=== PATIENT | male | born 1970 | race Caucasian/White ===

== ENCOUNTER 2017-05-25 18:23 | Emergency (ER) | payer MEDICAID, SELFPAY ==
[2017-05-25 18:24] VITALS: BP 149/72; PULSE 71; RESP 16; TEMP 37.3; O2SAT 97; BMI 34.0
--- NOTE | 2017-05-25 18:31 | ED.RN ---
SO NOTIFIED AND WILL SEND AVAILABLE OFFICER.
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
[2017-05-25 19:08] LABS: Absolute Lymphocyte Count 1.69 X10^3/ul (0.83-4.51); Absolute Neutrophil Count 4.1 X10^3/uL (2.0-7.7); Basophil# 0.02 X10^3/uL; Basophil% 0.3 % (0-1); Eosinophils% 1.6 % (0-5); Hematocrit 45.9 % (40-54); Hemoglobin 15.6 g/dl (13.0-16.5); Lymphocyte # 1.69 X10^3/ul (4.0); Lymphocyte % 26.2 % (19-41); Mean Corpuscular Hgb 30.2 pg (27.0-32.0); Mean Corpuscular Volume 88.8 fL (80-94); Mean Platelet Vol. 9.9 fl (6.2-12.0); Monocyte% 7.8 % (0-10); Neutrophil # 4.12 X10^3/uL (2.7-7.7); Neutrophil % 63.8 % (47-70); Platelet Count 186 K/mm3 (150-450); RBC Distribution Width SD 45.1 fl (35.1-43.9); Red Blood Count 5.17 M/mm3 (4.6-6.2); White Blood Count 6.5 K/mm3 (4.4-11.0)
[2017-05-25 19:10] LABS: POSITIVE COUNT NO; POSITIVE DIFFERENTIAL NO; POSITIVE MORPHOLOGY NO
[2017-05-25 19:17] LABS: Prothrombin Time (Protime)PT. 12.7 SECONDS (11.7-14.9)
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
[2017-05-25 19:27] LABS: BUN 9 mg/dL (7-18); EST Glomerular Filtration Rate 96 mL/min (>60); Estimated Creatinine Clearance 101.47 ml/min; Glucose 103 mg/dL (74-106)
[2017-05-25 19:28] LABS: AST(SGOT) 14 U/L (15-37); Alanine Aminotransfer ALT/SGPT 29 U/L (16-61); Albumin, Serum 3.8 g/dL (3.2-5.0); Alkaline Phosphatase 58 U/L (45-117); Anion Gap 11 (5-15); Calcium,Total 8.6 mg/dL (8.5-10.1); Chloride 104 mmol/L (98-107); Est Glom Filt Rate - Afr Amer 116 mL/min (>60); Potassium 3.7 mmol/L (3.5-5.1); Protein, Total 7.8 g/dL (6.4-8.2); Sodium Level 137 mmol/L (136-145)
[2017-05-25] MEDS: Ondansetron 4 MG/2 ML Vial IV (19:59)
[2017-05-25 20:39] VITALS: BP 138/79; PULSE 60; RESP 16; O2SAT 95
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
[2017-05-25 20:57] VITALS: PULSE 68; RESP 14; O2SAT 98
== END 2017-05-25 20:57 | disposition home or self-care (01) ==
PROVIDERS: Emergency Provider Emergency Medicine; Family Provider Pediatrics; PCP Pediatrics
DX: S00.83XA Contusion of other part of head, initial encounter (principal); S20.219A Contusion of unspecified front wall of thorax, initial encounter; S30.1XXA Contusion of abdominal wall, initial encounter; S63.501A Unspecified sprain of right wrist, initial encounter; S00.81XA Abrasion of other part of head, initial encounter; K21.9 Gastro-esophageal reflux disease without esophagitis; I10 Essential (primary) hypertension; E78.00 Pure hypercholesterolemia, unspecified; Z72.0 Tobacco use; Z79.899 Other long term (current) drug therapy; Y04.2XXA Assault by strike against or bumped into by another person, initial encounter; Y93.89 Activity, other specified; Y92.89 Other specified places as the place of occurrence of the external cause; Y99.8 Other external cause status
CPT/HCPCS: 70450; 70486; 71260; 72125; 73110; 74177; 80053; 80320; 85025; 85610; 96374; 96375; 99284; Q9967; A4216; G0480; J2405

== ENCOUNTER 2017-06-29 03:15 | Observation (INO) | payer MEDICAID, SELFPAY ==
[2017-06-29] VITALS (34 sets, daily range): BP systolic 105–165; BP diastolic 60–98; PULSE 57–75; RESP 13–21; TEMP 36.7–37.2; O2SAT 95–99; BMI 38.2; BMI 36.2
--- NOTE | 2017-06-29 03:23 | EKG12_ITS ---
Test Reason : Blood Pressure : / mmHG Vent. Rate : 059 BPM Atrial Rate : 059 BPM P-R Int : 204 ms QRS Dur : 092 ms QT Int : 424 ms P-R-T Axes : 045 028 022 degrees QTc Int : 419 ms Sinus bradycardia Otherwise normal ECG Confirmed by BILLY SEXTON, DANII ([id number]), multimedia editor CLEVE JONES ([id number]) on 06/29/2017 2:40:28 PM Referred By: GREGORY Confirmed By:DANII CERVANTES MD
--- NOTE | 2017-06-29 03:23 | RAD_ITS ---
STUDY: X-RAY CHEST REASON FOR EXAM: Male, 47 years old. Headache left facial droop, numbness and tingling slurred speech aren't seen. No resolved. TECHNIQUE: Single AP portable view of the chest. COMPARISON: CT chest 05/25/2017 FINDINGS: There are superimposed monitor leads. The lungs are clear and expanded. There are areas of hyperinflation.Normal size heart. Normal mediastinum and candelaria. Normal visualized pulmonary arteries. Normal visualized aortic arch and descending thoracic aorta. Normal visualized thoracic spine. Normal visualized ribs, clavicles, and shoulders. There is no demonstrated abnormality of the visualized soft tissue structures of the upper abdomen. RAD/Chest 1 View IMPRESSION: No acute cardiopulmonary disease. Stable hyperinflation predominating the upper lung parenchyma. No significant interval change. Electronically Signed: Geno Grimes MD at 4:51 EDT , Service support ,
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
[2017-06-29 03:40] LABS: Absolute Lymphocyte Count 2.61 X10^3/ul (0.83-4.51); Absolute Neutrophil Count 4.2 X10^3/uL (2.0-7.7); Basophil# 0.03 X10^3/uL; Basophil% 0.4 % (0-1); Eosinophil# 0.15 X10^3/uL; Eosinophils% 1.9 % (0-5); Hematocrit 42.5 % (40-54); Hemoglobin 14.7 g/dl (13.0-16.5); Lymphocyte # 2.61 X10^3/ul (4.0); Lymphocyte % 33.8 % (19-41); Mean Corp Hgb Conc 34.6 g/gl (32-36); Mean Corpuscular Hgb 30.4 pg (27.0-32.0); Mean Corpuscular Volume 87.8 fL (80-94); Mean Platelet Vol. 9.7 fl (6.2-12.0); Monocyte# 0.74 X10^3/uL; Monocyte% 9.6 % (0-10); Neutrophil # 4.18 X10^3/uL (2.7-7.7); POSITIVE COUNT NO; POSITIVE DIFFERENTIAL NO; POSITIVE MORPHOLOGY NO; Platelet Count 175 K/mm3 (150-450); RBC Distribution Width CV 13.9 % (11.6-14.6); RBC Distribution Width SD 44.3 fl (35.1-43.9); Red Blood Count 4.84 M/mm3 (4.6-6.2); White Blood Count 7.7 K/mm3 (4.4-11.0)
[2017-06-29] MEDS: Acetaminophen 500 MG Tablet 1000 MG PO (03:42)
[2017-06-29 03:43] LABS: International Normalized Ratio 0.9; Prothrombin Time (Protime)PT. 12.3 SECONDS (11.7-14.9)
[2017-06-29 03:44] LABS: Partial Thromboplast Time 26.9 Seconds (24.1-36.2)
[2017-06-29 03:58] LABS: Anion Gap 10 (5-15); BUN 9 mg/dL (7-18); Chloride 107 mmol/L (98-107); Creatinine, Serum 0.82 mg/dL (0.70-1.30); EST Glomerular Filtration Rate 107 mL/min (>60); Est Glom Filt Rate - Afr Amer 130 mL/min (>60); Estimated Creatinine Clearance 106.59 ml/min; Glucose 101 mg/dL (74-106); Potassium 3.3 mmol/L (3.5-5.1); Sodium Level 141 mmol/L (136-145)
[2017-06-29] MEDS: Ketorolac 30 MG/ML Syringe IV (04:28)
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
[2017-06-29 05:57] LABS: Amphetamine Urine VISTA NEGATIVE (<1000 ng/mL); Barbiturate Urine VISTA NEGATIVE (< 200 ng/mL); Benzodiazepine Urine VISTA NEGATIVE (< 200 ng/mL); Cocaine Urine VISTA NEGATIVE (< 300 ng/mL); Ecstacy Urine VISTA NEGATIVE (< 500 ng/mL); Methadone Urine VISTA NEGATIVE (< 300 ng/mL); PCP Urine VISTA NEGATIVE (< 25 ng/mL); THC Urine VISTA NEGATIVE (< 50 ng/mL); Vista UDS pH Range 6
[2017-06-29] MEDS: Morphine 4 MG/ML Syringe IV (06:31)
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
[2017-06-29] MEDS: 0.9% Normal Saline 1,000 ML 999 ML IV (06:50)
[2017-06-29] MEDS: Aspirin 81 MG TAB.CHEW 324 MG PO (06:53)
[2017-06-29] MEDS: HEPARIN/D5w 25,000 UNITS 25,000 UNITS/250 ML IV.SOLN. 15 UNITS IV (06:55)
[2017-06-29 07:15] LABS: Bedside Glucose 109 mg/dL (70-110)
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
--- NOTE | 2017-06-29 07:53 | MRI_ITS ---
STUDY: MRI BRAIN WITHOUT CONTRAST REASON FOR EXAM: Male, 47 years old. Acute onset of left-sided facial numbness. TECHNIQUE: Standardized multiplanar fat and water weighted pulse sequences were obtained. COMPARISON: CT of the head dated June 29, 2017. FINDINGS: Normal size of the ventricles and extra-axial spaces for the patient's age. Normal white matter tracts of the supratentorial brain. There is no evidence for recent intracranial ischemia or other cause of cytotoxic edema on diffusion weighted imaging (DWI). Normal T2* images of the brain without demonstrated susceptibility artifact. There is no demonstrated hemosiderin stain. There are prominent perivascular spaces (PVS) involving the basal ganglia. Normal thalami. There is no extra-axial fluid accumulation. Normal flow voids within the major intracranial circulation suggesting patency by spin echo criteria. Normal sella turcica, pituitary gland, infundibular stalk, optic chiasm and hypothalamus. Normal tectal plate and pineal gland. Normal midbrain, nahum and medulla. Normal cerebellum. Normal basal cisterns. Normal bilateral temporal bones. Normal bilateral internal auditory canals. No demonstrated orbital abnormality, within the constraints of a routine brain study. There is mucoperiosteal inflammatory disease of the paranasal sinuses consistent with mild chronic sinusitis. Normal calvarium and skull base. Normal visualized soft tissue structures. Normal visualized upper cervical spine. MRI/Brain without Contrast IMPRESSION: 1. Normal unenhanced MRI of the brain. 2. No MR evidence for acute infarct. Electronically Signed: Ellen Rodriguez MD at 10:49 EDT , Service support ,
--- NOTE | 2017-06-29 07:53 | ECHOD_ITS ---
Reason For Study: TIA/CVA Procedure This was a 2D Doppler, Color Flow transthoracic echocardiogram. Exam performed portable in ICU/CCU. Left Ventricle Normal LV size. Left ventricular systolic function is normal. The estimated ejection fraction is 60 %. No regional wall motion abnormalities noted. Right Ventricle Normal RV size. Normal systolic function. Atria Normal left atrium. Normal right atrium. Bubble contrast study negative for right to left interatrial shunt. Mitral Valve Normal mitral valve. Tricuspid Valve Normal tricuspid valve. Unable to estimate RV systolic pressure, pulmonary artery pressure probably normal. Aortic Valve Normal aortic valve. Trisinus/trileaflet aortic valve. Pulmonic Valve Normal pulmonic valve. Mild (1+) pulmonic valve insufficiency. Great Vessels Normal aortic root. The pulmonary artery is normal size. Normal inferior vena cava. Pericardium/Pleural No pericardial effusion. Medication Performed a rapid injection of agitated mix of 9 cc saline and 1cc air to assess for atrial septal defect. MMode/2D Measurements & Calculations LVIDd: 4.8 cm IVSd: 1.1 cm Ao root diam: 3.5 cm LVIDs: 3.3 cm LVPWd: 1.1 cm LA dimension: 3.8 cm RVDd: 4.3 cm FS: 30.9 % LAV(MOD-bp): 54.1 ml EDV(MOD-sp4): 126.3 ml EDV(MOD-sp2): 152.1 ml LAV(MOD-bp) Indexed: 24.3 ml/m2 ESV(MOD-sp4): 51.0 ml EF(MOD-sp2): 62.0 % LAV(MOD-sp2): 51.7 ml EF(MOD-sp4): 59.6 % LAV(MOD-sp4): 52.5 ml SV(MOD-sp4): 75.3 ml SV(MOD-sp2): 94.3 ml LA A4 area: 19.7 cm2 RA A4 area: 15.6 cm2 Doppler Measurements & Calculations MV E max ghazala: 117.5 cm/sec Ao V2 max: 135.1 cm/sec LV V1 max: 123.0 cm/sec MV A max ghazala: 54.4 cm/sec Ao max P.3 mmHg LV V1 max P.1 mmHg MV E/A: 2.2 Interpretation Summary Normal LV size. Left ventricular systolic function is normal. The estimated ejection fraction is 60 %. No regional wall motion abnormalities noted. Bubble contrast study negative for right to left interatrial shunt. Structurally normal valves. Ordering Physician: Bernice West Referring Physician: TOBY TRAVIS Performed By: Ibeth Henning, WISAM, RVT
--- NOTE | 2017-06-29 07:59 | PCM.CON.CC ---
Reason for Consult Date of Consultation: 06/29/17 Reason for Consultation: Questionable CVA History of Present Illness: The patient is a 47-year-old male, with a history as outlined below, who presented to the emergency department on June 29 after awakening with dysarthria, left facial droop and left-sided weakness. The patient reports that his symptoms initially began around 0200 hrs. He reports never having experienced anything similar to this previously. He does have a history of paroxysmal atrial fibrillation for which he is on a beta-mark. He does report a daily smoking history. He does not utilize supplemental oxygen at his baseline. He also has a self-reported history of obstructive sleep apnea. He does endorse the presence of a headache, which has been present since yesterday afternoon. On presentation to the emergency department, the patient was noted to be afebrile and hemodynamically stable. He was maintaining appropriate oxygen saturations on room air. Laboratory evaluation revealed no evidence of a leukocytosis. Coagulation profile is within normal limits. Chemistry profile was notable only for a serum potassium level of 3.3. Troponin was negative. Toxicology screen revealed an ethyl alcohol level of 203. Head CT revealed no acute intracranial findings. Plain film chest x-ray revealed hyperinflated lung lieberman without acute infiltrative process. CTA head and neck was also completed without any hemodynamically significant stenosis noted. The patient's case was discussed with neurology, with recommendations for TPA administration. However, the patient refused to allow for administration. He was then transferred to the medical intensive care unit for ongoing management. Past Medical History Past Medical History (Chronic Problems): Chronic Problems JOHNATHAN (obstructive sleep apnea) (Chronic) Noncompliance with CPAP treatment (Chronic) Depression (Chronic) Chronic back pain (Chronic) Hyperlipidemia (Chronic) Paroxysmal atrial fibrillation (Chronic) Follow up with front services agent at [place] Tobacco dependence (Chronic) GERD (gastroesophageal reflux disease) (Chronic) Allergies azithromycin Allergy (Verified 06/29/17 03:44) Shortness of breath Home Medications: Ambulatory Orders Medication Instructions Recorded Atenolol [Tenormin (beta Mark)] 25 mg PO DAILY 09/08/14 Sertraline HCl [Zoloft] 100 mg PO DAILY 09/08/14 Omeprazole [Prilosec] 40 mg PO DAILY 05/25/17 Hydrocodone/Acetaminophen 5 mg PO TID PRN PRN 06/29/17 [Hydrocodone-Acetamin 5-325 mg] Surgical History: appendectomy Psychiatric History: Depression Lives: With Family, - - His in the summer of 2017 and he has been depressed since then and has started drinking. He has an 18 YO dtr with MRDD at home and his son also lives with him. Smoking Status: Current every day smoker Tobacco Use: Cigarettes - 2 PPD Alcohol: Occasional - I suspect he is underestimating Drugs: None - *Family History Sibling History Items: Diabetes, Heart Disease Maternal History Items: Diabetes, Heart Disease - [place] at 35 y/o., Stroke Paternal History Items: Diabetes, Heart Disease, Stroke Review of Systems Constitutional: Denies: Chills, Fever, Night Sweats Eyes: Denies: Blurred vision, Double vision HEENT: Denies: Head Aches, Sinus Congestion, Sinus Drainage Cardiovascular: Denies: Chest Pain, Palpitations Respiratory: Denies: Cough, Shortness of breath at rest, Sputum production Gastrointestinal: Denies: Abdominal Pain, Nausea, Vomiting Genitourinary: Denies: Dysuria Musculoskeletal: Denies: Joint Pain, Joint Tenderness Skin: Denies: Rash, Wounds Neurological: Reports: Slurred speech, Focal weakness, Headaches Psychiatric: Denies: Anxiety, Depression, Homicidal Ideations, Suicidal Ideations Hematologic/ Lymphatic: Denies: Easy Bruising, Easy Bleeding Patient Problems: Active and Suspected Problems CVA (cerebral vascular accident) (Acute) Obesity (BMI 30-39.9) (Acute) Alcohol intoxication (Acute) Cephalgia (Acute) TIA (transient ischemic attack) (Acute) Objective: The patient's most recent lab work, culture data and imaging studies have all been personally reviewed. - Physical Exam General: Alert, Oriented x3, Cooperative, No apparent distress HEENT: Atraumatic, PERRLA, Normocephalic Oral: Moist Mucosa, No Gingival or Mucosal Lesions/ Ulcerations Neck: Supple, No Nodes, Trachea Midline Lungs: Normal air movement, No rhonchi, No wheeze, No rales Cardiovascular: Regular rate, Regular Rhythm, Normal S1, Normal S2, No murmurs Abdomen: Bowel Sounds Present, Soft, Non Tender, Obese Extremities: No clubbing, No cyanosis, No edema Skin: No rashes, No breakdown Musculoskeletal: No Tenderness to Palpation of Joints or Extremities, No Muscle Wasting Lymphatic: No Cervical, Supraclavicular, or Inguinal Adenopathy Neurological: Cranial nerves II-XII grossly intact, - - 4/5 LUE/LLE, Mild drift. No dysarthria or facial droop Psych/Mental Status: Alert and oriented to time, place, person, mood and affect Vital Signs Temp Pulse Resp BP Pulse Ox 98.9 F 63 16 105/64 97 06/29/17 07:36 06/29/17 07:36 06/29/17 07:36 06/29/17 07:36 06/29/17 07:36 Oxygen Flow Rate (L/min) 2 Oxygen Delivery Method Nasal Cannula Weight: 245 lb 5.992 oz Body Mass Index (BMI) 36.2 Labs (Last 48 Hours) 06/29/17 06/29/17 06/29/17 03:17 03:25 03:25 WBC 7.7 RBC 4.84 Hgb 14.7 Hct 42.5 MCV 87.8 MCH 30.4 MCHC 34.6 RDW 13.9 RDW Differential 44.3 H Plt Count 175 MPV 9.7 Immature Gran % (Auto) 0.300 Neut % (Auto) 54.0 Lymph % (Auto) 33.8 [place] % (Auto) 9.6 Eos % (Auto) 1.9 Baso % (Auto) 0.4 Absolute Neuts (auto) 4.2 Absolute Lymphs (auto) 2.61 Total Counted Not Reportable PT 12.3 INR 0.9 APTT 26.9 Sodium Potassium Chloride Carbon Dioxide Anion Gap BUN Creatinine Estim Creat Clear Calc Est GFR (MDRD) Af Amer Est GFR (MDRD) Non-Af BUN/Creatinine Ratio Glucose Hemoglobin A1c Calcium Total Bilirubin Direct Bilirubin AST ALT Alkaline Phosphatase Troponin I Total Protein Albumin Globulin TSH Urine Opiates Screen Urine Methadone Screen Ur Barbiturates Screen Ur Phencyclidine Scrn Ur Amphetamines Screen U Methamphetamin-MDMA U Benzodiazepines Scrn Urine Cocaine Screen U Cannabinoids Screen Ur Drug Screen Comment Ethyl Alcohol MRSA (PCR) POC Glucose 109 06/29/17 06/29/17 06/29/17 03:25 03:25 03:25 WBC RBC Hgb Hct MCV MCH MCHC RDW RDW Differential Plt Count MPV Immature Gran % (Auto) Neut % (Auto) Lymph % (Auto) [place] % (Auto) Eos % (Auto) Baso % (Auto) Absolute Neuts (auto) Absolute Lymphs (auto) Total Counted PT INR APTT Sodium 141 Potassium 3.3 L Chloride 107 Carbon Dioxide 24.0 Anion Gap 10 BUN 9 Creatinine 0.82 Estim Creat Clear Calc 106.59 Est GFR (MDRD) Af Amer 130 Est GFR (MDRD) Non-Af 107 BUN/Creatinine Ratio 11.0 Glucose 101 Hemoglobin A1c 5.6 Calcium 8.0 L Total Bilirubin 0.20 Direct Bilirubin < 0.05 AST 26 ALT 35 Alkaline Phosphatase 53 Troponin I < 0.02 Total Protein 7.1 Albumin 3.6 Globulin 3.5 TSH 3.95 H Urine Opiates Screen Urine Methadone Screen Ur Barbiturates Screen Ur Phencyclidine Scrn Ur Amphetamines Screen U Methamphetamin-MDMA U Benzodiazepines Scrn Urine Cocaine Screen U Cannabinoids Screen Ur Drug Screen Comment Ethyl Alcohol MRSA (PCR) POC Glucose 06/29/17 06/29/17 06/29/17 03:55 05:30 07:45 WBC RBC Hgb Hct MCV MCH MCHC RDW RDW Differential Plt Count MPV Immature Gran % (Auto) Neut % (Auto) Lymph % (Auto) [place] % (Auto) Eos % (Auto) Baso % (Auto) Absolute Neuts (auto) Absolute Lymphs (auto) Total Counted PT INR APTT Sodium Potassium Chloride Carbon Dioxide Anion Gap BUN Creatinine Estim Creat Clear Calc Est GFR (MDRD) Af Amer Est GFR (MDRD) Non-Af BUN/Creatinine Ratio Glucose Hemoglobin A1c Calcium Total Bilirubin Direct Bilirubin AST ALT Alkaline Phosphatase Troponin I Total Protein Albumin Globulin TSH Urine Opiates Screen NEGATIVE Urine Methadone Screen NEGATIVE Ur Barbiturates Screen NEGATIVE Ur Phencyclidine Scrn NEGATIVE Ur Amphetamines Screen NEGATIVE U Methamphetamin-MDMA NEGATIVE U Benzodiazepines Scrn NEGATIVE Urine Cocaine Screen NEGATIVE U Cannabinoids Screen NEGATIVE Ur Drug Screen Comment Ethyl Alcohol 203.0 MRSA (PCR) Pending POC Glucose Clinical Impression(s) from Imaging Studies Brain CT 06/29/17 03:23 IMPRESSION: There is no acute intracranial pathology. There is no significant interval change. Electronically Signed: Geno Grimes MD at 4:48 EDT , Service support , Chest X-Ray 06/29/17 03:23 IMPRESSION: No acute cardiopulmonary disease. Stable hyperinflation predominating the upper lung parenchyma. No significant interval change. Electronically Signed: Geno Grimes MD at 4:51 EDT , Service support , Head CTA 06/29/17 06:44 IMPRESSION: Normal [place] of [place] without a demonstrated aneurysm or hemodynamically significant stenosis. Electronically Signed: Tian Clayton DO at 7:58 EDT Tel , Service support , Neck CTA 06/29/17 06:44 IMPRESSION: Normal bilateral cervical carotid and vertebral arteries. Electronically Signed: Tian Clayton DO at 7:55 EDT Tel , Service support , Assessment/Plan Active and Suspected Problems CVA (cerebral vascular accident) (Acute) Obesity (BMI 30-39.9) (Acute) Alcohol intoxication (Acute) Cephalgia (Acute) TIA (transient ischemic attack) (Acute) RECOMMENDATIONS: 1. Continue stroke protocol 2. Neurology consultation is pending 3. Obtain echocardiogram 4. MRI is pending 5. Permissive hypertension for now 6. Smoking cessation is advisable IMPRESSIONS: 1. Questionable CVA versus TIA The patient certainly has risk factors for stroke. In addition, he reports a history of paroxysmal atrial fibrillation, for which he is not currently anticoagulated. He is also a known smoker. Plan to continue current stroke protocol. MRI is pending. Neurology has been consulted. Obtain echocardiogram and allow for permissive hypertension. 2. Paroxysmal atrial fibrillation Okay to continue beta-mark. Consider cardiology consultation, as the patient is not anticoagulated but has very real risk factors for CVA. 3. Tobacco dependence/obesity/hypertension/hyperlipidemia Complicates care, management, recovery and prognosis. Hold antihypertensives until MRI is resulted. Continue statin and aspirin. Smoking cessation is advisable. Weight loss is also advisable. This note was generated with [employer] software. It may contain incorrect words, spelling, and punctuation that were not noted in checking the note before signing. ADDENDUM: MRI Head showed no evidence of CVA. Clinical concern that TIA was etiology for presenting symptoms, which have resolved. The patient is now medically stable for transfer out of the ICU. Will sign off from a critical care perspective. Code Visit Inpatient E&M: 44197 Init Hosp L3
--- NOTE | 2017-06-29 08:09 | CON.PCM_ITS ---
Reason for Consult Date of Consultation: 06/29/17 Reason for Consultation: Questionable CVA History of Present Illness: The patient is a 47-year-old male, with a history as outlined below, who presented to the emergency department on June 29 after awakening with dysarthria, left facial droop and left-sided weakness. The patient reports that his symptoms initially began around 0200 hrs. He reports never having experienced anything similar to this previously. He does have a history of paroxysmal atrial fibrillation for which he is on a beta-mark. He does report a daily smoking history. He does not utilize supplemental oxygen at his baseline. He also has a self-reported history of obstructive sleep apnea. He does endorse the presence of a headache, which has been present since yesterday afternoon. On presentation to the emergency department, the patient was noted to be afebrile and hemodynamically stable. He was maintaining appropriate oxygen saturations on room air. Laboratory evaluation revealed no evidence of a leukocytosis. Coagulation profile is within normal limits. Chemistry profile was notable only for a serum potassium level of 3.3. Troponin was negative. Toxicology screen revealed an ethyl alcohol level of 203. Head CT revealed no acute intracranial findings. Plain film chest x-ray revealed hyperinflated lung lieberman without acute infiltrative process. CTA head and neck was also completed without any hemodynamically significant stenosis noted. The patient' s case was discussed with neurology, with recommendations for TPA administration. However, the patient refused to allow for administration. He was then transferred to the medical intensive care unit for ongoing management. 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 investigator at [place] Tobacco dependence (Chronic) GERD (gastroesophageal reflux disease) (Chronic) Allergies azithromycin Allergy (Verified 06/29/17 03:44) Shortness of breath Home Medications: Ambulatory Orders Medication Instructions Recorded Atenolol [Tenormin (beta Mark)] 25 mg PO DAILY 09/08/14 Sertraline HCl [Zoloft] 100 mg PO DAILY 09/08/14 Omeprazole [Prilosec] 40 mg PO DAILY 05/25/17 Hydrocodone/Acetaminophen 5 mg PO TID PRN PRN 06/29/17 [Hydrocodone-Acetamin 5-325 mg] Surgical History: appendectomy Psychiatric History: Depression Lives: With Family, - - His in the summer of 2017 and he has been depressed since then and has started drinking. He has an 18 YO dtr with MRDD at home and his son also lives with him. Smoking Status: Current every day smoker Tobacco Use: Cigarettes - 2 PPD Alcohol: Occasional - I suspect he is underestimating Drugs: None - *Family History Sibling History Items: Diabetes, Heart Disease Maternal History Items: Diabetes, Heart Disease - [place] at 35 y/o., Stroke Paternal History Items: Diabetes, Heart Disease, Stroke Review of Systems Constitutional: Denies: Chills, Fever, Night Sweats Eyes: Denies: Blurred vision, Double vision HEENT: Denies: Head Aches, Sinus Congestion, Sinus Drainage Cardiovascular: Denies: Chest Pain, Palpitations Respiratory: Denies: Cough, Shortness of breath at rest, Sputum production Gastrointestinal: Denies: Abdominal Pain, Nausea, Vomiting Genitourinary: Denies: Dysuria Musculoskeletal: Denies: Joint Pain, Joint Tenderness Skin: Denies: Rash, Wounds Neurological: Reports: Slurred speech, Focal weakness, Headaches Psychiatric: Denies: Anxiety, Depression, Homicidal Ideations, Suicidal Ideations Hematologic/ Lymphatic: Denies: Easy Bruising, Easy Bleeding Patient Problems: Active and Suspected Problems CVA (cerebral vascular accident) (Acute) Obesity (BMI 30-39.9) (Acute) Alcohol intoxication (Acute) Cephalgia (Acute) TIA (transient ischemic attack) (Acute) Objective: The patient's most recent lab work, culture data and imaging studies have all been personally reviewed. - Physical Exam General: Alert, Oriented x3, Cooperative, No apparent distress HEENT: Atraumatic, PERRLA, Normocephalic Oral: Moist Mucosa, No Gingival or Mucosal Lesions/ Ulcerations Neck: Supple, No Nodes, Trachea Midline Lungs: Normal air movement, No rhonchi, No wheeze, No rales Cardiovascular: Regular rate, Regular Rhythm, Normal S1, Normal S2, No murmurs Abdomen: Bowel Sounds Present, Soft, Non Tender, Obese Extremities: No clubbing, No cyanosis, No edema Skin: No rashes, No breakdown Musculoskeletal: No Tenderness to Palpation of Joints or Extremities, No Muscle Wasting Lymphatic: No Cervical, Supraclavicular, or Inguinal Adenopathy Neurological: Cranial nerves II-XII grossly intact, - - 4/5 LUE/LLE, Mild drift. No dysarthria or facial droop Psych/Mental Status: Alert and oriented to time, place, person, mood and affect Vital Signs Temp Pulse Resp BP Pulse Ox 98.9 F 63 16 105/64 97 06/29/17 07:36 06/29/17 07:36 06/29/17 07:36 06/29/17 07:36 06/29/17 07:36 Oxygen Flow Rate (L/min) 2 Oxygen Delivery Method Nasal Cannula Weight: 245 lb 5.992 oz Body Mass Index (BMI) 36.2 Labs (Last 48 Hours) 06/29/17 06/29/17 06/29/17 03:17 03:25 03:25 WBC 7.7 RBC 4.84 Hgb 14.7 Hct 42.5 MCV 87.8 MCH 30.4 MCHC 34.6 RDW 13.9 RDW Differential 44.3 H Plt Count 175 MPV 9.7 Immature Gran % (Auto) 0.300 Neut % (Auto) 54.0 Lymph % (Auto) 33.8 [place] % (Auto) 9.6 Eos % (Auto) 1.9 Baso % (Auto) 0.4 Absolute Neuts (auto) 4.2 Absolute Lymphs (auto) 2.61 Total Counted Not Reportable PT 12.3 INR 0.9 APTT 26.9 Sodium Potassium Chloride Carbon Dioxide Anion Gap BUN Creatinine Estim Creat Clear Calc Est GFR (MDRD) Af Amer Est GFR (MDRD) Non-Af BUN/Creatinine Ratio Glucose Hemoglobin A1c Calcium Total Bilirubin Direct Bilirubin AST ALT Alkaline Phosphatase Troponin I Total Protein Albumin Globulin TSH Urine Opiates Screen Urine Methadone Screen Ur Barbiturates Screen Ur Phencyclidine Scrn Ur Amphetamines Screen U Methamphetamin-MDMA U Benzodiazepines Scrn Urine Cocaine Screen U Cannabinoids Screen Ur Drug Screen Comment Ethyl Alcohol MRSA (PCR) POC Glucose 109 06/29/17 06/29/17 06/29/17 03:25 03:25 03:25 WBC RBC Hgb Hct MCV MCH MCHC RDW RDW Differential Plt Count MPV Immature Gran % (Auto) Neut % (Auto) Lymph % (Auto) [place] % (Auto) Eos % (Auto) Baso % (Auto) Absolute Neuts (auto) Absolute Lymphs (auto) Total Counted PT INR APTT Sodium 141 Potassium 3.3 L Chloride 107 Carbon Dioxide 24.0 Anion Gap 10 BUN 9 Creatinine 0.82 Estim Creat Clear Calc 106.59 Est GFR (MDRD) Af Amer 130 Est GFR (MDRD) Non-Af 107 BUN/Creatinine Ratio 11.0 Glucose 101 Hemoglobin A1c 5.6 Calcium 8.0 L Total Bilirubin 0.20 Direct Bilirubin < 0.05 AST 26 ALT 35 Alkaline Phosphatase 53 Troponin I < 0.02 Total Protein 7.1 Albumin 3.6 Globulin 3.5 TSH 3.95 H Urine Opiates Screen Urine Methadone Screen Ur Barbiturates Screen Ur Phencyclidine Scrn Ur Amphetamines Screen U Methamphetamin-MDMA U Benzodiazepines Scrn Urine Cocaine Screen U Cannabinoids Screen Ur Drug Screen Comment Ethyl Alcohol MRSA (PCR) POC Glucose 06/29/17 06/29/17 06/29/17 03:55 05:30 07:45 WBC RBC Hgb Hct MCV MCH MCHC RDW RDW Differential Plt Count MPV Immature Gran % (Auto) Neut % (Auto) Lymph % (Auto) [place] % (Auto) Eos % (Auto) Baso % (Auto) Absolute Neuts (auto) Absolute Lymphs (auto) Total Counted PT INR APTT Sodium Potassium Chloride Carbon Dioxide Anion Gap BUN Creatinine Estim Creat Clear Calc Est GFR (MDRD) Af Amer Est GFR (MDRD) Non-Af BUN/Creatinine Ratio Glucose Hemoglobin A1c Calcium Total Bilirubin Direct Bilirubin AST ALT Alkaline Phosphatase Troponin I Total Protein Albumin Globulin TSH Urine Opiates Screen NEGATIVE Urine Methadone Screen NEGATIVE Ur Barbiturates Screen NEGATIVE Ur Phencyclidine Scrn NEGATIVE Ur Amphetamines Screen NEGATIVE U Methamphetamin-MDMA NEGATIVE U Benzodiazepines Scrn NEGATIVE Urine Cocaine Screen NEGATIVE U Cannabinoids Screen NEGATIVE Ur Drug Screen Comment Ethyl Alcohol 203.0 MRSA (PCR) Pending POC Glucose Clinical Impression(s) from Imaging Studies Brain CT 06/29/17 03:23 IMPRESSION: There is no acute intracranial pathology. There is no significant interval change. Electronically Signed: Geno Grimes MD at 4:48 EDT , Service support , Chest X-Ray 06/29/17 03:23 IMPRESSION: No acute cardiopulmonary disease. Stable hyperinflation predominating the upper lung parenchyma. No significant interval change. Electronically Signed: Geno Grimes MD at 4:51 EDT , Service support , Head CTA 06/29/17 06:44 IMPRESSION: Normal [place] without a demonstrated aneurysm or hemodynamically significant stenosis. Electronically Signed: Tian Clayton DO at 7:58 EDT Tel , Service support , Neck CTA 06/29/17 06:44 IMPRESSION: Normal bilateral cervical carotid and vertebral arteries. Electronically Signed: Tian Clayton DO at 7:55 EDT Tel , Service support , Assessment/Plan Active and Suspected Problems CVA (cerebral vascular accident) (Acute) Obesity (BMI 30-39.9) (Acute) Alcohol intoxication (Acute) Cephalgia (Acute) TIA (transient ischemic attack) (Acute) RECOMMENDATIONS: 1. Continue stroke protocol 2. Neurology consultation is pending 3. Obtain echocardiogram 4. MRI is pending 5. Permissive hypertension for now 6. Smoking cessation is advisable IMPRESSIONS: 1. Questionable CVA versus TIA The patient certainly has risk factors for stroke. In addition, he reports a history of paroxysmal atrial fibrillation, for which he is not currently anticoagulated. He is also a known smoker. Plan to continue current stroke protocol. MRI is pending. Neurology has been consulted. Obtain echocardiogram and allow for permissive hypertension. 2. Paroxysmal atrial fibrillation Okay to continue beta-mark. Consider cardiology consultation, as the patient is not anticoagulated but has very real risk factors for CVA. 3. Tobacco dependence/obesity/hypertension/hyperlipidemia Complicates care, management, recovery and prognosis. Hold antihypertensives until MRI is resulted. Continue statin and aspirin. Smoking cessation is advisable. Weight loss is also advisable. This note was generated with [employer] software. It may contain incorrect words, spelling, and punctuation that were not noted in checking the note before signing. ADDENDUM: MRI Head showed no evidence of CVA. Clinical concern that TIA was etiology for presenting symptoms, which have resolved. The patient is now medically stable for transfer out of the ICU. Will sign off from a critical care perspective. Code Visit Inpatient E&M: 54130 Init Hosp L3
[2017-06-29] MEDS: 0.9% Normal Saline 1,000 ML 100 ML IV ×2 (08:14→20:48)
[2017-06-29 08:26] LABS: AST(SGOT) 26 U/L (15-37); Alanine Aminotransfer ALT/SGPT 35 U/L (16-61); Albumin, Serum 3.6 g/dL (3.2-5.0); Alkaline Phosphatase 53 U/L (45-117); Bilirubin, Direct < 0.05 mg/dL (0.00-0.30); Globulin 3.5 g/dL (2.2-4.2); Protein, Total 7.1 g/dL (6.4-8.2); Thyroid Stim Hormone (TSH) 3.95 uIU/mL (0.358-3.74)
[2017-06-29 08:28] LABS: Hemoglobin A1c 5.6 % (4.2-6.3)
[2017-06-29] MEDS: Acetaminophen 325 MG Tablet 650 MG PO (08:56)
--- NOTE | 2017-06-29 09:02 | PCM.HOSP.N ---
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 NIH stroke scale was found in ED but after 2 but after that left-sided weakness worsen this is along with limb ataxia. Neurologist recommended TPA but patient refused. On exam Vitals: Heart rate in 60s. Blood pressure 105/64., 98% on 2 L oxygen Awake alert and oriented ?3. comprehends and responds well to the speech. No aphasia Cranial nerves II through XII are intact. Left upper extremity 4/5 and left lower extremity 4/5. He feels improved since he came to ER. Buttock monitor shows normal sinus rhythm. EKG normal sinus rhythm at 62 bpm Patient had negative CT angiogram of head and neck. Scheduled for MRI of brain today. Had just echo today. On a stroke protocol Patient passed initial swallow screen. Cardiac diet On aspirin, atenolol and statin.
--- NOTE | 2017-06-29 09:05 | NURSING ---
Patient left unit to go to MRI with Deborah Browning, project buyer
[2017-06-29] MEDS: LORazepam 2 MG/ML Syringe 0.5 MG IV (09:45)
[2017-06-29 09:50] LABS: M R Staph aureus DNA By PCR Negative (Negative); Probe Check PASS; Specimen Processing Control PASS
--- NOTE | 2017-06-29 10:25 | NURSING ---
Patient returned to room from MRI
[2017-06-29] MEDS: Sertraline 100 MG Tablet PO (10:51)
[2017-06-29] MEDS: Pantoprazole Sodium 40 MG Tablet PO (10:51)
[2017-06-29] MEDS: Atenolol 25 MG Tablet PO (10:51)
[2017-06-29] MEDS: Atorvastatin Calcium 80 MG Tablet PO (10:54)
[2017-06-29] MEDS: Ibuprofen 600 MG Tablet PO (11:43)
--- NOTE | 2017-06-29 14:39 | CON.PCM_ITS ---
Problem List (1) TIA (transient ischemic attack) Status: Acute Qualifiers: Transient cerebral ischemia type: carotid artery syndrome (hemispheric) Qualified Code(s): G45.1 - Carotid artery syndrome (hemispheric) Reason for Consult Date of Consultation: 06/29/17 Reason for Consultation: TIA History of Present Illness: The patient is a 47 year old CM with PMH HLD, Paroxysmal Afib not on AC, ETOH abuse, JOHNATHAN, noncompliant with CPAP, depression admitted with episodes of left sided weakness, numbness and slurred speech. Per patient he woke up at 3 am this morning, was normal then started having difficulty in getting words out, had left sided weakness and numbness, had WILSON since last evening (06/28/17), came to the ED, initially NIHSS was 2 with resolving symptoms, but then per Dr. West when she saw him again this morning (06/29/17) at around 6:10 am in the ED, he had left sided weakness and ataxia with NIHSS increasing to 6, so I was contacted and decided that patient is an Ivtpa candidate but patient refused IVtpa inspite of Dr. West's counseling, later his symptoms started improving and at present denies any slurred speech, focal motor weakness, sensory loss, WILSON or visual disturbances. NIHSS 0 at present. Per patient he drinks more than 24 oz alcohol every weekend or every few days, per documentation he had about 3 beers yesterday (06/28/17), had ETOH level of 203, probably he underestimates his alcohol consumption, he smokes atleast 2 packs per day, lives with children, does not use cane or walker to ambulate, denies any falls, does not need any assistance for his ADLs. Per patient he has been having paroxysmal Afib for long time but is not on any AC and does not take ASA either. MRI brain, CTA head/neck following admission was reported normal. 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 He has an 18 YO dtr with MRDD at home and his son also lives with him. Smoking Status: Current every day smoker Tobacco Use: Cigarettes - 2 PPD Alcohol: Heavy - atleast more than 24 oz on the weekend or in few days per patient Drugs: None - *Family History Sibling History Items: Diabetes, Heart Disease Maternal History Items: Diabetes, Heart Disease - [place] at 35 y/o., Stroke Paternal History Items: Diabetes, Heart Disease, Stroke Review of Systems Constitutional: Reports: - - complete ROS negative except as documented in HPI Patient Problems: Active and Suspected Problems CVA (cerebral vascular accident) (Acute) Obesity (BMI 30-39.9) (Acute) Alcohol intoxication (Acute) Cephalgia (Acute) TIA (transient ischemic attack) (Acute) - Physical Exam General: Alert HEENT: Normocephalic Neck: Supple Lungs: Clear to auscultation Cardiovascular: Regular rate Abdomen: Bowel Sounds Present Skin: No rashes Musculoskeletal: No Tenderness to Palpation of Joints or Extremities Neurological: - - consious, alert, AoAx3, CN 2-12 grossly intact, power 5/5 all 4 limbs, no pronator drift at present, no sensory loss, no cerebellar signs, gait deferred, Reflexes + B/L B/S/T/K/A. NIHSS 0 at present and mRS 0 at baseline Psych/Mental Status: Normal Affect Vital Signs Temp Pulse Resp BP Pulse Ox 98.4 F 59 L 18 143/79 H 99 06/29/17 12:31 06/29/17 12:31 06/29/17 12:31 06/29/17 12:31 06/29/17 12:31 Oxygen Flow Rate (L/min) 2 Oxygen Delivery Method Room Air Weight: 111.3 kg Body Mass Index (BMI) 36.2 Intake and Output for Last 24 Hours 0306/28/17 06/29/17 23:59 23:59 23:59 Intake Total 767 / 767 Balance 767 / 767 Laboratory Tests Past 24 Hrs 06/29/17 06/29/17 06/29/17 07:45 08:55 12:30 Troponin I < 0.02 < 0.02 MRSA (PCR) Negative Assessment/Plan Active and Suspected Problems CVA (cerebral vascular accident) (Acute) Obesity (BMI 30-39.9) (Acute) Alcohol intoxication (Acute) Cephalgia (Acute) TIA (transient ischemic attack) (Acute) The patient is a 47 year old CM with PMH HLD, Paroxysmal Afib not on AC, ETOH abuse, JOHNATHAN, noncompliant with CPAP, depression admitted with episodes of left sided weakness, numbness and slurred speech. Per patient he woke up at 3 am this morning, was normal then started having difficulty in getting words out, had left sided weakness and numbness, had WILSON since last evening (06/28/17), came to the ED, initially NIHSS was 2 with resolving symptoms, but then per Dr. West when she saw him again this morning (06/29/17) at around 6:10 am in the ED, he had left sided weakness and ataxia with NIHSS increasing to 6, so I was contacted and decided that patient is an Ivtpa candidate but patient refused IVtpa inspite of Dr. West's counseling, later his symptoms started improving and at present denies any slurred speech, focal motor weakness, sensory loss, WILSON or visual disturbances. NIHSS 0 at present. Per patient he drinks more than 24 oz alcohol every weekend or every few days, per documentation he had about 3 beers yesterday (06/28/17), had ETOH level of 203, probably he underestimates his alcohol consumption, he smokes atleast 2 packs per day, lives with children, does not use cane or walker to ambulate, denies any falls, does not need any assistance for his ADLs. Per patient he has been having paroxysmal Afib for long time but is not on any AC and does not take ASA either. MRI brain, CTA head/neck following admission was reported normal Impression Probable TIA ETOH intoxication Plan -Since patient has h/o paroxysmal Afib, [id number] VASc score is atleast 2 at present, recommend Eliquis 5 mg PO BID. Bleeding risks discussed in detail with the patient, patient counseled to be compliant with medication. He understands the same. -On Lipitor 80 mg PO q hs -MRI brain reported normal -CTA head/neck reported normal -Cardiology consult for Afib -LDL-p, Bhg2o-5.6 -TTE-p -Recommend hypercoagulable panel -Recommend PT/OT/ST -Recommend Thiamine 100 mg PO daily -W/F DTs. -Patient counseled to quit alcohol and smoking since can increase stroke risk, he acknowledges the same. -Goal BP < 130/80 mmHg, and Hba1c < 7% -Stroke risk factors discussed, stroke education provided. -GI/DVT prophylaxis -Fall precautions -Follow up with Neurology as outpatient in 2 weeks -Please call with questions if any -Thank you for allowing us to participate in patient's care and management I spent 60 minutes of critical care time taking history, doing physical examination, reviewing medical records, coordinating care and counseling the patient. Code Visit Inpatient E&M: [id number] Init Hosp L3
--- NOTE | 2017-06-29 15:27 | NURSING ---
This RN taking over care at this time.
--- NOTE | 2017-06-29 16:34 | CON.PCM_ITS ---
Reason for Consult Date of Consultation: 06/29/17 History of Present Illness: The patient is a 47 year old M with past medical history significant for sleep apnea, obesity, nicotine dependence and atrial fibrillation. He has been admitted with a TIA. He presented with left-sided weakness which has subsequently resolved. According to him, he was diagnosed with atrial fibrillation many years ago. Subsequently he converted on his own. Complains of palpitations off and on. Last very briefly. Denies any history of syncope or presyncope. No history of CVA. No history of TIA prior to this episode. Patient has already been seen by neurologist and started on anticoagulation for his TIA and history of paroxysmal atrial fibrillation. The patient denies any chest pains either at rest or with exertion. He does have some shortness of breath with exertion. Denies any orthopnea or paroxysmal nocturnal dyspnea. [] Past Medical History Allergies/Adverse Reactions: Allergies azithromycin Allergy (Verified 06/29/17 03:44) Shortness of breath Home Medications: Ambulatory Orders Medication Instructions Recorded Atenolol [Tenormin (beta Mark)] 25 mg PO DAILY 09/08/14 Sertraline HCl [Zoloft] 100 mg PO DAILY 09/08/14 Omeprazole [Prilosec] 40 mg PO DAILY 05/25/17 Past Medical History (Chronic Problems): Chronic Problems JOHNATHAN (obstructive sleep apnea) (Chronic) Noncompliance with CPAP treatment (Chronic) Depression (Chronic) Chronic back pain (Chronic) Hyperlipidemia (Chronic) Paroxysmal atrial fibrillation (Chronic) 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 He has an 18 YO dtr with MRDD at home and his son also lives with him. Smoking Status: Current every day smoker Tobacco Use: Cigarettes - 2 PPD Alcohol: Heavy - atleast more than 24 oz on the weekend or in few days per patient Drugs: None Review of Systems - Review of Systems General: Denies: Fever, Chills, Weight Loss HEENT: Denies: Sore Throat Cardiovascular: Reports: Shortness of Breath with Exertion, Palpitations. Denies: Chest Discomfort, Chest Discomfort at Rest, Chest Discomfort with Exertion, Orthopnea, PND, Near Syncope, Syncope Respiratory: Denies: Cough, Hemoptysis Gastrointestinal: Denies: Abdominal Discomfort, Jaundice, Nausea, Hematemesis Genitourinary: Denies: Dysuria, Frequency, Urgency Muscoloskeletal: Denies: Myalgias Neurological: Denies: Falls, History of CVA Endocrine: Denies: Heat Intolerance, Cold Intolerance Hematologic/ Lymphatic: Denies: Easy Brusing Subjectve: Comfortable. Lying flat in the bed. No apparent distress. Objective: Vital Signs Temp Pulse Resp BP Pulse Ox 98.1 F 58 L 18 150/73 H 96 06/29/17 15:40 06/29/17 15:40 06/29/17 15:40 06/29/17 15:40 06/29/17 15:40 Oxygen Flow Rate (L/min) 2 Oxygen Delivery Method Room Air Weight: 111.3 kg Body Mass Index (BMI) 36.2 Intake and Output for Last 24 Hours 06/27/17 06/28/17 06/29/17 23:59 23:59 23:59 Intake Total 767 / 767 Balance 767 / 767 General: Healthy Appearing, Awake, Alert, Oriented x 3, No Acute Distress HEENT: Atraumatic, Normocephalic Oral: Moist Mucosa Neck: Supple, No JVD Lungs: Clear to auscultation Cardiovascular: Regular Rhythm, Normal S1, Normal S2 Vascular: No Carotid Bruits Abdomen: Bowel Sounds Present, Soft Extremities: No edema Neurological: - - Alert oriented ?3 06/29/17 08:55: Troponin I < 0.02 06/29/17 12:30: Troponin I < 0.02 Rhythm: Normal sinus rhythm EKG: Sinus rhythm ECHO: Pending Stress Test: Cardiac Cath: PCI: CT Surgery: Holter monitor: EPS: PPM: CXR: Chest CT Scan: Assessment/Plan 1. TIA. Resolved 2. History of atrial fibrillation in the past. Now with occasional palpitations. Suspect paroxysmal atrial fibrillation. In view of the recent TIA, the patient has been started on anticoagulation by neurology. Agree. Risks benefits of chronic anticoagulation discussed with patient. He understands and wishes to continue with anticoagulation. Patient admits to excessive caffeine intake. Counseled to cut down or ideally stop 3. Hypertension. Monitor. If remains on the higher side, then may need to start on an ROXANA inhibitor or thiazide diuretic 4. Echocardiogram is already been done. Await results 5. Dyslipidemia. Manage as per internal medicine 6. Nicotine dependence. Counseled to quit 7. Shortness of breath with exertion. Patient has family history of premature coronary artery disease. Recommend follow-up with cardiology after discharge home. Recommend stress test as outpatient 8. Occasional EtOH abuse. Counseled to quit
[2017-06-29] MEDS: HYDROcodone Bitartrate/Apap 5/325 Tablet PO (18:13)
[2017-06-29 18:21] LABS: Cholesterol 240 mg/dL (200); High Density Lipoprotein 29 mg/dL; Triglycerides 402 mg/dL
--- NOTE | 2017-06-29 18:39 | NURSING ---
Reviewed and agreed on all charting with Ricardo Negrete RN
[2017-06-29] MEDS: APIXABAN 5 MG TABLET PO (21:21)
[2017-06-30] MEDS: HYDROcodone Bitartrate/Apap 5/325 Tablet PO ×2 (00:35→06:59)
[2017-06-30] MEDS: traZODone 100 MG Tablet PO (00:35)
[2017-06-30 03:00] VITALS: PULSE 50
[2017-06-30 03:25] VITALS: BP 151/47; PULSE 46; RESP 16; TEMP 36.5; O2SAT 98
[2017-06-30] MEDS: 0.9% Normal Saline 1,000 ML 100 ML IV (06:04)
[2017-06-30 06:24] LABS: BUN 11 mg/dL (7-18); Glucose 100 mg/dL (74-106)
[2017-06-30 06:25] LABS: Anion Gap 6 (5-15); BUN/Creat Ratio 14.1 RATIO (10-20); Calcium,Total 7.8 mg/dL (8.5-10.1); Chloride 109 mmol/L (98-107); Cholesterol 224 mg/dL (200); Creatinine, Serum 0.78 mg/dL (0.70-1.30); EST Glomerular Filtration Rate 113 mL/min (>60); Est Glom Filt Rate - Afr Amer 137 mL/min (>60); Estimated Creatinine Clearance 115.82 ml/min; High Density Lipoprotein 32 mg/dL; Sodium Level 139 mmol/L (136-145); Triglycerides 318 mg/dL; Very Low Density Lipoprotein 64 mg/dL (5-40)
[2017-06-30 06:58] VITALS: PULSE 54
--- NOTE | 2017-06-30 08:30 | CASEMGMT ---
ROMI RUBIO CHART REVIEW: TAYLA STRATA: 3 ADM DX: TIA v CVA INSURANCE: [facility] STATUS: IP WALES: Per physician documentation, The patient is a 47 year old CM who presented to [facility] 06/29/17 after he woke up in the morning, was normal then started having difficulty in getting words out, had left sided weakness and numbness, had WILSON since last evening (06/28/17), came to the ED, initially NIHSS was 2 with resolving symptoms, but per Dr. West when she saw him again this morning (06/29/17) at around 6:10 am in the ED, he had left sided weakness and ataxia with NIHSS increasing to 6. Dr. Jensen was contacted and decision was made that patient was TPA candidate but patient refused. Patient continued to be monitored and demonstrated improvement. PMHX: HLD, Paroxysmal Afib not on AC, ETOH abuse, JOHNATHAN, noncompliant with CPAP, depression admitted with episodes of left sided weakness, numbness and slurred speech Transition Planning/Care Coordination: ROMI RUIBO reviewed EMR and noted referral was placed for Behavioral Health Referral based on patient's past history of depression and recent of his in 2016. Also noted in documentation, patient drinks more than 24 oz alcohol every weekend or every few days, per documentation he had about 3 beers yesterday (06/28/17), had ETOH level of 203, and physician suspects patient probably underestimates his alcohol consumption. The patient smokes at least 2 packs of cigarettes per day, lives with children, does not use cane or walker to ambulate, denies any falls, does not need any assistance for his ADLs. Patient was counseled on smoking cessation and advised to lose weight, per Dr. Paul's documentation. ROMI RUBIO notified Airam LINK, who will follow-up with patient re: substance abuse, counseling, bereavement counseling, and Behavioral Health referral. Disposition Plan: Home with support of and with follow-up instructions. ALBERTO Lea, RN-BC, [facility] The patient is a 47 year old CM with PMH HLD, Paroxysmal Afib not on AC, ETOH abuse, JOHNATHAN, noncompliant with CPAP, depression admitted with episodes of left sided weakness, numbness and slurred speech. Per patient he woke up at 3 am this morning, was normal then started having difficulty in getting words out, had left sided weakness and numbness, had WILSON since last evening (06/28/17), came to the ED, initially NIHSS was 2 with resolving symptoms, but then per Dr. West when she saw him again this morning (06/29/17) at around 6:10 am in the ED, he had left sided weakness and ataxia with NIHSS increasing to 6, so I was contacted and decided that patient is an Ivtpa candidate but patient refused IVtpa inspite of Dr. West's counseling, later his symptoms started improving and at present denies any slurred speech, focal motor weakness, sensory loss, WILSON or visual disturbances. NIHSS 0 at present. Per patient he drinks more than 24 oz alcohol every weekend or every few days, per documentation he had about 3 beers yesterday (06/28/17), had ETOH level of 203, probably he underestimates his alcohol consumption, he smokes atleast 2 packs per day, lives with children, does not use cane or walker to ambulate, denies any falls, does not need any assistance for his ADLs. Per patient he has been having paroxysmal Afib for long time but is not on any AC and does not take ASA either. MRI brain, CTA head/neck following admission was reported normal Impression Probable TIA ETOH intoxication Plan -Since patient has h/o paroxysmal Afib, [id number] VASc score is atleast 2 at present, recommend Eliquis 5 mg PO BID. Bleeding risks discussed in detail with the patient, patient counseled to be compliant with medication. He understands the same. -On Lipitor 80 mg PO q hs -MRI brain reported normal -CTA head/neck reported normal -Cardiology consult for Afib -LDL-p, [id number] -TTE-p -Recommend hypercoagulable panel -Recommend PT/OT/ST -Recommend Thiamine 100 mg PO daily -W/F DTs. -Patient counseled to quit alcohol and smoking since can increase stroke risk, he acknowledges the same. -Goal BP < 130/80 mmHg, and Hba1c < 7% -Stroke risk factors discussed, stroke education provided. -GI/DVT prophylaxis -Fall precautions -Follow up with Neurology as outpatient in 2 weeks -Please call with questions if any -Thank you for allowing us to participate in patient's care and management
[2017-06-30 09:25] VITALS: BP 150/81; PULSE 48; RESP 16; TEMP 36.8; O2SAT 97
--- NOTE | 2017-06-30 10:00 | CASEMGMT ---
Addendum entered by Airam Newman 06/30/17 12:05: It was also mentioned to SW that patient abuses alcohol. SW spoke with patient again and talked with him about this. He said at least once a week he has about 4 beers as it helps him sleep. SW gave him resources for mental health and grief counseling as well as substance abuse treatment. Airam DOVE Original Note: SW spoke with patient to verify he is still in agreement with talking to Behavioral Health. He said he thinks he is fine and does not feel it is necessary. SW encouraged him to see what they have to say as it is a great program. He still declined. SW also mention Hospice's grief support counseling and he declined this as well. Patient said he appreciates the offers, but is not interested. Airam DOVE
[2017-06-30] MEDS: APIXABAN 5 MG TABLET PO (10:13)
[2017-06-30] MEDS: Pantoprazole Sodium 40 MG Tablet PO (10:14)
[2017-06-30] MEDS: Sertraline 100 MG Tablet PO (10:14)
--- NOTE | 2017-06-30 11:05 | CASEMGMT ---
ROMI RUBIO met with patient to discuss outpatient providers. The patient is established with WONG Sweet. The patient states he used to follow with Dr. Purdy for cardiology in [place], and does not follow with neurology. Patient needs to follow-up with Dr. Ross Neurology in [address] Jensen's recommendation, and will likely need follow-up with cardiology. If patient is discharged over the weekend, case management will follow-up for appointments on Monday. ALBERTO Lea, RN-BC, CCM
[2017-06-30 11:16] VITALS: PULSE 56
--- NOTE | 2017-06-30 12:08 | PCM.DC ---
- Discharge Diagnoses Current Active Problems: Current Active and Chronic Problems CVA (cerebral vascular accident) (Acute) Obesity (BMI 30-39.9) (Acute) Alcohol intoxication (Acute) JOHNATHAN (obstructive sleep apnea) (Chronic) Noncompliance with CPAP treatment (Chronic) Cephalgia (Acute) TIA (transient ischemic attack) (Acute) You will use the following diet at home:: Cardiac Discharge Activity: Return to Normal Activity Call your doctor if you observe: Numbness or Tingling, Shortness of breath, Dizziness, Fainting spells, Chest pain, Increased palpitations (irregular heartbeat) Allergies/Adverse Reactions: Allergies azithromycin Allergy (Verified 06/29/17 03:44) Shortness of breath Medications to take at Discharge Atenolol [Tenormin (beta srikanth)] 25 mg PO DAILY 09/08/14 Sertraline HCl [Zoloft] 100 mg PO DAILY 09/08/14 Omeprazole [Prilosec] 40 mg PO DAILY 05/25/17 Hydrocodone/Acetaminophen [Hydrocodone-Acetamin 5-325 mg] 5 mg PO TID PRN PRN 06/29/17 Apixaban [Eliquis] 5 mg PO BID #60 tab 06/30/17 Atorvastatin Calcium [Lipitor] 80 mg PO QHS #30 tab 06/30/17 Thiamine HCl [B-1] 100 mg PO DAILY #30 tab 06/30/17 The following prescriptions were given: Atorvastatin Calcium [Lipitor] 80 mg PO QHS #30 tab Thiamine HCl [B-1] 100 mg PO DAILY #30 tab Apixaban [Eliquis] 5 mg PO BID #60 tab Primary Care Physician: Alexandrea Saini MD [Primary Care Provider] - Please follow up with your Primary Care Physician in: 1 Week Please Follow Up With: Karyn Jensen MD When: 2 Weeks Please Follow Up With: Mu Alan MD When: 2 Weeks Proposed Discharge Date: 06/30/17
--- NOTE | 2017-06-30 12:16 | PCM.DC.SUM ---
<Nicole Raines - Last Filed: 06/30/17 12:29> Discharge Date and Diagnosis Date of Admission: 06/29/17 Date of Discharge: 06/30/17 - Primary Discharge Diagnosis Active and Suspected Problems 1. Probable acute TIA 2. Paroxysmal atrial fibrillation 3. Alcohol intoxication 4. Hypertension 5. Hyperlipidemia 6. 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 There is no significant interval change. Electronically Signed: Geno Grimes MD at 4:48 EDT , Service support , Chest X-Ray 06/29/17 03:23 IMPRESSION: No acute cardiopulmonary disease. Stable hyperinflation predominating the upper lung parenchyma. No significant interval change. Electronically Signed: Geno Grimes MD at 4:51 EDT , Service support , Head CTA 06/29/17 06:44 IMPRESSION: Normal [place] of [place] without a demonstrated aneurysm or hemodynamically significant stenosis. Electronically Signed: Tian Clayton DO at 7:58 EDT Tel , Service support , Neck CTA 06/29/17 06:44 IMPRESSION: Normal bilateral cervical carotid and vertebral arteries. Electronically Signed: Tian Clayton DO at 7:55 EDT Tel , Service support , Brain MRI 06/29/17 07:53 IMPRESSION: 1. Normal unenhanced MRI of the brain. 2. No MR evidence for acute infarct. Electronically Signed: Ellen Rodriguez MD at 10:49 EDT , Service support , Dr. Paul- [employer] Specialist Dr. Jensen- Neurology Dr. Alan- Cardiology Operations: None Procedures: 2-D Echocardiogram Summary of Care Provided: The patient is a 47 year old M admitted 06/29/2017 due to slurred speech, left facial droop and left-sided weakness. He has a past medical history of paroxysmal atrial fibrillation, hyperlipidemia, tobacco dependence, obstructive sleep apnea, depression, hypertension, alcohol abuse. Initially, acute ischemic CVA was suspected and patient refused TPA. Acute CVA ruled out. MRI of the brain normal. Neurology consulted. Suspect TIA. CTA of neck showed normal bilateral carotid and vertebral arteries. Chest x-ray unremarkable for acute process. Echocardiogram showed an ejection fraction of 60%, bubble contrast study negative for right to left intra-atrial shunt, structurally normal valves. Patient was started on atorvastatin 80 mg nightly. He was also started on Eliquis 5 mg p.o. twice daily for paroxysmal atrial fibrillation. Cardiology consulted who he will continue outpatient follow-up with. Patient's alcohol level 203 on admission. Patient has drank alcohol in excess since his last summer. Encouraged alcohol and tobacco cessation. Patient will be discharged on thiamine 100 mg daily. It was recommended that patient talk with behavioral health during admission and he declined. Social work also discussed with patient hospice grief support counseling and he declined this as well. Patient will need further monitoring of blood pressure by primary care physician with addition of agents if blood pressure remains elevated. 130-150 systolically during admission. Patient's neurological symptoms have resolved. He is stable for discharge to follow-up with neurology, cardiology and pulmonary medicine. Patient seen and examined prior to discharge. Heart rate sinus bradycardia, no murmurs. Lungs clear, diminished. Neuro grossly intact. Vitals stable. Patient stable for discharge home with recommendations as noted above. This patient was seen by WONG Bowen under the supervision of Dr. Khan. Discharge Diet: Low fat/ Low Cholesterol Discharge Activity: Return to Normal Activity Call your doctor if you observe: Numbness or Tingling, Shortness of breath, Dizziness, Fainting spells, Chest pain, Increased palpitations (irregular heartbeat) Home Medications: Medications to take at Discharge Atenolol [Tenormin (beta srikanth)] 25 mg PO DAILY 09/08/14 Sertraline HCl [Zoloft] 100 mg PO DAILY 09/08/14 Omeprazole [Prilosec] 40 mg PO DAILY 05/25/17 Hydrocodone/Acetaminophen [Hydrocodone-Acetamin 5-325 mg] 5 mg PO TID PRN PRN 06/29/17 Apixaban [Eliquis] 5 mg PO BID #60 tab 06/30/17 Atorvastatin Calcium [Lipitor] 80 mg PO QHS #30 tab 06/30/17 Thiamine HCl [B-1] 100 mg PO DAILY #30 tab 06/30/17 Following Prescrptions Were Given to Patient: Atorvastatin Calcium [Lipitor] 80 mg PO QHS #30 tab Thiamine HCl [B-1] 100 mg PO DAILY #30 tab Apixaban [Eliquis] 5 mg PO BID #60 tab Primary Care Physician: Alexandrea Saini MD [Primary Care Provider] - Please follow up with your Primary Care Physician in: 1 Week Please Follow Up With: Karyn Jensen MD When: 2 Weeks Please Follow Up With: Mu Alan MD When: 2 Weeks Disposition: Home Minutes spent on discharge:: 35 Patient Condition:: Stable Medical Necessity - Tobacco Use Smoking Status: Current every day smoker Tobacco Use: Cigarettes - 2 PPD Meaningful Use Info Meaningful Use Diagnoses (Choose all that apply): None applicable <Lee Khan - Last Filed: 06/30/17 18:09> Discharge Date and Diagnosis - Primary Discharge Diagnosis Acute TIA Paroxysmal A. 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 I have independently interviewed and examined the patient and reviewed pertinent history, examination findings, laboratory and plan of management. I have reviewed the note and agree with the documented findings with the few additional points. In brief, patient is admitted for left-sided weakness, fluctuating level of strength and numbness, with limb ataxia but finally resolved. Patient discharged on Eliquis 5 mg twice daily for paroxysmal A. fib. Discharge medication reconciliation done. Discharge follow-up instructions completed. Total time spent, exact 32 minutes on discharge meds reconciliation, examination, review of imaging and blood test and discussion with the patient on follow-up instructions. I have discussed my assessment with [employer] and orders have been reviewed. [] Code Visit Inpatient E&M: 44400 Disch Hosp
--- NOTE | 2017-06-30 12:29 | DS.PCM_ITS ---
<Nicole Raines - Last Filed: 06/30/17 12:29> Discharge Date and Diagnosis Date of Admission: 06/29/17 Date of Discharge: 06/30/17 - Primary Discharge Diagnosis Active and Suspected Problems 1. Probable acute TIA 2. Paroxysmal atrial fibrillation 3. Alcohol intoxication 4. Hypertension 5. Hyperlipidemia 6. Tobacco dependence - Secondary Discharge Diagnosis Chronic Problems JOHNATHAN (obstructive sleep apnea) (Chronic) Noncompliance with CPAP treatment (Chronic) Depression (Chronic) Chronic back pain (Chronic) Hyperlipidemia (Chronic) Paroxysmal atrial fibrillation (Chronic) Follow up with mri ct tech at [place] Tobacco dependence (Chronic) GERD (gastroesophageal reflux disease) (Chronic) Hospital Course and Treatment Imaging Results: Diagnostic Data Brain CT 06/29/17 03:23 IMPRESSION: There is no acute intracranial pathology. There is no significant interval change. Electronically Signed: Geno Grimes MD at 4:48 EDT , Service support , Chest X-Ray 06/29/17 03:23 IMPRESSION: No acute cardiopulmonary disease. Stable hyperinflation predominating the upper lung parenchyma. No significant interval change. Electronically Signed: Geno Grimes MD at 4:51 EDT , Service support , Head CTA 06/29/17 06:44 IMPRESSION: Normal little traverse of Garcia without a demonstrated aneurysm or hemodynamically significant stenosis. Electronically Signed: Tian Clayton DO at 7:58 EDT Tel , Service support , Neck CTA 06/29/17 06:44 IMPRESSION: Normal bilateral cervical carotid and vertebral arteries. Electronically Signed: Tian Clayton DO at 7:55 EDT Tel , Service support , Brain MRI 06/29/17 07:53 IMPRESSION: 1. Normal unenhanced MRI of the brain. 2. No MR evidence for acute infarct. Electronically Signed: Ellen Rodriguez MD at 10:49 EDT , Service support , Dr. Paul- Survey Research Analyst Dr. Jensen- Neurology Dr. Alan- Cardiology Operations: None Procedures: 2-D Echocardiogram Summary of Care Provided: The patient is a 47 year old M admitted 06/29/2017 due to slurred speech, left facial droop and left-sided weakness. He has a past medical history of paroxysmal atrial fibrillation, hyperlipidemia, tobacco dependence, obstructive sleep apnea, depression, hypertension, alcohol abuse. Initially, acute ischemic CVA was suspected and patient refused TPA. Acute CVA ruled out. MRI of the brain normal. Neurology consulted. Suspect TIA. CTA of neck showed normal bilateral carotid and vertebral arteries. Chest x-ray unremarkable for acute process. Echocardiogram showed an ejection fraction of 60%, bubble contrast study negative for right to left intra-atrial shunt, structurally normal valves. Patient was started on atorvastatin 80 mg nightly. He was also started on Eliquis 5 mg p.o. twice daily for paroxysmal atrial fibrillation. Cardiology consulted who he will continue outpatient follow-up with. Patient's alcohol level 203 on admission. Patient has drank alcohol in excess since his last summer. Encouraged alcohol and tobacco cessation. Patient will be discharged on thiamine 100 mg daily. It was recommended that patient talk with behavioral health during admission and he declined. Social work also discussed with patient hospice grief support counseling and he declined this as well. Patient will need further monitoring of blood pressure by primary care physician with addition of agents if blood pressure remains elevated. 130-150 systolically during admission. Patient's neurological symptoms have resolved. He is stable for discharge to follow-up with neurology , cardiology and pulmonary medicine. Patient seen and examined prior to discharge. Heart rate sinus bradycardia, no murmurs. Lungs clear, diminished. Neuro grossly intact. Vitals stable. Patient stable for discharge home with recommendations as noted above. This patient was seen by WONG Bowen under the supervision of Dr. Khan. Discharge Diet: Low fat/ Low Cholesterol Discharge Activity: Return to Normal Activity Call your doctor if you observe: Numbness or Tingling, Shortness of breath, Dizziness, Fainting spells, Chest pain, Increased palpitations (irregular heartbeat) Home Medications: Medications to take at Discharge Atenolol [Tenormin (beta srikanth)] 25 mg PO DAILY 09/08/14 Sertraline HCl [Zoloft] 100 mg PO DAILY 09/08/14 Omeprazole [Prilosec] 40 mg PO DAILY 05/25/17 Hydrocodone/Acetaminophen [Hydrocodone-Acetamin 5-325 mg] 5 mg PO TID PRN PRN Apixaban [Eliquis] 5 mg PO BID #60 tab 06/30/17 Atorvastatin Calcium [Lipitor] 80 mg PO QHS #30 tab 06/30/17 Thiamine HCl [B-1] 100 mg PO DAILY #30 tab 06/30/17 Following Prescrptions Were Given to Patient: Atorvastatin Calcium [Lipitor] 80 mg PO QHS #30 tab Thiamine HCl [B-1] 100 mg PO DAILY #30 tab Apixaban [Eliquis] 5 mg PO BID #60 tab Primary Care Physician: Alexandrea Saini MD [Primary Care Provider] - Please follow up with your Primary Care Physician in: 1 Week Please Follow Up With: Karyn Jensen MD When: 2 Weeks Please Follow Up With: Mu Alan MD When: 2 Weeks Disposition: Home Minutes spent on discharge:: 35 Patient Condition:: Stable Medical Necessity - Tobacco Use Smoking Status: Current every day smoker Tobacco Use: Cigarettes - 2 PPD Meaningful Use Info Meaningful Use Diagnoses (Choose all that apply): None applicable <Lee Khan - Last Filed: 06/30/17 18:09> Discharge Date and Diagnosis - Primary Discharge Diagnosis Acute TIA Paroxysmal A. fib - Secondary Discharge Diagnosis Chronic Problems JOHNATHAN (obstructive sleep apnea) (Chronic) Noncompliance with CPAP treatment (Chronic) Depression (Chronic) Chronic back pain (Chronic) Hyperlipidemia (Chronic) Paroxysmal atrial fibrillation (Chronic) Follow up with mri ct tech at [place] Tobacco dependence (Chronic) GERD (gastroesophageal reflux disease) (Chronic) Hospital Course and Treatment Summary of Care Provided: This patient was seen in conjunction with FURNACE ERECTORNicole. I have independently interviewed and examined the patient and reviewed pertinent history, examination findings, laboratory and plan of management. I have reviewed the note and agree with the documented findings with the few additional points. In brief, patient is admitted for left-sided weakness, fluctuating level of strength and numbness, with limb ataxia but finally resolved. Patient discharged on Eliquis 5 mg twice daily for paroxysmal A. fib. Discharge medication reconciliation done. Discharge follow-up instructions completed. Total time spent, exact 32 minutes on discharge meds reconciliation, examination , review of imaging and blood test and discussion with the patient on follow-up instructions. I have discussed my assessment with FURNACE ERECTORNicole and orders have been reviewed. [] Code Visit Inpatient E&M: 37030 Disch Hosp
--- NOTE | 2017-06-30 12:51 | CASEMGMT ---
ROMI CM called [facility] to check davis for Eliquis. Per Dayna at [facility], there is $0/copay. ABELARDO LeaN, RN-BC, CCM
[2017-06-30 13:30] VITALS: O2SAT 95
--- NOTE | 2017-06-30 13:48 | NURSING ---
Reviewed and agreed on all charting with Ricardo Negrete RN
[2017-07-05 20:07] LABS: Antithrombin 3 Function 72 % (75-135); Protein C Antigen 90 % (60-150); Protein C, Functional 104 % (73-180)
[2017-07-06 10:14] LABS: Anti-Cardiolipin Ab, IgG, Qn 11 GPL U/mL (0-14); Anti-Cardiolipin Ab, IgM, Qn 13 MPL U/mL (0-12); Anti-Thrombin 3 AG, Immunol 77 % (72-124); Beta-2-Glycoprotein I IgA <9 (0-25); Beta-2-Glycoprotein I IgG <9 (0-20); Beta-2-Glycoprotein I IgM <9 (0-32)
== END 2017-06-30 12:09 | disposition home or self-care (01) ==
LOC: ED 04:10 → ICU 07:39 → PCU 06-30 06:53 → ICU 06-30 13:11
PROVIDERS: Psychiatry & Neurology Neurology; Admitting Provider Internal Medicine; Emergency Provider Emergency Medicine; Family Provider Pediatrics; PCP Pediatrics; Visit Provider Internal Medicine
DX: R53.1 Weakness (principal); R47.81 Slurred speech; R29.810 Facial weakness; I48.0 Paroxysmal atrial fibrillation; E78.5 Hyperlipidemia, unspecified; G47.33 Obstructive sleep apnea (adult) (pediatric); E66.9 Obesity, unspecified; F17.210 Nicotine dependence, cigarettes, uncomplicated; F10.129 Alcohol abuse with intoxication, unspecified; Y90.7 Blood alcohol level of 200-239 mg/100 ml; G89.29 Other chronic pain; M54.9 Dorsalgia, unspecified; K21.9 Gastro-esophageal reflux disease without esophagitis; F32.9 Major depressive disorder, single episode, unspecified; E87.6 Hypokalemia; I10 Essential (primary) hypertension; Z68.36 Body mass index [BMI] 36.0-36.9, adult; Z71.3 Dietary counseling and surveillance; Z91.19 Patient's noncompliance with other medical treatment and regimen; Z79.899 Other long term (current) drug therapy; R51 Headache; R20.0 Anesthesia of skin
CPT/HCPCS: 36415; 70450; 70496; 70498; 70551; 71045; 80048; 80061; 80076; 80307; 80320; 81240; 81241; 82962; 83036; 84443; 84484; 85025; 85300; 85301; 85302; 85303; 85610; 85730; 86146; 86147; 87641; 93005; 93306; 96361; 96374; 96375; 97802; 99218; 99284; 99406; J7030; Q9967; A4216; G0378; G0480

== ENCOUNTER 2017-07-17 07:46 | Emergency (ER) | payer MEDICAID, SELFPAY ==
[2017-07-17] VITALS (11 sets, daily range): BP systolic 105–157; BP diastolic 51–87; PULSE 58–72; RESP 14–20; TEMP 37; O2SAT 94–100; BMI 37.9
--- NOTE | 2017-07-17 07:56 | RAD_ITS ---
STUDY: X-RAY CHEST REASON FOR EXAM: Male, 47 years old. SOB. TECHNIQUE: Single view COMPARISON: February 08, 2017 FINDINGS: The lungs are clear and expanded. There is no demonstrated pleural abnormality. Normal size heart. Normal mediastinum and candelaria. Normal visualized pulmonary arteries. Normal visualized aortic arch and descending thoracic aorta. There is no demonstrated abnormality of the visualized soft tissue structures of the upper abdomen. RAD/Chest 1 View (Portable) IMPRESSION: No consolidation, pneumothorax or pleural effusion. Electronically Signed: Tyra Shah MD at 9:10 EDT Tel , Service support ,
--- NOTE | 2017-07-17 07:59 | CT_ITS ---
STUDY: CT BRAIN WITHOUT CONTRAST REASON FOR EXAM: Male, 47 years old. Altered mental status, + ETOH, combative, frequent apnea, recent TIA. Hx hypertension, afib.. RADIATION DOSAGE (If Supplied By Facility): CTDIvol = ( 44.99 ) mGy, DLP = ( 779.24 ) mGycm TECHNIQUE: Transaxial CT imaging of the brain was performed without administration of intravenous contrast material. Individualized dose optimization techniques were used for this CT. COMPARISON: None. FINDINGS: Normal soft tissue structures. Normal calvarium. Normal size ventricles and extra-axial spaces for the patient's age. Normal white matter tracts of the cerebral hemispheres. Normal basal ganglia and thalami. Normal brainstem. Normal cerebellum. There is no intracranial hemorrhage. There are no findings of an acute ischemic infarction. Normal visualized paranasal sinuses. CT/Brain/Head without Contrast IMPRESSION: Normal unenhanced CT scan of the brain. Electronically Signed: Tyra Shah MD at 9:04 EDT Tel , Service support ,
--- NOTE | 2017-07-17 08:09 | ED.VISSUMM ---
- ER Visit Summary Date of Service: 07/17/17 Chief Complaint: Alcohol intoxication History of Present Illness: The patient is a 47 M presenting with alcohol intoxication. Patient was drinking all night. This morning his family called EMS due to concern of unresponsive episodes. Patient has periods of apnea where he is unresponsive and then gasps for air. He is noncompliant with his CPAP for obstructive sleep apnea. He is on Eliquis. He denies complaints and is requesting to go home. Physical Examination: Vitals are stable. Patient is afebrile. Alert no acute distress. HEENT exam is unremarkable. Neck is supple. Lungs are clear and equal bilaterally. Heart is regular rate and rhythm. Abdomen is soft nontender nondistended. Extremities are unremarkable. Skin is warm and dry. No focal neurologic deficit. Intoxicated Remainder of exam is unremarkable. Emergency Department Course and Treatment: Patient is given IV fluids, Zofran. Chest x-ray shows no acute process. CT head shows no acute process. CBC, chemistries unremarkable. Alcohol 285, tox negative. Initially patient was having episodes which appeared to be sleep apnea. This resolved after approximately 1 hour and he is resting comfortably. He has made multiple comments of suicidal ideation to the nurses while in the emergency department. He states his approximately a year ago. He takes care of his disabled child. He states he no longer wants to live. At one point he became agitated and wanted to leave the emergency department. His alcohol level was 285 and he was stating that he was suicidal. He was advised that if he tried to leave he would be restrained for his own safety. He stated if the police came he would take their gun and shoot them. He was given Alexandra PAUL. Discussed with the counseling center for evaluation. Disposition: Per counseling center Impression: Alcohol intoxication, suicidal ideation This note was generated with [employer] dictation software. It may contain incorrect words, spelling, and punctuation that were not noted in review of the chart prior to signing ED Disposition - Plan for ED Patient: Chief Complaint: ETOH Intox Referrals: Alexandrea Saini MD [Primary Care Provider] -
[2017-07-17 08:39] LABS: Absolute Neutrophil Count 1.5 X10^3/uL (2.0-7.7); Basophil# 0.04 X10^3/uL; Basophil% 0.9 % (0-1); Eosinophils% 2.3 % (0-5); Hematocrit 41.2 % (40-54); Hemoglobin 14.6 g/dl (13.0-16.5); Lymphocyte % 50.5 % (19-41); Mean Corp Hgb Conc 35.4 g/gl (32-36); Mean Corpuscular Hgb 30.6 pg (27.0-32.0); Mean Corpuscular Volume 86.4 fL (80-94); Monocyte# 0.48 X10^3/uL; Neutrophil # 1.53 X10^3/uL (2.7-7.7); Neutrophil % 35.1 % (47-70); Platelet Count 182 K/mm3 (150-450); RBC Distribution Width CV 13.2 % (11.6-14.6); RBC Distribution Width SD 41.1 fl (35.1-43.9); Red Blood Count 4.77 M/mm3 (4.6-6.2); White Blood Count 4.4 K/mm3 (4.4-11.0)
[2017-07-17 08:40] LABS: POSITIVE COUNT NO; POSITIVE DIFFERENTIAL NO; POSITIVE MORPHOLOGY NO
[2017-07-17] MEDS: Ondansetron 4 MG/2 ML Vial IV (08:40)
[2017-07-17] MEDS: 0.9% Normal Saline 1,000 ML 1000 ML IV (08:40)
[2017-07-17 08:52] LABS: Anion Gap 9 (5-15); BUN 15 mg/dL (7-18); BUN/Creat Ratio 16.1 RATIO (10-20); Calcium,Total 7.9 mg/dL (8.5-10.1); Chloride 114 mmol/L (98-107); Creatinine, Serum 0.93 mg/dL (0.70-1.30); EST Glomerular Filtration Rate 92 mL/min (>60); Est Glom Filt Rate - Afr Amer 111 mL/min (>60); Estimated Creatinine Clearance 97.14 ml/min; Glucose 101 mg/dL (74-106); Potassium 3.4 mmol/L (3.5-5.1); Sodium Level 145 mmol/L (136-145)
--- NOTE | 2017-07-17 09:19 | ED.RN ---
PT HAS MADE MULTIPLE STATEM,ENTS STATING PLEASE JUST KILL ME. STATES NOT DEALING WITH HIS WIFES . PASSED IN OCTOBER OF LAST YEAR
--- NOTE | 2017-07-17 09:39 | ED.RN ---
PT STATES HE IS LEAVING. PT STATES NOT ALLOWED TO LEAVE. PT STATES IF YOU CALL THE POLICE I WILL GRAB THEIR GUN AND BLOW THEIR BRAINS OUT
[2017-07-17 09:54] LABS: Amphetamine Urine VISTA NEGATIVE (<1000 ng/mL); Barbiturate Urine VISTA NEGATIVE (< 200 ng/mL); Benzodiazepine Urine VISTA NEGATIVE (< 200 ng/mL); Cocaine Urine VISTA NEGATIVE (< 300 ng/mL); Ecstacy Urine VISTA NEGATIVE (< 500 ng/mL); Methadone Urine VISTA NEGATIVE (< 300 ng/mL); PCP Urine VISTA NEGATIVE (< 25 ng/mL); THC Urine VISTA NEGATIVE (< 50 ng/mL); Vista UDS pH Range 5
[2017-07-17] MEDS: Ziprasidone IM 20 MG/ML VIAL 10 MG IM (10:18)
--- NOTE | 2017-07-17 10:30 | ED.RN ---
PT REMAINS VERY AGITATED. PT HAS INTERMITTENTLY THREATENED, STAFF, POLICE AND FAMILY. PT FAMILY CALLS AND THIS RN IS ALLOWED TO LISTEN TO CONVERSATION PT THREATENS FAMILY MEMBERS AT HOME. PD CALLED TO ASSIST WITH POSSIBLE RESTRAINT OF PT AND MEDICATION. PT STATES HE IS REFUSING GEOD[place]. ATTEMPTED TO IMMANUEL WITH PT. PT FINALLY AGREEABLE TO MEDICATION AND UNDERSTANDS THAT IF NEEDED PT WILL BE RESTRAINED. CLOTHES REMOVED. PT AWARE OF PINK SLIP STATUS
--- NOTE | 2017-07-17 17:45 | ED.RN ---
pt girlfriend at bedside
--- NOTE | 2017-07-17 20:07 | ED.VISSUMM ---
- ER Visit Summary Date of Service: 07/17/17 Chief Complaint: [Addendum to initial dictation by Dr. Marley Arroyo] History of Present Illness: The patient is a 47 M [presented to the emergency department and was fully evaluated by Dr. Arroyo. Care of patient turned over to me awaiting evaluation by crisis. Patient was quite intoxicated with alcohol on arrival and made comments about harming himself therefore he was pink slipped. Patient was seen by crisis once alcohol normalized and at this point does not recall making any statements of wanting harm himself and has no intention on harming himself. Patient is not currently suicidal patient is felt to be safe for discharge to home with outpatient follow-up with crisis which will be arranged prior to discharge.] Physical Examination: HEENT-PERRLA, EOMI. Cranial nerves II through XII grossly intact. TMs clear. Mucous membranes moist. No adenopathy. Cardiovascular-regular rate and rhythm without murmur or ectopy Lungs-clear to auscultation, chest wall stable without crepitus or subcu emphysema Abdomen-normoactive bowel sounds, soft, nontender, no rebound or rigidity, no peritoneal signs. Extremities-intact ?4, normal range of motion, normal pulses, atraumatic[] Test Results: [] Emergency Department Course and Treatment: [] Treatment Plan: [Follow-up with crisis] Disposition: [Discharged to home in stable condition] Impression: [Alcohol intoxication Depression] This note was generated with [employer] dictation software. It may contain incorrect words, spelling, and punctuation that were not noted in review of the chart prior to signing ED Disposition - Plan for ED Patient: Chief Complaint: ETOH Intox Instructions: ED Overdose Alcohol, ED Depression Referrals: Alexandrea Saini MD [Primary Care Provider] - 5-7 Days
--- NOTE | 2017-07-17 20:18 | ED.RN ---
THIS NURSE REVIEWED D/C INSTRUCTIONS WITH PT AND VISITOR. PT VERBALIZED UNDERSTANDING OF INSTRUCTIONS. 1 BAG OF PATIENT BELONGINGS RETURNED TO THE PT. PT IV D/C ON PREVIOUS SHIFT. PT DENIES FURTHER NEEDS OR QUESTIONS AT THIS TIME.
== END 2017-07-17 20:19 | disposition home or self-care (01) ==
PROVIDERS: Emergency Medicine; Emergency Provider Emergency Medicine; Family Provider Pediatrics; PCP Pediatrics
DX: F10.129 Alcohol abuse with intoxication, unspecified (principal); R45.851 Suicidal ideations; F32.9 Major depressive disorder, single episode, unspecified; G47.33 Obstructive sleep apnea (adult) (pediatric); I48.91 Unspecified atrial fibrillation; K21.9 Gastro-esophageal reflux disease without esophagitis; E78.00 Pure hypercholesterolemia, unspecified; Z72.0 Tobacco use; Z79.02 Long term (current) use of antithrombotics/antiplatelets; Z79.899 Other long term (current) drug therapy; Y90.8 Blood alcohol level of 240 mg/100 ml or more
CPT/HCPCS: 36415; 70450; 71045; 80048; 80307; 80320; 85025; 96361; 96372; 96374; 99285; J7030; A4216; G0480; J2405; J3486

== ENCOUNTER 2017-07-19 11:56 | Emergency (ER) | payer MEDICAID, SELFPAY ==
[2017-07-19 11:57] VITALS: BP 159/90; PULSE 85; RESP 16; TEMP 37.1; O2SAT 98; BMI 35.4
--- NOTE | 2017-07-19 12:33 | ED.RN ---
THIS RN IN TO ROOM TO ASSESS PT, DURING ASSESSMENT PT STATES HE ALSO HAS CHEST PAIN SINCE MONDAY AT 0200- FEELS LIKE ELEPHANT SITTING ON CHEST. CALLED FOR EKG.
--- NOTE | 2017-07-19 12:44 | EKG12_ITS ---
Test Reason : CHEST PAIN Blood Pressure : / mmHG Vent. Rate : 073 BPM Atrial Rate : 073 BPM P-R Int : 172 ms QRS Dur : 088 ms QT Int : 400 ms P-R-T Axes : 034 016 040 degrees QTc Int : 440 ms Normal sinus rhythm Normal ECG Confirmed by JOYCE SEXTON, MANNY ([id number]), rewrite editor CLEVE JONES ([id number]) on 07/25/2017 3:05:00 PM Referred By: HEMA Confirmed By:MANNY COOK MD
--- NOTE | 2017-07-19 12:55 | RAD_ITS ---
XR Chest 2 Views INDICATION: COUGH, CHEST PAIN COMPARISON: None FINDINGS: Heart size and pulmonary vascularity are within normal limits. The lungs are clear without evidence of airspace consolidation or pleural effusion. The osseous structures are grossly unremarkable. RAD/Chest PA and Lateral IMPRESSION: No radiographic evidence of acute intrathoracic disease. at 1355 Reported and signed by: Verenice Sommer MD Electronically Signed: Verenice Sommer MD at 13:54 EDT Tel , Service support ,
[2017-07-19 12:56] LABS: Absolute Lymphocyte Count 2.17 X10^3/ul (0.83-4.51); Absolute Neutrophil Count 6.3 X10^3/uL (2.0-7.7); Basophil# 0.02 X10^3/uL; Basophil% 0.2 % (0-1); Eosinophils% 1.1 % (0-5); Hematocrit 42.6 % (40-54); Hemoglobin 14.4 g/dl (13.0-16.5); Lymphocyte # 2.17 X10^3/ul (4.0); Lymphocyte % 23.7 % (19-41); Mean Corp Hgb Conc 33.8 g/gl (32-36); Mean Corpuscular Hgb 29.8 pg (27.0-32.0); Mean Platelet Vol. 10.3 fl (6.2-12.0); Monocyte% 6.5 % (0-10); Neutrophil # 6.27 X10^3/uL (2.7-7.7); Neutrophil % 68.4 % (47-70); Platelet Count 192 K/mm3 (150-450); RBC Distribution Width CV 12.9 % (11.6-14.6); RBC Distribution Width SD 41.3 fl (35.1-43.9); Red Blood Count 4.84 M/mm3 (4.6-6.2); White Blood Count 9.2 K/mm3 (4.4-11.0)
[2017-07-19 12:58] LABS: POSITIVE COUNT NO; POSITIVE DIFFERENTIAL NO; POSITIVE MORPHOLOGY NO
[2017-07-19 13:06] LABS: Anion Gap 7 (5-15); BUN 8 mg/dL (7-18); BUN/Creat Ratio 7.8 RATIO (10-20); Calcium,Total 8.4 mg/dL (8.5-10.1); Chloride 106 mmol/L (98-107); Creatinine, Serum 1.03 mg/dL (0.70-1.30); EST Glomerular Filtration Rate 82 mL/min (>60); Est Glom Filt Rate - Afr Amer 99 mL/min (>60); Estimated Creatinine Clearance 87.71 ml/min; Glucose 91 mg/dL (74-106); Sodium Level 139 mmol/L (136-145)
[2017-07-19] MEDS: 0.9% Normal Saline 1,000 ML 150 ML IV (13:09)
[2017-07-19 13:57] VITALS: BP 111/99; PULSE 65; RESP 11; O2SAT 98
[2017-07-19] MEDS: oxyCODONE 5 MG Tablet PO (14:01)
--- NOTE | 2017-07-19 14:05 | ED.DCSUM_ITS ---
- ER Visit Summary Date of Service: 07/19/17 Chief Complaint: Shortness of breath History of Present Illness: The patient is a 47 M who woke late Monday evening or early Monday morning with some chest heaviness and shortness of breath. He has had cough with a lot of chest congestion but is not been able to bring up sputum. Patient states it feels like prior pneumonia. He has not noted a fever at home. Past history significant for TIA, reflux disease, high cholesterol, sleep apnea , and paroxysmal A. fib. He is currently on Eliquis. Physical Examination: Vital signs are unremarkable. Pulse ox is 98% on room air. Patient sitting upright in bed no acute distress. He is nontoxic appearing. Head neck examination is grossly unremarkable. Head of bed is elevated approximate 50?. Heart is regular rate and rhythm. No lung sounds are slightly diminished at the bases. Abdomen is soft nontender. Extremity examination was no calf tenderness or edema. He has strong distal pulses. Test Results: Two-view chest x-ray per radiology reveals no acute disease. On my review it appears that he has an early density in the right lower lobe. EKG is sinus at 73 with no sign of acute ischemia. CBC is normal. Chemistry studies reveal potassium of 3.0. Troponin is less than 0.02. Emergency Department Course and Treatment: Patient was initially given IV fluids and 5 mg of p.o. oxycodone. Following completion of labs 40 mg potassium are given. At this time patient at least has bronchitis if not an early infiltrate. Patient will be treated with a course of Levaquin. He is also given a prescription for Mucinex and potassium replacement. Treatment Plan: [] Disposition: Discharge Impression: Bronchitis This note was generated with [employer] dictation software. It may contain incorrect words, spelling, and punctuation that were not noted in review of the chart prior to signing ED Disposition - Plan for ED Patient: Disposition: Home or Assisted Living Chief Complaint: Shortness of Breath Instructions: Acute Bronchitis, ED Potassium Deficiency Prescriptions: Levofloxacin [Levaquin] 750 mg PO DAILY #4 tablet Guaifenesin [Mucinex] 1,200 mg PO BID #10 tab Potassium Chloride [K-Dur] 20 meq PO BID #10 tablet Referrals: Alexandrea Saini MD [Primary Care Provider] - 5-7 Days
--- NOTE | 2017-07-19 14:08 | DCINST.ED_ITS ---
ED Disposition - Plan for ED Patient: Disposition: Home or Assisted Living Chief Complaint: Shortness of Breath Instructions: Acute Bronchitis, ED Potassium Deficiency Prescriptions: Levofloxacin [Levaquin] 750 mg PO DAILY #4 tablet Guaifenesin [Mucinex] 1,200 mg PO BID #10 tab Potassium Chloride [K-Dur] 20 meq PO BID #10 tablet Referrals: Alexandrea Saini MD [Primary Care Provider] - 5-7 Days
[2017-07-19] MEDS: levoFLOXacin 750 MG Tablet PO (14:12)
[2017-07-19 14:15] VITALS: BP 111/91; PULSE 77; RESP 18; O2SAT 98
== END 2017-07-19 14:20 | disposition home or self-care (01) ==
PROVIDERS: Emergency Provider Emergency Medicine; Family Provider Pediatrics; PCP Pediatrics
DX: J40 Bronchitis, not specified as acute or chronic (principal); K21.9 Gastro-esophageal reflux disease without esophagitis; E78.00 Pure hypercholesterolemia, unspecified; G47.33 Obstructive sleep apnea (adult) (pediatric); I48.0 Paroxysmal atrial fibrillation; E87.6 Hypokalemia; Z86.73 Personal history of transient ischemic attack (TIA), and cerebral infarction without residual deficits; Z72.0 Tobacco use; Z79.02 Long term (current) use of antithrombotics/antiplatelets; Z79.899 Other long term (current) drug therapy
CPT/HCPCS: 71046; 80048; 84484; 85025; 93005; 96360; 99284; J7030; A4216

== ENCOUNTER 2017-11-23 15:38 | Observation (INO) | payer MEDICAID, SELFPAY ==
[2017-11-23] VITALS (10 sets, daily range): BP systolic 113–161; BP diastolic 58–96; PULSE 56–68; RESP 15–22; TEMP 36.8; O2SAT 96–99; BMI 34.2; BMI 31.6
--- NOTE | 2017-11-23 15:51 | ED.VISSUMM ---
- ER Visit Summary Date of Service: 11/23/17 Chief Complaint: Chest pain History of Present Illness: The patient is a 47 M who presents for 45 minutes of severe burning chest pain. Patient was picking his daughter up from school when it started. He describes it as burning in the entire anterior chest radiating up into the neck and into the epigastrium. He denies any exacerbating or alleviating factors. He has a history of GERD but states this is nothing like that. He denies shortness of breath, lower abdominal pain, fever, cough or back pain. He does complain of nausea. He denies a cardiac history but states he does have a history of a prior episode of A. fib. He is not on any blood thinners and does not take aspirin. He has history of atrial fibrillation, stroke, anxiety, hypercholesterolemia, and family history of acute coronary syndrome at an age younger than 55. He denies history of diabetes or hypertension. He is a smoker. Physical Examination: Vital signs: afebrile, hemodynamically stable, no hypoxia on room air General: well nourished, well developed, sitting in bed, appears uncomfortable, teeth are chattering Skin: warm, dry, no rash, no pallor HEENT: normocephalic and atraumatic; PERRL, EOMI, moist mucous membranes Cardiovascular: regular rate and rhythm without murmurs, no peripheral edema, 2+ pulses all distal extremities Respiratory: No increased work of breathing, lungs are clear to auscultation bilaterally, no rales, rhonchi or wheezing Abdominal: Abdomen is soft, nontender with normoactive bowel sounds, no guarding or rebound, no masses MSK: Moves all extremities, no deformities, normal strength Neuro: Awake and alert, oriented ?4. No facial droop, sensation and motor function intact and symmetric Psych: anxious Test Results: Abnormal Lab Results 11/23/17 11/23/17 15:45 15:45 WBC 6.4 RBC 5.13 Hgb 14.9 Hct 44.9 MCV 87.5 MCH 29.0 MCHC 33.2 RDW 14.7 H RDW Differential 47.3 H Plt Count 187 MPV 10.0 Immature Gran % (Auto) 0.200 Neut % (Auto) 47.3 Lymph % (Auto) 43.7 H [place] % (Auto) 6.3 Eos % (Auto) 1.9 Baso % (Auto) 0.6 Absolute Neuts (auto) 3.0 Absolute Lymphs (auto) 2.79 Total Counted Not Reportable Sodium 142 Potassium 3.1 L Chloride 108 H Carbon Dioxide 23.0 Anion Gap 11 BUN 6 L Creatinine 0.87 Estim Creat Clear Calc 103.84 Est GFR (MDRD) Af Amer 120 Est GFR (MDRD) Non-Af 99 BUN/Creatinine Ratio 6.9 L Glucose 96 Calcium 8.4 L Total Bilirubin 0.30 AST 9 L ALT 16 Alkaline Phosphatase 64 Troponin I < 0.015 Total Protein 7.6 Albumin 3.8 Globulin 3.8 Albumin/Globulin Ratio 1.0 Lipase 152 Clinical Impression(s) from Imaging Studies Chest X-Ray 11/23/17 15:50 IMPRESSION: Degenerative changes, as described above. No demonstrated acute cardiopulmonary process. Electronically Signed: Ja Cruz MD at 16:49 EDT , Service support , Medications Given Discontinued Medications Al Hydroxide/Mg Hydroxide (Mylanta Ii) 30 ml PO X1 ONE Stop: 11/23/17 16:25 Last Admin: 11/23/17 16:31 Dose: 30 ml Aspirin (Aspirin, Baby) 324 mg PO X1 STA Stop: 11/23/17 15:50 Last Admin: 11/23/17 15:54 Dose: 324 mg Lidocaine HCl (Xylocaine Viscous) 15 ml PO X1 ONE Stop: 11/23/17 16:25 Last Admin: 11/23/17 16:31 Dose: Not Given Lorazepam (Ativan) 1 mg PO X1 ONE Stop: 11/23/17 16:34 Last Admin: 11/23/17 16:36 Dose: 1 mg Morphine Sulfate () 4 mg IV X1 ONE Stop: 11/23/17 17:10 Last Admin: 11/23/17 17:19 Dose: 4 mg Multi-Ingredient GI Drug () 1 ea PO X1 ONE Stop: 11/23/17 16:25 Last Admin: 11/23/17 16:31 Dose: Not Given Nitroglycerin (Nitrostat) 0.4 mg SUBLINGUAL Q5M [place] Stop: 11/23/17 16:11 Last Admin: 11/23/17 17:10 Dose: 0.4 mg Admin: 11/23/17 16:00 Dose: 0.4 mg Admin: 11/23/17 15:55 Dose: 0.4 mg Emergency Department Course and Treatment: Chest pain workup was performed. Patient was given aspirin and nitroglycerin. EKG showed a sinus rhythm with normal intervals, no ischemic changes. Initial troponin negative. Patient had no abnormalities on his lab work other than potassium of 3.1. After 2 nitro patient had improvement of his chest pain to a 5 out of 10 from an 8 out of 10. Patient continued to complain of the generalized burning in the chest and epigastrium. He was given a GI cocktail but refused the lidocaine component of it. He continued to feel anxious and was given a p.o. Ativan. Patient stated he began having return of chest pain again and was given a further nitro and ordered morphine. A repeat EKG was performed and was unchanged from the initial one, still showing no ischemic changes. Patient's heart score is 5, which places him at moderate risk and warrants further chest pain workup and patient was discussed with Dr. Fajardo for admission to observation status for further chest pain workup. Treatment Plan: [] Disposition: [] Impression: Acute chest pain This note was generated with [employer] dictation software. It may contain incorrect words, spelling, and punctuation that were not noted in review of the chart prior to signing ED Disposition - Plan for ED Patient: Chief Complaint: Chest Pain Referrals: Alexandrea Saini MD [Primary Care Provider] -
[2017-11-23] MEDS: Aspirin 81 MG TAB.CHEW 324 MG PO (15:54)
[2017-11-23 16:01] LABS: Absolute Lymphocyte Count 2.79 X10^3/ul (0.83-4.51); Basophil# 0.04 X10^3/uL; Basophil% 0.6 % (0-1); Eosinophil# 0.12 X10^3/uL; Eosinophils% 1.9 % (0-5); Hematocrit 44.9 % (40-54); Hemoglobin 14.9 g/dl (13.0-16.5); Lymphocyte # 2.79 X10^3/ul (4.0); Lymphocyte % 43.7 % (19-41); Mean Corp Hgb Conc 33.2 g/gl (32-36); Mean Corpuscular Volume 87.5 fL (80-94); Monocyte% 6.3 % (0-10); Neutrophil # 3.03 X10^3/uL (2.7-7.7); Neutrophil % 47.3 % (47-70); Platelet Count 187 K/mm3 (150-450); RBC Distribution Width CV 14.7 % (11.6-14.6); RBC Distribution Width SD 47.3 fl (35.1-43.9); Red Blood Count 5.13 M/mm3 (4.6-6.2); White Blood Count 6.4 K/mm3 (4.4-11.0)
[2017-11-23 16:13] LABS: POSITIVE COUNT NO; POSITIVE DIFFERENTIAL NO; POSITIVE MORPHOLOGY NO
[2017-11-23 16:25] LABS: AST(SGOT) 9 U/L (15-37); Alanine Aminotransfer ALT/SGPT 16 U/L (16-61); Albumin, Serum 3.8 g/dL (3.2-5.0); Alkaline Phosphatase 64 U/L (45-117); Anion Gap 11 (5-15); BUN 6 mg/dL (7-18); BUN/Creat Ratio 6.9 RATIO (10-20); Calcium,Total 8.4 mg/dL (8.5-10.1); Chloride 108 mmol/L (98-107); Creatinine, Serum 0.87 mg/dL (0.70-1.30); EST Glomerular Filtration Rate 99 mL/min (>60); Est Glom Filt Rate - Afr Amer 120 mL/min (>60); Estimated Creatinine Clearance 103.84 ml/min; Globulin 3.8 g/dL (2.2-4.2); Glucose 96 mg/dL (74-106); Lipase 152 U/L (73-393); Potassium 3.1 mmol/L (3.5-5.1); Protein, Total 7.6 g/dL (6.4-8.2); Sodium Level 142 mmol/L (136-145)
[2017-11-23] MEDS: Mag Hydrox/Al Hydrox/Simeth 30 ML UDC PO (16:31)
[2017-11-23] MEDS: LORazepam 1 MG Tablet PO (16:36)
[2017-11-23] MEDS: Morphine 4 MG/ML Syringe IV (17:19)
--- NOTE | 2017-11-23 18:09 | PCM.HP.STD ---
Problem List (1) Chest pain Status: Acute Qualifiers: Chest pain type: unspecified Qualified Code(s): R07.9 - Chest pain, unspecified History of Present Illness Date of Admission: 11/23/17 Chief Complaint: chest pain The patient is a 47 year old M presents with chest pain. Patient was in his normal state of health up until about 330 this afternoon where he developed chest pain that was across his chest started kind of in his abdomen went up to his neck and down his left arm. Symptoms persisted until he presented to the emergency room where he received nitroglycerin and that did alleviate his chest pain somewhat but still has it present at this time. Patient did feel dizzy with this as well as well as nauseated. He denies ever having had chest pain like this before. Patient received a GI cocktail given his history of reflux it did not alleviate his symptoms. [] Past Medical History Past Medical History (Chronic Problems): Chronic Problems (Last Reviewed 11/23/17 @ 18:11 by Luciano Fajardo DO) JOHNATHAN (obstructive sleep apnea) (Chronic) Depression (Chronic) Hyperlipidemia (Chronic) Paroxysmal atrial fibrillation (Chronic) Follow up with heater room helper at [place] Tobacco dependence (Chronic) GERD (gastroesophageal reflux disease) (Chronic) Medical History: Medical History (Last Reviewed 11/23/17 @ 18:11 by 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 with heater room helper at [place] Tobacco dependence (Chronic) F17.200 GERD (gastroesophageal reflux disease) (Chronic) K21.9 Chronic back pain M54.9, G89.29 Noncompliance with CPAP treatment Z91.14 Allergies azithromycin Allergy (Verified 11/23/17 15:39) Shortness of breath Home Medications: Ambulatory Orders Medication Instructions Recorded Atenolol [Tenormin (beta srikanth)] 25 mg PO DAILY 09/08/14 Sertraline HCl [Zoloft] 100 mg PO DAILY 09/08/14 Hydrocodone/Acetaminophen [Vicodin 1 tablet PO Q6H PRN PRN 11/23/17 5-300 mg Tablet] Omeprazole Magnesium [Prilosec Otc] 20 mg PO BID 11/23/17 Surgical History: Surgical History (Last Reviewed 11/23/17 @ 18:11 by Luciano Fajardo DO) Hx of appendectomy Z90.49 Surgical History: appendectomy Psychiatric History: Depression Smoking Status: Current every day smoker Tobacco Use: Cigarettes - *Family History Sibling Family History: Family History (Last Reviewed 11/23/17 @ 18:11 by Luciano Fajardo DO) Mother Diabetes CAD (coronary artery disease) CVA (cerebral vascular accident) Myocardial infarction, Onset Age: 35 Father CAD (coronary artery disease) Diabetes CVA (cerebral vascular accident) History Items: Diabetes, Heart Disease Maternal Family History: Family History (Last Reviewed 11/23/17 @ 18:11 by Luciano Fajardo DO) Mother Diabetes CAD (coronary artery disease) CVA (cerebral vascular accident) Myocardial infarction, Onset Age: 35 Father CAD (coronary artery disease) Diabetes CVA (cerebral vascular accident) History Items: Diabetes, Heart Disease - [place] at 35 y/o., Stroke Paternal Family History: Family History (Last Reviewed 11/23/17 @ 18:11 by Luciano Fajardo DO) Mother Diabetes CAD (coronary artery disease) CVA (cerebral vascular accident) Myocardial infarction, Onset Age: 35 Father CAD (coronary artery disease) Diabetes CVA (cerebral vascular accident) History Items: Diabetes, Heart Disease, Stroke Review of Systems Constitutional: Reports: Malaise. Denies: Anorexia, Chills, Fever Eyes: Denies: Blurred vision, Double vision HEENT: Denies: Head Aches, Sinus Congestion, Sinus Drainage Cardiovascular: Reports: Chest Pain. Denies: Edema Respiratory: Denies: Cough, Shortness of breath at rest, Sputum production Gastrointestinal: Reports: Abdominal Pain - Epigastric, Nausea. Denies: Vomiting Genitourinary: Denies: Dysuria Musculoskeletal: Reports: Arm Pain - Left arm pain with this chest pain, Neck Pain Skin: Denies: Rash, Wounds Neurological: Denies: Numbness, Tingling, Focal weakness Hematologic/ Lymphatic: Denies: Easy Bruising, Easy Bleeding, Hx of blood clot Comment: All review of systems are negative except as mentioned in the history of present illness and the other review of systems. VTE Information - Inpt Only VTE Present on Admission: No VTE Pharm Prophylaxis ordered?: Yes Patient Problems: Active and Suspected Problems (Last Reviewed 11/23/17 @ 18:11 by Luciano Fajardo DO) Chest pain (Acute) - Physical Exam General: Alert, No apparent distress HEENT: Atraumatic, Normocephalic Oral: Moist Mucosa, No Gingival or Mucosal Lesions/ Ulcerations Neck: No Nodes, Thyroid Normal Size and Texture Lungs: Clear to auscultation, Normal air movement, No rhonchi, No wheeze Cardiovascular: Regular rate, Regular Rhythm, Normal S1, Normal S2 Abdomen: Bowel Sounds Present, Soft, Non Tender, Non-Distended, No Hepato-splenomegaly Extremities: No clubbing, No edema, No Calf Tenderness Skin: No rashes, No breakdown Musculoskeletal: No Muscle Wasting, - - Some reproducible anterior chest wall tenderness on the left Neurological: Sensory exam intact to light touch and pain, Coordination normal Psych/Mental Status: Appropriate, Flat Affect Vital Signs Temp Pulse Resp BP Pulse Ox 36.8 C 57 L 18 125/85 H 97 11/23/17 15:39 11/23/17 17:10 11/23/17 17:00 11/23/17 17:10 11/23/17 17:00 Oxygen Flow Rate (L/min) 2 Oxygen Delivery Method Nasal Cannula Weight: 105 kg Body Mass Index (BMI) 34.2 Finger Stick Blood Glucose 109 Laboratory Tests Past 24 Hrs 11/23/17 11/23/17 15:45 15:45 WBC 6.4 RBC 5.13 Hgb 14.9 Hct 44.9 MCV 87.5 MCH 29.0 MCHC 33.2 RDW 14.7 H RDW Differential 47.3 H Plt Count 187 MPV 10.0 Immature Gran % (Auto) 0.200 Neut % (Auto) 47.3 Lymph % (Auto) 43.7 H Crawford % (Auto) 6.3 Eos % (Auto) 1.9 Baso % (Auto) 0.6 Absolute Neuts (auto) 3.0 Absolute Lymphs (auto) 2.79 Total Counted Not Reportable Sodium 142 Potassium 3.1 L Chloride 108 H Carbon Dioxide 23.0 Anion Gap 11 BUN 6 L Creatinine 0.87 Estim Creat Clear Calc 103.84 Est GFR (MDRD) Af Amer 120 Est GFR (MDRD) Non-Af 99 BUN/Creatinine Ratio 6.9 L Glucose 96 Calcium 8.4 L Total Bilirubin 0.30 AST 9 L ALT 16 Alkaline Phosphatase 64 Troponin I < 0.015 Total Protein 7.6 Albumin 3.8 Globulin 3.8 Albumin/Globulin Ratio 1.0 Lipase 152 EEG personally reviewed and showed normal sinus rhythm with no acute changes Chest x-ray personally reviewed and infiltrate infiltrates, edema nor effusions. Assessment/Plan All Active Problems (Last Reviewed 11/23/17 @ 18:11 by Luciano Fajardo DO) Chest pain (Acute) Obesity (BMI 30-39.9) (Acute) TIA (transient ischemic attack) (Acute) Chest pain (Resolved) 1. Chest pain Heart score of 4 and SHREYA score of 2 Plan is to admit the patient and perform a nuclear stress test. Going to order the chemical stress portion as not sure the patient would be able to complete the treadmill portion. Patient still having symptoms at this point in time and will just be concerned about him perhaps not being motivated enough to complete a treadmill portion to get an adequate heart rate per the Brayan protocol. Cycle troponins Continue with aspirin If troponins become abnormal and then consulting cardiology and holding off on the stress test portion 2. GERD Certainly could be the etiology of his chest pain but there would be a diagnosis of exclusion until we can rule out cardiac possibilities Continue with PPI 3. Anxiety Continue with Zoloft Could be a component of anxiety contributing to his symptoms but that is with the GERD would be a diagnosis of exclusion 4. DVT prophylaxis with Lovenox Code Visit OBSV E&M: 27833 Initial observation care L3
[2017-11-23] MEDS: Pantoprazole Sodium 20 MG Tablet PO (21:01)
[2017-11-23] MEDS: HYDROcodone Bitartrate/Apap 5/325 Tablet PO (21:19)
[2017-11-24] VITALS (8 sets, daily range): BP systolic 145–165; BP diastolic 73–87; PULSE 39–56; RESP 16–20; TEMP 36.3–36.9; O2SAT 97–99
[2017-11-24 05:48] LABS: Hematocrit 43.8 % (40-54); Hemoglobin 14.1 g/dl (13.0-16.5); Mean Corp Hgb Conc 32.2 g/gl (32-36); Mean Corpuscular Hgb 28.7 pg (27.0-32.0); Mean Platelet Vol. 9.8 fl (6.2-12.0); Platelet Count 168 K/mm3 (150-450); RBC Distribution Width SD 48.5 fl (35.1-43.9); Red Blood Count 4.92 M/mm3 (4.6-6.2)
[2017-11-24 05:51] LABS: Prothrombin Time (Protime)PT. 12.9 SECONDS (11.7-14.9); Scan Indicated on CBC? Y/N NO
[2017-11-24 05:52] LABS: Partial Thromboplast Time 29.3 Seconds (24.1-36.2)
[2017-11-24] MEDS: Aspirin E.C. 81 MG Tablet PO (05:56)
[2017-11-24 05:59] LABS: AST(SGOT) 12 U/L (15-37); Alanine Aminotransfer ALT/SGPT 14 U/L (16-61); Albumin, Serum 3.2 g/dL (3.2-5.0); Alkaline Phosphatase 58 U/L (45-117); Anion Gap 9 (5-15); BUN 9 mg/dL (7-18); BUN/Creat Ratio 12.6 RATIO (10-20); Calcium,Total 8.1 mg/dL (8.5-10.1); Chloride 113 mmol/L (98-107); Cholesterol 197 mg/dL (200); Creatinine, Serum 0.72 mg/dL (0.70-1.30); EST Glomerular Filtration Rate 124 mL/min (>60); Est Glom Filt Rate - Afr Amer 150 mL/min (>60); Estimated Creatinine Clearance 125.47 ml/min; Globulin 3.2 g/dL (2.2-4.2); Glucose 96 mg/dL (74-106); High Density Lipoprotein 28 mg/dL; Magnesium 2.1 mg/dL (1.6-2.6); Potassium 3.8 mmol/L (3.5-5.1); Protein, Total 6.4 g/dL (6.4-8.2); Sodium Level 145 mmol/L (136-145); Triglycerides 269 mg/dL; Very Low Density Lipoprotein 54 mg/dL (5-40)
[2017-11-24] MEDS: HYDROcodone Bitartrate/Apap 5/325 Tablet PO (06:03)
[2017-11-24] MEDS: Atenolol 25 MG Tablet PO (10:31)
[2017-11-24] MEDS: Sertraline 100 MG Tablet PO (10:31)
[2017-11-24] MEDS: Pantoprazole Sodium 20 MG Tablet PO (10:31)
--- NOTE | 2017-11-24 11:34 | CASEMGMT ---
FARIBA met with patient, introduced self and role at [facility]. He had a female adult at his bedside holding his hand. SW asked patient if he had insurance and he said he did not know he would have to check. He said he thought he did. SW asked if it was [employer] as this is what he had on a previous visit. He said it is. FARIBA told him he should call the number on the back of his card to see if he needs to do something for them. He said otherwise he is doing fine. Airam FIGUEROA MSW
--- NOTE | 2017-11-24 13:41 | PCM.DC ---
- Discharge Diagnoses Current Active Problems: Current Active and Chronic Problems (Last Reviewed 11/23/17 @ 18:11 by Luciano Fajardo DO) Chest pain (Acute) You will use the following diet at home:: Cardiac Your food should be the consistency of: Regular Your liquids should be the consistency of: Regular/Thin Discharge Activity: No Restrictions Call your doctor if you observe: Shortness of breath, Dizziness, Fainting spells, Chest pain, Increased palpitations (irregular heartbeat) Allergies/Adverse Reactions: Allergies azithromycin Allergy (Verified 11/23/17 15:39) Shortness of breath Medications to take at Discharge Atenolol [Tenormin (beta srikanth)] 25 mg PO DAILY 09/08/14 Sertraline HCl [Zoloft] 100 mg PO DAILY 09/08/14 Hydrocodone/Acetaminophen [Vicodin 5-300 mg Tablet] 1 tablet PO Q6H PRN PRN 11/23/17 Omeprazole Magnesium [Prilosec Otc] 20 mg PO BID 11/23/17 Aspirin E.C. [Ecotrin] 81 mg PO DAILY@0800 #30 tab 11/24/17 Atorvastatin Calcium [Lipitor] 40 mg PO QHS #30 tab 11/24/17 Lisinopril [Prinivil] 5 mg PO DAILY #30 tab 11/24/17 The following prescriptions were given: Aspirin E.C. [Ecotrin] 81 mg PO DAILY@0800 #30 tab Atorvastatin Calcium [Lipitor] 40 mg PO QHS #30 tab Lisinopril [Prinivil] 5 mg PO DAILY #30 tab Primary Care Physician: Alexandrea Saini MD [Primary Care Provider] - Please follow up with your Primary Care Physician in: in 3-5 days Test Results: Test results from this visit will be discussed in further detail at your follow-up appointment, if applicable.
--- NOTE | 2017-11-24 13:43 | PCM.DC.SUM ---
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 Patient was in his normal state of health up until about 330 this afternoon where he developed chest pain that was across his chest started kind of in his abdomen went up to his neck and down his left arm. Symptoms persisted until he presented to the emergency room where he received nitroglycerin and that did alleviate his chest pain somewhat but still has it present at this time. Patient did feel dizzy with this as well as well as nauseated. He denies ever having had chest pain like this before. Patient received a GI cocktail given his history of reflux it did not alleviate his symptoms. Vital Signs - 24 hr Temp Pulse Resp BP Pulse Ox 11/24/17 11:07 48 L 11/24/17 08:22 97.3 F L 48 L 16 165/83 H 99 11/24/17 07:17 52 L 11/24/17 05:57 98.2 F 50 L 20 H 145/78 H 98 11/24/17 03:20 45 L 11/24/17 01:23 98.4 F 44 L 16 152/73 H 99 11/24/17 01:12 39 L 11/23/17 23:27 59 L 11/23/17 19:00 57 L 11/23/17 18:11 56 L 16 130/76 H 96 11/23/17 17:10 57 L 125/85 H 11/23/17 17:00 57 L 18 137/81 H 97 11/23/17 16:08 56 L 22 H 113/58 L 99 11/23/17 16:00 60 122/62 H 11/23/17 15:55 63 146/88 H 11/23/17 15:51 97 11/23/17 15:39 98.2 F 68 15 161/96 H 99 General: Alert, Oriented x3, Cooperative, No apparent distress HEENT: Atraumatic, PERRLA, EOMI, Normocephalic Oral: Moist Mucosa Neck: Supple, No JVD Lungs: Clear to auscultation, Normal air movement, No rhonchi, No wheeze, No rales Cardiovascular: Regular rate, Regular Rhythm, Normal S1, Normal S2, No murmurs Abdomen: Soft, Non Tender, Non-Distended, No Hepato-splenomegaly Extremities: No edema, Capillary Refill Less than 3 Seconds Skin: No rashes, No breakdown Psych/Mental Status: Normal Affect, Appropriate Hospital Course: 1. Unstable angina/HTN - On presentations to the ER he was ordered serial troponins which were negative and he had a normal EKG. A stress test was ordered and was negative as well for ischemia. I calculated his ASCVD risk which was 21% so I discussed with him the importance of quitting smoking but in the meant time will start him on lipitor, aspirin and lisinopril for better blood pressure control. He needs to follow-up with his PCP in 3-5 days for a BMP given his prescription of lisinopril and for further adjustments of his medications to maximize therapy. Discharge Activity: No Restrictions Call your doctor if you observe: Shortness of breath, Dizziness, Fainting spells, Chest pain, Increased palpitations (irregular heartbeat) Home Medications: Medications to take at Discharge Atenolol [Tenormin (beta srikanth)] 25 mg PO DAILY 09/08/14 Sertraline HCl [Zoloft] 100 mg PO DAILY 09/08/14 Hydrocodone/Acetaminophen [Vicodin 5-300 mg Tablet] 1 tablet PO Q6H PRN PRN 11/23/17 Omeprazole Magnesium [Prilosec Otc] 20 mg PO BID 11/23/17 Aspirin E.C. [Ecotrin] 81 mg PO DAILY@0800 #30 tab 11/24/17 Atorvastatin Calcium [Lipitor] 40 mg PO QHS #30 tab 11/24/17 Lisinopril [Prinivil] 5 mg PO DAILY #30 tab 11/24/17 Following Prescrptions Were Given to Patient: Aspirin E.C. [Ecotrin] 81 mg PO DAILY@0800 #30 tab Atorvastatin Calcium [Lipitor] 40 mg PO QHS #30 tab Lisinopril [Prinivil] 5 mg PO DAILY #30 tab Primary Care Physician: Alexandrea Saini MD [Primary Care Provider] - Please follow up with your Primary Care Physician in: in 3-5 days Disposition: Home Minutes spent on discharge:: 35 Patient Condition:: Good Medical Necessity - Tobacco Use Smoking Status: Current every day smoker Tobacco Use: Cigarettes Meaningful Use Info Meaningful Use Diagnoses (Choose all that apply): None applicable Code Visit Inpatient E&M: 23412 Disch Hosp
--- NOTE | 2017-11-24 14:01 | CHAPLAIN ---
two attempts made and patient is sleeping on both occasions
--- NOTE | 2017-11-24 16:57 | STRESSREP ---
Stress Test Report Pharmacologic myocardial perfusion stress test. 47-year-old man with a history of chest pain. Stress protocol: Resting EKG demonstrates sinus bradycardia with a rate of 48 bpm. Resting blood pressure is 170/98 mmHg. 0.4 mg of regadenoson was infused per usual protocol followed by rapid intravenous saline flush injection continuous EKG monitoring was performed. The patient maintained sinus rhythm throughout the recording the maximum heart rate attained was 160 bpm which was 93% of maximum predicted heart rate the maximum workload was 1 metabolic equivalent. At rest there were no ST or T-wave changes noted suggest ischemia peak exercise no ST or T-wave changes were noted suggest ischemia. Resting blood pressure is 170/98 mmHg. Myocardial perfusion protocol. 14.8 mCi of technetium 99m sestamibi was injected at rest. 0.4 mg regadenoson was infused per usual protocol. At peak infusion 44.1 mCi of technetium 99m sestamibi was injected stress images were obtained stress and rest images were reconstructed and compared in the short axis vertical long and horizontal long axis. Gated images were also obtained next Perfusion SPECT analysis: Review of the stress images demonstrate normal uptake of tracer noted in the septum anterior wall and lateral wall. There is mildly reduced perfusion noted in the inferior wall and apex. This is present on the stress and rest images to a similar extent. Previous infarct in these areas cannot be completely excluded though diaphragmatic and GI attenuation artifact is also more likely. Gated SPECT analysis: The gated ejection fraction is noted to be 57%. Conclusion: Normal pharmacologic myocardial perfusion stress test. Preserved ejection fraction. Previous small apical infarct cannot be completely excluded. Less likely.
== END 2017-11-24 11:35 | disposition home or self-care (01) ==
LOC: ED 16:47 → PCU 18:13
PROVIDERS: Emergency Provider Emergency Medicine; Family Provider Pediatrics; PCP Pediatrics; Visit Provider Family Medicine
DX: R07.89 Other chest pain (principal); G47.33 Obstructive sleep apnea (adult) (pediatric); E78.5 Hyperlipidemia, unspecified; I48.0 Paroxysmal atrial fibrillation; F32.9 Major depressive disorder, single episode, unspecified; K21.9 Gastro-esophageal reflux disease without esophagitis; R42 Dizziness and giddiness; R11.0 Nausea; F17.210 Nicotine dependence, cigarettes, uncomplicated; G89.29 Other chronic pain; M54.9 Dorsalgia, unspecified; Z79.899 Other long term (current) drug therapy; Z91.19 Patient's noncompliance with other medical treatment and regimen; F41.9 Anxiety disorder, unspecified
CPT/HCPCS: 36415; 71046; 78452; 80053; 80061; 83690; 83735; 84484; 85025; 85027; 85610; 85730; 93005; 93017; 96374; 99218; 99285; A9500; A4216; G0378; J2785

== ENCOUNTER 2017-12-20 13:53 | Emergency (ER) | payer MEDICAID, SELFPAY ==
[2017-12-20 13:54] VITALS: BP 141/104; PULSE 70; RESP 18; TEMP 36.6; O2SAT 99; BMI 30.1
--- NOTE | 2017-12-20 14:29 | CT_ITS ---
STUDY: CT BRAIN WITHOUT CONTRAST REASON FOR EXAM: Male, 47 years old. Fall from a 12 foot height. RADIATION DOSAGE (If Supplied By Facility): CTDIvol = ( 44.99 ) mGy, DLP = ( 745.49 ) mGycm TECHNIQUE: Transaxial CT imaging of the brain was performed without administration of intravenous contrast material. Individualized dose optimization techniques were used for this CT. COMPARISON: Comparison is made with prior study dated July 17, 2017. FINDINGS: Normal soft tissue structures. Normal calvarium. Normal size ventricles and extra-axial spaces for the patient's age. Normal white matter tracts of the cerebral hemispheres. Normal basal ganglia and thalami. Normal brainstem. Normal cerebellum. There is no intracranial hemorrhage. There are no findings of an acute ischemic infarction. Mucosal thickening of the ethmoid sinuses bilaterally. CT/Brain/Head without Contrast IMPRESSION: Normal unenhanced CT scan of the brain. Electronically Signed: Dimas Renee MD at 15:19 EDT Tel [phone], Service support ,
--- NOTE | 2017-12-20 14:30 | CT_ITS ---
STUDY: CT ABDOMEN AND PELVIS WITH CONTRAST REASON FOR EXAM: Male, 47 years old. Trauma. Fall from a 12 foot height. RADIATION DOSAGE (If Supplied By Facility): CTDIvol = ( 18.63 ) mGy, DLP = ( 1647.74 ) mGycm TECHNIQUE: Transaxial images were obtained from the dome of the diaphragm to the symphysis pubis without oral contrast. 100mL ml of Isovue 300 contrast was administered. Sagittal and coronal images were reconstructed. Individualized dose optimization techniques were used for this CT. COMPARISON: Comparison is made with prior study dated May 25, 2017. FINDINGS: The visualized lung bases are unremarkable. The visualized portions of the heart are within normal limits. Normal liver. Normal gallbladder and extrahepatic biliary system. Normal spleen. Normal pancreas. Normal bilateral adrenal glands. Normal right kidney. Normal left kidney. Normal visualized stomach. Normal small intestine. Normal colon. There are surgical clips in the region of the appendix consistent with a prior appendectomy. Normal abdominal aorta. Normal inferior vena cava. Normal retroperitoneum. Distended urinary bladder. Small bilateral inguinal hernias containing fat. Normal osseous structures. CT/Abdomen/Pelvis W IV Cont ONLY IMPRESSION: Distended urinary bladder. Small bilateral inguinal hernia containing fat. Electronically Signed: Dimas Renee MD at 15:46 EDT Tel [phone], Service support ,
--- NOTE | 2017-12-20 14:30 | CT_ITS ---
STUDY: CT CERVICAL SPINE WITHOUT CONTRAST REASON FOR EXAM: Male, 47 years old. Fall from a 12 foot height. RADIATION DOSAGE (If Supplied By Facility): CTDIvol = ( 27.54 ) mGy, DLP = ( 600.10 ) mGycm TECHNIQUE: High resolution transaxial imaging was performed without contrast material. Sagittal and coronal images were reconstructed. Individualized dose optimization techniques were used for this CT. COMPARISON: Comparison is made with prior examination dated May 25, 2017. FINDINGS: Normal craniovertebral junction. Normal anterior atlantoaxial articulation. Normal odontoid process. There is straightening of the normal cervical lordosis. Normal vertebral bodies and posterior osseous elements. C2-3: Normal endplates. Normal disc height and morphology. Normal central canal and intervertebral neuroforamina. C3-4: Normal endplates. Normal disc height and morphology. Normal central canal and intervertebral neuroforamina. C4-5: Normal endplates. Normal disc height and morphology. Normal central canal and intervertebral neuroforamina. C5-6: Mild degree of disc space narrowing. Anterior spondylosis. C6-7: Fusion at the C6-C7 level. C7-T1: Normal endplates. Normal disc height and morphology. Normal central canal and intervertebral neuroforamina. Normal visualized soft tissue structures. CT/Spine Cervical without Contras IMPRESSION: Multilevel degenerative changes, as described above. Electronically Signed: Dimas Renee MD at 15:25 EDT Tel [phone], Service support ,
--- NOTE | 2017-12-20 14:30 | CT_ITS ---
STUDY: CT CHEST WITH CONTRAST REASON FOR EXAM: Male, 47 years old. Trauma. Fall from a 12 foot height. RADIATION DOSAGE (If Supplied By Facility): CTDIvol = ( 18.63 ) mGy, DLP = ( 1647.74 ) mGycm TECHNIQUE: Transaxial imaging was performed following intravenous administration of 100mL ml of Isovue 300 contrast material. Multiplanar coronal and sagittal images were reformatted. Individualized dose optimization techniques were used for this CT. COMPARISON: Comparison is made with prior study dated May 25, 2017. FINDINGS: There is a 2.2 cm x 1.4 cm well-defined hypodensity in the subcutaneous fat along the anterior right chest wall most likely representing a sebaceous cyst. The lungs are normal. There is no demonstrated pleural abnormality. Normal heart and pericardium. There are multiple small lymph nodes within the mediastinum, which are normal in size and morphology most compatible with reactive lymph hyperplasia. Normal hilar regions. Normal enhanced pulmonary arteries. Normal aorta arch and descending thoracic aorta. There are multi-level degenerative changes of the thoracic spine. There is no demonstrated abnormality of the visualized upper abdomen. CT/Chest WITH Contrast IMPRESSION: 2.2 cm x 1.4 cm hypodense nodule in the subcutaneous fat in the right anterior chest wall most likely representing a small sebaceous cyst. Electronically Signed: Dimas Renee MD at 15:52 EDT Tel [phone], Service support ,
[2017-12-20] MEDS: 0.9% Normal Saline 1,000 ML 150 ML IV (14:47)
[2017-12-20] MEDS: Ondansetron 4 MG/2 ML Vial IV (14:48)
[2017-12-20] MEDS: Morphine 4 MG/ML Syringe IV (14:48)
[2017-12-20 15:02] LABS: Absolute Lymphocyte Count 2.39 X10^3/ul (0.83-4.51); Basophil# 0.04 X10^3/uL; Basophil% 0.7 % (0-1); Eosinophils% 1.7 % (0-5); Hemoglobin 15.2 g/dl (13.0-16.5); Lymphocyte # 2.39 X10^3/ul (4.0); Mean Corp Hgb Conc 33.8 g/gl (32-36); Mean Corpuscular Hgb 29.7 pg (27.0-32.0); Mean Corpuscular Volume 88.1 fL (80-94); Mean Platelet Vol. 10.1 fl (6.2-12.0); Monocyte# 0.32 X10^3/uL; Monocyte% 5.5 % (0-10); Neutrophil # 2.98 X10^3/uL (2.7-7.7); Neutrophil % 51.1 % (47-70); Platelet Count 181 K/mm3 (150-450); RBC Distribution Width CV 14.6 % (11.6-14.6); RBC Distribution Width SD 47.4 fl (35.1-43.9); Red Blood Count 5.11 M/mm3 (4.6-6.2); White Blood Count 5.8 K/mm3 (4.4-11.0)
[2017-12-20 15:04] LABS: POSITIVE COUNT NO; POSITIVE DIFFERENTIAL NO; POSITIVE MORPHOLOGY NO
[2017-12-20 15:11] LABS: AST(SGOT) 12 U/L (15-37); Alanine Aminotransfer ALT/SGPT 16 U/L (16-61); Albumin, Serum 3.7 g/dL (3.2-5.0); Alkaline Phosphatase 59 U/L (45-117); Anion Gap 12 (5-15); BUN 10 mg/dL (7-18); BUN/Creat Ratio 10.1 RATIO (10-20); Calcium,Total 8.4 mg/dL (8.5-10.1); Chloride 109 mmol/L (98-107); Creatinine, Serum 0.99 mg/dL (0.70-1.30); EST Glomerular Filtration Rate 85 mL/min (>60); Est Glom Filt Rate - Afr Amer 103 mL/min (>60); Estimated Creatinine Clearance 91.25 ml/min; Globulin 3.8 g/dL (2.2-4.2); Glucose 106 mg/dL (74-106); Potassium 3.4 mmol/L (3.5-5.1); Protein, Total 7.5 g/dL (6.4-8.2); Sodium Level 144 mmol/L (136-145)
[2017-12-20] MEDS: HYDROmorphone 1 MG/ML Syringe IV (15:28)
[2017-12-20 15:39] VITALS: BP 140/72; PULSE 65; RESP 16; O2SAT 99
--- NOTE | 2017-12-20 16:08 | ED.DCSUM_ITS ---
- ER Visit Summary Date of Service: 12/20/17 Chief Complaint: [Fall] History of Present Illness: The patient is a 47 M [emergency department with complaint of a fall off of a roof today. Patient states that he had climbed up on the roof and as he was stepping off of the ladder lost his balance and fell off the roof approximately 12 feet and landed on his back on the deck. No loss of consciousness. Patient states he landed directly on his back. Patient complains of back pain. Patient was able to drive himself to the emergency department. Patient complains of some pain radiating into his left leg. Has had problems with back pain and radiation to her left leg in the past. He denies any change in bowel or bladder function. He denies significant neck pain. He denies any chest pain or abdominal pain.] Physical Examination: [HEENT-PERRLA, EOMI. Cranial nerves II through XII grossly intact. TMs clear. Mucous membranes moist. No adenopathy. Mild diffuse C-spine tenderness on palpation. No bony step-offs noted. No external evidence of trauma to his head. Cardiovascular-regular rate and rhythm without murmur or ectopy. Lungs-clear to auscultation, chest wall stable without crepitus or subcu emphysema Abdomen-normoactive bowel sounds, soft. Patient does have some tenderness over right upper quadrant left upper quadrant with some guarding. There is no rebound, rigidity, or perineal signs. Back exam-patient has tenderness to palpation diffusely about the thoracic and lumbar spine as well as the paraspinal musculature. There is no ecchymosis or bruising noted posteriorly. Patient is quite active in the room getting up and out of the cot. He does have pain with straight leg raising on the left. Deep tendon reflexes are plus 2 out of 4 bilaterally at the patella and Achilles. Patient has normal L5 extension. Has normal sensation to light touch. Extremities-intact ?4, normal range of motion, normal pulses, atraumatic] Test Results: CT of the brain without contrast was normal. CT C-spine showed degenerative changes. CT chest showed nothing acute and CT abdomen and pelvis with IV contrast showed a distended bladder otherwise nothing significant. There is no osseous abnormalities. CBC with differential showing a 5.8, hemoglobin 15, hematocrit 45, platelets 181. Chemistries were unremarkable. LFTs were unremarkable. [] Emergency Department Course and Treatment: [Patient on arrival initially was medicated with morphine and Zofran. Patient was then given a milligram of Dilaudid for pain.] Treatment Plan: [Will be given a prescription for [place] for pain will be discharged home. Patient advised to follow-up with primary care physician within next 3-5 days] Disposition: [Discharged home in stable condition] Impression: [Fall Contusion back Close head injury] This note was generated with [employer] dictation software. It may contain incorrect words, spelling, and punctuation that were not noted in review of the chart prior to signing ED Disposition - Plan for ED Patient: Chief Complaint: Trauma Referrals: Alexandrea Saini MD [Primary Care Provider] -
--- NOTE | 2017-12-20 16:10 | DCINST.ED_ITS ---
ED Disposition - Plan for ED Patient: Chief Complaint: Trauma Instructions: ED Mechanical Fall, ED Head Injury Closed Prescriptions: Hydrocodone/Acetaminophen [[place] 5-325 Tablet] 1 - 2 ea PO 4X/DAY PRN PRN 3 Days #12 tab PRN Reason: Pain Referrals: Alexandrea Saini MD [Primary Care Provider] - 3-5 Days
[2017-12-20 16:27] VITALS: BP 115/83; PULSE 64; RESP 18; O2SAT 99
== END 2017-12-20 16:28 | disposition home or self-care (01) ==
PROVIDERS: Emergency Provider Emergency Medicine; Family Provider Pediatrics; PCP Pediatrics
DX: S20.222A Contusion of left back wall of thorax, initial encounter (principal); S20.221A Contusion of right back wall of thorax, initial encounter; S30.0XXA Contusion of lower back and pelvis, initial encounter; S09.90XA Unspecified injury of head, initial encounter; I48.91 Unspecified atrial fibrillation; Z72.0 Tobacco use; Z79.82 Long term (current) use of aspirin; Z79.891 Long term (current) use of opiate analgesic; Z79.899 Other long term (current) drug therapy; W13.2XXA Fall from, out of or through roof, initial encounter; Y93.89 Activity, other specified; Y92.008 Other place in unspecified non-institutional (private) residence as the place of occurrence of the external cause; Y99.8 Other external cause status
CPT/HCPCS: 70450; 71260; 72125; 74177; 80053; 85025; 96361; 96374; 96375; 99283; J7030; Q9967; J2405

== ENCOUNTER 2017-12-25 15:37 | Emergency (ER) | payer MEDICAID, SELFPAY ==
[2017-12-25 15:39] VITALS: BP 130/86; PULSE 67; RESP 14; TEMP 36.7; O2SAT 98; BMI 30.1
[2017-12-25] MEDS: 0.9% Normal Saline 1,000 ML 1000 ML IV (15:45)
[2017-12-25 16:24] VITALS: BP 115/92; PULSE 67; RESP 15
--- NOTE | 2017-12-25 16:27 | ED.DCSUM_ITS ---
- ER Visit Summary Date of Service: 12/25/17 Chief Complaint: Drinking heavily History of Present Illness: The patient is a 47 M with a past medical history of prior CVA, A. fib, CAD and OR. On no blood thinners. His approximately 1 year ago to this day. This has been depressed. And he drank heavily today since noon. Said he had 1/5 of [place] comfort. He denies any falls or trauma. He denies any complaints. 1 of his sisters is at his home. [place] that he was intoxicated and wanted him evaluated. He has no complaints. There is another sister present in the emergency department who I discussed his history with. He is not suicidal. Physical Examination: Well-appearing middle-age male. Vital signs are stable and afebrile. He is in no distress. He is awake and alert. Currently he is not slurring his speech. There are no signs of trauma. H EENT exam unremarkable. Neck nontender. Lungs clear to auscultation bilaterally. Heart regular rhythm no murmur. Abdomen soft nontender. Normal bowel sounds no signs of trauma. Pelvic girdle intact. He is moving all 4 extremities. They are neurovascularly intact. Nontender no deformities. Back nontender. Neurologically is awake alert. He is answering questions. He is following commands. Currently he is cooperative. He is calm and appropriate. Test Results: None Emergency Department Course and Treatment: Patient was brought in by squad has an IV will be given the he will be observed for period of time if he is doing well will be discharged home. I discussed all this with his sister and she is comfortable with the plan. Treatment Plan: Patient is doing well on repeat exam at 1738 and feels comfortable being discharged home. Disposition: Discharge Impression: Acute alcohol intoxication Depressed secondary to the of his 1 year ago This note was generated with [employer] dictation software. It may contain incorrect words, spelling, and punctuation that were not noted in review of the chart prior to signing ED Disposition - Plan for ED Patient: Disposition: Home or Assisted Living Chief Complaint: ETOH Intox Instructions: ED Depression, ED Alcohol Intoxication Referrals: Alexandrea Saini MD [Primary Care Provider] - 3-5 Days if not improving Additional Instructions: No more drinking of alcohol for the next 72 hours. No driving for the next 24 hours. Plenty of water and rest.
[2017-12-25 17:04] VITALS: BP 142/82; PULSE 63; RESP 15; O2SAT 99
[2017-12-25 17:41] VITALS: PULSE 59; RESP 14; O2SAT 98
== END 2017-12-25 17:41 | disposition home or self-care (01) ==
PROVIDERS: Emergency Provider Emergency Medicine; Family Provider Pediatrics; PCP Pediatrics
DX: F10.129 Alcohol abuse with intoxication, unspecified (principal); F43.21 Adjustment disorder with depressed mood; I25.10 Atherosclerotic heart disease of native coronary artery without angina pectoris; I25.5 Ischemic cardiomyopathy; Z86.73 Personal history of transient ischemic attack (TIA), and cerebral infarction without residual deficits; Z72.0 Tobacco use; Z79.899 Other long term (current) drug therapy; Y90.9 Presence of alcohol in blood, level not specified
CPT/HCPCS: 96360; 99283; J7030; A4216

== ENCOUNTER 2018-01-06 15:28 | Inpatient (IN) | payer MEDICAID, SELFPAY ==
[2018-01-06] VITALS (30 sets, daily range): BP systolic 126–177; BP diastolic 75–141; PULSE 59–99; RESP 9–23; TEMP 36.7–37.6; O2SAT 96–100; BMI 31.2; BMI 32.0
--- NOTE | 2018-01-06 15:34 | CT_ITS ---
STUDY: CT BRAIN WITHOUT CONTRAST REASON FOR EXAM: Male, 47 years old. CVA. Left-sided facial droop. Left-sided weakness. RADIATION DOSAGE (If Supplied By Facility): CTDIvol = ( 44.99 ) mGy, DLP = ( 779.24 ) mGycm TECHNIQUE: Transaxial CT imaging of the brain was performed without administration of intravenous contrast material. Individualized dose optimization techniques were used for this CT. COMPARISON: CT of the head, December 20, 2017. FINDINGS: Normal soft tissue structures. Normal calvarium. Normal size ventricles and extra-axial spaces for the patient's age. Normal white matter tracts of the cerebral hemispheres. Normal basal ganglia and thalami. Normal brainstem. Normal cerebellum. There is no intracranial hemorrhage. There are no findings of an acute ischemic infarction. Normal visualized paranasal sinuses. CT/Brain/Head without Contrast IMPRESSION: Normal unenhanced CT scan of the brain. No interval change. If there is continued concern for acute infarct, MRI is recommended. N.B. : The above information has been verbally conveyed by Anshu Urbano DO to Dr. Viktor Barragan MD, on 01/06/2018 15:48:38 (ET). Electronically Signed: Anshu Urbano DO at 15:47 EDT Tel [phone], Service support ,
--- NOTE | 2018-01-06 15:34 | EKG12_ITS ---
Test Reason : CVA Blood Pressure : / mmHG Vent. Rate : 075 BPM Atrial Rate : 075 BPM P-R Int : 188 ms QRS Dur : 088 ms QT Int : 394 ms P-R-T Axes : 044 026 -03 degrees QTc Int : 439 ms Normal sinus rhythm Normal ECG Confirmed by DANII CERVANTES MD ([id number]), order editor CLEVE JONES ([id number]) on 01/08/2018 3:05:29 PM Referred By: GREGORY Confirmed By:DANII CERVANTES MD
--- NOTE | 2018-01-06 15:40 | RAD_ITS ---
STUDY: X-RAY CHEST REASON FOR EXAM: Male, 47 years old. Confusion, left-sided weakness. Possible alcohol consumption. TECHNIQUE: AP portable view of the chest on 2 images. COMPARISON: PA and lateral chest x-ray November 23, 2017; CT chest/thorax with IV contrast December 20, 2017. FINDINGS: The lungs are clear and expanded. There is no demonstrated pleural abnormality. Normal size heart. Normal mediastinum and candelaria. Normal visualized pulmonary arteries. Normal visualized aortic arch and descending thoracic aorta. There are stable multilevel degenerative changes of the visualized thoracic spine. 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 There is no demonstrated abnormality of the visualized soft tissue structures of the upper abdomen. RAD/Chest 1 View IMPRESSION: No acute cardiopulmonary disease. Electronically Signed: Delgado Pereira MD at 16:42 EDT , Service support ,
--- NOTE | 2018-01-06 15:47 | ED.RN ---
PT STATES THAT HE HAS DRANK HALF A BOTTLE OF [place] COMFORT, STATES THIS IS NORMAL FOR HIM.
--- NOTE | 2018-01-06 15:51 | CT_ITS ---
STUDY: CTA OF THE BRAIN REASON FOR EXAM: Male, 47 years old. RADIATION DOSAGE (If Supplied By Facility): CTDIvol = ( 22.95 ) mGy, DLP = ( 821.27 ) mGycm TECHNIQUE: CT angiography was performed with a multi-detector CT scanner. Data acquisition was obtained from the skull base through the vertex following intravenous administration of ml of . MIP images were reconstructed from the axial data set. Post-processing of the angiographic images was performed, with multiplanar reformation and 3D reconstruction. Individualized dose optimization techniques were used for this CT. COMPARISON: None. FINDINGS: Normal bilateral petrous carotid arteries. Normal right cavernous carotid artery with a normal supraclinoid bifurcation. Normal left cavernous carotid artery with a normal supraclinoid bifurcation. There is mild hypoplastic development of the A1 segment of the right anterior cerebral artery with an atretic but intact artery. Normal left A1 segments of the anterior cerebral artery. Normal intact anterior communicating artery (ACOM). Normal bilateral A2 segments of the anterior cerebral arteries. Normal right M1 and M2 segments of the middle cerebral arteries, with a normal M1 bifurcation. Normal left M1 and M2 segments of the middle cerebral arteries, with a normal M1 bifurcation. There is non-visualization of the right posterior communicating artery (PCOM). There is non-visualization of the left posterior communicating artery (PCOM). Normal bilateral vertebral arteries. Normal basilar artery with a normal basilar bifurcation. The visualized bilateral superior cerebellar (SCA) arteries are normal. Normal bilateral P1, P2 and visualized P3 segments of the posterior cerebral arteries. There is no demonstrated aneurysm of the [place]. There is no demonstrated abnormality of the visualized brain. CT/CTA Head W/WO Contrast IMPRESSION: 1. Mildly atretic A1 segment of the right anterior cerebral artery. The [place] is otherwise intact intact and unremarkable. N.B. : The above information has been verbally conveyed by Willi Sood to Viktor Barragan on 01/06/2018 16:32:17 (ET). Electronically Signed: Anshu Urbano DO at 16:32 EDT Tel [phone], Service support ,
--- NOTE | 2018-01-06 15:51 | CT_ITS ---
STUDY: CTA NECK WITH CONTRAST REASON FOR EXAM: Male, 47 years old. Left-sided deficit. CVA. RADIATION DOSAGE (If Supplied By Facility): CTDIvol = ( 22.95 ) mGy, DLP = ( 821.27 ) mGycm TECHNIQUE: CT angiography with multi-detector data acquisition was performed from the aortic arch to the skull base following intravenous administration of 100 ml of Isovue 370 contrast. MIP images were reconstructed from the axial data set. Post-processing of the angiographic images was performed, with multiplanar reformation and 3D reconstruction. Individualized dose optimization techniques were used for this CT. COMPARISON: None. FINDINGS: AORTIC ARCH: Normal visualized aortic arch. Normal origins of the brachiocephalic, left common carotid, and left subclavian arteries. RIGHT CAROTID ARTERIES: Normal right common carotid artery (CCA). Normal right common carotid bulb. Normal origin of the right internal carotid (ICA) artery without a hemodynamically significant stenosis. There is tortuosity of the visualized cervical portion of the right internal carotid artery. Normal origin of the right external carotid artery (ECA). LEFT CAROTID ARTERIES: Normal left common carotid artery (CCA). Normal left common carotid bulb. Normal origin of the left internal carotid (ICA) artery without a hemodynamically significant stenosis. Normal visualized cervical portion of the left internal carotid artery. Normal origin of the left external carotid artery (ECA). VERTEBRAL ARTERIES: Normal bilateral vertebral arteries. CT/CTA Neck W/WO Contrast IMPRESSION: Normal bilateral cervical carotid and vertebral arteries. N.B. : The above information has been verbally conveyed by Anshu Urbano DO to Viktor Barragan on 01/06/2018 16:30:00 (ET). Electronically Signed: Anshu Urbano DO at 16:28 EDT Tel [phone], Service support ,
--- NOTE | 2018-01-06 15:59 | ED.VISSUMM ---
- ER Visit Summary Date of Service: 01/06/18 Chief Complaint: Left-sided weakness, facial droop, alcohol intoxication History of Present Illness: The patient is a 47 M who presents with left-sided weakness, facial droop and alcohol intoxication. According to EMS symptom onset was at 2:15 PM. He started having left-sided facial droop as well as left arm and left leg weakness. She admits to drinking 3 bottles of [place] comfort today. According to his chart he had a TIA in June. He presented very similarly and had a normal MRI. He was started on Eliquis for paroxysmal atrial fibrillation. EMS brought bottles of hydrocodone and atenolol but no bottles of Eliquis. Physical Examination: Vital signs reviewed. Patient appears intoxicated. HEENT exam reveals a left-sided facial droop. His speech is slurred. Heart is regular rate and rhythm without murmurs. Lungs are clear bilaterally. Abdomen soft and nontender. Skin exam reveals no rashes. Neurologic exam reveals an NIH stroke scale of 13. He scores 2 points for level consciousness, one point for questions, 2 points for facial palsy, 3 points for left arm motor, 4 points left leg motor, 1 point for dysarthria. Test Results: EKG is normal sinus rhythm with a rate of 75. Laboratory studies are unremarkable except for potassium of 2.8. Alcohol level is 289. CAT scan of the head, CTA of the head and neck reveals an atretic A1 but otherwise unremarkable Emergency Department Course and Treatment: Dr. Abreu with neurology evaluated the patient soon after arrival. He reviewed the CAT scan and CTA studies. He consented with the son, Byron, regarding TPA. TPA was administered after consultation with Dr. Abreu. Patient was given Ativan to help him calm down. Patient will be admitted to the hospitalist Treatment Plan: [] isposition: Admit Impression: Ischemic stroke, alcohol intoxication This note was generated with [employer] dictation software. It may contain incorrect words, spelling, and punctuation that were not noted in review of the chart prior to signing ED Disposition - Plan for ED Patient: Chief Complaint: Confusion Referrals: Alexandrea Saini MD [Primary Care Provider] -
--- NOTE | 2018-01-06 16:02 | ED.DCSUM_ITS ---
- ER Visit Summary Date of Service: 01/06/18 Chief Complaint: Left-sided weakness, facial droop, alcohol intoxication History of Present Illness: The patient is a 47 M who presents with left-sided weakness, facial droop and alcohol intoxication. According to EMS symptom onset was at 2:15 PM. He started having left-sided facial droop as well as left arm and left leg weakness. She admits to drinking 3 bottles of [place] comfort today. According to his chart he had a TIA in June. He presented very s imilarly and had a normal MRI. He was started on Eliquis for paroxysmal atrial fibrillation. EMS brought bottles of hydrocodone and atenolol but no bottles of Eliquis. Physical Examination: Vital signs reviewed. Patient appears intoxicated. HEENT exam reveals a left-sided facial droop. His speech is slurred. Heart is regular rate and rhythm without murmurs. Lungs are clear bilaterally. Abdomen soft and nontender. Skin exam reveals no rashes. Neurologic exam reveals an NIH stroke scale of 13. He scores 2 points for level consciousness, one point for questions, 2 points for facial palsy, 3 points for left arm motor, 4 points left leg motor, 1 point for dysarthria. Test Results: EKG is normal sinus rhythm with a rate of 75. Laboratory studies are unremarkable except for potassium of 2.8. Alcohol level is 289. CAT scan of the head, CTA of the head and neck reveals an atretic A1 but otherwise unremarkable Emergency Department Course and Treatment: Dr. Abreu with neurology evaluated the patient soon after arrival. He reviewed the CAT scan and CTA studies. He consented with the son, Byron, regarding TPA. TPA was administered after consultation with Dr. Abrue. Patient was given Ativan to help him calm down. Patient will be admitted to the hospitalist Treatment Plan: [] isposition: Admit Impression: Ischemic stroke, alcohol intoxication This note was generated with [employer] dictation software. It may contain incorrect words, spelling, and punctuation that were not noted in review of the chart prior to signing ED Disposition - Plan for ED Patient: Chief Complaint: Confusion Referrals: Alexandrea Saini MD [Primary Care Provider] -
[2018-01-06 16:18] LABS: Absolute Lymphocyte Count 2.54 X10^3/ul (0.83-4.51); Absolute Neutrophil Count 1.9 X10^3/uL (2.0-7.7); Basophil# 0.03 X10^3/uL; Basophil% 0.6 % (0-1); Eosinophil# 0.06 X10^3/uL; Eosinophils% 1.2 % (0-5); Hematocrit 43.2 % (40-54); Hemoglobin 15.4 g/dl (13.0-16.5); Lymphocyte # 2.54 X10^3/ul (4.0); Lymphocyte % 52.8 % (19-41); Mean Corp Hgb Conc 35.6 g/gl (32-36); Mean Corpuscular Hgb 30.5 pg (27.0-32.0); Mean Corpuscular Volume 85.5 fL (80-94); Mean Platelet Vol. 9.6 fl (6.2-12.0); Monocyte# 0.27 X10^3/uL; Monocyte% 5.6 % (0-10); Neutrophil % 39.6 % (47-70); Platelet Count 177 K/mm3 (150-450); RBC Distribution Width CV 14.5 % (11.6-14.6); Red Blood Count 5.05 M/mm3 (4.6-6.2); White Blood Count 4.8 K/mm3 (4.4-11.0)
[2018-01-06 16:19] LABS: POSITIVE COUNT NO; POSITIVE DIFFERENTIAL NO; POSITIVE MORPHOLOGY NO
[2018-01-06 16:22] LABS: International Normalized Ratio 0.9; Prothrombin Time (Protime)PT. 12.6 SECONDS (11.7-14.9)
[2018-01-06 16:23] LABS: Partial Thromboplast Time 27.3 Seconds (24.1-36.2)
[2018-01-06 16:30] LABS: Anion Gap 10 (5-15); BUN 12 mg/dL (7-18); BUN/Creat Ratio 15.8 RATIO (10-20); Calcium,Total 7.9 mg/dL (8.5-10.1); Chloride 109 mmol/L (98-107); Creatinine, Serum 0.76 mg/dL (0.70-1.30); EST Glomerular Filtration Rate 116 mL/min (>60); Est Glom Filt Rate - Afr Amer 141 mL/min (>60); Estimated Creatinine Clearance 122.73 ml/min; Glucose 95 mg/dL (74-106); Potassium 2.8 mmol/L (3.5-5.1); Sodium Level 144 mmol/L (136-145)
--- NOTE | 2018-01-06 16:31 | PCM.CONS.GEN ---
Reason for Consult Date of Consultation: 01/06/18 Reason for Consultation: stroke team History of Present Illness: The patient is a 47 year old M male who was last known well at approximately 2:50 PM today, was noted at 3:14 PM today to have left-sided weakness. His family notes that he is also encountered intoxicated but squad was called he was brought to the emergency department. I saw the patient in the emergency department, and noted severe left-sided weakness, the patient is unaware of his deficits and wants to go home. I did discuss the situation with his son, Byron, who stated that he was his oldest son and next of kin and agrees to IV TPA. Risks and benefits were discussed. The patient's girlfriend is also at the bedside who also agrees. The patient apparently has a history of atrial fibrillation but has not been on anticoagulation. He takes Zoloft and atenolol at home. He apparently received IV TPA about 3 months ago for a similar situation but has been normal at home ever since. Does indicate that he drinks regularly. 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 [place] Tobacco dependence (Chronic) GERD (gastroesophageal reflux disease) (Chronic) Medical History: Medical History (Last Reviewed 01/06/18 @ 16:34 by Jose Alfredo Abreu MD) Obesity (BMI 30-39.9) (Acute) E66.9 JOHNATHAN (obstructive sleep apnea) (Chronic) G47.33 TIA (transient ischemic attack) (Acute) G45.9 Depression (Chronic) F32.9 Hyperlipidemia (Chronic) E78.5 Paroxysmal atrial fibrillation (Chronic) I48.0 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 waste disposal 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 [place] Tobacco dependence (Chronic) F17.200 GERD (gastroesophageal reflux disease) (Chronic) K21.9 Chronic back pain M54.9, G89.29 Noncompliance with CPAP treatment Z91.14 Allergies azithromycin Allergy (Verified 01/06/18 15:43) Shortness of breath Home Medications: Ambulatory Orders Medication Instructions Recorded Atenolol [Tenormin (beta srikanth)] 25 mg PO DAILY 09/08/14 Sertraline HCl [Zoloft] 100 mg PO DAILY 09/08/14 Omeprazole Magnesium [Prilosec Otc] 20 mg PO BID 11/23/17 Surgical History: Surgical History (Last Reviewed 01/06/18 @ 16:34 by Jose Alfredo Abreu MD) Hx of appendectomy Z90.49 Surgical History: appendectomy Psychiatric History: Depression Smoking Status: Current every day smoker - *Family History Sibling Family History: Family History (Last Reviewed 01/06/18 @ 16:34 by Jose Alfredo Abreu MD) Mother Diabetes CAD (coronary artery disease) CVA (cerebral vascular accident) Myocardial infarction, Onset Age: 35 Father CAD (coronary artery disease) Diabetes CVA (cerebral vascular accident) History Items: Diabetes, Heart Disease Maternal Family History: Family History (Last Reviewed 01/06/18 @ 16:34 by Jose Alfredo Abreu MD) Mother Diabetes CAD (coronary artery disease) CVA (cerebral vascular accident) Myocardial infarction, Onset Age: 35 Father CAD (coronary artery disease) Diabetes CVA (cerebral vascular accident) History Items: Diabetes, Heart Disease - [place] at 35 y/o., Stroke Paternal Family History: Family History (Last Reviewed 01/06/18 @ 16:34 by Jose Alfredo Abreu MD) Mother Diabetes CAD (coronary artery disease) CVA (cerebral vascular accident) Myocardial infarction, Onset Age: 35 Father CAD (coronary artery disease) Diabetes CVA (cerebral vascular accident) History Items: Diabetes, Heart Disease, Stroke Review of Systems Constitutional: Denies: Chills, Fever, Weight Change HEENT: Denies: Head Aches, Sinus Congestion, Sinus Drainage Cardiovascular: Denies: Chest Pain, Palpitations Respiratory: Denies: Cough, Shortness of breath at rest, Sputum production Gastrointestinal: Denies: Abdominal Pain, Nausea, Vomiting Genitourinary: Denies: Dysuria Musculoskeletal: Denies: Joint Pain, Joint Tenderness Skin: Denies: Rash, Wounds Neurological: Denies: Numbness, Tingling, Focal weakness Psychiatric: Denies: Anxiety, Depression, Homicidal Ideations, Suicidal Ideations Hematologic/ Lymphatic: Denies: Easy Bruising, Easy Bleeding Objective: Awake alert and oriented. Mildly agitated and emotional. Left central 7 Left-sided extinction Left hemianopsia Left arm is flaccid Left leg is flaccid He is able to tell me his age and the month. NIH stroke scale score is 14 - Physical Exam Vital Signs Temp Pulse Resp BP Pulse Ox 37.6 C H 70 22 H 164/93 H 100 01/06/18 15:30 01/06/18 16:04 01/06/18 16:04 01/06/18 16:04 01/06/18 16:04 Oxygen Delivery Method Room Air Weight: 98.883 kg Body Mass Index (BMI) 31.2 Finger Stick Blood Glucose 104 Laboratory Tests Past 24 Hrs 01/06/18 01/06/18 01/06/18 16:05 16:05 16:05 WBC 4.8 RBC 5.05 Hgb 15.4 Hct 43.2 MCV 85.5 MCH 30.5 MCHC 35.6 RDW 14.5 RDW Differential 45.0 H Plt Count 177 MPV 9.6 Immature Gran % (Auto) 0.200 Neut % (Auto) 39.6 L Lymph % (Auto) 52.8 H Curry % (Auto) 5.6 Eos % (Auto) 1.2 Baso % (Auto) 0.6 Absolute Neuts (auto) 1.9 L Absolute Lymphs (auto) 2.54 Total Counted Not Reportable PT Pending INR Pending APTT Pending Sodium 144 Potassium 2.8 L Chloride 109 H Carbon Dioxide 25.0 Anion Gap 10 BUN 12 Creatinine 0.76 Estim Creat Clear Calc 122.73 Est GFR (MDRD) Af Amer 141 Est GFR (MDRD) Non-Af 116 BUN/Creatinine Ratio 15.8 Glucose 95 Calcium 7.9 L Troponin I < 0.015 Ethyl Alcohol 01/06/18 16:05 WBC RBC Hgb Hct MCV MCH MCHC RDW RDW Differential Plt Count MPV Immature Gran % (Auto) Neut % (Auto) Lymph % (Auto) Curry % (Auto) Eos % (Auto) Baso % (Auto) Absolute Neuts (auto) Absolute Lymphs (auto) Total Counted PT INR APTT Sodium Potassium Chloride Carbon Dioxide Anion Gap BUN Creatinine Estim Creat Clear Calc Est GFR (MDRD) Af Amer Est GFR (MDRD) Non-Af BUN/Creatinine Ratio Glucose Calcium Troponin I Ethyl Alcohol 289.[address] and CTA. There is no significant stenosis. CT looks normal A. fib on telemetry monitoring Assessment/Plan All Active Problems (Last Reviewed 01/06/18 @ 16:34 by Jose Alfredo Abreu MD) Chest pain (Acute) Obesity (BMI 30-39.9) (Acute) TIA (transient ischemic attack) (Acute) Chest pain (Resolved) Impression: Acute right MCA distribution infarct with an NIH stroke score of 14 history of atrial fibrillation not on anticoagulation, no evidence of TPA contraindications, this was discussed with his next of kin who is an adult son and his girlfriend both of whom agrees. Pharmacy was called at 4:10 PM and order was placed for TPA at 4:19 p.m. and subsequently modified by pharmacy. The patient will need to be admitted to the ICU for monitoring with repeat scans as well as initiation of therapies. The patient will also need benzodiazepines for withdrawal protocol. 90 minutes critical care time
[2018-01-06] MEDS: LORazepam 2 MG/ML Syringe 0.5 MG IV (16:41)
--- NOTE | 2018-01-06 16:51 | ED.RN ---
TPA INFUSION DOUBLE CHECKED WITH ROMI GUZMAN
--- NOTE | 2018-01-06 17:03 | NURSING ---
DR BRODY JENKINS
--- NOTE | 2018-01-06 17:04 | ED.RN ---
PT STATES THAT HE CAN FEEL HIS FACE, LEGS, AND ARMS AGAIN.
--- NOTE | 2018-01-06 17:04 | NURSING ---
DR KELLY IN ER
--- NOTE | 2018-01-06 17:05 | NURSING ---
[facility] [address] [facility], ALCOHOL INTOX
--- NOTE | 2018-01-06 17:46 | PCM.HP.STD ---
Problem List (1) CVA (cerebral vascular accident) Status: Acute Qualifiers: CVA mechanism: unspecified Qualified Code(s): I63.9 - Cerebral infarction, unspecified History of Present Illness Date of Admission: 01/06/18 Chief Complaint: left sided weakness The patient is a 47 year old M presents with left-sided weakness. At around 230 today patient noted left-sided weakness in his face left arm and leg. Presented to the emergency room. Patient had an NIH score of 14. Neurology was contacted and consulted. Patient was intoxicated coming in but after discussion with the family it was agreed to proceed with TPA. Patient received that at 419. Patient has noted improvements of his left-sided weakness but not complete resolution at this time. Patient states that he has had prior TIAs before which were similar but never this severe. Patient does have a known history of atrial fibrillation and had been prescribed and Eliquis but stated that prescription had run out after he left the hospital but had never followed up. 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 with it field technician at [place] Tobacco dependence (Chronic) GERD (gastroesophageal reflux disease) (Chronic) Medical History: Medical History (Last Reviewed 01/06/18 @ 17:49 by 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 with it field technician at [place] Tobacco dependence (Chronic) F17.200 GERD (gastroesophageal reflux disease) (Chronic) K21.9 Chronic back pain M54.9, G89.29 Noncompliance with CPAP treatment Z91.14 Allergies azithromycin Allergy (Verified 01/06/18 15:43) Shortness of breath Home Medications: Ambulatory Orders Medication Instructions Recorded Atenolol [Tenormin (beta srikanth)] 25 mg PO DAILY 09/08/14 Sertraline HCl [Zoloft] 100 mg PO DAILY 09/08/14 Omeprazole Magnesium [Prilosec Otc] 20 mg PO BID 11/23/17 Surgical History: Surgical History (Last Reviewed 01/06/18 @ 17:49 by Luciano Fajardo DO) Hx of appendectomy Z90.49 Surgical History: appendectomy Psychiatric History: Depression Smoking Status: Current every day smoker Alcohol: Occasional - That he drinks about half of a bottle of [employer] but every 3 weeks. And that of the time he states that he does not drink. States that the patient denies a daily drinking habit. Drugs: None - *Family History Sibling Family History: Family History (Last Reviewed 01/06/18 @ 17:49 by Luciano Fajardo DO) Mother Diabetes CAD (coronary artery disease) CVA (cerebral vascular accident) Myocardial infarction, Onset Age: 35 Father CAD (coronary artery disease) Diabetes CVA (cerebral vascular accident) History Items: Diabetes, Heart Disease Maternal Family History: Family History (Last Reviewed 01/06/18 @ 17:49 by Luciano Fajardo DO) Mother Diabetes CAD (coronary artery disease) CVA (cerebral vascular accident) Myocardial infarction, Onset Age: 35 Father CAD (coronary artery disease) Diabetes CVA (cerebral vascular accident) History Items: Diabetes, Heart Disease - [place] at 35 y/o., Stroke Paternal Family History: Family History (Last Reviewed 01/06/18 @ 17:49 by Luciano Fajardo DO) Mother Diabetes CAD (coronary artery disease) CVA (cerebral vascular accident) Myocardial infarction, Onset Age: 35 Father CAD (coronary artery disease) Diabetes CVA (cerebral vascular accident) History Items: Diabetes, Heart Disease, Stroke Review of Systems Constitutional: Denies: Anorexia, Chills, Fever Eyes: Denies: Blurred vision, Double vision HEENT: Denies: Head Aches, Sinus Congestion, Sinus Drainage Cardiovascular: Denies: Chest Pain, Palpitations Respiratory: Denies: Cough, Shortness of Breath Gastrointestinal: Denies: Abdominal Pain, Nausea, Vomiting Genitourinary: Denies: Dysuria Musculoskeletal: Denies: Arm Pain, Back Pain, Foot Pain, Hand Pain, Joint Pain Skin: Denies: Rash, Wounds Neurological: Reports: Focal weakness, Incoordination, Numbness. Denies: Balance problems, Blurred vision, Double vision, Change in Speech Psychiatric: Denies: Anxiety, Depression Endocrine: Denies: Change in Body Habitus, Heat/ Cold Intolerance Hematologic/ Lymphatic: Denies: Easy Bruising, Easy Bleeding, Hx of blood clot Comment: All review of systems are negative except as mentioned in the history of present illness and the other review of systems. VTE Information - Inpt Only VTE Present on Admission: No VTE Pharm Prophylaxis ordered?: Yes Patient Problems: Active and Suspected Problems (Last Reviewed 01/06/18 @ 16:34 by Jose Alfredo Abreu MD) CVA (cerebral vascular accident) (Acute) - Physical Exam General: Alert, Cooperative, No apparent distress, - - Was not. Afebrile. HEENT: Atraumatic, PERRLA, EOMI, Normocephalic Oral: Moist Mucosa, No Gingival or Mucosal Lesions/ Ulcerations, - - Edentulous Neck: No Nodes, Thyroid Normal Size and Texture Lungs: Clear to auscultation, Normal air movement, No rhonchi, No wheeze Cardiovascular: Regular rate, Regular Rhythm, Normal S1, Normal S2, No murmurs Abdomen: Bowel Sounds Present, Soft, Non Tender, Non-Distended, No Hepato-splenomegaly, Obese Extremities: No edema, No Calf Tenderness Skin: No rashes, No breakdown Musculoskeletal: No Tenderness to Palpation of Joints or Extremities, No Muscle Wasting Neurological: Cranial nerves II-XII grossly intact, - - Muscle strength 5 out of 5 in the right upper and right lower extremity. 3 out of 5 in the left lower and left upper extremity. Psych/Mental Status: Normal Affect, Appropriate, - - Intoxicated Vital Signs Temp Pulse Resp BP Pulse Ox 37.6 C H 68 16 134/92 H 99 01/06/18 15:30 01/06/18 17:30 01/06/18 17:30 01/06/18 17:30 01/06/18 17:30 Oxygen Delivery Method Room Air Weight: 98.883 kg Body Mass Index (BMI) 31.2 Finger Stick Blood Glucose 104 Laboratory Tests Past 24 Hrs 01/06/18 01/06/18 01/06/18 16:05 16:05 16:05 WBC 4.8 RBC 5.05 Hgb 15.4 Hct 43.2 MCV 85.5 MCH 30.5 MCHC 35.6 RDW 14.5 RDW Differential 45.0 H Plt Count 177 MPV 9.6 Immature Gran % (Auto) 0.200 Neut % (Auto) 39.6 L Lymph % (Auto) 52.8 H Marion % (Auto) 5.6 Eos % (Auto) 1.2 Baso % (Auto) 0.6 Absolute Neuts (auto) 1.9 L Absolute Lymphs (auto) 2.54 Total Counted Not Reportable PT 12.6 INR 0.9 APTT 27.3 Sodium 144 Potassium 2.8 L Chloride 109 H Carbon Dioxide 25.0 Anion Gap 10 BUN 12 Creatinine 0.76 Estim Creat Clear Calc 122.73 Est GFR (MDRD) Af Amer 141 Est GFR (MDRD) Non-Af 116 BUN/Creatinine Ratio 15.8 Glucose 95 Calcium 7.9 L Troponin I < 0.015 Ethyl Alcohol 01/06/18 16:05 WBC RBC Hgb Hct MCV MCH MCHC RDW RDW Differential Plt Count MPV Immature Gran % (Auto) Neut % (Auto) Lymph % (Auto) Marion % (Auto) Eos % (Auto) Baso % (Auto) Absolute Neuts (auto) Absolute Lymphs (auto) Total Counted PT INR APTT Sodium Potassium Chloride Carbon Dioxide Anion Gap BUN Creatinine Estim Creat Clear Calc Est GFR (MDRD) Af Amer Est GFR (MDRD) Non-Af BUN/Creatinine Ratio Glucose Calcium Troponin I Ethyl Alcohol 289.0 Clinical Impression(s) from Imaging Studies Brain CT 01/06/18 15:34 IMPRESSION: Normal unenhanced CT scan of the brain. No interval change. If there is continued concern for acute infarct, MRI is recommended. N.B. : The above information has been verbally conveyed by Anshu Urbano DO to Dr. Viktor Barragan MD, on 01/06/2018 15:48:38 (ET). Electronically Signed: Anshu Urbano DO at 15:47 EDT Tel [phone], Service support , Chest X-Ray 01/06/18 15:40 IMPRESSION: No acute cardiopulmonary disease. Electronically Signed: Delgado Pereira MD at 16:42 EDT , Service support , Head CTA 01/06/18 15:51 IMPRESSION: 1. Mildly atretic A1 segment of the right anterior cerebral artery. [place] is otherwise intact intact and unremarkable. N.B. : The above information has been verbally conveyed by Willi Sood to Viktor Barragan on 01/06/2018 16:32:17 (ET). Electronically Signed: Anshu Urbano DO at 16:32 EDT Tel [phone], Service support , Neck CTA 01/06/18 15:51 IMPRESSION: Normal bilateral cervical carotid and vertebral arteries. N.B. : The above information has been verbally conveyed by Anshu Urbano DO to Viktor Laurel on 01/06/2018 16:30:00 (ET). Electronically Signed: Anshu Urbano DO at 16:28 EDT Tel [phone], Service support , Assessment/Plan All Active Problems (Last Reviewed 01/06/18 @ 16:34 by Jose Alfredo Abreu MD) Chest pain (Acute) CVA (cerebral vascular accident) (Acute) Obesity (BMI 30-39.9) (Acute) TIA (transient ischemic attack) (Acute) Chest pain (Resolved) 1. Acute stroke Initial intake NIH of 14 Status post TPA at 1619 Patient will be admitted to the ICU and monitored Check an MRI. Check a repeat head CT on the seventh. Check an echocardiogram Continue consultation to neurology Consult speech, occupational and physical therapies Presumed embolic given the patient's history of paroxysmal atrial fibrillation 2. Alcohol abuse Patient adamant that he does not drink daily and drinks about every 3 weeks and drinks about a half of 1/5 of [facility] Multivitamin Consider benzodiazepines if patient starts having increasing confusion or signs and symptoms of withdrawal or delirium tremens 3. Paroxysmal atrial fibrillation [id number] score is 2 Patient will need to go back on an anticoagulant when deemed appropriate by neurology Discussed the patient and significant other at bedside that if he can receive prescription in the hospital but he will need to follow-up with his primary care doctor and neurologist Would also recommend following up with his it field technician as well. 4. DVT prophylaxis with SCDs. Code Visit Inpatient E&M: 15603 Init Hosp L3
--- NOTE | 2018-01-06 17:48 | ECHOD_ITS ---
Reason For Study: TIA/CVA Procedure This was a 2D Doppler, Color Flow transthoracic echocardiogram. Previous Negative Bubble Study. Exam performed portable in patient room. Left Ventricle Normal LV size. Left ventricular systolic function is normal. The estimated ejection fraction is 60 %. No evidence for diastolic dysfunction. No regional wall motion abnormalities noted. Right Ventricle Normal RV size. Normal systolic function. Atria Normal left atrium. Normal right atrium. Mitral Valve Normal mitral valve. Trivial eccentric mitral valve insufficiency. Tricuspid Valve Normal tricuspid valve. Unable to estimate RV systolic pressure due to inadequate jet, pulmonary artery pressure probably normal. Aortic Valve Normal aortic valve. Trisinus/trileaflet aortic valve. Pulmonic Valve Normal pulmonic valve. Great Vessels Normal aortic root. The pulmonary artery is normal size. Normal inferior vena cava. Pericardium/Pleural No pericardial effusion. MMode/2D Measurements & Calculations LVIDd: 5.5 cm IVSd: 0.72 cm LVOT diam: 2.0 cm LVIDs: 3.4 cm LVPWd: 0.77 cm LVOT area: 3.2 cm2 FS: 39.0 % Ao root diam: 3.7 cm LAV(MOD-bp): 59.7 ml LVAd ap4: 38.3 cm2 LA dimension: 3.4 cm LAV(MOD-bp) Indexed: 28.0 ml/m2 EDV(MOD-sp4): 134.6 ml LAV(MOD-sp2): 63.0 ml EDV(sp4-el): 140.7 ml LAV(MOD-sp4): 52.7 ml LVAs ap4: 21.2 cm2 ESV(MOD-sp4): 49.4 ml ESV(sp4-el): 49.3 ml EF(MOD-sp4): 63.3 % EF(sp4-el): 65.0 % SV(MOD-sp4): 85.2 ml SV(sp4-el): 91.4 ml LA A4 area: 18.5 cm2 RA A4 area: 22.8 cm2 Time Measurements MV dec time: 0.18 sec Doppler Measurements & Calculations MV E max albaro: 110.6 cm/sec Med Peak E' Albaro: 13.9 cm/sec MV V2 max: 122.3 cm/sec MV A max albaro: 71.3 cm/sec E/E' med: 8.0 MV max P.0 mmHg MV E/A: 1.6 MV V2 mean: 62.3 cm/sec MV mean P.9 mmHg MV V2 VTI: 48.2 cm MVA(VTI): 1.6 cm2 MV P1/2t max albaro: 122.3 cm/sec Ao V2 max: 132.1 cm/sec LV V1 max: 119.8 cm/sec MV P1/2t: 169.4 msec Ao max P.0 mmHg LV V1 max P.7 mmHg MV dec slope: 211.5 cm/sec2 Ao V2 mean: 83.1 cm/sec LV V1 mean P.4 mmHg MVA(P1/2t): 1.3 cm2 Ao mean P.2 mmHg LV V1 mean: 68.4 cm/sec Ao V2 VTI: 30.0 cm LV V1 VTI: 24.7 cm BOB(I,D): 2.6 cm2 BOB(V,D): 2.9 cm2 SV(LVOT): 78.2 ml PA V2 max: 89.6 cm/sec Interpretation Summary Normal LV size. Left ventricular systolic function is normal. The estimated ejection fraction is 60 %. No evidence for diastolic dysfunction. Compared to prior study, there is no significant change. Ordering Physician: Luciano Fajardo Referring Physician: Alexandrea Saini Performed By: Nish Duarte RCS
--- NOTE | 2018-01-06 17:50 | NURSING ---
Admitted to ICU-5 from ED. NIH complete and bedside w/ ED RN
--- NOTE | 2018-01-06 17:50 | HP.PCM_ITS ---
Problem List (1) CVA (cerebral vascular accident) Status: Acute Qualifiers: CVA mechanism: unspecified Qualified Code(s): I63.9 - Cerebral infarction, unspecified History of Present Illness Date of Admission: 01/06/18 Chief Complaint: left sided weakness The patient is a 47 year old M presents with left-sided weakness. At around 230 today patient noted left-sided weakness in his face left arm and leg. Presented to the emergency room. Patient had an NIH score of 14. Neurology was contacted and consulted. Patient was intoxicated coming in but after discussion with the family it was agreed to proceed with TPA. Patient received that at 419. Patient has noted improvements of his left-sided weakness but not complete resolution at this time. Patient states that he has had prior TIAs before which were similar but never this severe. Patient does have a known history of atrial fibrillation and had been prescribed and Eliquis but stated that prescription had run out after he left the hospital but had never followed up. 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 with delivery of shopping news at [place] Tobacco dependence (Chronic) GERD (gastroesophageal reflux disease) (Chronic) Medical History: Medical History (Last Reviewed 01/06/18 @ 17:49 by 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 with delivery of shopping news at [place] Tobacco dependence (Chronic) F17.200 GERD (gastroesophageal reflux disease) (Chronic) K21.9 Chronic back pain M54.9, G89.29 Noncompliance with CPAP treatment Z91.14 Allergies azithromycin Allergy (Verified 01/06/18 15:43) Shortness of breath Home Medications: Ambulatory Orders Medication Instructions Recorded Atenolol [Tenormin (beta srikanth)] 25 mg PO DAILY 09/08/14 Sertraline HCl [Zoloft] 100 mg PO DAILY 09/08/14 Omeprazole Magnesium [Prilosec Otc] 20 mg PO BID 11/23/17 Surgical History: Surgical History (Last Reviewed 01/06/18 @ 17:49 by Luciano Fajardo DO) Hx of appendectomy Z90.49 Surgical History: appendectomy Psychiatric History: Depression Smoking Status: Current every day smoker Alcohol: Occasional - That he drinks about half of a bottle of Southern comfort but every 3 weeks. And that of the time he states that he does not drink. States that the patient denies a daily drinking habit. Drugs: None - *Family History Sibling Family History: Family History (Last Reviewed 01/06/18 @ 17:49 by Luciano Fajardo DO) Mother Diabetes CAD (coronary artery disease) CVA (cerebral vascular accident) Myocardial infarction, Onset Age: 35 Father CAD (coronary artery disease) Diabetes CVA (cerebral vascular accident) History Items: Diabetes, Heart Disease Maternal Family History: Family History (Last Reviewed 01/06/18 @ 17:49 by Luciano Fajardo DO) Mother Diabetes CAD (coronary artery disease) CVA (cerebral vascular accident) Myocardial infarction, Onset Age: 35 Father CAD (coronary artery disease) Diabetes CVA (cerebral vascular accident) History Items: Diabetes, Heart Disease - [place] at 35 y/o., Stroke Paternal Family History: Family History (Last Reviewed 01/06/18 @ 17:49 by Luciano Fajardo DO) Mother Diabetes CAD (coronary artery disease) CVA (cerebral vascular accident) Myocardial infarction, Onset Age: 35 Father CAD (coronary artery disease) Diabetes CVA (cerebral vascular accident) History Items: Diabetes, Heart Disease, Stroke Review of Systems Constitutional: Denies: Anorexia, Chills, Fever Eyes: Denies: Blurred vision, Double vision HEENT: Denies: Head Aches, Sinus Congestion, Sinus Drainage Cardiovascular: Denies: Chest Pain, Palpitations Respiratory: Denies: Cough, Shortness of Breath Gastrointestinal: Denies: Abdominal Pain, Nausea, Vomiting Genitourinary: Denies: Dysuria Musculoskeletal: Denies: Arm Pain, Back Pain, Foot Pain, Hand Pain, Joint Pain Skin: Denies: Rash, Wounds Neurological: Reports: Focal weakness, Incoordination, Numbness. Denies: Balance problems, Blurred vision, Double vision, Change in Speech Psychiatric: Denies: Anxiety, Depression Endocrine: Denies: Change in Body Habitus, Heat/ Cold Intolerance Hematologic/ Lymphatic: Denies: Easy Bruising, Easy Bleeding, Hx of blood clot Comment: All review of systems are negative except as mentioned in the history of present illness and the other review of systems. VTE Information - Inpt Only VTE Present on Admission: No VTE Pharm Prophylaxis ordered?: Yes Patient Problems: Active and Suspected Problems (Last Reviewed 01/06/18 @ 16:34 by Jose Alfredo Abreu MD) CVA (cerebral vascular accident) (Acute) - Physical Exam General: Alert, Cooperative, No apparent distress, - - Was not. Afebrile. HEENT: Atraumatic, PERRLA, EOMI, Normocephalic Oral: Moist Mucosa, No Gingival or Mucosal Lesions/ Ulcerations, - - Edentulous Neck: No Nodes, Thyroid Normal Size and Texture Lungs: Clear to auscultation, Normal air movement, No rhonchi, No wheeze Cardiovascular: Regular rate, Regular Rhythm, Normal S1, Normal S2, No murmurs Abdomen: Bowel Sounds Present, Soft, Non Tender, Non-Distended, No Hepato-splenomegaly, Obese Extremities: No edema, No Calf Tenderness Skin: No rashes, No breakdown Musculoskeletal: No Tenderness to Palpation of Joints or Extremities, No Muscle Wasting Neurological: Cranial nerves II-XII grossly intact, - - Muscle strength 5 out of 5 in the right upper and right lower extremity. 3 out of 5 in the left lower and left upper extremity. Psych/Mental Status: Normal Affect, Appropriate, - - Intoxicated Vital Signs Temp Pulse Resp BP Pulse Ox 37.6 C H 68 16 134/92 H 99 01/06/18 15:30 01/06/18 17:30 01/06/18 17:30 01/06/18 17:30 01/06/18 17:30 Oxygen Delivery Method Room Air Weight: 98.883 kg Body Mass Index (BMI) 31.2 Finger Stick Blood Glucose 104 Laboratory Tests Past 24 Hrs 01/06/18 01/06/18 01/06/18 16:05 16:05 16:05 WBC 4.8 RBC 5.05 Hgb 15.4 Hct 43.2 MCV 85.5 MCH 30.5 MCHC 35.6 RDW 14.5 RDW Differential 45.0 H Plt Count 177 MPV 9.6 Immature Gran % (Auto) 0.200 Neut % (Auto) 39.6 L Lymph % (Auto) 52.8 H [place] % (Auto) 5.6 Eos % (Auto) 1.2 Baso % (Auto) 0.6 Absolute Neuts (auto) 1.9 L Absolute Lymphs (auto) 2.54 Total Counted Not Reportable PT 12.6 INR 0.9 APTT 27.3 Sodium 144 Potassium 2.8 L Chloride 109 H Carbon Dioxide 25.0 Anion Gap 10 BUN 12 Creatinine 0.76 Estim Creat Clear Calc 122.73 Est GFR (MDRD) Af Amer 141 Est GFR (MDRD) Non-Af 116 BUN/Creatinine Ratio 15.8 Glucose 95 Calcium 7.9 L Troponin I < 0.015 Ethyl Alcohol 01/06/18 16:05 WBC RBC Hgb Hct MCV MCH MCHC RDW RDW Differential Plt Count MPV Immature Gran % (Auto) Neut % (Auto) Lymph % (Auto) [place] % (Auto) Eos % (Auto) Baso % (Auto) Absolute Neuts (auto) Absolute Lymphs (auto) Total Counted PT INR APTT Sodium Potassium Chloride Carbon Dioxide Anion Gap BUN Creatinine Estim Creat Clear Calc Est GFR (MDRD) Af Amer Est GFR (MDRD) Non-Af BUN/Creatinine Ratio Glucose Calcium Troponin I Ethyl Alcohol 289.0 Clinical Impression(s) from Imaging Studies Brain CT 01/06/18 15:34 IMPRESSION: Normal unenhanced CT scan of the brain. No interval change. If there is continued concern for acute infarct, MRI is recommended. N.B. : The above information has been verbally conveyed by Anshu Urbano DO to Dr. Viktor Barragan MD, on 01/06/2018 15:48:38 (ET). Electronically Signed: Anshu Urbano DO at 15:47 EDT Tel [phone], Service support , Chest X-Ray 01/06/18 15:40 IMPRESSION: No acute cardiopulmonary disease. Electronically Signed: Delgado Pereira MD at 16:42 EDT , Service support , Head CTA 01/06/18 15:51 IMPRESSION: 1. Mildly atretic A1 segment of the right anterior cerebral artery. The [place] is otherwise intact intact and unremarkable. N.B. : The above information has been verbally conveyed by Willi Sood to Viktor Blakekathrin on 01/06/2018 16:32:17 (ET). Electronically Signed: Anshu Urbano DO at 16:32 EDT Tel [phone], Service support , Neck CTA 01/06/18 15:51 IMPRESSION: Normal bilateral cervical carotid and vertebral arteries. N.B. : The above information has been verbally conveyed by Anshu Urbano DO to Viktor Laurel on 01/06/2018 16:30:00 (ET). Electronically Signed: Anshu Urbano DO at 16:28 EDT Tel [phone], Service support , Assessment/Plan All Active Problems (Last Reviewed 01/06/18 @ 16:34 by Jose Alfredo Abreu MD) Chest pain (Acute) CVA (cerebral vascular accident) (Acute) Obesity (BMI 30-39.9) (Acute) TIA (transient ischemic attack) (Acute) Chest pain (Resolved) 1. Acute stroke * Initial intake NIH of 14 * Status post TPA at 1619 * Patient will be admitted to the ICU and monitored * Check an MRI. Check a repeat head CT on the seventh. Check an echocardiogram * Continue consultation to neurology * Consult speech, occupational and physical therapies * Presumed embolic given the patient's history of paroxysmal atrial fibrillation 2. Alcohol abuse * Patient adamant that he does not drink daily and drinks about every 3 weeks and drinks about a half of 1/5 of Southern comfort * Multivitamin * Consider benzodiazepines if patient starts having increasing confusion or s igns and symptoms of withdrawal or delirium tremens 3. Paroxysmal atrial fibrillation * [id number] score is 2 * Patient will need to go back on an anticoagulant when deemed appropriate by neurology * Discussed the patient and significant other at bedside that if he can receive prescription in the hospital but he will need to follow-up with his primary care doctor and neurologist * Would also recommend following up with his delivery of shopping news as well. 4. DVT prophylaxis with SCDs. Code Visit Inpatient E&M: 56445 Init Hosp L3
[2018-01-06] MEDS: 0.9% Normal Saline 1,000 ML 100 ML IV (18:26)
--- NOTE | 2018-01-06 19:25 | NURSING ---
NIH's difficult to assess d/t ETOH intoxication. Unsure if some symptoms are r/t stroke vs ETOH. This was passed on to oncoming nurse, Tania and NIH done at bedside unchanged at this time.
[2018-01-06 22:26] LABS: Bedside Glucose 104 mg/dL (70-110)
[2018-01-07] VITALS (30 sets, daily range): BP systolic 120–173; BP diastolic 76–99; PULSE 55–77; RESP 12–20; TEMP 36.6–37.2; O2SAT 94–100; BMI 32.0
[2018-01-07] MEDS: 0.9% Normal Saline 1,000 ML 100 ML IV (04:13)
[2018-01-07 04:42] LABS: Anion Gap 11 (5-15); BUN 15 mg/dL (7-18); BUN/Creat Ratio 19.4 RATIO (10-20); Calcium,Total 7.5 mg/dL (8.5-10.1); Chloride 112 mmol/L (98-107); Creatinine, Serum 0.77 mg/dL (0.70-1.30); EST Glomerular Filtration Rate 114 mL/min (>60); Est Glom Filt Rate - Afr Amer 138 mL/min (>60); Estimated Creatinine Clearance 109.69 ml/min; Glucose 97 mg/dL (74-106); Potassium 3.3 mmol/L (3.5-5.1); Sodium Level 147 mmol/L (136-145)
[2018-01-07 04:46] LABS: Cholesterol 175 mg/dL (200); High Density Lipoprotein 30 mg/dL; Triglycerides 380 mg/dL; Very Low Density Lipoprotein 76 mg/dL (5-40)
[2018-01-07] MEDS: Morphine 2 MG/ML Syringe 1 MG IV (05:56)
--- NOTE | 2018-01-07 07:14 | PCM.PN.HOSP ---
Patient Problems: Active and Suspected Problems (Last Reviewed 01/06/18 @ 17:49 by Luciano Fajardo DO) CVA (cerebral vascular accident) (Acute) Subjective: Patient overnight with notable clinical improvement status post TPA with improvement to the left upper extremity although does still have some residual left lower extremity weakness and does also have mild ataxia as well as difficulty with left gaze with onset severe nausea. Discussed current status with patient and plan of care with several lifestyle change recommendations including sobriety or responsible appropriate to alcoholic intake, tobacco cessation, need for anticoagulation given PAF with similar prior presentation requiring TPA. Discussed plan to obtain CT repeat at 24 hours of TPA administration and initiation of ASA/anticoagulation following with MRI Brain and ECHO also. Patient denies fevers, chills, emesis, abdominal pain, chest pain or dyspnea. Does have nausea as noted w/ L gaze attempts laterally. Objective: Physical Examination: General: awake, alert, oriented x 4 and cooperative, seated upright in the ICU bed in no apparent distress. Skin: normal color, turgor, no icterus, cyanosis. HEENT: AT/NC, EOMI, PERRLA, moderately dry MM, nausea onset w/ L gaze lateral attempts, able to perform. Lungs: Diminished BS BL bases, mild effort, no rales, ronchi or wheezing. Heart: Regular rate and rhythm; no gallop, rub audible. Abdomen: soft, obese, NTTP, ND, normal BS. Extremities: no cyanosis, clubbing, or edema. Neurological: patient awake, alert, oriented x 3; cognitive function intact; pupils equally reactive to light and accomodation; cranial nerves II-XII grossly normal although onset nausea (severe) with L lateral gaze performance, mild ataxia L sided HTN, FTN, mild drift LLE, strength improved since initial presentation 3-4/5 LLE, sensation intact, equivocal Babinski bilaterally. Psychiatric: affect appears normal, no acute evidence of depressive or anxiety feelings. Vitals/I&O's: Vital Signs Temp Pulse Resp BP Pulse Ox 98.8 F 62 20 H 150/92 H 96 01/07/18 07:00 01/07/18 07:00 01/07/18 07:00 01/07/18 07:00 01/07/18 07:00 Oxygen Delivery Method Room Air Weight: 207 lb 7.28 oz Body Mass Index (BMI) 32.0 Finger Stick Blood Glucose 104 Intake and Output for Last 24 Hours 01/05/18 01/06/18 01/07/18 23:59 23:59 23:59 Intake Total 1598.5 / 1598.5 Output Total 700 / 700 Balance 898.5 / 898.5 Laboratory Results 01/06/18 15:55: POC Glucose 104 01/06/18 16:05: WBC 4.8, RBC 5.05, Hgb 15.4, Hct 43.2, MCV 85.5, MCH 30.5, MCHC 35.6, RDW 14.5, RDW Differential 45.0 H, Plt Count 177, MPV 9.6, Immature Gran % (Auto) 0.200, Neut % (Auto) 39.6 L, Lymph % (Auto) 52.8 H, [place] % (Auto) 5.6, Eos % (Auto) 1.2, Baso % (Auto) 0.6, Absolute Neuts (auto) 1.9 L, Absolute Lymphs (auto) 2.54, Total Counted Not Reportable 01/06/18 16:05: PT 12.6, INR 0.9, APTT 27.3 01/06/18 16:05: Sodium 144, Potassium 2.8 L, Chloride 109 H, Carbon Dioxide 25.0, Anion Gap 10, BUN 12, Creatinine 0.76, Estim Creat Clear Calc 122.73, Est GFR (MDRD) Af Amer 141, Est GFR (MDRD) Non-Af 116, BUN/Creatinine Ratio 15.8, Glucose 95, Calcium 7.9 L, Troponin I < 0.015 01/06/18 16:05: Ethyl Alcohol 289.0 01/07/18 04:10: Triglycerides 380 H, Cholesterol 175, LDL Cholesterol 69, VLDL Cholesterol 76 H, HDL Cholesterol 30 L 01/07/18 04:10: Sodium 147 H, Potassium 3.3 L, Chloride 112 H, Carbon Dioxide 24.0, Anion Gap 11, BUN 15, Creatinine 0.77, Estim Creat Clear Calc 109.69, Est GFR (MDRD) Af Amer 138, Est GFR (MDRD) Non-Af 114, BUN/Creatinine Ratio 19.4, Glucose 97, Calcium 7.5 L Current Medications Acetaminophen (Tylenol) 650 mg PO Q6H PRN PRN PRN Reason: Non-cardiac pain (mod-severe) Atenolol (Tenormin (Beta Mark)) 25 mg PO DAILY [facility] Atorvastatin Calcium (Lipitor) 80 mg PO QHS [facility] Folic Acid (Folic Acid) 1 mg PO DAILY@0800 [facility] Stop: 01/09/18 08:01 Sodium Chloride () 1,000 mls @ 100 mls/hr IV .Q10H [facility] Last Admin: 01/07/18 04:13 Dose: 100 mls/hr Sodium Chloride () 250 mls @ 15 mls/hr IV .[id number] PRN PRN Reason: SALINE FLUSH Lorazepam (Ativan) 2 mg PO Q2H PRN PRN; Protocol PRN Reason: CIWA score > 8 but <15 Lorazepam (Ativan) 2 mg PO UD PRN; Protocol PRN Reason: CIWA score >/=15. Lorazepam (Ativan) 2 mg IV Q2H PRN PRN; Protocol PRN Reason: CIWA score > 8 but <15 Lorazepam (Ativan) 2 mg IV UD PRN; Protocol PRN Reason: CIWA score >/=15. Magnesium Hydroxide (Milk Of Magnesia) 30 ml PO DAILY PRN PRN PRN Reason: Constipation Multivitamins (Multivitamin) 1 tablet PO DAILYCM [facility] Multivitamins/Minerals (Multivitamin With Minerals) [facility] Pantoprazole Sodium (Protonix) 20 mg PO BID [facility] Last Admin: 01/06/18 22:04 Dose: Not Given Potassium Chloride (K-Dur) 40 meq PO X1 ONE Stop: 01/07/18 07:11 Sertraline HCl (Zoloft) 100 mg PO DAILY [facility] Sodium Chloride () 5 - 30 ml IV UD PRN PRN Reason: SALINE FLUSH Thiamine HCl (Vitamin B1) 100 mg PO BIDCM [facility] Stop: 01/09/18 17:01 Medical Necessity - Tobacco Use Smoking Status: Current every day smoker Assessment/Plan All Active Problems (Last Reviewed 01/06/18 @ 17:49 by Luciano Fajardo DO) Chest pain (Acute) CVA (cerebral vascular accident) (Acute) Obesity (BMI 30-39.9) (Acute) TIA (transient ischemic attack) (Acute) Chest pain (Resolved) The patient is a 47 y/o M w/ PMHx: EtOH Abuse potentially, PAF, HLD, JOHNATHAN non-compliant with CPAP, GERD, Depression, Chronic back pain, Tobacco use who presents to the [facility] ED on 01/06/18 with left sided weakness including face, upper and lower extremity starting at 3:15 pm on 01/06/18. (1) L sided Hemiplegia (Flaccid), L sided Hemianopsia, ? Initial Facial Droop (not noted in the ED) concerning for CVA: In the ED work-up included CBC w/ WBC 4.8, Hgb 15.4, Plts 177 without marked shift, BMP w/ K 2.8-->improved now to 3.3, repeat supplementation administered, CT Head w/ no acute findings, CXR w/ no acute findings, CTA Head and neck w/ normal bilateral cervical carotid and vertebral arteries with a mildly atretic A1 segment of the right anterior cerebral artery. Patient was administered TPA in the ED at 16:18 pm 01/06/18. Admitted to ICU following TPA, will obtain MRI Brain, ECHO, PT/OT/Speech/Nutrition evaluation per protocol. Neurology evaluated and will follow. Will allow permissive HTN and maintain on IVFs, plan repeat CT Head at 24 hours post-TPA administration and if unremarkable administer ASA and will also need to initiate anticoagulation but need to discuss timeline with neurology pending CT repeat, add high dose statin, fall precautions. Mag, Phos, TSH pending. (2) Prior CVA: Noted prior TPA usage ~ 3 months prior to current presentation, given this history, likely secondary to his PAF, needs to be anticoagulated once appropriate. (3) PAF: Permissive HTN, given presentation #1 and #2, will need anticoagulated once clinically appropriate, add back BB once off permissive HTN. (4) EtOH Abuse: Patient notes binge EtOH history, not daily usage, unclear given lethargy upon admission, will clarify once improved. In the interim will maintain on CIWA protocol, MVI, thiamine and folic acid. (5) Hypokalemia: Admission K+ 3.3, supplementation given, repeat level in AM. (6) Tobacco Abuse: Encouraged cessation, inpatient consultation per RT, NR if desired. (7) Hyperlipidemia: Adding high dose statin. FLP w/ TG 380, TChol 175, LDL 69, VLDL 76, HDL 30. (8) JOHNATHAN: Non-compliant with CPAP. (9) Chronic back pain: Position changes, tylenol PRN. (10) GERD: PPI. (11) DVT Prophylaxis: SCDs, as noted transition to anticoagulation once appropriate. Code Visit Inpatient E&M: 40312 Subs Hosp L3
--- NOTE | 2018-01-07 07:17 | PCM.CON.CC ---
Reason for Consult Date of Consultation: 01/07/18 Reason for Consultation: CVA status post TPA History of Present Illness: The patient is a 47-year-old male, with a history as outlined below, who presented to the emergency department on January 06 with left-sided weakness, facial droop and acute alcohol intoxication. Of note, the patient was admitted to the hospital in June 2017 under similar circumstances and treated for a probable acute TIA. The patient was also noted to be intoxicated at that time. The patient reportedly does also have a history of paroxysmal atrial fibrillation, for which she was started on Eliquis during his hospitalization in June. The patient does not recall the events that led to his hospitalization. He reports that he was going outside to cut the grass and began to feel strange. His neighbor reported that he apparently passed out. He does report occasional heavy alcohol use but is insistent that he does not drink on a daily basis. When he does drink, he normally consumes a half a bottle of Southern comfort. He denies ever having experienced alcohol withdrawal symptoms in the past. On presentation to the emergency department, the patient was noted to have a low-grade fever with a temperature of 99.7 ?F. He was hemodynamically stable and maintaining appropriate oxygen saturations on room air. Laboratory evaluation revealed no evidence of a leukocytosis. Chemistry profile was notable for a potassium of 2.8. Troponin was negative. Ethyl alcohol level was noted to be 289. Initial CT head was negative. The patient was evaluated by neurology, Dr. Abreu. Head and neck CTA was obtained and revealed normal bilateral cervical carotid and vertebral arteries with a mildly atretic A1 segment of the right anterior cerebral artery. The patient was subsequently consented for and did receive TPA. He was subsequently admitted to the medical intensive care unit for ongoing management. 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 with steel cutter at [place] Tobacco dependence (Chronic) GERD (gastroesophageal reflux disease) (Chronic) Medical History: Medical History (Last Reviewed 01/06/18 @ 17:49 by 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 with steel cutter at [place] Tobacco dependence (Chronic) F17.200 GERD (gastroesophageal reflux disease) (Chronic) K21.9 Chronic back pain M54.9, G89.29 Noncompliance with CPAP treatment Z91.14 Allergies azithromycin Allergy (Verified 01/06/18 15:43) Shortness of breath Home Medications: Ambulatory Orders Medication Instructions Recorded Atenolol [Tenormin (beta srikanth)] 25 mg PO DAILY 09/08/14 Sertraline HCl [Zoloft] 100 mg PO DAILY 09/08/14 Omeprazole Magnesium [Prilosec Otc] 20 mg PO DAILY 11/23/17 Oxycodone HCl/Acetaminophen 2 tablet PO Q6H PRN PRN 01/07/18 [Percocet 5/325] Surgical History: Surgical History (Last Reviewed 01/06/18 @ 17:49 by Luciano Fajardo DO) Hx of appendectomy Z90.49 Surgical History: appendectomy Psychiatric History: Depression Smoking Status: Current every day smoker Alcohol: Occasional - That he drinks about half of a bottle of Southern comfort but every 3 weeks. And that of the time he states that he does not drink. States that the patient denies a daily drinking habit. Drugs: None - *Family History Sibling Family History: Family History (Last Reviewed 01/06/18 @ 17:49 by Luciano Fajardo DO) Mother Diabetes CAD (coronary artery disease) CVA (cerebral vascular accident) Myocardial infarction, Onset Age: 35 Father CAD (coronary artery disease) Diabetes CVA (cerebral vascular accident) History Items: Diabetes, Heart Disease Maternal Family History: Family History (Last Reviewed 01/06/18 @ 17:49 by Luciano Fajardo DO) Mother Diabetes CAD (coronary artery disease) CVA (cerebral vascular accident) Myocardial infarction, Onset Age: 35 Father CAD (coronary artery disease) Diabetes CVA (cerebral vascular accident) History Items: Diabetes, Heart Disease - [place] at 35 y/o., Stroke Paternal Family History: Family History (Last Reviewed 01/06/18 @ 17:49 by Luciano Fajardo DO) Mother Diabetes CAD (coronary artery disease) CVA (cerebral vascular accident) Myocardial infarction, Onset Age: 35 Father CAD (coronary artery disease) Diabetes CVA (cerebral vascular accident) History Items: Diabetes, Heart Disease, Stroke Review of Systems Constitutional: Denies: Chills, Fever, Night Sweats Eyes: Denies: Blurred vision, Double vision HEENT: Denies: Head Aches, Sinus Congestion, Sinus Drainage Cardiovascular: Denies: Chest Pain, Palpitations Respiratory: Denies: Cough, Shortness of breath at rest, Sputum production Gastrointestinal: Denies: Abdominal Pain, Nausea, Vomiting Genitourinary: Denies: Dysuria Musculoskeletal: Denies: Joint Pain, Joint Tenderness Skin: Denies: Rash, Wounds Neurological: Reports: Focal weakness Psychiatric: Denies: Anxiety, Depression, Homicidal Ideations, Suicidal Ideations Hematologic/ Lymphatic: Denies: Easy Bruising, Easy Bleeding Patient Problems: Active and Suspected Problems (Last Reviewed 01/06/18 @ 17:49 by Luciano Fajardo DO) CVA (cerebral vascular accident) (Acute) Objective: The patient's most recent lab work, culture data and imaging studies have all been personally reviewed. - Physical Exam General: Alert, Oriented x3, Cooperative, No apparent distress HEENT: Atraumatic, PERRLA, Normocephalic Oral: No Gingival or Mucosal Lesions/ Ulcerations Neck: Supple, No Nodes, Trachea Midline Lungs: No rhonchi, No wheeze, No rales, Diminished Cardiovascular: Regular rate, Regular Rhythm, Normal S1, Normal S2, No murmurs Abdomen: Bowel Sounds Present, Soft, Non Tender, Non-Distended Extremities: No clubbing, No cyanosis, No edema Skin: No breakdown Musculoskeletal: No Tenderness to Palpation of Joints or Extremities Lymphatic: No Cervical, Supraclavicular, or Inguinal Adenopathy Neurological: - - Mild residual left upper and left lower extremity weakness. Cranial nerves are intact. Speech is fluent without dysarthria noted. Psych/Mental Status: Alert and oriented to time, place, person, mood and affect Vital Signs Temp Pulse Resp BP Pulse Ox 98.8 F 62 20 H 150/92 H 96 01/07/18 07:00 01/07/18 07:00 01/07/18 07:00 01/07/18 07:00 01/07/18 07:00 Oxygen Delivery Method Room Air Weight: 207 lb 7.28 oz Body Mass Index (BMI) 32.0 Finger Stick Blood Glucose 104 Intake and Output for Last 24 Hours 01/05/18 01/06/18 01/07/18 23:59 23:59 23:59 Intake Total 1598.5 / 1598.5 Output Total 700 / 700 Balance 898.5 / 898.5 Laboratory Tests Past 24 Hrs 01/06/18 01/06/18 01/06/18 16:05 16:05 16:05 WBC 4.8 RBC 5.05 Hgb 15.4 Hct 43.2 MCV 85.5 MCH 30.5 MCHC 35.6 RDW 14.5 RDW Differential 45.0 H Plt Count 177 MPV 9.6 Immature Gran % (Auto) 0.200 Neut % (Auto) 39.6 L Lymph % (Auto) 52.8 H [place] % (Auto) 5.6 Eos % (Auto) 1.2 Baso % (Auto) 0.6 Absolute Neuts (auto) 1.9 L Absolute Lymphs (auto) 2.54 Total Counted Not Reportable PT 12.6 INR 0.9 APTT 27.3 Sodium 144 Potassium 2.8 L Chloride 109 H Carbon Dioxide 25.0 Anion Gap 10 BUN 12 Creatinine 0.76 Estim Creat Clear Calc 122.73 Est GFR (MDRD) Af Amer 141 Est GFR (MDRD) Non-Af 116 BUN/Creatinine Ratio 15.8 Glucose 95 Calcium 7.9 L Troponin I < 0.015 Triglycerides Cholesterol LDL Cholesterol VLDL Cholesterol HDL Cholesterol Ethyl Alcohol 01/06/18 01/07/18 01/07/18 16:05 04:10 04:10 WBC RBC Hgb Hct MCV MCH MCHC RDW RDW Differential Plt Count MPV Immature Gran % (Auto) Neut % (Auto) Lymph % (Auto) [place] % (Auto) Eos % (Auto) Baso % (Auto) Absolute Neuts (auto) Absolute Lymphs (auto) Total Counted PT INR APTT Sodium 147 H Potassium 3.3 L Chloride 112 H Carbon Dioxide 24.0 Anion Gap 11 BUN 15 Creatinine 0.77 Estim Creat Clear Calc 109.69 Est GFR (MDRD) Af Amer 138 Est GFR (MDRD) Non-Af 114 BUN/Creatinine Ratio 19.4 Glucose 97 Calcium 7.5 L Troponin I Triglycerides 380 H Cholesterol 175 LDL Cholesterol 69 VLDL Cholesterol 76 H HDL Cholesterol 30 L Ethyl Alcohol 289.0 POC Glucose 01/06/18 15:55 POC Glucose 104 Clinical Impression(s) from Imaging Studies Brain CT 01/06/18 15:34 IMPRESSION: Normal unenhanced CT scan of the brain. No interval change. If there is continued concern for acute infarct, MRI is recommended. N.B. : The above information has been verbally conveyed by Anshu Urbano DO to Dr. Viktor Barragan MD, on 01/06/2018 15:48:38 (ET). Electronically Signed: Anshu Urbano DO at 15:47 EDT Tel [phone], Service support , Chest X-Ray 01/06/18 15:40 IMPRESSION: No acute cardiopulmonary disease. Electronically Signed: Delgado Pereira MD at 16:42 EDT , Service support , Head CTA 01/06/18 15:51 IMPRESSION: 1. Mildly atretic A1 segment of the right anterior cerebral artery. The [place] is otherwise intact intact and unremarkable. N.B. : The above information has been verbally conveyed by Willi Sood to Viktor Barragan on 01/06/2018 16:32:17 (ET). Electronically Signed: Anshu Urbano DO at 16:32 EDT Tel [phone], Service support , Neck CTA 01/06/18 15:51 IMPRESSION: Normal bilateral cervical carotid and vertebral arteries. N.B. : The above information has been verbally conveyed by Anshu Urbano DO to Viktor Barragan on 01/06/2018 16:30:00 (ET). Electronically Signed: Anshu Urbano DO at 16:28 EDT Tel [phone], Service support , Assessment/Plan Active and Suspected Problems (Last Reviewed 01/06/18 @ 17:49 by ESSENCE Silveira CVA (cerebral vascular accident) (Acute) RECOMMENDATIONS: 1. Continue management per TPA protocol. 2. Continue to allow for permissive hypertension. 3. Repeat head imaging is indicated this evening. If negative, the patient can be moved from the intensive care unit. 4. PT/OT evaluations, likely tomorrow. 5. Echocardiogram is pending. IMPRESSIONS: 1. Left-sided weakness with concern for acute right MCA infarction status post TPA administration Continue management per TPA protocol. Allow for permissive hypertension. The patient will be maintained on bedrest until repeat head imaging is completed this evening. If negative, the patient can be moved from the medical intensive care unit. PT/OT evaluations are on hold until that time. The patient passed his dysphagia screen this morning and his diet has been advanced accordingly. Neurology is following. 2. Personal history of paroxysmal atrial fibrillation Continue to hold beta-srikanth for now. The patient will likely require reinitiation of his outpatient oral anticoagulation regimen. 3. Alcohol dependence/tobacco dependence Continue to monitor for any signs of withdrawal. Continue thiamine and folate repletion. Smoking cessation is advisable. 4. Hypokalemia Electrolyte repletion is underway. Recheck levels tomorrow. 5. Hyperlipidemia/GERD/JOHNATHAN Complicates care, management, recovery and prognosis. This note was generated with [employer] dictation software. It may contain incorrect words, spelling, and punctuation that were not noted in checking the note before signing. Code Visit Inpatient E&M: 84868 Init Hosp L3
--- NOTE | 2018-01-07 07:22 | CON.PCM_ITS ---
Reason for Consult Date of Consultation: 01/07/18 Reason for Consultation: CVA status post TPA History of Present Illness: The patient is a 47-year-old male, with a history as outlined below, who presented to the emergency department on January 06 with left-sided weakness, facial droop and acute alcohol intoxication. Of note, the patient was admitted to the hospital in June 2017 under similar circumstances and treated for a probable acute TIA. The patient was also noted to be intoxicated at that time. The patient reportedly does also have a history of paroxysmal atrial fibrillation, for which she was started on Eliquis during his hospitalization in June. The patient does not recall the events that led to his hospitalization. He reports that he was going outside to cut the grass and began to feel strange. His neighbor reported that he apparently passed out. He does report occasional heavy alcohol use but is insistent that he does not drink on a daily basis. When he does drink, he normally consumes a half a bottle of Southern comfort. He denies ever having experienced alcohol withdrawal symptoms in the past. On presentation to the emergency department, the patient was noted to have a low-grade fever with a temperature of 99.7 ?F. He was hemodynamically stable and maintaining appropriate oxygen saturations on room air. Laboratory evaluation revealed no evidence of a leukocytosis. Chemistry profile was notable for a potassium of 2.8. Troponin was negative. Ethyl alcohol level was noted to be 289. Initial CT head was negative. The patient was evaluated by neurology, Dr. Abreu. Head and neck CTA was obtained and revealed normal bilateral cervical carotid and vertebral arteries with a mildly atretic A1 segment of the right anterior cerebral artery. The patient was subsequently consented for and did receive TPA. He was subsequently admitted to the medical intensive care unit for ongoing management. 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 [place] Tobacco dependence (Chronic) GERD (gastroesophageal reflux disease) (Chronic) Medical History: Medical History (Last Reviewed 01/06/18 @ 17:49 by 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 [place] Tobacco dependence (Chronic) F17.200 GERD (gastroesophageal reflux disease) (Chronic) K21.9 Chronic back pain M54.9, G89.29 Noncompliance with CPAP treatment Z91.14 Allergies azithromycin Allergy (Verified 01/06/18 15:43) Shortness of breath Home Medications: Ambulatory Orders Medication Instructions Recorded Atenolol [Tenormin (beta srikanth)] 25 mg PO DAILY 09/08/14 Sertraline HCl [Zoloft] 100 mg PO DAILY 09/08/14 Omeprazole Magnesium [Prilosec Otc] 20 mg PO DAILY 11/23/17 Oxycodone HCl/Acetaminophen 2 tablet PO Q6H PRN PRN 01/07/18 [Percocet 5/325] Surgical History: Surgical History (Last Reviewed 01/06/18 @ 17:49 by Luciano Fajardo DO) Hx of appendectomy Z90.49 Surgical History: appendectomy Psychiatric History: Depression Smoking Status: Current every day smoker Alcohol: Occasional - That he drinks about half of a bottle of Southern comfort but every 3 weeks. And that of the time he states that he does not drink. States that the patient denies a daily drinking habit. Drugs: None - *Family History Sibling Family History: Family History (Last Reviewed 01/06/18 @ 17:49 by Luciano Fajardo DO) Mother Diabetes CAD (coronary artery disease) CVA (cerebral vascular accident) Myocardial infarction, Onset Age: 35 Father CAD (coronary artery disease) Diabetes CVA (cerebral vascular accident) History Items: Diabetes, Heart Disease Maternal Family History: Family History (Last Reviewed 01/06/18 @ 17:49 by Luciano Fajardo DO) Mother Diabetes CAD (coronary artery disease) CVA (cerebral vascular accident) Myocardial infarction, Onset Age: 35 Father CAD (coronary artery disease) Diabetes CVA (cerebral vascular accident) History Items: Diabetes, Heart Disease - [place] at 35 y/o., Stroke Paternal Family History: Family History (Last Reviewed 01/06/18 @ 17:49 by Luciaon Fajardo DO) Mother Diabetes CAD (coronary artery disease) CVA (cerebral vascular accident) Myocardial infarction, Onset Age: 35 Father CAD (coronary artery disease) Diabetes CVA (cerebral vascular accident) History Items: Diabetes, Heart Disease, Stroke Review of Systems Constitutional: Denies: Chills, Fever, Night Sweats Eyes: Denies: Blurred vision, Double vision HEENT: Denies: Head Aches, Sinus Congestion, Sinus Drainage Cardiovascular: Denies: Chest Pain, Palpitations Respiratory: Denies: Cough, Shortness of breath at rest, Sputum production Gastrointestinal: Denies: Abdominal Pain, Nausea, Vomiting Genitourinary: Denies: Dysuria Musculoskeletal: Denies: Joint Pain, Joint Tenderness Skin: Denies: Rash, Wounds Neurological: Reports: Focal weakness Psychiatric: Denies: Anxiety, Depression, Homicidal Ideations, Suicidal Ideations Hematologic/ Lymphatic: Denies: Easy Bruising, Easy Bleeding Patient Problems: Active and Suspected Problems (Last Reviewed 01/06/18 @ 17:49 by Luciano Fajardo DO) CVA (cerebral vascular accident) (Acute) Objective: The patient's most recent lab work, culture data and imaging studies have all been personally reviewed. - Physical Exam General: Alert, Oriented x3, Cooperative, No apparent distress HEENT: Atraumatic, PERRLA, Normocephalic Oral: No Gingival or Mucosal Lesions/ Ulcerations Neck: Supple, No Nodes, Trachea Midline Lungs: No rhonchi, No wheeze, No rales, Diminished Cardiovascular: Regular rate, Regular Rhythm, Normal S1, Normal S2, No murmurs Abdomen: Bowel Sounds Present, Soft, Non Tender, Non-Distended Extremities: No clubbing, No cyanosis, No edema Skin: No breakdown Musculoskeletal: No Tenderness to Palpation of Joints or Extremities Lymphatic: No Cervical, Supraclavicular, or Inguinal Adenopathy Neurological: - - Mild residual left upper and left lower extremity weakness. Cranial nerves are intact. Speech is fluent without dysarthria noted. Psych/Mental Status: Alert and oriented to time, place, person, mood and affect Vital Signs Temp Pulse Resp BP Pulse Ox 98.8 F 62 20 H 150/92 H 96 01/07/18 07:00 01/07/18 07:00 01/07/18 07:00 01/07/18 07:00 01/07/18 07:00 Oxygen Delivery Method Room Air Weight: 207 lb 7.28 oz Body Mass Index (BMI) 32.0 Finger Stick Blood Glucose 104 Intake and Output for Last 24 Hours 01/05/18 01/06/18 01/07/18 23:59 23:59 23:59 Intake Total 1598.5 / 1598.5 Output Total 700 / 700 Balance 898.5 / 898.5 Laboratory Tests Past 24 Hrs 01/06/18 01/06/18 01/06/18 16:05 16:05 16:05 WBC 4.8 RBC 5.05 Hgb 15.4 Hct 43.2 MCV 85.5 MCH 30.5 MCHC 35.6 RDW 14.5 RDW Differential 45.0 H Plt Count 177 MPV 9.6 Immature Gran % (Auto) 0.200 Neut % (Auto) 39.6 L Lymph % (Auto) 52.8 H [place] % (Auto) 5.6 Eos % (Auto) 1.2 Baso % (Auto) 0.6 Absolute Neuts (auto) 1.9 L Absolute Lymphs (auto) 2.54 Total Counted Not Reportable PT 12.6 INR 0.9 APTT 27.3 Sodium 144 Potassium 2.8 L Chloride 109 H Carbon Dioxide 25.0 Anion Gap 10 BUN 12 Creatinine 0.76 Estim Creat Clear Calc 122.73 Est GFR (MDRD) Af Amer 141 Est GFR (MDRD) Non-Af 116 BUN/Creatinine Ratio 15.8 Glucose 95 Calcium 7.9 L Troponin I < 0.015 Triglycerides Cholesterol LDL Cholesterol VLDL Cholesterol HDL Cholesterol Ethyl Alcohol 01/06/18 01/07/18 01/07/18 16:05 04:10 04:10 WBC RBC Hgb Hct MCV MCH MCHC RDW RDW Differential Plt Count MPV Immature Gran % (Auto) Neut % (Auto) Lymph % (Auto) [place] % (Auto) Eos % (Auto) Baso % (Auto) Absolute Neuts (auto) Absolute Lymphs (auto) Total Counted PT INR APTT Sodium 147 H Potassium 3.3 L Chloride 112 H Carbon Dioxide 24.0 Anion Gap 11 BUN 15 Creatinine 0.77 Estim Creat Clear Calc 109.69 Est GFR (MDRD) Af Amer 138 Est GFR (MDRD) Non-Af 114 BUN/Creatinine Ratio 19.4 Glucose 97 Calcium 7.5 L Troponin I Triglycerides 380 H Cholesterol 175 LDL Cholesterol 69 VLDL Cholesterol 76 H HDL Cholesterol 30 L Ethyl Alcohol 289.0 POC Glucose 01/06/18 15:55 POC Glucose 104 Clinical Impression(s) from Imaging Studies Brain CT 01/06/18 15:34 IMPRESSION: Normal unenhanced CT scan of the brain. No interval change. If there is continued concern for acute infarct, MRI is recommended. N.B. : The above information has been verbally conveyed by Anshu Urbano DO to Dr. Viktor Barragan MD, on 01/06/2018 15:48:38 (ET). Electronically Signed: Anshu Urbano DO at 15:47 EDT Tel [phone], Service support , Chest X-Ray 01/06/18 15:40 IMPRESSION: No acute cardiopulmonary disease. Electronically Signed: Delgado Pereira MD at 16:42 EDT , Service support , Head CTA 01/06/18 15:51 IMPRESSION: 1. Mildly atretic A1 segment of the right anterior cerebral artery. [place] is otherwise intact intact and unremarkable. N.B. : The above information has been verbally conveyed by Willi Sood to Viktor Barragan on 01/06/2018 16:32:17 (ET). Electronically Signed: Anshu Urbano DO at 16:32 EDT Tel [phone], Service support , Neck CTA 01/06/18 15:51 IMPRESSION: Normal bilateral cervical carotid and vertebral arteries. N.B. : The above information has been verbally conveyed by Anshu Urbano DO to Viktor Barragan on 01/06/2018 16:30:00 (ET). Electronically Signed: Anshu Urbano DO at 16:28 EDT Tel [phone], Service support , Assessment/Plan Active and Suspected Problems (Last Reviewed 01/06/18 @ 17:49 by ESSENCE Silveira CVA (cerebral vascular accident) (Acute) RECOMMENDATIONS: 1. Continue management per TPA protocol. 2. Continue to allow for permissive hypertension. 3. Repeat head imaging is indicated this evening. If negative, the patient can be moved from the intensive care unit. 4. PT/OT evaluations, likely tomorrow. 5. Echocardiogram is pending. IMPRESSIONS: 1. Left-sided weakness with concern for acute right MCA infarction status post TPA administration Continue management per TPA protocol. Allow for permissive hypertension. The patient will be maintained on bedrest until repeat head imaging is completed this evening. If negative, the patient can be moved from the medical intensive care unit. PT/OT evaluations are on hold until that time. The patient passed his dysphagia screen this morning and his diet has been advanced accordingly. Neurology is following. 2. Personal history of paroxysmal atrial fibrillation Continue to hold beta-srikanth for now. The patient will likely require reinitiation of his outpatient oral anticoagulation regimen. 3. Alcohol dependence/tobacco dependence Continue to monitor for any signs of withdrawal. Continue thiamine and folate repletion. Smoking cessation is advisable. 4. Hypokalemia Electrolyte repletion is underway. Recheck levels tomorrow. 5. Hyperlipidemia/GERD/JOHNATHAN Complicates care, management, recovery and prognosis. This note was generated with [employer] dictation software. It may contain incorrect words, spelling, and punctuation that were not noted in checking the note before signing. Code Visit Inpatient E&M: 44361 Init Hosp L3
--- NOTE | 2018-01-07 07:35 | PN_ITS ---
Patient Problems: Active and Suspected Problems (Last Reviewed 01/06/18 @ 17:49 by Luciano Fajardo DO) CVA (cerebral vascular accident) (Acute) Subjective: Patient overnight with notable clinical improvement status post TPA with improvement to the left upper extremity although does still have some residual left lower extremity weakness and does also have mild ataxia as well as difficulty with left gaze with onset severe nausea. Discussed current status with patient and plan of care with several lifestyle change recommendations including sobriety or responsible appropriate to alcoholic intake, tobacco cessation, need for anticoagulation given PAF with similar prior presentation requiring TPA. Discussed plan to obtain CT repeat at 24 hours of TPA administration and initiation of ASA/anticoagulation following with MRI Brain and ECHO also. Patient denies fevers, chills, emesis, abdominal pain, chest pain or dyspnea. Does have nausea as noted w/ L gaze attempts laterally. Objective: Physical Examination: General: awake, alert, oriented x 4 and cooperative, seated upright in the ICU bed in no apparent distress. Skin: normal color, turgor, no icterus, cyanosis. HEENT: AT/NC, EOMI, PERRLA, moderately dry MM, nausea onset w/ L gaze lateral attempts, able to perform. Lungs: Diminished BS BL bases, mild effort, no rales, ronchi or wheezing. Heart: Regular rate and rhythm; no gallop, rub audible. Abdomen: soft, obese, NTTP, ND, normal BS. Extremities: no cyanosis, clubbing, or edema. Neurological: patient awake, alert, oriented x 3; cognitive function intact; pupils equally reactive to light and accomodation; cranial nerves II-XII grossly normal although onset nausea (severe) with L lateral gaze performance, mild ataxia L sided HTN, FTN, mild drift LLE, strength improved since initial presentation 3-4/5 LLE, sensation intact, equivocal Babinski bilaterally. Psychiatric: affect appears normal, no acute evidence of depressive or anxiety feelings. Vitals/I&O's: Vital Signs Temp Pulse Resp BP Pulse Ox 98.8 F 62 20 H 150/92 H 96 01/07/18 07:00 01/07/18 07:00 01/07/18 07:00 01/07/18 07:00 01/07/18 07:00 Oxygen Delivery Method Room Air Weight: 207 lb 7.28 oz Body Mass Index (BMI) 32.0 Finger Stick Blood Glucose 104 Intake and Output for Last 24 Hours 01/05/18 01/06/18 01/07/18 23:59 23:59 23:59 Intake Total 1598.5 / 1598.5 Output Total 700 / 700 Balance 898.5 / 898.5 Laboratory Results 01/06/18 15:55: POC Glucose 104 01/06/18 16:05: WBC 4.8, RBC 5.05, Hgb 15.4, Hct 43.2, MCV 85.5, MCH 30.5, MCHC 35.6, RDW 14.5, RDW Differential 45.0 H, Plt Count 177, MPV 9.6, Immature Gran % (Auto) 0.200, Neut % (Auto) 39.6 L, Lymph % (Auto) 52.8 H, [place] % (Auto) 5.6, Eos % (Auto) 1.2, Baso % (Auto) 0.6, Absolute Neuts (auto) 1.9 L, Absolute Lymphs (auto) 2.54, Total Counted Not Reportable 01/06/18 16:05: PT 12.6, INR 0.9, APTT 27.3 01/06/18 16:05: Sodium 144, Potassium 2.8 L, Chloride 109 H, Carbon Dioxide 25.0, Anion Gap 10, BUN 12, Creatinine 0.76, Estim Creat Clear Calc 122.73, Est GFR (MDRD) Af Amer 141, Est GFR (MDRD) Non-Af 116, BUN/Creatinine Ratio 15.8, Glucose 95, Calcium 7.9 L, Troponin I < 0.015 01/06/18 16:05: Ethyl Alcohol 289.0 01/07/18 04:10: Triglycerides 380 H, Cholesterol 175, LDL Cholesterol 69, VLDL Cholesterol 76 H, HDL Cholesterol 30 L 01/07/18 04:10: Sodium 147 H, Potassium 3.3 L, Chloride 112 H, Carbon Dioxide 24.0, Anion Gap 11, BUN 15, Creatinine 0.77, Estim Creat Clear Calc 109.69, Est GFR (MDRD) Af Amer 138, Est GFR (MDRD) Non-Af 114, BUN/Creatinine Ratio 19.4, Glucose 97, Calcium 7.5 L Current Medications Acetaminophen (Tylenol) 650 mg PO Q6H PRN PRN PRN Reason: Non-cardiac pain (mod-severe) Atenolol (Tenormin (Beta Mark)) 25 mg PO DAILY [facility] Atorvastatin Calcium (Lipitor) 80 mg PO QHS [facility] Folic Acid (Folic Acid) 1 mg PO DAILY@0800 [facility] Stop: 01/09/18 08:01 Sodium Chloride () 1,000 mls @ 100 mls/hr IV .Q10H [facility] Last Admin: 01/07/18 04:13 Dose: 100 mls/hr Sodium Chloride () 250 mls @ 15 mls/hr IV .[id number] PRN PRN Reason: SALINE FLUSH Lorazepam (Ativan) 2 mg PO Q2H PRN PRN; Protocol PRN Reason: CIWA score > 8 but <15 Lorazepam (Ativan) 2 mg PO UD PRN; Protocol PRN Reason: CIWA score >/=15. Lorazepam (Ativan) 2 mg IV Q2H PRN PRN; Protocol PRN Reason: CIWA score > 8 but <15 Lorazepam (Ativan) 2 mg IV UD PRN; Protocol PRN Reason: CIWA score >/=15. Magnesium Hydroxide (Milk Of Magnesia) 30 ml PO DAILY PRN PRN PRN Reason: Constipation Multivitamins (Multivitamin) 1 tablet PO DAILYCM [facility] Multivitamins/Minerals ([facility]ivitamin With Minerals) [facility] Pantoprazole Sodium (Protonix) 20 mg PO BID [facility] Last Admin: 01/06/18 22:04 Dose: Not Given Potassium Chloride (K-Dur) 40 meq PO X1 ONE Stop: 01/07/18 07:11 Sertraline HCl (Zoloft) 100 mg PO DAILY [facility] Sodium Chloride () 5 - 30 ml IV UD PRN PRN Reason: SALINE FLUSH Thiamine HCl (Vitamin B1) 100 mg PO BIDCM [facility] Stop: 01/09/18 17:01 Medical Necessity - Tobacco Use Smoking Status: Current every day smoker Assessment/Plan All Active Problems (Last Reviewed 01/06/18 @ 17:49 by Luciano Fajardo DO) Chest pain (Acute) CVA (cerebral vascular accident) (Acute) Obesity (BMI 30-39.9) (Acute) TIA (transient ischemic attack) (Acute) Chest pain (Resolved) The patient is a 47 y/o M w/ PMHx: EtOH Abuse potentially, PAF, HLD, JOHNATHAN non- compliant with CPAP, GERD, Depression, Chronic back pain, Tobacco use who presents to the [facility] ED on 01/06/18 with left sided weakness including face, upper and lower extremity starting at 3:15 pm on 01/06/18. (1) L sided Hemiplegia (Flaccid), L sided Hemianopsia, ? Initial Facial Droop (not noted in the ED) concerning for CVA: In the ED work-up included CBC w/ WBC 4.8, Hgb 15.4, Plts 177 without marked shift, BMP w/ K 2.8-->improved now to 3.3, repeat supplementation administered, CT Head w/ no acute findings, CXR w/ no acute findings, CTA Head and neck w/ normal bilateral cervical carotid and vertebral arteries with a mildly atretic A1 segment of the right anterior cerebral artery. Patient was administered TPA in the ED at 16:18 pm 01/06/18. Admitted to ICU following TPA, will obtain MRI Brain, ECHO, PT/OT/Speech/Nutrition evaluation per protocol. Neurology evaluated and will follow. Will allow permissive HTN and maintain on IVFs, plan repeat CT Head at 24 hours post-TPA administration and if unremarkable administer ASA and will also need to initiate anticoagulation but need to discuss timeline with neurology pending CT repeat, add high dose statin, fall precautions. Mag, Phos, TSH pending. (2) Prior CVA: Noted prior TPA usage ~ 3 months prior to current presentation, given this history, likely secondary to his PAF, needs to be anticoagulated once appropriate. (3) PAF: Permissive HTN, given presentation #1 and #2, will need anticoagulated once clinically appropriate, add back BB once off permissive HTN. (4) EtOH Abuse: Patient notes binge EtOH history, not daily usage, unclear given lethargy upon admission, will clarify once improved. In the interim will maintain on CIWA protocol, MVI, thiamine and folic acid. (5) Hypokalemia: Admission K+ 3.3, supplementation given, repeat level in AM. (6) Tobacco Abuse: Encouraged cessation, inpatient consultation per RT, NR if desired. (7) Hyperlipidemia: Adding high dose statin. FLP w/ TG 380, TChol 175, LDL 69, VLDL 76, HDL 30. (8) JOHNATHAN: Non-compliant with CPAP. (9) Chronic back pain: Position changes, tylenol PRN. (10) GERD: PPI. (11) DVT Prophylaxis: SCDs, as noted transition to anticoagulation once appropriate. Code Visit Inpatient E&M: 94195 Subs Hosp L3
[2018-01-07 07:59] LABS: Magnesium 1.8 mg/dL (1.6-2.6); Phosphorus 2.5 mg/dL (2.5-4.9); Thyroid Stim Hormone (TSH) 2.85 uIU/mL (0.358-3.74)
[2018-01-07] MEDS: Acetaminophen 325 MG Tablet 650 MG PO ×2 (08:00→17:28)
[2018-01-07] MEDS: Multivitamins,Therapeutic Tablet 1 TABLET PO (08:02)
[2018-01-07] MEDS: Pantoprazole Sodium 20 MG Tablet PO ×2 (08:02→21:07)
[2018-01-07] MEDS: Sertraline 100 MG Tablet PO (08:02)
[2018-01-07] MEDS: Folic Acid 1 MG Tablet PO (08:53)
[2018-01-07] MEDS: Thiamine Hydrochloride 100 MG Tablet PO ×2 (08:53→16:23)
[2018-01-07] MEDS: oxyCODONE 5 MG Tablet 10 MG PO ×2 (11:45→17:37)
[2018-01-07] MEDS: Morphine 2 MG/ML Syringe IV ×3 (14:48→23:42)
--- NOTE | 2018-01-07 17:45 | CT_ITS ---
STUDY: CT BRAIN WITHOUT CONTRAST REASON FOR EXAM: Male, 47 years old. CVA. Post TPA RADIATION DOSAGE (If Supplied By Facility): CTDIvol = ( 44.99 ) mGy, DLP = ( 745.49 ) mGycm TECHNIQUE: Transaxial CT imaging of the brain was performed without administration of intravenous contrast material. Individualized dose optimization techniques were used for this CT. COMPARISON: 01/06/2018 FINDINGS: Normal soft tissue structures. Normal calvarium. Normal size ventricles and extra-axial spaces for the patient's age. Normal white matter tracts of the cerebral hemispheres. Normal basal ganglia and thalami. Normal brainstem. Normal cerebellum. There is no intracranial hemorrhage. There are no findings of an acute ischemic infarction. Normal visualized paranasal sinuses. CT/Brain/Head without Contrast IMPRESSION: No acute intracranial pathology. No evidence of intracranial hemorrhage. Again, if there is high clinical concern for acute stroke, recommend MRI brain. Electronically Signed: Tian Clayton DO at 19:03 EDT Tel , Service support ,
[2018-01-07] MEDS: 0.9% NaCl Peripheral Flush Adult/Peds IV (19:42)
[2018-01-07] MEDS: Atorvastatin Calcium 80 MG Tablet PO (21:07)
[2018-01-07] MEDS: Aspirin 81 MG TAB.CHEW PO (21:08)
[2018-01-08] VITALS (15 sets, daily range): BP systolic 151–166; BP diastolic 79–97; PULSE 49–63; RESP 12–19; TEMP 36.3–36.9; O2SAT 97–100
[2018-01-08] MEDS: oxyCODONE 5 MG Tablet 10 MG PO ×3 (00:53→13:54)
[2018-01-08] MEDS: 0.9% NaCl Peripheral Flush Adult/Peds IV ×4 (03:47→15:09)
[2018-01-08] MEDS: Morphine 2 MG/ML Syringe IV ×3 (03:47→11:00)
--- NOTE | 2018-01-08 07:00 | PN_ITS ---
Subjective: The patient was seen and examined at the bedside this morning. Events from the last 24 hours have been reviewed. The patient is currently afebrile, hemodynamically stable and maintaining appropriate oxygen saturations on room air. Follow-up head CT performed last evening revealed no acute intracranial pathology. There is no evidence of hemorrhage. Objective: The patient's most recent lab work, culture data and imaging studies have all been personally reviewed. Initial CT head was negative. The patient was evalua tiburcio by neurology, Dr. Abreu. Head and neck CTA was obtained and revealed normal bilateral cervical carotid and vertebral arteries with a mildly atretic A1 segment of the right anterior cerebral artery. General: Alert, Oriented x3, Cooperative, No apparent distress HEENT: Atraumatic, PERRLA, Normocephalic Oral: No Gingival or Mucosal Lesions/ Ulcerations Neck: Supple, No Nodes, Trachea Midline Lungs: No rhonchi, No wheeze, No rales, Diminished Cardiovascular: Regular rate, Regular Rhythm, Normal S1, Normal S2, No murmurs Abdomen: Bowel Sounds Present, Soft, Non Tender, Non-Distended Extremities: No clubbing, No cyanosis, No edema Skin: No breakdown Musculoskeletal: No Tenderness to Palpation of Joints or Extremities, No Muscle Wasting Lymphatic: No Cervical, Supraclavicular, or Inguinal Adenopathy Neurological: - - Improvement in left-sided weakness without other focal deficits identified. Psych/Mental Status: Alert and oriented to time, place, person, mood and affect Vital Signs Temp Pulse Resp BP Pulse Ox 98.5 F 54 L 16 164/91 H 98 01/08/18 06:00 01/08/18 06:00 01/08/18 06:00 01/08/18 06:00 01/08/18 06:00 Oxygen Delivery Method Room Air Weight: 211 lb 10.3 oz Body Mass Index (BMI) 32.0 Finger Stick Blood Glucose 104 Intake and Output for Last 24 Hours 01/06/18 01/07/18 01/08/18 23:59 23:59 23:59 Intake Total 4469.5 / 4469.5 570 / 570 Output Total 1350 / 1350 500 / 500 Balance 3119.5 / 3119.5 70 / 70 Labs (Last 48 Hours) 01/06/18 01/06/18 01/06/18 15:55 16:05 16:05 WBC 4.8 RBC 5.05 Hgb 15.4 Hct 43.2 MCV 85.5 MCH 30.5 MCHC 35.6 RDW 14.5 RDW Differential 45.0 H Plt Count 177 MPV 9.6 Immature Gran % (Auto) 0.200 Neut % (Auto) 39.6 L Lymph % (Auto) 52.8 H [place] % (Auto) 5.6 Eos % (Auto) 1.2 Baso % (Auto) 0.6 Absolute Neuts (auto) 1.9 L Absolute Lymphs (auto) 2.54 Total Counted Not Reportable PT 12.6 INR 0.9 APTT 27.3 Sodium Potassium Chloride Carbon Dioxide Anion Gap BUN Creatinine Estim Creat Clear Calc Est GFR (MDRD) Af Amer Est GFR (MDRD) Non-Af BUN/Creatinine Ratio Glucose Calcium Phosphorus Magnesium Troponin I Triglycerides Cholesterol LDL Cholesterol VLDL Cholesterol HDL Cholesterol TSH Ethyl Alcohol POC Glucose 104 01/06/18 01/06/18 01/07/18 16:05 16:05 04:10 WBC RBC Hgb Hct MCV MCH MCHC RDW RDW Differential Plt Count MPV Immature Gran % (Auto) Neut % (Auto) Lymph % (Auto) [place] % (Auto) Eos % (Auto) Baso % (Auto) Absolute Neuts (auto) Absolute Lymphs (auto) Total Counted PT INR APTT Sodium 144 Potassium 2.8 L Chloride 109 H Carbon Dioxide 25.0 Anion Gap 10 BUN 12 Creatinine 0.76 Estim Creat Clear Calc 122.73 Est GFR (MDRD) Af Amer 141 Est GFR (MDRD) Non-Af 116 BUN/Creatinine Ratio 15.8 Glucose 95 Calcium 7.9 L Phosphorus Magnesium Troponin I < 0.015 Triglycerides 380 H Cholesterol 175 LDL Cholesterol 69 VLDL Cholesterol 76 H HDL Cholesterol 30 L TSH Ethyl Alcohol 289.0 POC Glucose 01/07/18 01/07/18 04:10 04:10 WBC RBC Hgb Hct MCV MCH MCHC RDW RDW Differential Plt Count MPV Immature Gran % (Auto) Neut % (Auto) Lymph % (Auto) [place] % (Auto) Eos % (Auto) Baso % (Auto) Absolute Neuts (auto) Absolute Lymphs (auto) Total Counted PT INR APTT Sodium 147 H Potassium 3.3 L Chloride 112 H Carbon Dioxide 24.0 Anion Gap 11 BUN 15 Creatinine 0.77 Estim Creat Clear Calc 109.69 Est GFR (MDRD) Af Amer 138 Est GFR (MDRD) Non-Af 114 BUN/Creatinine Ratio 19.4 Glucose 97 Calcium 7.5 L Phosphorus 2.5 Magnesium 1.8 Troponin I Triglycerides Cholesterol LDL Cholesterol VLDL Cholesterol HDL Cholesterol TSH 2.85 Ethyl Alcohol POC Glucose Clinical Impression(s) from Imaging Studies Brain CT 01/06/18 15:34 IMPRESSION: Normal unenhanced CT scan of the brain. No interval change. If there is continued concern for acute infarct, MRI is recommended. N.B. : The above information has been verbally conveyed by Anshu Urbano DO to Dr. Viktor Barragan MD, on 01/06/2018 15:48:38 (ET). Electronically Signed: Anshu Urbano DO at 15:47 EDT Tel [phone], Service support , Chest X-Ray 01/06/18 15:40 IMPRESSION: No acute cardiopulmonary disease. Electronically Signed: Delgado Pereira MD at 16:42 EDT , Service support , Head CTA 01/06/18 15:51 IMPRESSION: 1. Mildly atretic A1 segment of the right anterior cerebral artery. The [place] is otherwise intact intact and unremarkable. N.B. : The above information has been verbally conveyed by Willi Sood to Viktor Barragan on 01/06/2018 16:32:17 (ET). Electronically Signed: Anshu Urbano DO at 16:32 EDT Tel [phone], Service support , Neck CTA 01/06/18 15:51 IMPRESSION: Normal bilateral cervical carotid and vertebral arteries. N.B. : The above information has been verbally conveyed by Anshu Urbano DO to Viktor Barragan on 01/06/2018 16:30:00 (ET). Electronically Signed: Anshu Urbano DO at 16:28 EDT Tel [phone], Service support , Brain CT 01/07/18 17:45 IMPRESSION: No acute intracranial pathology. No evidence of intracranial hemorrhage. Again, if there is high clinical concern for acute stroke, recommend MRI brain. Electronically Signed: Tian Clayton DO at 19:03 EDT Tel , Service support , Medical Necessity - Tobacco Use Smoking Status: Current every day smoker Assessment/Plan All Active Problems (Last Reviewed 01/06/18 @ 17:49 by Luciano Fajardo DO) Chest pain (Acute) CVA (cerebral vascular accident) (Acute) Obesity (BMI 30-39.9) (Acute) TIA (transient ischemic attack) (Acute) Chest pain (Resolved) RECOMMENDATIONS: 1. Awaiting MRI. 2. Restart Eliquis. 3. Okay to resume beta-srikanth. IMPRESSIONS: 1. Left-sided weakness with concern for acute right MCA infarction status post TPA administration Continue management per TPA protocol. Allow for permissive hypertension. Repeat CT head was negative. MRI is currently pending. The patient has done well clinically following his transfer out of the intensive care unit. PT/OT to evaluate patient. Neurology is following. 2. Personal history of paroxysmal atrial fibrillation Continue to hold beta-srikanth for now. The patient will likely require reinitiation of his outpatient oral anticoagulation regimen. 3. Alcohol dependence/tobacco dependence Continue to monitor for any signs of withdrawal. Continue thiamine and folate repletion. Smoking cessation is advisable. 4. Hyperlipidemia/GERD/JOHNATHAN Complicates care, management, recovery and prognosis. This note was generated with [employer] dictation software. It may contain incorrect words, spelling, and punctuation that were not noted in checking the note before signing. DISPOSITION: The patient is medically stable for transfer out of the intensive care unit. Given his lack of ongoing ICU/pulmonary needs, will sign off. Please call with any additional questions. Code Visit Inpatient E&M: 25317 Subs Hosp L2
[2018-01-08] MEDS: Folic Acid 1 MG Tablet PO (07:37)
[2018-01-08] MEDS: Multivitamins,Ther W-Minerals Tablet 1 TABLET PO (07:37)
[2018-01-08] MEDS: Aspirin 81 MG TAB.CHEW PO (07:37)
[2018-01-08] MEDS: Thiamine Hydrochloride 100 MG Tablet PO (07:38)
[2018-01-08] MEDS: Pantoprazole Sodium 20 MG Tablet PO (07:38)
--- NOTE | 2018-01-08 08:30 | MRI_ITS ---
STUDY: MRI BRAIN WITHOUT CONTRAST REASON FOR EXAM: Male, 47 years old. CVA. Status post TPA 01/06/2018. Left-sided weakness. Facial droop. TECHNIQUE: Standardized multiplanar fat and water weighted pulse sequences were obtained. COMPARISON: None. FINDINGS: No restricted diffusion to suspect acute or subacute ischemic infarct. No focal signal abnormalities throughout the brain parenchyma. Normal size of the ventricles and extra-axial spaces for the patient's age. Normal white matter tracts of the supratentorial brain. Normal bilateral basal ganglia. Normal thalami. There is no extra-axial fluid accumulation. Normal flow voids within the major intracranial circulation suggesting patency by spin echo criteria. Normal sella turcica, pituitary gland, infundibular stalk, optic chiasm and hypothalamus. Normal tectal plate and pineal gland. Normal midbrain, nahum and medulla. Normal cerebellum. Normal basal cisterns. Normal bilateral temporal bones. Normal bilateral internal auditory canals. No demonstrated orbital abnormality, within the constraints of a routine brain study. Normal visualized paranasal sinuses. Normal calvarium and skull base. Normal visualized soft tissue structures. Normal visualized upper cervical spine. MRI/Brain without Contrast IMPRESSION: Normal unenhanced MRI of the brain. Electronically Signed: Esteban Alvarado MD at 10:07 EDT , Service support ,
--- NOTE | 2018-01-08 08:54 | PN_ITS ---
Patient Problems: Active and Suspected Problems (Last Reviewed 01/06/18 @ 17:49 by Luciano Fajardo DO) CVA (cerebral vascular accident) (Acute) Subjective: Patient with no acute events overnight per self and per nursing report. Patient states his symptoms have nearly resolved. Discussed again prior medical history and need for anticoagulation as well as encouraged continued blood pressure regimen, statin regimen and safe sobriety. Given patient clinically improved status and repeat CT head following TPA unremarkable plan to transition out of the ICU to PCU which was discussed with patient and ICU staff. Patient denies fevers, chills, nausea, emesis, abdominal pain, chest pain or dyspnea. Objective: Physical Examination: General: awake, alert, oriented x 4 and cooperative, seated upright in the ICU bed in no apparent distress. Skin: normal color, turgor, no icterus, cyanosis. HEENT: AT/NC, EOMI, PERRLA, improved MMM, no difficulties currently with L lateral gaze. Lungs: Diminished BS BL bases, mild effort, no rales, ronchi or wheezing. Heart: Regular rate and rhythm; no gallop, rub audible. Abdomen: soft, obese, NTTP, ND, normal BS. Extremities: no cyanosis, clubbing, or edema. Neurological: patient awake, alert, oriented x 3; cognitive function intact; pupils equally reactive to light and accomodation; cranial nerves II-XII grossly normal, resolved prior L lateral gaze difficulties, notes strained feeling w/ this gaze still, resolved prior noted mild ataxia L sided HTN, FTN, resolved prior noted mild drift LLE, strength resolved, intact, sensation intact, equivocal Babinski bilaterally. Psychiatric: affect appears normal, no acute evidence of depressive or anxiety feelings. Vitals/I&O's: Vital Signs Temp Pulse Resp BP Pulse Ox 97.4 F L 53 L 14 165/96 H 98 01/08/18 07:34 01/08/18 07:34 01/08/18 07:34 01/08/18 07:34 01/08/18 07:34 Oxygen Delivery Method Room Air Weight: 211 lb 10.3 oz Body Mass Index (BMI) 32.0 Finger Stick Blood Glucose 104 Intake and Output for Last 24 Hours 01/06/18 01/07/18 01/08/18 23:59 23:59 23:59 Intake Total 4469.5 / 4469.5 570 / 570 Output Total 1350 / 1350 500 / 500 Balance 3119.5 / 3119.5 70 / 70 Current Medications Acetaminophen (Tylenol) 650 mg PO Q6H PRN PRN PRN Reason: Non-cardiac pain (mod-severe) Last Admin: 01/07/18 17:28 Dose: 650 mg Aspirin (Aspirin, Baby) 81 mg PO DAILY@0800 [facility] Last Admin: 01/08/18 07:37 Dose: 81 mg Atenolol (Tenormin (Beta Mark)) 25 mg PO DAILY [facility] Last Admin: 01/07/18 09:22 Dose: Not Given Atorvastatin Calcium (Lipitor) 80 mg PO QHS [facility] Last Admin: 01/07/18 21:07 Dose: 80 mg Folic Acid (Folic Acid) 1 mg PO DAILY@0800 [facility] Stop: 01/09/18 08:01 Last Admin: 01/08/18 07:37 Dose: 1 mg Sodium Chloride () 250 mls @ 15 mls/hr IV .[id number] PRN PRN Reason: SALINE FLUSH Lorazepam (Ativan) 2 mg PO Q2H PRN PRN; Protocol PRN Reason: CIWA score > 8 but <15 Lorazepam (Ativan) 2 mg PO UD PRN; Protocol PRN Reason: CIWA score >/=15. Lorazepam (Ativan) 2 mg IV Q2H PRN PRN; Protocol PRN Reason: CIWA score > 8 but <15 Lorazepam (Ativan) 2 mg IV UD PRN; Protocol PRN Reason: CIWA score >/=15. Magnesium Hydroxide (Milk Of Magnesia) 30 ml PO DAILY PRN PRN PRN Reason: Constipation Morphine Sulfate () 1 - 2 mg IV Q4H PRN PRN PRN Reason: PAIN Last Admin: 01/08/18 03:47 Dose: 2 mg Multivitamins/Minerals ([facility]ivitamin With Minerals) [facility] Last Admin: 01/08/18 07:37 Dose: 1 tablet Oxycodone HCl (Oxyir) 10 mg PO Q6H PRN PRN PRN Reason: PAIN Last Admin: 01/08/18 07:41 Dose: 10 mg Pantoprazole Sodium (Protonix) 20 mg PO BID [facility] Last Admin: 01/08/18 07:38 Dose: 20 mg Sertraline HCl (Zoloft) 100 mg PO DAILY [facility] Last Admin: 01/07/18 08:02 Dose: 100 mg Sodium Chloride () 5 - 30 ml IV UD PRN PRN Reason: SALINE FLUSH Last Admin: 01/08/18 03:47 Dose: 10 ml Thiamine HCl (Vitamin B1) 100 mg PO BIDCM [facility] Stop: 01/09/18 17:01 Last Admin: 01/08/18 07:38 Dose: 100 mg Medical Necessity - Tobacco Use Smoking Status: Current every day smoker Assessment/Plan All Active Problems (Last Reviewed 01/06/18 @ 17:49 by Luciano Fajardo, DO) Chest pain (Acute) CVA (cerebral vascular accident) (Acute) Obesity (BMI 30-39.9) (Acute) TIA (transient ischemic attack) (Acute) Chest pain (Resolved) The patient is a 47 y/o M w/ PMHx: EtOH Abuse potentially, PAF, HLD, JOHNATHAN non- compliant with CPAP, GERD, Depression, Chronic back pain, Tobacco use who presents to the [facility] ED on 01/06/18 with left sided weakness including face, upper and lower extremity starting at 3:15 pm on 01/06/18. (1) L sided Hemiplegia (Flaccid), L sided Hemianopsia, ? Initial Facial Droop (not noted in the ED), Resolved, Secondary to TIA: In the ED work-up included CBC w/ WBC 4.8, Hgb 15.4, Plts 177 without marked shift, BMP w/ K 2.8-->improved now to 3.3, repeat supplementation administered, CT Head w/ no acute findings, CXR w/ no acute findings, CTA Head and neck w/ normal bilateral cervical carotid and vertebral arteries with a mildly atretic A1 segment of the right anterior cerebral artery. Patient was administered TPA in the ED at 16:18 pm 01/06/18. Admitted to ICU following TPA, CT head repeat unremarkable after 24 hours, initiated on ASA therapy and will transition this AM to eliquis therapy which patient had been on prior secondary to ? PAF history, MRI brain obtained w/ no acute evidence of CVA thus his presentation will be considered TIA, ECHO completed, PT/OT/Speech/Nutrition evaluation per protocol. Neurology evaluated and followed w/ recommendation for transition now to Eliquis, initiation BP regimen to goal, continued statin regimen, avoidance of EtOH with planned follow-up with follow-up with Neurology in 2 weeks. Patient also set-up with HM for discharge per Neurology given unclear history if actual PAF history. TSH normal. Mag and phos normal. (2) Prior CVA: Noted prior TPA recommended usage ~ 3 months prior to current presentation, declined at that time, similar presentation, was also intoxicated at that time, noted PAF history but does not appear to have been present at that time either. Eliquis started as noted, CM/SW confirmed affordable. (3) PAF: MRI without acute CVA, presentation w/ TIA, started back on BP regimen. (4) EtOH Abuse: Patient notes binge EtOH history, maintain on CIWA protocol, MVI, thiamine and folic acid. Encouraged strongly safe sobriety and avoidance of his binge drinking. (5) Hypokalemia: Admission K+ 3.3, supplementation given. (6) Tobacco Abuse: Encouraged cessation, inpatient consultation per RT, NR if desired. (7) Hyperlipidemia: Added high dose statin. FLP w/ TG 380, TChol 175, LDL 69, VLDL 76, HDL 30. (8) JOHNATHAN: Non-compliant with CPAP. (9) Chronic back pain: Position changes, tylenol PRN. (10) GERD: PPI. (11) DVT Prophylaxis: SCDs, as noted transition to anticoagulation once appropriate.
[2018-01-08] MEDS: Sertraline 100 MG Tablet PO (09:42)
--- NOTE | 2018-01-08 10:08 | PN.NEURO_ITS ---
Patient Problems: Active and Suspected Problems (Last Reviewed 01/06/18 @ 17:49 by Luciano Fajardo DO) CVA (cerebral vascular accident) (Acute) Subjective: No Overnight issues. Discussed with nurse taking care of the patient. NIHSS 0 at present. MRI brain reported nothing acute. CTA head/neck did not show any hemodynamic stenosis or occlusion. Patient was admitted with left sided weakness, found to be intoxicated, given tpa for possible right MCA syndrome and at present does not have any focal deficits. - Physical Exam General: Alert HEENT: Normocephalic Neck: Supple Lungs: Clear to auscultation Cardiovascular: Normal S1, Normal S2 Abdomen: Bowel Sounds Present Extremities: No cyanosis Skin: No rashes Neurological: - - consious, alert, AoAx3, CN 2-12 grossly intact, power 5/5 all 4 limbs, no pronator drift at present, no sensory loss, no cerebellar signs, gait deferred, Reflexes + B/L B/S/T/K/A. NIHSS 0 at present and mRS 0 at baseline Psych/Mental Status: Normal Affect Vital Signs Temp Pulse Resp BP Pulse Ox 98.4 F 57 L 16 166/79 H 98 01/08/18 09:30 01/08/18 09:56 01/08/18 09:30 01/08/18 09:30 01/08/18 09:30 Oxygen Delivery Method Room Air Weight: 96 kg Body Mass Index (BMI) 32.0 Finger Stick Blood Glucose 104 Intake and Output for Last 24 Hours 01/06/18 01/07/18 01/08/18 23:59 23:59 23:59 Intake Total 4469.5 / 4469.5 570 / 570 Output Total 1350 / 1350 500 / 500 Balance 3119.5 / 3119.5 70 / 70 Medical Necessity - Tobacco Use Smoking Status: Current every day smoker Assessment/Plan All Active Problems (Last Reviewed 01/06/18 @ 17:49 by Luciano Fajardo DO) Chest pain (Acute) CVA (cerebral vascular accident) (Acute) Obesity (BMI 30-39.9) (Acute) TIA (transient ischemic attack) (Acute) Chest pain (Resolved) The patient is a 47 year old CM with PMH HLD, H/O TIA, Paroxysmal Afib not on AC, ETOH abuse, JOHNATHAN, noncompliant with CPAP, depression admitted with episode of left sided weakness, facial droop and was found to be intoxicated. He had NIHSS of 13 on admission per ED documentation, was a tpa candidate and was given IVtpa. His symptoms have hence resolved. He had similar episode in June 2017 when he had refused tpa and his symptoms had resolved then too, and had normal reported neuroimaging. He had consumed 3 bottles of [place] comfort on the day of admission (01/06/18) and his ETOH level was 289. In June 2017 too he was intoxicated with ETOH level of 203 when he was admitted with similar symptoms. P er patient he has paroxysmal Afib, was recommended to start Eliquis in June 2017 but did not start the same and is not even taking ASA at baseline, so there is compliance issues. Per patient he sees a Lead Caster Helper at [place] who has him on Atenolol. He lives with children, does not use cane or walker to ambulate, denies any falls, does not need any assistance for his ADLs. MRI brain, CTA head/neck following admission was reported normal Impression Probable TIA ETOH intoxication Plan -Since patient has h/o paroxysmal Afib, [id number] VASc score is atleast 2 at present, recommend Eliquis 5 mg PO BID. Bleeding risks discussed in detail with the patient, patient counseled to be compliant with medication. He understands the same. -On Lipitor 80 mg PO q hs -MRI brain reported normal -CTA head/neck reported no hemodynamic significant stenosis or occlusion. -Cardiology consult for Afib -LDL-69, -June 29 2017- [id number] and TTE- EF 60%, normal LA size and no PFO. -hypercoagulable panel done in June 2017 showed Anticardiolipin IgM ab 13 ( H- normal 0-12). -Recommend Hematology consult -Recommend 30 day event recorder. -Recommend PT/OT/ST -Recommend Thiamine 100 mg PO daily -W/F DTs. -Patient counseled to quit alcohol and smoking since can increase stroke risk, he acknowledges the same. -Goal BP < 130/80 mmHg, and Hba1c < 7% -Stroke risk factors discussed, stroke education provided. -GI/DVT prophylaxis -Fall precautions -Follow up with Neurology as outpatient in 2 weeks -Please call with questions if any -Thank you for allowing us to participate in patient's care and management I spent 30 minutes taking history, doing physical examination, reviewing medical records, coordinating care and counseling the patient.
[2018-01-08] MEDS: Atenolol 25 MG Tablet PO (10:27)
--- NOTE | 2018-01-08 10:38 | DCINST_ITS ---
- Discharge Diagnoses Current Active Problems: Current Active and Chronic Problems (Last Reviewed 01/06/18 @ 17:49 by Luciano Fajardo DO) (1) L sided Hemiplegia (Flaccid), L sided Hemianopsia, ? Initial Facial Droop (not noted in the ED) concerning for TIA w/ Prior CVA History (2) Hypertension, Uncontrolled (3) PAF (4) EtOH Abuse, presented w/ Intoxication (5) Hypokalemia (6) Tobacco Abuse (7) Hyperlipidemia (8) JOHNATHAN, Non-compliant with CPAP. (9) Chronic back pain (10) GERD You will use the following diet at home:: Cardiac Your food should be the consistency of: Regular Your liquids should be the consistency of: Regular/Thin Discharge Activity: - - Slowly return to prior level of activity. Follow with your PCP and Neurology as recommended. May resume sexual activity in: No Restrictions Weight Bearing Status: Weight bearing as tolerated Call your doctor if you observe: Fever of 101 or Higher, Inability to urinate, Inability to have a bowel movement, Shortness of breath, Dizziness, Fainting spells, Chest pain, Uncontrolled pain Instructions: What Is a TIA?, Discharge Instructions for Transient Ischemic Attack (TIA), What Is Atrial Flutter/Atrial Fibrillation?, Discharge Instructions for Atrial Fibrillation, Controlling High Blood Pressure, Taking ROXANA Inhibitors, Low-Salt Choices, Alcoholism: Myths and Facts, The Impact of Alcoholism, Alcoholism: Getting Help, Alcohol Addiction, Addiction: Getting Help, Addiction: Your Treatment Options Additional Instructions: Please continue new regimen lisinopril, higher dose statin in addition to your prior atenolol regimen as well as restart of your eliquis to assist w/ stroke risk reduction given history of irregular heart rhythm. Allergies/Adverse Reactions: Allergies azithromycin Allergy (Verified 01/06/18 15:43) Shortness of breath Medications to take at Discharge Atenolol [Tenormin (beta srikanth)] 25 mg PO DAILY 09/08/14 Sertraline HCl [Zoloft] 100 mg PO DAILY 09/08/14 Omeprazole Magnesium [Prilosec Otc] 20 mg PO DAILY 11/23/17 Oxycodone HCl/Acetaminophen [Percocet 5-325] 2 tablet PO Q6H PRN PRN 01/07/18 Apixaban [Eliquis] 5 mg PO BID #60 tablet 01/08/18 Atorvastatin Calcium [Lipitor] 80 mg PO QHS #30 tablet 01/08/18 Folic Acid 1 mg PO DAILY@0800 #30 tablet 01/08/18 Lisinopril [Zestril] 20 mg PO DAILY #30 tablet 01/08/18 Multivitamins,Ther W-Minerals [Multivitamin With Minerals] 1 tablet PO DAILYCM #30 tablet 01/08/18 Thiamine Hydrochloride [Vitamin B1] 100 mg PO BIDCM #30 tablet 01/08/18 The following prescriptions were given: Atorvastatin Calcium [Lipitor] 80 mg PO QHS #30 tablet Folic Acid 1 mg PO DAILY@0800 #30 tablet Lisinopril [Zestril] 20 mg PO DAILY #30 tablet Multivitamins,Ther W-Minerals [Multivitamin With Minerals] 1 tablet PO DAILYCM #30 tablet Apixaban [Eliquis] 5 mg PO BID #60 tablet Thiamine Hydrochloride [Vitamin B1] 100 mg PO BIDCM #30 tablet Primary Care Physician: Alexandrea Saini MD [Primary Care Provider] - Please follow up with your Primary Care Physician in: Follow-up within 3-5 days to review admission. Test Results: Test results from this visit will be discussed in further detail at your follow- up appointment, if applicable. Please Follow Up With: Jose Alfredo Abreu MD When: Follow-up within 2 weeks, may see GAS ENGINE OPERATOR COMPRESSORS. Proposed Discharge Date: 01/08/18
--- NOTE | 2018-01-08 10:40 | DS.PCM_ITS ---
Discharge Date and Diagnosis - Problem List Patient Problems: Active and Suspected Problems (Last Reviewed 01/06/18 @ 17:49 by Luciano Fajardo DO) CVA (cerebral vascular accident) (Acute) Date of Admission: 01/06/18 Date of Discharge: 01/08/18 - Primary Discharge Diagnosis Active and Suspected Problems (Last Reviewed 01/06/18 @ 17:49 by Luciano Fajardo DO) (1) L sided Hemiplegia (Flaccid), L sided Hemianopsia, ? Initial Facial Droop (not noted in the ED) concerning for TIA w/ Prior CVA History (2) Hypertension, Uncontrolled (3) PAF (4) EtOH Abuse, presented w/ Intoxication (5) Hypokalemia (6) Tobacco Abuse (7) Hyperlipidemia (8) JOHNATHAN, Non-compliant with CPAP. (9) Chronic back pain (10) GERD - Secondary Discharge Diagnosis Chronic Problems (Last Reviewed 01/06/18 @ 17:49 by Luciano Fajardo DO) JOHNATHAN (obstructive sleep apnea) (Chronic) Depression (Chronic) Hyperlipidemia (Chronic) Paroxysmal atrial fibrillation (Chronic) Follow up with global recruiter at [place] Tobacco dependence (Chronic) GERD (gastroesophageal reflux disease) (Chronic) Hospital Course and Treatment Imaging Results: 01/08/18 08:30 Brain without Contrast [MRI] Stat Dr. Abreu/Camila Neurology Dr. Paul ICU Operations: None Procedures: 2-D Echocardiogram, EKG, - - TPA administration. Summary of Care Provided: The patient is a 47 y/o M w/ PMHx: EtOH Abuse potentially, PAF, HLD, JOHNATHAN non- compliant with CPAP, GERD, Depression, Chronic back pain, Tobacco use who presented to the [facility] ED on 01/06/18 with left sided weakness including face, upper and lower extremity starting at 3:15 pm on 01/06/18. In the ED work-up included CBC w/ WBC 4.8, Hgb 15.4, Plts 177 without marked shift, BMP w/ K 2.8-->improved now to 3.3, repeat supplementation administered, CT Head w/ no acute findings, CXR w/ no acute findings, CTA Head and neck w/ normal bilateral cervical carotid and vertebral arteries with a mildly atretic A1 segment of the right anterior cerebral artery. Patient was administered TPA in the ED at 16:18 pm 01/06/18. Admitted to ICU following TPA, CT head repeat unremarkable after 24 hours, initiated on ASA therapy and will transition this AM to eliquis therapy which patient had been on prior secondary to ? PAF history, MRI brain obtained w/ no acute evidence of CVA thus his presentation will be considered TIA, ECHO completed, PT/OT/Speech/Nutrition evaluation per protocol. Neurology evaluated and followed w/ recommendation for transition now to Eliquis, initiation BP re gimen to goal, continued statin regimen, avoidance of EtOH with planned follow- up with follow-up with Neurology in 2 weeks. Patient also set-up with HM for discharge per Neurology given unclear history if actual PAF history. Patient discharged to home in stable, improved condition with MVI, thiamine, folic acid, tobacco cessation recommendations, high dose statin, BP regimen, eliquis w/ HM evaluation set-up per Neurology with follow-up with their service in 2 weeks and PCP in 3-5 days to review admission. Discharge Activity: - - Slowly return to prior level of activity. Follow with your PCP and Neurology as recommended. May resume sexual activity in: No Restrictions Weight Bearing Status: Weight bearing as tolerated Call your doctor if you observe: Fever of 101 or Higher, Inability to urinate, Inability to have a bowel movement, Shortness of breath, Dizziness, Fainting spells, Chest pain, Uncontrolled pain Home Medications: Medications to take at Discharge Atenolol [Tenormin (beta srikanth)] 25 mg PO DAILY 09/08/14 Sertraline HCl [Zoloft] 100 mg PO DAILY 09/08/14 Omeprazole Magnesium [Prilosec Otc] 20 mg PO DAILY 11/23/17 Oxycodone HCl/Acetaminophen [Percocet 5-325] 2 tablet PO Q6H PRN PRN 01/07/18 Apixaban [Eliquis] 5 mg PO BID #60 tablet 01/08/18 Atorvastatin Calcium [Lipitor] 80 mg PO QHS #30 tablet 01/08/18 Folic Acid 1 mg PO DAILY@0800 #30 tablet 01/08/18 Lisinopril [Zestril] 20 mg PO DAILY #30 tablet 01/08/18 Multivitamins,Ther W-Minerals [Multivitamin With Minerals] 1 tablet PO DAILYCM #30 tablet 01/08/18 Thiamine Hydrochloride [Vitamin B1] 100 mg PO BIDCM #30 tablet 01/08/18 Following Prescrptions Were Given to Patient: Atorvastatin Calcium [Lipitor] 80 mg PO QHS #30 tablet Folic Acid 1 mg PO DAILY@0800 #30 tablet Lisinopril [Zestril] 20 mg PO DAILY #30 tablet Multivitamins,Ther W-Minerals [Multivitamin With Minerals] 1 tablet PO DAILYCM #30 tablet Apixaban [Eliquis] 5 mg PO BID #60 tablet Thiamine Hydrochloride [Vitamin B1] 100 mg PO BIDCM #30 tablet Primary Care Physician: Alexandrea Saini MD [Primary Care Provider] - Please follow up with your Primary Care Physician in: Follow-up within 3-5 days to review admission. Please Follow Up With: Jose Alfredo Abreu MD When: Follow-up within 2 weeks, may see CLINICAL LABORATORY SCIENTIST. Patient Instructions: Taking ROXANA Inhibitors, Controlling High Blood Pressure, What Is Atrial Flutter/Atrial Fibrillation?, Low-Salt Choices, What Is a TIA?, Alcoholism: Myths and Facts, The Impact of Alcoholism, Alcoholism: Getting Help, Alcohol Addiction, Addiction: Getting Help, Addiction: Your Treatment Options, Discharge Instructions for Atrial Fibrillation, Discharge Instructions for Transient Ischemic Attack (TIA) Disposition: Home Minutes spent on discharge:: 35 Patient Condition:: Fair Medical Necessity - Tobacco Use Smoking Status: Current every day smoker Meaningful Use Info Meaningful Use Diagnoses (Choose all that apply): None applicable Code Visit Inpatient E&M: 70734 Disch Hosp
[2018-01-08] MEDS: Lisinopril 20 MG Tablet PO (11:00)
[2018-01-08] MEDS: APIXABAN 5 MG TABLET PO (11:00)
--- NOTE | 2018-01-08 11:35 | CASEMGMT ---
RN CM Assessment PCP: Dr. Alexandrea Saini Specialists: Neurology Insurance: Medicaid Pharmacy: [facility] Prescription coverage: yes, able to afford medications if not too expensive. Call re: [facility]ates[facility]- per pharmacy cost will be $2.00 Living Arrangements: Lives with son, independent, drives, but states has someone to drive him to appointments if needed. DME:no Social Work Consult: No DC PLAN: Home on dc with [facility] script faxed to [facility].
--- NOTE | 2018-01-08 11:47 | PHA.DC.MC ---
Pharmacy Service has performed discharge medication reconciliation and counseling for this patient. The patient's discharge medication list was reviewed for discrepancies and discrepancies were resolved. The patient was counseled on the following discharge medications and changes in medications for homegoing were reviewed. The Reason for Use, instructions for use, and potential side effects were reviewed for all new medications. The patient's questions regarding all of their medications were answered. The patient was able to verbally demonstrate an understanding of their discharge medications.
[2018-01-08] MEDS: Acetaminophen 325 MG Tablet 650 MG PO (13:54)
[2018-01-08] MEDS: Morphine 4 MG/ML Syringe IV (15:09)
--- NOTE | 2018-01-09 13:38 | CASEMGMT ---
Addendum entered by Candelario Yadav 01/09/18 14:16: Pt returned call, no questions re: dc instructions, f/u. Pt will call [facility] re: outpt therapy if he does not receive call by tomorrow. Script had been faxed to [facility] prior to dc. Cliff DOMINGUEZ RN [facility] Original Note: DC PHONE CALL DC DATE: 01/08/18 DC Disposition: Home LACE 14/Str[facility] 4 Intro role of CM to son who answered phone. Pt is not available at this time. Cliff DOMINGUEZ RN ACM
== END 2018-01-08 16:45 | disposition home or self-care (01) | DRG 15 ==
LOC: ED 17:38 → ICU 17:41 → PCU 01-08 08:53
PROVIDERS: Hospitalist; Emergency Provider Emergency Medicine; Family Provider Pediatrics; PCP Pediatrics; Visit Provider Family Medicine
DX: G45.9 Transient cerebral ischemic attack, unspecified (principal); F10.129 Alcohol abuse with intoxication, unspecified; I48.0 Paroxysmal atrial fibrillation; Y90.8 Blood alcohol level of 240 mg/100 ml or more; Z86.73 Personal history of transient ischemic attack (TIA), and cerebral infarction without residual deficits; R29.714 NIHSS score 14; K21.9 Gastro-esophageal reflux disease without esophagitis; M54.9 Dorsalgia, unspecified; G89.29 Other chronic pain; G47.33 Obstructive sleep apnea (adult) (pediatric); Z91.19 Patient's noncompliance with other medical treatment and regimen; F32.9 Major depressive disorder, single episode, unspecified; E78.5 Hyperlipidemia, unspecified; E87.6 Hypokalemia; I10 Essential (primary) hypertension; F17.200 Nicotine dependence, unspecified, uncomplicated; G81.04 Flaccid hemiplegia affecting left nondominant side
CPT/HCPCS: 70450; 70496; 70498; 70551; 71045; 80048; 80061; 80320; 82962; 83735; 84100; 84443; 84484; 85025; 85610; 85730; 92523; 93005; 93306; 97162; 97165; 99285; 99406; J2997; J7030; Q9967; A4216; G0480; J3490

== ENCOUNTER 2018-01-18 16:00 | Emergency (ER) | payer MEDICAID, SELFPAY ==
[2018-01-18] VITALS (7 sets, daily range): BP systolic 102–130; BP diastolic 60–91; PULSE 54–82; RESP 16–20; TEMP 36.6; O2SAT 81–99; BMI 31.0
--- NOTE | 2018-01-18 16:20 | CT_ITS ---
STUDY: CT BRAIN WITHOUT CONTRAST REASON FOR EXAM: Male, 47 years old. Left-sided numbness, hypertension RADIATION DOSAGE (If Supplied By Facility): CTDIvol = ( 44.99 ) mGy, DLP = ( 762.36 ) mGycm TECHNIQUE: Transaxial CT imaging of the brain was performed without administration of intravenous contrast material. # of Images: 246 Individualized dose optimization techniques were used for this CT. COMPARISON: 01/07/2018 FINDINGS: Normal soft tissue structures. Normal calvarium. Normal size ventricles and extra-axial spaces for the patient's age. Normal white matter tracts of the cerebral hemispheres. Normal basal ganglia and thalami. Normal brainstem. Normal cerebellum. There is no intracranial hemorrhage. There are no findings of an acute ischemic infarction. Normal visualized paranasal sinuses. CT/Brain/Head without Contrast IMPRESSION: No acute intracranial abnormalities Electronically Signed: Delgado Alvarez MD at 17:48 EDT , Service support ,
--- NOTE | 2018-01-18 16:20 | EKG12_ITS ---
Test Reason : NEURO S/SX Blood Pressure : / mmHG Vent. Rate : 055 BPM Atrial Rate : 055 BPM P-R Int : 208 ms QRS Dur : 090 ms QT Int : 478 ms P-R-T Axes : 042 044 029 degrees QTc Int : 457 ms Sinus bradycardia Otherwise normal ECG Confirmed by JOYCE SEXTON, MANNY ([id number]), research editor LINDA ALFORD ([id number] on 01/22/2018 12:46:33 PM Referred By: STEPHANIE Confirmed By:MANNY COOK MD
[2018-01-18] MEDS: Ziprasidone IM 20 MG/ML VIAL IM (16:24)
[2018-01-18] MEDS: 0.9% Normal Saline 1,000 ML 100 ML IV (16:38)
[2018-01-18 16:42] LABS: Absolute Lymphocyte Count 2.75 X10^3/ul (0.83-4.51); Absolute Neutrophil Count 1.9 X10^3/uL (2.0-7.7); Basophil# 0.02 X10^3/uL; Basophil% 0.4 % (0-1); Eosinophil# 0.07 X10^3/uL; Eosinophils% 1.4 % (0-5); Hematocrit 41.9 % (40-54); Hemoglobin 14.2 g/dl (13.0-16.5); Lymphocyte # 2.75 X10^3/ul (4.0); Lymphocyte % 54.2 % (19-41); Mean Corp Hgb Conc 33.9 g/gl (32-36); Mean Corpuscular Hgb 29.7 pg (27.0-32.0); Mean Corpuscular Volume 87.7 fL (80-94); Mean Platelet Vol. 9.5 fl (6.2-12.0); Monocyte# 0.38 X10^3/uL; Monocyte% 7.5 % (0-10); Neutrophil # 1.85 X10^3/uL (2.7-7.7); Neutrophil % 36.5 % (47-70); Platelet Count 199 K/mm3 (150-450); RBC Distribution Width CV 14.4 % (11.6-14.6); RBC Distribution Width SD 46.4 fl (35.1-43.9); Red Blood Count 4.78 M/mm3 (4.6-6.2); White Blood Count 5.1 K/mm3 (4.4-11.0)
[2018-01-18 16:45] LABS: POSITIVE COUNT NO; POSITIVE DIFFERENTIAL NO; POSITIVE MORPHOLOGY NO
[2018-01-18 16:51] LABS: Bedside Glucose 107 mg/dL (70-110)
[2018-01-18 16:59] LABS: Anion Gap 9 (5-15); BUN 8 mg/dL (7-18); BUN/Creat Ratio 10.2 RATIO (10-20); Calcium,Total 8.2 mg/dL (8.5-10.1); Chloride 111 mmol/L (98-107); Creatinine, Serum 0.78 mg/dL (0.70-1.30); EST Glomerular Filtration Rate 112 mL/min (>60); Est Glom Filt Rate - Afr Amer 135 mL/min (>60); Estimated Creatinine Clearance 115.82 ml/min; Glucose 108 mg/dL (74-106); Sodium Level 146 mmol/L (136-145)
[2018-01-18 17:01] LABS: Prothrombin Time (Protime)PT. 13.4 SECONDS (11.7-14.9)
--- NOTE | 2018-01-18 17:20 | RAD_ITS ---
STUDY: X-RAY CHEST REASON FOR EXAM: Male, 47 years old. Mental status change TECHNIQUE: Single AP portable view of the chest. # of Images: 1 COMPARISON: 01/06/2018 FINDINGS: EKG leads overlie the chest The lungs are clear and expanded. There is no demonstrated pleural abnormality. Normal size heart. Normal mediastinum and candelaria. Normal visualized pulmonary arteries. Normal visualized aortic arch and descending thoracic aorta. Normal visualized thoracic spine. Normal visualized ribs, clavicles, and shoulders. There is no demonstrated abnormality of the visualized soft tissue structures of the upper abdomen. RAD/Chest 1 View IMPRESSION: Normal x-ray examination of the chest. Electronically Signed: Delgado Alvarez MD at 17:50 EDT , Service support ,
--- NOTE | 2018-01-18 18:54 | ED.DCSUM_ITS ---
- ER Visit Summary Date of Service: 01/18/18 Chief Complaint: Alcohol intoxication and facial droop History of Present Illness: The patient is a [address] Saini. Patient has been drinking heavily today. His girlfriend came home and is concerned that he has a left facial droop similar to what he had when he was admitted to the hospital earlier this month. She is unsure what time this started. I am not able to obtain anything useful from the patient as he is intoxicated and combative. Physical Examination: Vitals: Stable. Afebrile. General: Well-nourished and well-developed. Intoxicated and combative. Head: Normocephalic atraumatic. Neck: Supple, no lymphadenopathy. No JVD. Nontender. Cardiovascular: Regular rate and rhythm. No murmurs. Respiratory: No respiratory distress. Clear to auscultation bilaterally. Abdominal: Soft, nontender, nondistended, normal bowel sounds. No guarding, rebound, or peritoneal signs. Back: Nontender. Extremities: Nontender, no edema. Skin: Normal color, no rash. Neurologic: Alert and oriented ?3. Cranial nerves II through XII are intact. Normal strength and sensation. Psych: Agitated. Test Results: EKG is sinus bradycardia 55 with no acute changes. CT head shows no acute disease. Chest x-ray is normal. CBC is marked for segment neutrophils of 37 lymphs at 54. Chem-7 is remarkable for sodium 146, potassium 3.0, chloride 111, glucose 108, calcium 8.2. Coags are normal. Troponin is negativ e. Blood alcohol level is 297. Emergency Department Course and Treatment: The patient was combative and is clearly intoxicated. The concern of a facial droop is not actually a facial droop. He is smile is symmetric. When he opens his mouth and pulses lip down the left side of his lip pulls down more than the right. He is answering questions appropriately and is moving all extremities without any difficulty. He was given a dose of Geodon IM so that we could obtain the appropriate workup. The patient is now resting comfortably. His NIH scale is 0. He is not a TPA candidate. On the sixth of this month he had left upper extremity weakness in the left facial droop and was given TPA. I reviewed that admission. He had an echo that was unremarkable. He had an MRI of the brain 2 days later that was normal. He had a CTA of the neck that shows normal bilateral carotids and vertebrals. He had a CT of the brain shows a mildly atraumatic anterior segment of his right anterior cerebral artery and is otherwise normal. Patient does have a history of paroxysmal atrial fibrillation and his significant other states that he will not take the Eliquis that he is supposed to take. Currently he is in sinus rhythm. Treatment Plan: I do not feel the patient has a facial droop. He had a extensive workup earlier this month that showed a normal MRI of the brain after an episode like this when he was intoxicated. He has already been prescribed Eliquis and will not take it. Currently he is in sinus rhythm and I do not t hink that he has had a stroke or TIA today. He will be discharged with instructions to follow-up his primary care physician in 1 day if not improving. Return to the emergency department for any worsening symptoms. Disposition: To home in improved and stable condition. Impression: 1. Alcohol intoxication. 2. History of paroxysmal atrial fibrillation. 3. Medication noncompliance. 4. Hypokalemia. This note was generated with [employer] dictation software. It may contain incorrect words, spelling, and punctuation that were not noted in review of the chart prior to signing ED Disposition - Plan for ED Patient: Chief Complaint: Neuro S/Sx Instructions: ED Alcohol Intoxication, ED Potassium Deficiency Prescriptions: Potassium Chloride [K-Dur] 40 meq PO DAILY #10 tablet Referrals: Alexandrea Saini MD [Primary Care Provider] - 1 Day for another exam
== END 2018-01-18 19:53 | disposition home or self-care (01) ==
PROVIDERS: Emergency Provider Emergency Medicine; Family Provider Pediatrics; PCP Pediatrics
DX: F10.129 Alcohol abuse with intoxication, unspecified (principal); E87.6 Hypokalemia; I48.0 Paroxysmal atrial fibrillation; Z91.14 Patient's other noncompliance with medication regimen; G47.33 Obstructive sleep apnea (adult) (pediatric); Z86.73 Personal history of transient ischemic attack (TIA), and cerebral infarction without residual deficits; Z72.0 Tobacco use; Y90.8 Blood alcohol level of 240 mg/100 ml or more
CPT/HCPCS: 70450; 71045; 80048; 80320; 82962; 84484; 85025; 85610; 85730; 93005; 96360; 96361; 96372; 99283; J7030; G0480; J3486

== ENCOUNTER 2018-03-08 03:41 | Emergency (ER) | payer MEDICAID, SELFPAY ==
[2018-03-08] VITALS (7 sets, daily range): BP systolic 124–142; BP diastolic 69–97; PULSE 53–86; RESP 16–22; TEMP 36.8; O2SAT 97–99; BMI 31.5
--- NOTE | 2018-03-08 03:47 | RAD_ITS ---
STUDY: X-RAY CHEST REASON FOR EXAM: Male, 47 years old. The weekend TECHNIQUE: Frontal view COMPARISON: 01/18/2018 FINDINGS: The lungs are clear and expanded. There is no demonstrated pleural abnormality. Normal size heart. Normal mediastinum and candelaria. Normal visualized pulmonary arteries. Normal visualized aortic arch and descending thoracic aorta. Normal visualized thoracic spine. Normal visualized ribs, clavicles, and shoulders. There is no demonstrated abnormality of the visualized soft tissue structures of the upper abdomen. RAD/Chest 1 View IMPRESSION: Normal x-ray examination of the chest. Electronically Signed: Uli Olivares MD at 4:39 EST , Service support ,
--- NOTE | 2018-03-08 03:47 | EKG12_ITS ---
Test Reason : Blood Pressure : / mmHG Vent. Rate : 059 BPM Atrial Rate : 059 BPM P-R Int : 210 ms QRS Dur : 088 ms QT Int : 458 ms P-R-T Axes : 048 028 027 degrees QTc Int : 453 ms Sinus bradycardia with 1st degree A-V block Otherwise normal ECG Confirmed by BILLY SEXTON, DANII ([id number]), film editor supervisor CLEVE JONES ([id number]) on 03/09/2018 2:42:06 PM Referred By: PAMELA Confirmed By:DANII CERVANTES MD
--- NOTE | 2018-03-08 03:47 | CT_ITS ---
STUDY: CT BRAIN WITHOUT CONTRAST REASON FOR EXAM: Male, 47 years old. Headache RADIATION DOSAGE (If Supplied By Facility): CTDIvol = ( 44.999 ) mGy, DLP = ( 779.24 ) mGycm TECHNIQUE: Transaxial CT imaging of the brain was performed without administration of intravenous contrast material. Individualized dose optimization techniques were used for this CT. COMPARISON: None. FINDINGS: Normal soft tissue structures. Normal calvarium. Normal size ventricles and extra-axial spaces for the patient's age. Normal white matter tracts of the cerebral hemispheres. Normal basal ganglia and thalami. Normal brainstem. Normal cerebellum. There is no intracranial hemorrhage. There are no findings of an acute ischemic infarction. Normal visualized paranasal sinuses. CT/Brain/Head without Contrast IMPRESSION: Normal unenhanced CT scan of the brain. Electronically Signed: Uli Olivares MD at 4:31 EST , Service support ,
[2018-03-08 03:51] LABS: Bedside Glucose 110 mg/dL (70-110)
[2018-03-08 04:03] LABS: Absolute Lymphocyte Count 2.85 X10^3/ul (0.83-4.51); Basophil# 0.02 X10^3/uL; Basophil% 0.3 % (0-1); Eosinophil# 0.11 X10^3/uL; Eosinophils% 1.7 % (0-5); Hematocrit 37.6 % (40-54); Hemoglobin 13.3 g/dl (13.0-16.5); Lymphocyte # 2.85 X10^3/ul (4.0); Lymphocyte % 43.9 % (19-41); Mean Corp Hgb Conc 35.4 g/gl (32-36); Mean Corpuscular Hgb 31.7 pg (27.0-32.0); Mean Corpuscular Volume 89.7 fL (80-94); Mean Platelet Vol. 10.2 fl (6.2-12.0); Monocyte# 0.49 X10^3/uL; Monocyte% 7.6 % (0-10); Neutrophil # 3.01 X10^3/uL (2.7-7.7); Neutrophil % 46.3 % (47-70); POSITIVE COUNT NO; POSITIVE DIFFERENTIAL NO; POSITIVE MORPHOLOGY NO; Platelet Count 197 K/mm3 (150-450); RBC Distribution Width CV 14.1 % (11.6-14.6); RBC Distribution Width SD 45.6 fl (35.1-43.9); Red Blood Count 4.19 M/mm3 (4.6-6.2); White Blood Count 6.5 K/mm3 (4.4-11.0)
[2018-03-08 04:06] LABS: International Normalized Ratio 0.9; Prothrombin Time (Protime)PT. 11.6 SECONDS (11.7-14.9)
[2018-03-08 04:07] LABS: Partial Thromboplast Time 27.5 Seconds (24.1-36.2)
[2018-03-08 04:15] LABS: Anion Gap 8 (5-15); BUN 13 mg/dL (7-18); BUN/Creat Ratio 14.3 RATIO (10-20); Chloride 114 mmol/L (98-107); Creatinine, Serum 0.91 mg/dL (0.70-1.30); EST Glomerular Filtration Rate 95 mL/min (>60); Est Glom Filt Rate - Afr Amer 114 mL/min (>60); Glucose 106 mg/dL (74-106); Potassium 3.8 mmol/L (3.5-5.1); Sodium Level 145 mmol/L (136-145)
--- NOTE | 2018-03-08 04:55 | ED.DCSUM_ITS ---
- ER Visit Summary Date of Service: 03/08/18 Chief Complaint: Possible stroke History of Present Illness: The patient is a 47 M who was brought by EMS for a possible stroke. He noticed some dizziness and left arm and left leg weakness that started around 10 PM. He had been drinking at home. He had 8 drinks of hard alcohol tonight. He felt hot and cold. He was rechecking his blood pressure, hoping that his symptoms would resolve, but they persisted. Family called EMS. Patient has a history of stroke, atrial fibrillation, depression, sleep apnea, acid reflux, alcohol and tobacco use. He has a history of noncompliance with his Eliquis. Physical Examination: Afebrile and vital signs unremarkable. Patient is alert and oriented. No acute distress. Heart regular rate and rhythm. Lungs clear. Abdomen soft and nontender. Skin appears normal. Cranial nerves grossly int act. No facial droop noted. Eyes unremarkable. Patient has drift to his left upper extremity and left lower extremity. Normal coordination. Normal speech. NIH stroke scale is 2. Test Results: EKG showed sinus rhythm at a rate of 59. Chest x-ray unremarkable. CT brain unremarkable. CBC normal. BMP unremarkable. Coags unremarkable. Troponin normal. Alcohol level 137. Emergency Department Course and Treatment: Patient has a history of stroke and medication noncompliance. He was treated with TPA about 2 months ago for an ischemic stroke. Today he has focal weakness and an NIH stroke scale of 2. Symptoms started 5 hours and 40 minutes prior to arrival. On reevaluation after his workup, he complains of some tingling in his left upper extremity. Strength is normal. No other focal issues. No new issues. I called the hospitalist for admission. Treatment Plan: As above Disposition: Admission Impression: 1. Left-sided weakness This note was generated with [employer] dictation software. It may contain incorrect words, spelling, and punctuation that were not noted in review of the chart prior to signing ED Disposition - Plan for ED Patient: Chief Complaint: Dizziness Referrals: Alexandrea Saini MD [Primary Care Provider] -
--- NOTE | 2018-03-08 05:41 | PN_ITS ---
Progress Note Hospitalist consult Mr. Manuel is a 47-year-old male with a past medical history of paroxysmal atrial fibrillation, hypertension, depression, alcohol abuse, tobacco dependence untreated obstructive sleep apnea, hyperlipidemia and GERD who presented to the emergency department at [facility] on 03/08/2018 complaining of feeling funny while drinking that night. He felt dizzy and experienced left arm and leg weakness. His NIH on Dr. Santacruz's exam was 2 for drift of the left arm and leg. He has had the same sx in the past and MRI's have been negative for stroke. CTA of the neck done in January 2018 showed normal bilateral cervical carotid and vertebral arteries. CTA of the head showed a mildly atretic A1 segment of the right anterior cerebral artery but was otherwise unremarkable. He was diagnosed with TIA's. His last admission to the hospital was in January 2018 and at that time he received TPA and was admitted to the ICU. He was discharged on Eliquis that admission and told to follow up with neurology in 2 weeks. He never followed up with neurology and he told me he ran out of [facility] 3-4 months ago. He is actually not taking any meds at this time. The blood alcohol in the ER was 137. He tells me that he is not drinking daily. He does continue to smoke. Vital signs at presentation to the emergency room were temp 98.3, pulse rate 53, blood pressure 136/97, respiratory rate 18 and he was 98% saturated on room air. CBC and BMP were unremarkable. Troponin is less than 0.015. An unenhanced CT of the brain was normal. The weakness of the arm and leg on the left completely resolved while he was in the emergency room and he was able to ambulate without assist. Past surgical history: Appendectomy Social history: Current every day smoker, cigarettes. ETOH, excessive at times. He has a dtr at home with MRDD and a son also that lives with him. His in 2017 and that is when he started drinking. He has never sought help with mental Health for depression. FH: DM, CAD, stroke in his mother. Paternal: DM, CAD and stroke. Sibling with DM and CAD EKG-normal sinus rhythm at [address] and T wave changes. Chest x-ray-no infiltrates, pleural effusions or pulmonary vascular congestion PHYSICAL EXAM: GENERAL: alert, oriented X 3, Cooperative, NAD, flat affect ORAL: moist mucosa, no mucosal lesions, breath smells of alcohol and cigarettes NECK: No JVD, supple, trachea midline LUNGS: CTA, symmetric chest expansion HEART: RRR, Normal S1 and S2, no rub, no gallop ABDOMEN: soft, NT, ND, BS present, no guarding with palpation EXTREMITIES: no edema, no cyanosis, no calf tenderness, peripheral pulses normal SKIN: No rashes, no breakdown NEUROLOGIC: no focal neurologic deficits, 5/5 strength in all extremities, cranial nerves II through XII grossly intact, Babinski's downgoing bilaterally, intact sensation throughout, no limb ataxia at the time of my exam PSYCH: appropriate, flat affect, pleasant Impressions 1. ? TIA 2. Intoxication currently with hx of Alcohol abuse since his in 2016 3. depression - untreated 4. Untreated sleep apnea 5. HTN 6. HLD 7. tobacco dependence 8. GERD Pt was advised to quit drinking and smoking we discussed follow up with mental health for tx of depression. I gave him the number of the [facility] for follow up We talked about the need for compliance with medication to prevent CVA and is agreeable to restarting his medications. Rx's were faxed to [facility] Follow up with PCP in the next 1-2 weeks Code Visit Inpatient E&M: 14060 Subs Hosp L2 - This is a consult for Dr. Santacruz in the ED
== END 2018-03-08 06:54 | disposition home or self-care (01) ==
PROVIDERS: Emergency Provider Emergency Medicine; Family Provider Pediatrics; PCP Pediatrics
DX: I48.91 Unspecified atrial fibrillation (principal); R53.1 Weakness; F17.210 Nicotine dependence, cigarettes, uncomplicated; F10.129 Alcohol abuse with intoxication, unspecified; Y90.6 Blood alcohol level of 120-199 mg/100 ml; F32.9 Major depressive disorder, single episode, unspecified; G47.30 Sleep apnea, unspecified; I10 Essential (primary) hypertension; E78.5 Hyperlipidemia, unspecified; K21.9 Gastro-esophageal reflux disease without esophagitis; Z91.14 Patient's other noncompliance with medication regimen; Z86.73 Personal history of transient ischemic attack (TIA), and cerebral infarction without residual deficits
CPT/HCPCS: 70450; 71045; 80048; 80320; 82962; 84484; 85025; 85610; 85730; 93005; 99285; J7030; J7040; A4216; G0480

== ENCOUNTER 2018-05-05 16:13 | Emergency (ER) | payer MEDICAID, SELFPAY ==
[2018-03-08 03:42] VITALS: BMI 31.5
[2018-05-05 16:18] VITALS: BP 143/120; PULSE 75; RESP 17; TEMP 36.6; O2SAT 100; BMI 33.3
[2018-05-05 16:55] LABS: Absolute Lymphocyte Count 1.57 X10^3/ul (0.83-4.51); Absolute Neutrophil Count 3.3 X10^3/uL (2.0-7.7); Basophil# 0.02 X10^3/uL; Basophil% 0.4 % (0-1); Eosinophil# 0.15 X10^3/uL; Eosinophils% 2.8 % (0-5); Hematocrit 43.9 % (40-54); Hemoglobin 15.1 g/dl (13.0-16.5); Lymphocyte # 1.57 X10^3/ul (4.0); Lymphocyte % 29.2 % (19-41); Mean Corp Hgb Conc 34.4 g/gl (32-36); Mean Corpuscular Hgb 31.9 pg (27.0-32.0); Mean Corpuscular Volume 92.6 fL (80-94); Mean Platelet Vol. 10.1 fl (6.2-12.0); Monocyte# 0.31 X10^3/uL; Monocyte% 5.8 % (0-10); Neutrophil # 3.32 X10^3/uL (2.7-7.7); Neutrophil % 61.6 % (47-70); Platelet Count 194 K/mm3 (150-450); RBC Distribution Width CV 13.6 % (11.6-14.6); RBC Distribution Width SD 44.8 fl (35.1-43.9); Red Blood Count 4.74 M/mm3 (4.6-6.2); White Blood Count 5.4 K/mm3 (4.4-11.0)
[2018-05-05 17:02] LABS: POSITIVE COUNT NO; POSITIVE DIFFERENTIAL NO; POSITIVE MORPHOLOGY NO
[2018-05-05 17:04] LABS: Anion Gap 9 (5-15); BUN 12 mg/dL (7-18); BUN/Creat Ratio 15.7 RATIO (10-20); Calcium,Total 8.5 mg/dL (8.5-10.1); Chloride 112 mmol/L (98-107); Creatinine, Serum 0.77 mg/dL (0.70-1.30); EST Glomerular Filtration Rate 115 mL/min (>60); Est Glom Filt Rate - Afr Amer 139 mL/min (>60); Estimated Creatinine Clearance 109.69 ml/min; Glucose 115 mg/dL (74-106); Potassium 3.5 mmol/L (3.5-5.1); Sodium Level 143 mmol/L (136-145)
[2018-05-05 18:44] VITALS: BP 114/72; PULSE 56; RESP 22; O2SAT 97
[2018-05-05 18:49] LABS: Amphetamine Urine VISTA NEGATIVE (<1000 ng/mL); Barbiturate Urine VISTA NEGATIVE (< 200 ng/mL); Benzodiazepine Urine VISTA NEGATIVE (< 200 ng/mL); Cocaine Urine VISTA NEGATIVE (< 300 ng/mL); Ecstacy Urine VISTA NEGATIVE (< 500 ng/mL); Methadone Urine VISTA NEGATIVE (< 300 ng/mL); PCP Urine VISTA NEGATIVE (< 25 ng/mL); THC Urine VISTA NEGATIVE (< 50 ng/mL); Vista UDS pH Range 5
[2018-05-05 20:00] VITALS: BP 138/86; PULSE 62; RESP 16; O2SAT 100
--- NOTE | 2018-05-05 20:05 | CT_ITS ---
STUDY: CT BRAIN WITHOUT CONTRAST REASON FOR EXAM: Male, 47 years old. Altered mental status and history of CVA. RADIATION DOSAGE (If Supplied By Facility): CTDIvol = ( 44.99 ) mGy, DLP = ( 745.49 ) mGycm TECHNIQUE: Transaxial CT imaging of the brain was performed without administration of intravenous contrast material. Individualized dose optimization techniques were used for this CT. COMPARISON: March 08, 2018 CT brain FINDINGS: Normal soft tissue structures. Normal calvarium. Normal size ventricles and extra-axial spaces for the patient's age. Normal white matter tracts of the cerebral hemispheres. Normal basal ganglia and thalami. Normal brainstem. Normal cerebellum. There is no intracranial hemorrhage. There are no findings of an acute ischemic infarction. Normal visualized paranasal sinuses. CT/Brain/Head without Contrast IMPRESSION: Normal unenhanced CT scan of the brain. Electronically Signed: Олег Peralta MD at 22:00 EST , Service support ,
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
--- NOTE | 2018-05-05 20:41 | ED.RN ---
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 PT REPORTED TO THIS NURSE THAT HE WAS SCHEDULED TO WORK [employer]ER[employer] TONIGHT, THIS NURSE EXPLAINED TO PT THE BUSINESS IS CLOSED AND NOT OPEN ON [employer].
[2018-05-05] MEDS: LORazepam 1 MG Tablet PO (21:00)
[2018-05-05 23:00] VITALS: BP 136/83; PULSE 78; RESP 20; O2SAT 98
[2018-05-06] VITALS (13 sets, daily range): BP systolic 140–150; BP diastolic 92–99; PULSE 69–87; RESP 16–18; TEMP 36.6; O2SAT 96–100
[2018-05-06] MEDS: Atorvastatin Calcium 80 MG Tablet PO (00:56)
[2018-05-06] MEDS: APIXABAN 5 MG TABLET PO ×2 (00:56→11:11)
[2018-05-06] MEDS: LORazepam 1 MG Tablet PO ×2 (01:08→02:01)
--- NOTE | 2018-05-06 02:49 | NURSING ---
ACCEPTED TO [facility] BY DR. BROWN GOING TO THE ADULT BEHAVIORAL UNIT [phone] REPORT
--- NOTE | 2018-05-06 03:00 | ED.RN ---
PATIENT WAS LAYING IN BED AND SAID THAT HE WAS STARVING. ONE SANDWICH WAS GIVEN AND HE REQUESTED ANOTHER ONE HE SAID I HAVE NOT ATE SINCE MONDAY. ANOTHER SANDWICH WAS GIVEN.
--- NOTE | 2018-05-06 03:39 | NURSING ---
cannot arrive to [facility] till after 8;30am
--- NOTE | 2018-05-06 11:04 | ED.RN ---
called pharmacy for agustín.
[2018-05-06] MEDS: LORazepam 0.5 MG Tablet PO ×2 (11:11)
--- NOTE | 2018-05-06 15:17 | ED.RN ---
pt makes phone call to son, prior to leaving facility.
== END 2018-05-06 15:16 ==
PROVIDERS: Emergency Provider Emergency Medicine; Family Provider Pediatrics; PCP Pediatrics
DX: F32.9 Major depressive disorder, single episode, unspecified (principal); F10.129 Alcohol abuse with intoxication, unspecified; Y90.7 Blood alcohol level of 200-239 mg/100 ml; I10 Essential (primary) hypertension; Z72.0 Tobacco use; Z79.02 Long term (current) use of antithrombotics/antiplatelets; Z79.899 Other long term (current) drug therapy
CPT/HCPCS: 70450; 80048; 80307; 80320; 85025; 99285; G0480

== ENCOUNTER 2018-05-14 03:51 | Emergency (ER) | payer MEDICAID, SELFPAY ==
[2018-05-14 03:52] VITALS: BP 148/85; PULSE 78; RESP 20; TEMP 36.6; O2SAT 98; BMI 31.7
[2018-05-14 03:57] VITALS: RESP 20
--- NOTE | 2018-05-14 04:07 | ED.VISSUMM ---
- ER Visit Summary Date of Service: 05/14/18 Chief Complaint: Dental pain History of Present Illness: The patient is a 47 M who presents with dental pain. He has had multiple dental extractions. However he complains of pain across his lower front teeth for about 9 hours. He took 800 mg ibuprofen twice. His pain is uncontrolled. He does have scheduled appointment with the dentist but not until the end of this month. He was told to go to the emergency department if symptoms were uncontrolled. Physical Examination: Afebrile vitals are stable No focal dental abscess Soft no sublingual edema Patient has his mandibular central and lateral incisors remaining but most of his remaining teeth have been pulled he does not have a focal dental abscess he does not appear to have necrotizing gingivitis No trismus clear speech Test Results: Not indicated Emergency Department Course and Treatment: Patient is on anticoagulants so I do not feel NSAIDs are a good choice of medication. Therefore he was given a dorsal Webster here as well as a prescription for the same and was started on penicillin. Treatment Plan: [] Disposition: Discharge Impression: Dental pain This note was generated with [employer] dictation software. It may contain incorrect words, spelling, and punctuation that were not noted in review of the chart prior to signing ED Disposition - Plan for ED Patient: Referrals: Alexandrea Saini MD [Primary Care Provider] -
--- NOTE | 2018-05-14 04:09 | ED.DEP ---
ED Disposition - Plan for ED Patient: Instructions: ED Tooth Pain Prescriptions: Hydrocodone Bitart/Apap 5-325 [[place] 5MG-325MG] 1 tab PO Q4H PRN PRN 2 Days #8 tab PRN Reason: Pain Penicillin V Potassium 500 mg PO 4X/DAY #40 tab Referrals: Alexandrea Saini MD [Primary Care Provider] -
[2018-05-14] MEDS: HYDROcodone Bitartrate/Apap 5/325 Tablet PO (04:21)
[2018-05-14 04:24] VITALS: BP 141/72; PULSE 72; RESP 18; O2SAT 97
== END 2018-05-14 04:24 | disposition home or self-care (01) ==
LOC: ED 04:10
PROVIDERS: Emergency Provider Emergency Medicine; Family Provider Pediatrics; PCP Pediatrics
DX: K08.89 Other specified disorders of teeth and supporting structures (principal); K21.9 Gastro-esophageal reflux disease without esophagitis; E78.00 Pure hypercholesterolemia, unspecified; I48.91 Unspecified atrial fibrillation; Z86.73 Personal history of transient ischemic attack (TIA), and cerebral infarction without residual deficits; Z72.0 Tobacco use; Z79.02 Long term (current) use of antithrombotics/antiplatelets; Z79.899 Other long term (current) drug therapy
CPT/HCPCS: 99282

== ENCOUNTER 2018-06-03 03:36 | Emergency (ER) | payer MEDICAID, SELFPAY ==
[2018-06-03 03:37] VITALS: BP 157/96; PULSE 93; RESP 18; TEMP 37; O2SAT 99; BMI 34.1
--- NOTE | 2018-06-03 03:51 | RAD_ITS ---
HISTORY: NKIC/O LT ANKLE PAIN X 2 DAYSNOTICED BRUISING TO MEDIAL ASPECT OF LT ANKLE TODAY COMPARISON: None FINDINGS: # of images incl. paperwork: 3 XR Ankle Min 3 Views: Left. SOFT TISSUES: Unremarkable. No radiopaque foreign body. BONES: No acute fracture or subluxation. No sclerotic or destructive changes observed. Bidirectional calcaneal spurs. Mild spurring of both malleoli. JOINTS: Preservation of the joint space. Articular surfaces are unremarkable. RAD/Ankle min 3 Views IMPRESSION: No acute findings. at 0426 Reported and signed by: Paul Rosa MD Electronically Signed: Paul Rosa, at 4:25 EST Tel , Service support ,
--- NOTE | 2018-06-03 04:16 | ED.DCSUM_ITS ---
- ER Visit Summary Date of Service: 06/03/18 Chief Complaint: Ankle pain History of Present Illness: The patient is a 47 M presents to the emergency department with a bruise on the medial aspect of his left ankle. The patient does have a history of atrial fibrillation and prior stroke. He is on Eliquis. He cannot recall any trauma. He was concerned that he may have a blood clot. He states that the area has gotten more ecchymotic over the past 2 days. He states it hurts to touch. He denies any fevers or chills. He denies any chest pain or shortness of breath. Physical Examination: Exam is relatively unremarkable. Patient does have a 5 cm x 3 cm ovoid area of ecchymosis just proximal to the medial malleolus. His pulses are normal. There is no erythema. There is no edema. There is no streaking. Compartments are soft. Test Results: [] Emergency Department Course and Treatment: The patient is already fully anticoagulated on Eliquis. He was concerned that he had a blood clot. This does seem more consistent with local injury and ecchymosis. I did do a bedside ultrasound. His veins are patent and he is already anticoagulated. I also obtained plain films which were normal. At this time, I do feel that this is likely just a straightforward ecchymosis. The patient was counseled on ice and elevation. He will be discharged home. Treatment Plan: [] Disposition: Discharge Impression: 1. Eft ankle contusion This note was generated with [employer] dictation software. It may contain incorrect words, spelling, and punctuation that were not noted in review of the chart prior to signing ED Disposition - Plan for ED Patient: Instructions: ED Contusion Lower Ext Referrals: Ruy Peter DO [NON CLINICAL AFFILIATE] -
[2018-06-03 04:23] VITALS: PULSE 71; RESP 18; O2SAT 99
--- NOTE | 2018-06-03 04:23 | ED.RN ---
THIS NURSE REVIEWED D/C INSTRUCTIONS WITH PT. PT VERBALIZED UNDERSTANDING OF INSTRUCTIONS. PT DENIES FURTHER NEEDS OR QUESTIONS AT THIS TIME. PT AMBULATES FROM ROOM ON OWN WITHOUT ASSISTANCE FROM STAFF
== END 2018-06-03 04:24 | disposition home or self-care (01) ==
LOC: ED 03:59
PROVIDERS: Emergency Provider Emergency Medicine
DX: S90.02XA Contusion of left ankle, initial encounter (principal); I10 Essential (primary) hypertension; Z79.02 Long term (current) use of antithrombotics/antiplatelets; Z86.73 Personal history of transient ischemic attack (TIA), and cerebral infarction without residual deficits; Z79.899 Other long term (current) drug therapy; X58.XXXA Exposure to other specified factors, initial encounter; Y93.89 Activity, other specified; Y92.89 Other specified places as the place of occurrence of the external cause; Y99.8 Other external cause status; I48.91 Unspecified atrial fibrillation
CPT/HCPCS: 73610; 99282

== ENCOUNTER 2018-08-07 02:58 | Emergency (ER) | payer MEDICAID, SELFPAY ==
[2018-08-07 02:59] VITALS: BP 133/78; PULSE 64; RESP 18; TEMP 36.8; O2SAT 98; BMI 36.9
--- NOTE | 2018-08-07 03:16 | ED.VISSUMM ---
- ER Visit Summary Date of Service: 08/07/18 Chief Complaint: Laceration History of Present Illness: The patient is a 48 M who presents with a wound to his right forearm. He is intoxicated. He was cleaning a tool and accidentally cut his right forearm. He is anticoagulated. His son called EMS because they were not initially able to control the bleeding. Patient's tetanus is up-to-date. He also complains of dental pain all the way across his lower teeth. He is otherwise without complaint. No fevers chest pain shortness of breath vomiting. Physical Examination: Afebrile vitals normal Patient clinically intoxicated but able to answer all questions appropriately Moist mucous membranes Patient has widespread dental decay no focal dental tenderness or focal abscess Heart regular rate and rhythm Lungs clear There is a superficial wound to the back of the right forearm about 1 cm? involving just the superficial layer of skin. No full-thickness lacerations. No active bleeding. Test Results: Not indicated Emergency Department Course and Treatment: Patient's wound is no longer bleeding. It is superficial. Dressing was applied. In regards to his dental pain he does not appear to have any focal dental infection. He agrees with this. He was given a list of dental clinics. He states he can call his son to pick him up and he was discharged. Treatment Plan: [] Disposition: Discharge Impression: Abrasion right forearm Odontalgia Alcohol intoxication This note was generated with [employer] dictation software. It may contain incorrect words, spelling, and punctuation that were not noted in review of the chart prior to signing ED Disposition - Plan for ED Patient: Referrals: Care Physician,No Primary [Primary Care Provider] -
--- NOTE | 2018-08-07 03:17 | ED.RN ---
pt given discharge rn phone to call for ride home.
--- NOTE | 2018-08-07 03:19 | ED.DEP ---
ED Disposition - Plan for ED Patient: Instructions: ED Abrasion, ED Alcohol Intoxication, ED Tooth Pain Referrals: Care Physician,No Primary [Primary Care Provider] -
--- NOTE | 2018-08-07 03:32 | ED.RN ---
pt unable to get ride home.
[2018-08-07 06:49] VITALS: BP 110/62; PULSE 64; RESP 18; O2SAT 99
--- NOTE | 2018-08-07 06:50 | ED.RN ---
pt ambulating with a steady and independent gait. PT used restroom independently. [facility] where coffee, phone and snack machine is. PT to call for ride home. Taxi numbers were offered but he refused.
--- NOTE | 2018-08-07 06:51 | ED.RN ---
Squad IV removed with angiocath intact prior to discharge.
== END 2018-08-07 06:51 | disposition home or self-care (01) ==
LOC: ED 03:12
PROVIDERS: Emergency Provider Emergency Medicine
DX: S50.811A Abrasion of right forearm, initial encounter (principal); K08.89 Other specified disorders of teeth and supporting structures; F10.129 Alcohol abuse with intoxication, unspecified; Y90.9 Presence of alcohol in blood, level not specified; W27.8XXA Contact with other nonpowered hand tool, initial encounter; Y93.89 Activity, other specified; Y92.008 Other place in unspecified non-institutional (private) residence as the place of occurrence of the external cause; Y99.8 Other external cause status
CPT/HCPCS: 99284; J7030; A4216

== ENCOUNTER 2018-11-15 10:51 | Emergency (ER) | payer MEDICAID, SELFPAY ==
[2018-11-15 10:53] VITALS: BP 127/77; PULSE 83; RESP 16; TEMP 36.6; O2SAT 99; BMI 31.4
--- NOTE | 2018-11-15 10:57 | RAD_ITS ---
STUDY: X-RAY - RIGHT HAND REASON FOR EXAM: Male, 48 years old. Laceration. TECHNIQUE: 3 view(s) of the hand. COMPARISON: None. FINDINGS: Normal radiocarpal articulation. Normal distal radioulnar joint. Normal visualized carpal bones. Normal carpal articulations Normal carpometacarpal articulation of the thumb. Normal second through fifth carpometacarpal joints. Normal metacarpi. Normal metacarpophalangeal joint of the thumb. Normal interphalangeal joint of the thumb. Normal proximal and distal phalanges of the thumb. Normal metacarpophalangeal joints of the second through fifth fingers. Normal proximal and distal interphalangeal joints of the second through fifth fingers. Normal phalanges of the second through fifth fingers. Soft tissue swelling. Laceration overlying the distal aspect of the fourth and fifth metacarpals. RAD/Hand Min 3 Views IMPRESSION: Soft tissue swelling as well as laceration overlying the distal aspect of the fourth and fifth metacarpals. Electronically Signed: Dimas Renee, at 12:07 EDT , Service support ,
--- NOTE | 2018-11-15 11:01 | RAD_ITS ---
STUDY: X-RAY - RIGHT RADIUS AND ULNA REASON FOR EXAM: Male, 48 years old. Laceration. TECHNIQUE: 3 view(s) of the forearm. COMPARISON: None. FINDINGS: There is no demonstrated soft tissue swelling. Normal visualized radius. Normal visualized ulna. RAD/Forearm 2 Views IMPRESSION: Normal x-ray examination of the radius and ulna. Electronically Signed: Dimas Renee, at 12:08 EDT , Service support ,
--- NOTE | 2018-11-15 11:03 | ED.DCSUM_ITS ---
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 He was mowing his grass, apparently he hit a rock in try to investigate he reached his right arm into the mower deck and injured it. He does not know if it was the blade or something else that he injured it. He denies any other injury. He tells me his pain is moderate to severe and achy. He also sustained a small laceration. His tetanus is up-to-date. He denies any pain in his right elbow. Again no other injury Past Medical History - Allergies and Home Meds Allergies/Adverse Reactions: Allergies azithromycin Allergy (Verified 06/03/18 03:38) Shortness of breath Primary Care Physician: Care Physician,No Primary [Primary Care Provider] - Prior records reviewed: Yes Past Medical History: - - Reviewed and overall unremarkable Surgical History: appendectomy Lives: With Family Smoking Status: Current every day smoker - Family History Sibling Family History: Family History (Last Reviewed 01/06/18 @ 17:49 by Luciano Fajardo DO) Mother Diabetes CAD (coronary artery disease) CVA (cerebral vascular accident) Myocardial infarction, Onset Age: 35 Father CAD (coronary artery disease) Diabetes CVA (cerebral vascular accident) Family History: Reports: Diabetes, Heart Disease Maternal Family History: Family History (Last Reviewed 01/06/18 @ 17:49 by Luciano Fajardo DO) Mother Diabetes CAD (coronary artery disease) CVA (cerebral vascular accident) Myocardial infarction, Onset Age: 35 Father CAD (coronary artery disease) Diabetes CVA (cerebral vascular accident) Family History: Reports: Diabetes, Heart Disease - [place] at 35 y/o., Stroke Paternal Family History: Family History (Last Reviewed 01/06/18 @ 17:49 by Luciano Fajardo DO) Mother Diabetes CAD (coronary artery disease) CVA (cerebral vascular accident) Myocardial infarction, Onset Age: 35 Father CAD (coronary artery disease) Diabetes CVA (cerebral vascular accident) Family History: Reports: Diabetes, Heart Disease, Stroke Review of Systems All systems negative except as indicated General: Reports: - - No head injury or loss of consciousness Cardiovascular: Denies: Chest pain Respiratory: Denies: Dyspnea Gastrointestinal: Denies: Abdominal pain, Nausea Musculoskeletal: Reports: - - As in HPI Skin: Reports: Wounds Neurological: Denies: Weakness, Parasthesia Hematologic: Denies: Easy bruising Physical Exam Vital Signs/Narrative: Vital Signs Temp Pulse Resp BP Pulse Ox 11/15/18 10:53 98 F 83 16 127/77 H 99 Inital Vital Signs reviewed: Yes General: - - Patient is lucid and coherent. He is slightly slurring his speech, there is smell of her mentation on his breath, however he can give me a very reasonable course of events. Head: Normocephalic, Atraumatic Eyes: Perrl, EOMI ENT: Moist mucous membranes Neck: Supple Cardiovascular: Regular rate, Regular rhythm Respiratory: No distress, CTA bilaterally Abdomen: Soft, Nontender, Nondistended Back: Nontender Extremities: - - There is tenderness over the fourth and fifth metacarpal region of his right hand. There is a dorsal laceration that is superficial flap about 2 cm. There is no significant wrist pain. No forearm pain. There is some edema. Patient is able to flex and extend. There is no sensory deficit. Skin: - - Small flap laceration involving mostly the hair. 2 cm. Neurological: Normal Strength, Normal Sensation Diagnostic/Tx/Re-eval - Medical Decision Making Patient has normal x-ray of the hand and forearm. Wound care was provided, however no laceration repair was needed. Tetanus is up-to-date. There is no other injury. Patient will be discharged when sober or when somebody will pick him up and assume custody over him. ED Disposition - Plan for ED Patient: Disposition: Home or Assisted Living Diagnosis: Hand laceration, Alcohol intoxication Instructions: LACERATION, Hand, The Impact of Alcoholism Referrals: Eran López DO [STAFF PHYSICIAN] - 3-5 Days
--- NOTE | 2018-11-15 11:52 | ED.RN ---
CALLED PHARMACY REGARDING ANCEF.
--- NOTE | 2018-11-15 11:59 | ED.RN ---
APPLIED STERI STRIPS AFTER CLEANING WOUND TO RT HAND. STERI STRIPS ARE NOT STAYING ATTACHED. WILL REAPPLY AND PLACE DRESSING OVER WOUND. PT IS RESTING WITH EYES CLOSED AT THIS TIME.
--- NOTE | 2018-11-15 12:56 | ED.RN ---
CONTINUING TO WAIT FOR [facility] CANCELLED THE ORIGINAL ORDER, IT IS APPARENTLY BEING LOOKED INTO TO WHY IT WAS CANCELLED.
--- NOTE | 2018-11-15 12:58 | ED.RN ---
ORIGINAL ORDER BY MD FOR ANCEF WAS 1102, NEW ORDER FOR ANCEF BY PHARMACY WAS 1215. CONTINUING TO WAIT FOR ATB.
[2018-11-15 13:07] VITALS: BP 114/59; PULSE 55
--- NOTE | 2018-11-15 13:08 | ED.RN ---
PHARMACY STATES THE ANCEF WAS SENT AT NOON. WE ARE ATTEMPTING TO LOCATE THE MEDICATION.
== END 2018-11-15 14:22 | disposition home or self-care (01) ==
PROVIDERS: Emergency Provider Emergency Medicine
DX: S61.411A Laceration without foreign body of right hand, initial encounter (principal); F10.129 Alcohol abuse with intoxication, unspecified; F17.200 Nicotine dependence, unspecified, uncomplicated; W45.8XXA Other foreign body or object entering through skin, initial encounter; Y93.H2 Activity, gardening and landscaping; Y92.007 Garden or yard of unspecified non-institutional (private) residence as the place of occurrence of the external cause; Y99.8 Other external cause status
CPT/HCPCS: 73090; 73130; 96372; 99282

== ENCOUNTER 2018-11-16 23:20 | Emergency (ER) | payer SELFPAY ==
[2018-11-15 10:53] VITALS: BMI 31.4
[2018-11-16 23:22] VITALS: BP 144/92; PULSE 79; RESP 16; TEMP 36.7; O2SAT 96; BMI 33.7
--- NOTE | 2018-11-16 23:39 | EKG12_ITS ---
Test Reason : [facility] [place] Pressure : / mmHG Vent. Rate : 074 BPM Atrial Rate : 074 BPM P-R Int : 176 ms QRS Dur : 088 ms QT Int : 394 ms P-R-T Axes : 037 019 041 degrees QTc Int : 437 ms Normal sinus rhythm Normal ECG Confirmed by BILLY SEXTON, DANII ([id number]), makeup editor MARLY CELAYA ([id number]) on 11/20/2018 1:42:42 PM Referred By: SHA Confirmed By:DANII CERVANTES MD
--- NOTE | 2018-11-16 23:40 | ED.VIS.GEN ---
History of Present Illness Chief Complaint: Suicidal Narrative: This patient is a 48-year-old male who presents with suicidal ideation. He stated yesterday that he wanted to shoot himself in the head. Today he was looking for a gun. He was pink slipped and brought in by police. He denies any homicidal ideations or thoughts of hurting anyone else however the officers pink slip states that he said he was going to cut anyone that entered his garage. He does admit to alcohol use today. He otherwise complains of chronic back pain and blood in his stool with bowel movements for the past 2 months which he attributes to a hemorrhoid. No recent acute illness and review of systems otherwise negative. Past Medical History - Allergies and Home Meds Allergies/Adverse Reactions: Allergies azithromycin Allergy (Verified 11/16/18 23:26) Shortness of breath Primary Care Physician: Care Physician,No Primary [Primary Care Provider] - Past Medical History: - - Hypertension, hyperlipidemia, alcoholism Surgical History: appendectomy Smoking Status: Current every day smoker - Family History Sibling Family History: Family History (Last Reviewed 01/06/18 @ 17:49 by Luciano Fajardo DO) Mother Diabetes CAD (coronary artery disease) CVA (cerebral vascular accident) Myocardial infarction, Onset Age: 35 Father CAD (coronary artery disease) Diabetes CVA (cerebral vascular accident) Family History: Reports: Diabetes, Heart Disease Maternal Family History: Family History (Last Reviewed 01/06/18 @ 17:49 by Luciano Fajardo DO) Mother Diabetes CAD (coronary artery disease) CVA (cerebral vascular accident) Myocardial infarction, Onset Age: 35 Father CAD (coronary artery disease) Diabetes CVA (cerebral vascular accident) Family History: Reports: Diabetes, Heart Disease - [place] at 35 y/o., Stroke Paternal Family History: Family History (Last Reviewed 01/06/18 @ 17:49 by Luciano Fajardo DO) Mother Diabetes CAD (coronary artery disease) CVA (cerebral vascular accident) Myocardial infarction, Onset Age: 35 Father CAD (coronary artery disease) Diabetes CVA (cerebral vascular accident) Family History: Reports: Diabetes, Heart Disease, Stroke Review of Systems All systems negative except as indicated General: Denies: Fever Cardiovascular: Denies: Chest pain Respiratory: Denies: Dyspnea Gastrointestinal: Reports: Hematochezia. Denies: Abdominal pain, Nausea, Vomiting, Diarrhea Musculoskeletal: Reports: Back pain Neurological: Denies: Headache Physical Exam Vital Signs/Narrative: Vital Signs Temp Pulse Resp BP Pulse Ox 11/16/18 23:22 98.0 F 79 16 144/92 H 96 Inital Vital Signs reviewed: Yes General: Well nourished, Well developed Head: Normocephalic, Atraumatic Eyes: EOMI ENT: Moist mucous membranes Neck: Supple Cardiovascular: Regular rate, Regular rhythm Respiratory: No distress, CTA bilaterally Abdomen: Soft, Nontender, Nondistended Extremities: Nontender Skin: Normal color Neurological: Alert Psychological: Normal affect Diagnostic/Tx/Re-eval Laboratory Results 11/16/18 11/16/18 11/16/18 23:45 23:45 23:45 WBC 5.2 RBC 5.09 Hgb 15.4 Hct 45.4 MCV 89.2 MCH 30.3 MCHC 33.9 RDW Std Deviation 42.8 RDW Coeff of Pearl 13.0 Plt Count 209 MPV 9.7 Immature Gran % (Auto) 0.200 Neut % (Auto) 44.3 L Lymph % (Auto) 48.4 H [place] % (Auto) 4.8 Eos % (Auto) 1.7 Baso % (Auto) 0.6 Absolute Neuts (auto) 2.3 Absolute Lymphs (auto) 2.50 Nucleated RBC % 0 PT INR Sodium 143 Potassium 3.8 Chloride 111 H Carbon Dioxide 23.0 Anion Gap 9 BUN 13 Creatinine 0.91 Estim Creat Clear Calc 91.81 Est GFR (MDRD) Af Amer 114 Est GFR (MDRD) Non-Af 94 BUN/Creatinine Ratio 14.3 Glucose 93 Calcium 8.4 L Urine Opiates Screen Urine Methadone Screen Ur Barbiturates Screen Ur Phencyclidine Scrn Ur Amphetamines Screen U Methamphetamin-MDMA U Benzodiazepines Scrn Urine Cocaine Screen U Cannabinoids Screen Ur Drug Screen Comment Ethyl Alcohol 294.0 11/16/18 11/17/18 23:45 02:10 WBC RBC Hgb Hct MCV MCH MCHC RDW Std Deviation RDW Coeff of Pearl Plt Count MPV Immature Gran % (Auto) Neut % (Auto) Lymph % (Auto) [place] % (Auto) Eos % (Auto) Baso % (Auto) Absolute Neuts (auto) Absolute Lymphs (auto) Nucleated RBC % PT 13.1 INR 1.0 Sodium Potassium Chloride Carbon Dioxide Anion Gap BUN Creatinine Estim Creat Clear Calc Est GFR (MDRD) Af Amer Est GFR (MDRD) Non-Af BUN/Creatinine Ratio Glucose Calcium Urine Opiates Screen NEGATIVE Urine Methadone Screen NEGATIVE Ur Barbiturates Screen NEGATIVE Ur Phencyclidine Scrn NEGATIVE Ur Amphetamines Screen NEGATIVE U Methamphetamin-MDMA NEGATIVE U Benzodiazepines Scrn NEGATIVE Urine Cocaine Screen NEGATIVE U Cannabinoids Screen NEGATIVE Ur Drug Screen Comment Ethyl Alcohol - EKG Initial EKG Interpretation: Sinus Rhythm, - - EKG shows sinus rhythm at a rate of 74 with no acute ischemic changes. - Medical Decision Making Labs notable only for alcohol intoxication. Patient will be observed until sober at which point he will be evaluated by crisis. Based on his suicidal ideation and gestures he will likely require placement to a psychiatric facility. ED Disposition - Plan for ED Patient: Disposition: Psychiatric Hospital or Unit Diagnosis: Suicidal ideation Referrals: Care Physician,No Primary [Primary Care Provider] -
[2018-11-16 23:51] LABS: Absolute Neutrophil Count 2.3 X10^3/uL (2.0-7.7); Basophil# 0.03 X10^3/uL; Basophil% 0.6 % (0-1); Eosinophil# 0.09 X10^3/uL; Eosinophils% 1.7 % (0-5); Hematocrit 45.4 % (40-54); Hemoglobin 15.4 g/dL (13.0-16.5); Lymphocyte % 48.4 % (19-41); Mean Corp Hgb Conc 33.9 g/dL (32-36); Mean Corpuscular Hgb 30.3 pg (27.0-32.0); Mean Corpuscular Volume 89.2 fL (80-94); Mean Platelet Vol. 9.7 fl (6.2-12.0); Monocyte# 0.25 X10^3/uL; Monocyte% 4.8 % (0-10); NRBC Flagged by Analyzer 0 % (0-5); Neutrophil # 2.28 X10^3/uL (2.7-7.7); Neutrophil % 44.3 % (47-70); Platelet Count 209 K/mm3 (150-450); RBC Distribution Width SD 42.8 fl (35.1-43.9); Red Blood Count 5.09 M/mm3 (4.6-6.2); White Blood Count 5.2 K/mm3 (4.4-11.0)
[2018-11-16 23:59] LABS: Prothrombin Time (Protime)PT. 13.1 SECONDS (11.7-14.9)
[2018-11-17] VITALS (20 sets, daily range): BP systolic 143–166; BP diastolic 60–97; PULSE 70–88; RESP 15–18; O2SAT 16–98
[2018-11-17 00:04] LABS: Anion Gap 9 (5-15); BUN 13 mg/dL (7-18); BUN/Creat Ratio 14.3 RATIO (10-20); Calcium,Total 8.4 mg/dL (8.5-10.1); Chloride 111 mmol/L (98-107); Creatinine, Serum 0.91 mg/dL (0.70-1.30); EST Glomerular Filtration Rate 94 mL/min (>60); Est Glom Filt Rate - Afr Amer 114 mL/min (>60); Estimated Creatinine Clearance 91.81 ml/min; Glucose 93 mg/dL (74-106); Potassium 3.8 mmol/L (3.5-5.1); Sodium Level 143 mmol/L (136-145)
[2018-11-17 02:27] LABS: Amphetamine Urine VISTA NEGATIVE (<1000 ng/mL); Barbiturate Urine VISTA NEGATIVE (< 200 ng/mL); Benzodiazepine Urine VISTA NEGATIVE (< 200 ng/mL); Cocaine Urine VISTA NEGATIVE (< 300 ng/mL); Ecstacy Urine VISTA NEGATIVE (< 500 ng/mL); Methadone Urine VISTA NEGATIVE (< 300 ng/mL); PCP Urine VISTA NEGATIVE (< 25 ng/mL); THC Urine VISTA NEGATIVE (< 50 ng/mL)
[2018-11-17 02:28] LABS: Vista UDS pH Range 6
--- NOTE | 2018-11-17 11:46 | CM.ED ---
SOCIAL WORK INFORMANT: NURSING REASON FOR REFERRAL: SUICIDAL IDEATION/ALCOHOLISM INFORMATION OBTAINED FROM PATIENT, MEDICAL CHART, AND RECEIVED PERMISSION FROM PATIENT TO CALL SONJESSICA ([phone]). LIVING ARRANGEMENTS: PATIENT LIVES HOME WITH SON AND DAUGHTER IN A SINGLE STORY HOME. EMPLOYMENT/FINANCIAL: PATIENT REPORTS IS RETIRED. INSURANCE THROUGH [employer] SOCIAL/FAMILY STRESSORS: PATIENT REPORTS 3 YEARS AGO. SON STATES PATIENT BEGAN DRINKING HEAVILY WHEN AND OVER THE LAST WEEK PATIENT'S DRINKING HAS INCREASED. SON REPORTS PATIENT HAS BEEN MAKING SUICIDAL COMMENTS AND HAD POSTED ON FACEBOOK THAT HE WANTED A GUN TO KILL A CRAIG THAT HAS BEEN IN THEIR YARD. SON STATES NO CRAIG HAS BEEN IN THE YARD AND BELIEVES PATIENT WANTED THE GUN TO HARM HIMSELF. SON REPORTS FAMILY MEMBER HAS A RECORDING OF PATIENT MAKING A SUICIDAL THREAT. PER SON, HE SAID HE WOULD GO ON FACEBOOK, GIVE EVERYONE THE FINGER AND THEN SHOOT HIMSELF IN THE HEAD. SON STATES, PATIENT HIS ACTIONS MAKE ME THINK HE WANTS TO DO IT. MENTAL HEALTH HX: PATIENT REPORTS HX OF DEPRESSION AND IS PRESCRIBED ZOLOFT. PATIENT DENIES ANY PREVIOUS SUICIDAL THOUGHTS OR ATTEMPTS. PATIENT DENIES ANY OUTPATIENT SERVICES. PER CHART REVIEW, PATIENT WAS PLACED AT [facility] BACK IN MAY 2018. SUBSTANCE ABUSE HX: PATIENT STATES OCCASIONAL ALCOHOL USE. SON REPORTS, HE LIES ABOUT HIS DRINKING PROBLEM. PER SON, PATIENT HAS BEEN DRINKING HEAVILY FOR 3 YEARS SINCE HIS 'S PASSING. INTERVENTIONS: SOCIAL SERVICE ASSESSMENT CASE DISCUSSED WITH PATIENT'S SON, PER PATIENT'S PERMISSION CASE CONFERENCE WITH NURSING. PLAN FOR INPATIENT PSYCH HOSPITALIZATION. PLAN: REFERRAL FOR INPATIENT HOSPITALIZATION.
--- NOTE | 2018-11-17 12:00 | CM.ED ---
SOCIAL WORK REFERRAL CALLED AND FAXED TO [facility]. PER CHILDBIRTH AND INFANT CARE TEACHER, IN NETWORK WITH PATIENT'S INSURANCE. WILL REVIEW REFERRAL AND GET BACK TO THIS WORKER. LINDA SHELL, EVENING ANCHOR, LIVE OUT NANNY.
[2018-11-17] MEDS: LORazepam 1 MG Tablet PO ×2 (12:54→16:45)
--- NOTE | 2018-11-17 13:02 | CM.ED ---
SOCIAL WORK CALL TO [facility] TO CHECK ON STATUS OF REFERRAL. MANAGER POOL REQUESTING TO CALL THIS WORKER BACK IN 30 MINUTES. AWAITING CALL BACK AT THIS TIME.
--- NOTE | 2018-11-17 13:29 | CM.ED ---
SOCIAL WORK RECEIVED CALL BACK FROM [facility]. PER WORKER, PATIENT'S INSURANCE LAPSED ON 10/31/18. PATIENT WILL NEED TO BE EVALUATED BY CRISIS HE IS SELF PAY. CALL TO KENIA WITH CRISIS. UPDATED ON CASE AND NEED FOR EVALUATION. [facility]ENIA REPORTS WILL BE IN AROUND 1430 TO EVALUATE PATIENT. LINDA SHELL, CURATOR OF PHOTOGRAPHY AND PRINTS, COTTON PROGRAM TECHNICIAN.
--- NOTE | 2018-11-17 14:15 | ED.RN ---
KENIA WITH CRISIS FINISHING UP HERE, WILL BE THERE IN ABOUT AN HOUR
--- NOTE | 2018-11-17 19:11 | CM.ED ---
SOCIAL WORK CRISIS EVALUATED, PLAN IS FOR PLACEMENT. ANTICIPATE REFERRAL TO BE MADE TO [facility] PATIENT IS SELF PAY. LINDA SHELL, CAGE LOADER, GUITAR TECHNICIAN.
--- NOTE | 2018-11-17 20:20 | ED.RN ---
THIS NURSE AND KENIA FROM [facility] IN THE ROOM TO SPEAK WITH THE PT. WE EXPLAINED TO THE PT THE CONCERNS FOR HIS SAFETY AND THE PLAN FOR ADMISSION. PT INFORMED OF THE IMPORTANCE OF HIS COOPERATION. PT WILLING TO TAKE ADDITIONAL MEDICATION TO HELP HIM RELAX
[2018-11-17] MEDS: Ziprasidone IM 20 MG/ML VIAL IM (20:28)
[2018-11-17 20:41] LABS: AST(SGOT) 35 U/L (15-37); Alanine Aminotransfer ALT/SGPT 42 U/L (16-61); Albumin, Serum 3.9 g/dL (3.2-5.0); Alkaline Phosphatase 63 U/L (45-117); Bilirubin, Direct 0.09 mg/dL (0.00-0.30); Globulin 3.8 g/dL (2.2-4.2); Protein, Total 7.7 g/dL (6.4-8.2)
[2018-11-17] MEDS: APIXABAN 5 MG TABLET PO (21:08)
[2018-11-17] MEDS: Atorvastatin Calcium 80 MG Tablet PO (21:08)
[2018-11-18] VITALS (16 sets, daily range): BP systolic 117–168; BP diastolic 74–87; PULSE 57–61; RESP 12–17; O2SAT 95–100
[2018-11-18] MEDS: APIXABAN 5 MG TABLET PO ×2 (11:00→22:56)
[2018-11-18] MEDS: Atenolol 25 MG Tablet PO (11:00)
[2018-11-18] MEDS: Sertraline 100 MG Tablet PO (11:00)
[2018-11-18] MEDS: LORazepam 1 MG Tablet PO ×2 (14:46→21:58)
[2018-11-18] MEDS: Ziprasidone IM 20 MG/ML VIAL 10 MG IM ×2 (17:24→22:58)
[2018-11-18] MEDS: Atorvastatin Calcium 80 MG Tablet PO (22:56)
--- NOTE | 2018-11-18 23:13 | ED.RN ---
YESI FROM [facility] CALLED [facility] TO SEE THE STATUS OF THIS PT. THEY STATED THAT THIS PT IS STILL PENDING REVIEW AND THE STAFF WILL TALK WITH THE DOCTOR.
[2018-11-19] VITALS (15 sets, daily range): BP systolic 118–155; BP diastolic 74–91; PULSE 55–88; RESP 14–18; TEMP 36.7–37.1; O2SAT 94–98
--- NOTE | 2018-11-19 10:04 | ED.RN ---
CALLED PHARMACY FOR DAILY MEDS.
[2018-11-19] MEDS: APIXABAN 5 MG TABLET PO (10:21)
[2018-11-19] MEDS: Atenolol 25 MG Tablet PO (10:21)
[2018-11-19] MEDS: Sertraline 100 MG Tablet PO (10:21)
--- NOTE | 2018-11-19 10:48 | ED.RN ---
I TALKED TO KENIA FROM [facility]. SHE SAID SHE WOULD BE OVER AROUND 12PM TO REEVALUATE PATIENT.
--- NOTE | 2018-11-19 12:04 | ED.RN ---
crisis in ed to see pt.
--- NOTE | 2018-11-19 13:08 | ED.RN ---
OMAR WITH [facility] SAID TO KENIA WITH CRISIS WE HAVE DISCHARGES THIS AFTERNOON, WE WILL CALL WHEN WE HAVE AN OPEN MALE BED
[2018-11-19] MEDS: Ziprasidone IM 20 MG/ML VIAL 10 MG IM (15:10)
[2018-11-19] MEDS: LORazepam 1 MG Tablet PO (16:43)
== END 2018-11-19 16:48 ==
PROVIDERS: Emergency Medicine; Emergency Provider Emergency Medicine
DX: R45.851 Suicidal ideations (principal); I10 Essential (primary) hypertension; Z79.899 Other long term (current) drug therapy; F17.200 Nicotine dependence, unspecified, uncomplicated
CPT/HCPCS: 80048; 80076; 80307; 80320; 85025; 85610; 93005; 96372; 99285; G0480; J3486

== ENCOUNTER 2019-04-30 07:40 | Observation (INO) | payer MEDICAID, SELFPAY ==
[2019-04-30] VITALS (8 sets, daily range): BP systolic 112–126; BP diastolic 60–78; PULSE 48–62; RESP 11–18; TEMP 36.7; O2SAT 97–98; BMI 34.5; BMI 32.7; BMI 32.8
--- NOTE | 2019-04-30 07:43 | EKG12_ITS ---
Test Reason : CP Blood Pressure : / mmHG Vent. Rate : 058 BPM Atrial Rate : 058 BPM P-R Int : 202 ms QRS Dur : 088 ms QT Int : 430 ms P-R-T Axes : 044 016 027 degrees QTc Int : 422 ms Sinus bradycardia Otherwise normal ECG Confirmed by JONA SALAMANCA ([id number]), purchasing expeditor SHIKHA NJ ([id number]) on 05/02/2019 10:19:38 AM Referred By: RUY Confirmed By:JONA SALAMANCA
--- NOTE | 2019-04-30 07:50 | RAD_ITS ---
STUDY: X-RAY CHEST REASON FOR EXAM: Male, 48 years old. chest pain TECHNIQUE: Single AP portable view of the chest. COMPARISON: 03/08/2018 FINDINGS: The lungs are clear and expanded. There is no demonstrated pleural abnormality. Normal size heart. Normal mediastinum and candelaria. Normal visualized pulmonary arteries. Normal visualized aortic arch and descending thoracic aorta. Normal visualized thoracic spine. Normal visualized ribs, clavicles, and shoulders. There is no demonstrated abnormality of the visualized soft tissue structures of the upper abdomen. RAD/Chest 1 View (Portable) IMPRESSION: Normal x-ray examination of the chest. Electronically Signed: Jerry Pierce MD at 8:03 EST Tel , Service support ,
--- NOTE | 2019-04-30 08:11 | ED.VISSUMM ---
- ER Visit Summary Date of Service: 04/30/19 Chief Complaint: Left pain History of Present Illness: The patient is a 48 yo Male states the last week he has been having chest pain primarily with exertion. His bedroom is in the basement and he said he quit going down to his bedroom to sleep because when to walk up the steps he would get chest pain short of breath. And almost constant pain in his chest left arm and shoulder for the last week. He denies any history of DVT or PE. He has had a prior cardiac cath years ago which he states was unremarkable. He does have a history of smoking as much as 2 packs of cigarettes a day and is trying to quit and is down to half a pack of cigarettes a day. He is never been diagnosed with any cardiac disease is A. fib for which he is on Eliquis. He also has high cholesterol and has had prior TIAs x2. Physical Examination: Middle-aged male. No acute distress. Vital signs are stable and afebrile. H EENT exam unremarkable. Neck nontender. Lungs clear to auscultation bilaterally. Heart regular rate and rhythm no murmur. Rate about 60. Chest wall nontender. Abdomen soft nontender. Normal bowel sounds no peritoneal signs. Extremities moves all 4. Equal symmetrical radial pulses. Calves are nontender without edema or cords. Normal motor strength and sensation. 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 Neurologically is awake and alert with no focal motor deficits. Test Results: EKG shows sinus bradycardia rate of 58 with no acute signs of ND or ischemia. CBC is unremarkable white count of 11. Hemoglobin 13. Chest x-ray portable 1 view read both by the radiologist and myself shows no acute abnormality. Normal cardiac silhouette mediastinum. Chemistries unremarkable. Normal creatinine gap. Troponin normal. Emergency Department Course and Treatment: Pt is a middle-aged smoker and former drinker has had prior TIAs and A. fib. He has a very concerning story for exertional chest pain. Clinical cardiac work-up. MR discussed with him the need for admission and further cardiac evaluation. Patient is already received aspirin via squad. We will place an inch of Nitropaste due to his chest pain. Repeat exam at 8:38 AM patient is resting comfortably. No change. Treatment Plan: I have already spoken to the hospitalist. The patient will be admission to the PCU. Disposition: Admission Impression: Exertional chest pain History of tobacco abuse History of prior TIAs and A. fib Anticoagulated on Eliquis This note was generated with [employer]ist dictation software. It may contain incorrect words, spelling, and punctuation that were not noted in review of the chart prior to signing ED Disposition - Plan for ED Patient: Referrals: Care Physician,No Primary [Primary Care Provider] -
[2019-04-30 08:14] LABS: Absolute Lymphocyte Count 2.51 X10^3/uL (0.83-4.51); Absolute Neutrophil Count 7.9 X10^3/uL (2.0-7.7); Basophil# 0.06 X10^3/uL; Basophil% 0.5 % (0-1); Eosinophil# 0.18 X10^3/uL; Eosinophils% 1.6 % (0-5); Hematocrit 40.8 % (40-54); Hemoglobin 13.6 g/dL (13.0-16.5); Lymphocyte # 2.51 X10^3/ul (4.0); Lymphocyte % 21.8 % (19-41); Mean Corp Hgb Conc 33.3 g/dL (32-36); Mean Corpuscular Hgb 29.2 pg (27.0-32.0); Mean Corpuscular Volume 87.6 fL (80-94); Mean Platelet Vol. 10.1 fl (6.2-12.0); Monocyte# 0.83 X10^3/uL; Monocyte% 7.2 % (0-10); NRBC Flagged by Analyzer 0 % (0-5); Neutrophil # 7.89 X10^3/uL (2.7-7.7); Neutrophil % 68.6 % (47-70); Platelet Count 205 K/mm3 (150-450); RBC Distribution Width CV 13.2 % (11.6-14.6); RBC Distribution Width SD 41.5 fl (35.1-43.9); Red Blood Count 4.66 M/mm3 (4.6-6.2); White Blood Count 11.5 K/mm3 (4.4-11.0)
[2019-04-30] MEDS: Nitroglycerin Oint 1 INCH PACKET TRANSDERM. (08:21)
[2019-04-30 08:32] LABS: Anion Gap 7 (5-15); BUN 13 mg/dL (7-18); BUN/Creat Ratio 12.9 RATIO (10-20); Calcium,Total 9.4 mg/dL (8.5-10.1); Chloride 108 mmol/L (98-107); Creatinine, Serum 1.01 mg/dL (0.70-1.30); EST Glomerular Filtration Rate 83 mL/min (>60); Est Glom Filt Rate - Afr Amer 101 mL/min (>60); Estimated Creatinine Clearance 88.47 ml/min; Glucose 99 mg/dL (74-106); Potassium 3.9 mmol/L (3.5-5.1); Sodium Level 140 mmol/L (136-145)
--- NOTE | 2019-04-30 08:38 | NURSING ---
HOSPITALIST PAGED DR COOK PAGED
--- NOTE | 2019-04-30 08:39 | NURSING ---
DR KATHRYN REDMOND
--- NOTE | 2019-04-30 08:41 | EKG12_ITS ---
Test Reason : REPEAT-INCREASED CP Blood Pressure : / mmHG Vent. Rate : 054 BPM Atrial Rate : 054 BPM P-R Int : 202 ms QRS Dur : 088 ms QT Int : 446 ms P-R-T Axes : 034 007 018 degrees QTc Int : 422 ms Sinus bradycardia Otherwise normal ECG Confirmed by JONA SALAMANCA ([id number]), assignment desk editor SHIKHA [place] ([id number]) on 05/02/2019 10:19:24 AM Referred By: RUY Confirmed By:JONA SALAMANCA
--- NOTE | 2019-04-30 08:43 | PCM.HP.STD ---
History of Present Illness Date of Admission: 04/30/19 Chief Complaint: chest pain The patient is a 48 year old M with a past medical history as outlined. He was admitted through the ED on 04/30/2019 with a complaint of left-sided chest pain which was worsened by exertion and relieved only slightly by rest. Pain radiated to his left arm and left shoulder. Pain has been going on for a few days. He denied any associated shortness of breath but admitted to increased sweating. He denied any palpitations or dizziness or lightheadedness, nausea vomiting or abdominal pain. Review of symptoms otherwise negative. He has no history of DVT or PE and has A. fib for which he is on Eliquis. He says he had a previous cardiac cath some years ago which was unremarkable. He denies ever having a heart attack. He does admit to extensive family history of diabetes and hypertension as well as heart disease. On admission in the ED, vitals were significant for bradycardia with heart rate of 48. Vitals were otherwise stable. Chemistry was unremarkable and CBC showed WBC of 11.5. Troponins x2 were negative. Chest x-ray showed no acute cardiopulmonary process. He has been admitted to be managed for chest pain rule out ACS. Cardiology was consulted by ED. [] 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 with software computer specialist at [place] Tobacco dependence (Chronic) GERD (gastroesophageal reflux disease) (Chronic) Medical History: Medical History (Last Reviewed 01/06/18 @ 17:49 by 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 with software computer specialist at [place] Tobacco dependence (Chronic) F17.200 GERD (gastroesophageal reflux disease) (Chronic) K21.9 Chronic back pain M54.9, G89.29 Noncompliance with CPAP treatment Z91.14 Allergies azithromycin Allergy (Verified 11/16/18 23:26) Shortness of breath Home Medications: Ambulatory Orders Medication Instructions Recorded Omeprazole Magnesium [Prilosec Otc] 20 mg PO QHS 11/23/17 Apixaban [Eliquis] 5 mg PO QHS 11/16/18 Atorvastatin Calcium [Lipitor] 80 mg PO QHS 11/16/18 Atenolol [Tenormin (beta srikanth)] 25 mg PO QHS 04/30/19 Sertraline HCl [Zoloft] 100 mg PO QHS 04/30/19 Surgical History: Surgical History (Last Reviewed 01/06/18 @ 17:49 by Luciano Fajardo DO) Hx of appendectomy Z90.49 Surgical History: appendectomy Psychiatric History: Depression Smoking Status: Current every day smoker - *Family History Sibling Family History: Family History (Last Reviewed 01/06/18 @ 17:49 by Luciano Fajardo DO) Mother Diabetes CAD (coronary artery disease) CVA (cerebral vascular accident) Myocardial infarction, Onset Age: 35 Father CAD (coronary artery disease) Diabetes CVA (cerebral vascular accident) History Items: Diabetes, Heart Disease Maternal Family History: Family History (Last Reviewed 01/06/18 @ 17:49 by Luciano Fajardo DO) Mother Diabetes CAD (coronary artery disease) CVA (cerebral vascular accident) Myocardial infarction, Onset Age: 35 Father CAD (coronary artery disease) Diabetes CVA (cerebral vascular accident) History Items: Diabetes, Heart Disease - [place] at 35 y/o., Stroke Paternal Family History: Family History (Last Reviewed 01/06/18 @ 17:49 by Luciano Fajardo DO) Mother Diabetes CAD (coronary artery disease) CVA (cerebral vascular accident) Myocardial infarction, Onset Age: 35 Father CAD (coronary artery disease) Diabetes CVA (cerebral vascular accident) History Items: Diabetes, Heart Disease, Stroke Review of Systems Constitutional: Denies: Chills, Fever, Malaise, Weakness, Weight Change Eyes: Denies: Blurred vision HEENT: Denies: Head Aches, Sinus Congestion, Sinus Drainage Cardiovascular: Reports: Chest Pain. Denies: Chest Pressure, Chest Tightness, Edema, Heaviness, Light Headedness, Orthopnea, Palpitations, Paroxysmal Noc. Dyspnea, Syncope Respiratory: Denies: Cough, Shortness of Breath, Shortness of breath at rest, Shortness of breath upon exertion, Sputum production Gastrointestinal: Denies: Abdominal Pain, Nausea, Vomiting Genitourinary: Denies: Dysuria Musculoskeletal: Denies: Joint Pain, Joint Tenderness Skin: Denies: Rash, Wounds Neurological: Denies: Numbness, Tingling, Focal weakness Psychiatric: Denies: Anxiety, Depression, Homicidal Ideations, Suicidal Ideations Hematologic/ Lymphatic: Denies: Easy Bruising, Easy Bleeding VTE Information - Inpt Only VTE Present on Admission: No VTE Pharm Prophylaxis ordered?: Yes - Physical Exam Vitals/I&O's: Vital Signs Temp Pulse Resp BP Pulse Ox 98.1 F 56 L 18 117/72 97 04/30/19 07:44 04/30/19 08:21 04/30/19 07:44 04/30/19 08:21 04/30/19 08:24 Oxygen Delivery Method Room Air Weight: 233 lb 14.567 oz Body Mass Index (BMI) 34.5 Finger Stick Blood Glucose 110 General: Alert, Oriented x3, Cooperative, No apparent distress HEENT: Atraumatic, PERRLA, EOMI, Normocephalic Oral: Moist Mucosa Neck: Supple, No JVD, Negative Carotid Bruits Lungs: Clear to auscultation, Normal air movement Cardiovascular: Regular Rhythm, Normal S1, Normal S2, No murmurs, Bradycardic Abdomen: Bowel Sounds Present, Soft, Non Tender Extremities: No clubbing, No cyanosis, No edema, Capillary Refill Less than 3 Seconds Skin: No rashes, No breakdown Musculoskeletal: No Tenderness to Palpation of Joints or Extremities Lymphatic: No Cervical, Supraclavicular, or Inguinal Adenopathy Neurological: Cranial nerves II-XII grossly intact, Neuro grossly intact, Motor Exam 5/5 strength throughout Psych/Mental Status: Normal Affect, Appropriate, Alert and oriented to time, place, person, mood and affect Laboratory Results 04/30/19 08:05: WBC 11.5 H, RBC 4.66, Hgb 13.6, Hct 40.8, MCV 87.6, MCH 29.2, MCHC 33.3, RDW Std Deviation 41.5, RDW Coeff of Pearl 13.2, Plt Count 205, MPV 10.1, Immature Gran % (Auto) 0.300, Neut % (Auto) 68.6, Lymph % (Auto) 21.8, Lamb % (Auto) 7.2, Eos % (Auto) 1.6, Baso % (Auto) 0.5, Absolute Neuts (auto) 7.9 H, Absolute Lymphs (auto) 2.51, Nucleated RBC % 0 04/30/19 08:05: Sodium 140, Potassium 3.9, Chloride 108 H, Carbon Dioxide 25.0, Anion Gap 7, BUN 13, Creatinine 1.01, Estim Creat Clear Calc 88.47, Est GFR (MDRD) Af Amer 101, Est GFR (MDRD) Non-Af 83, BUN/Creatinine Ratio 12.9, Glucose 99, Calcium 9.4, Troponin I < 0.015 Diagnostic Data Chest X-Ray 04/30/19 07:50 IMPRESSION: Normal x-ray examination of the chest. Electronically Signed: Jerry Pierce MD at 8:03 EST Tel , Service support , Assessment/Plan All Active Problems (Last Reviewed 01/06/18 @ 17:49 by Luciano Fajardo DO) Chest pain (Acute) CVA (cerebral vascular accident) (Acute) Obesity (BMI 30-39.9) (Acute) TIA (transient ischemic attack) (Acute) Chest pain (Resolved) 48-year-old male admitted with a complaint of chest pain. 1. Chest pain to r/o ACS Admit to PCU with telemetry Cycle troponins x3 Sublingual nitroglycerin as needed. P.o. aspirin 81 mg daily. IV morphine and Tylenol. 2D echo ordered as per cardiology. For stress test if troponins are negative Cardiology consulted by ED. 2. Afib: currently bradycardic; likely due to beta srikanth. On eliquis, which will be held as he may have cardiac cath tomorrow, per cardiology. 3. bradycardia: asymptomatic. HR on admission was 48. EKG showed sinus bradycardia. on atenolol 25mg qhs. If bradycardia worsens, will review medications as needed. 4. history of TIA; says he has had a couple of TIA;s over the years. currently stable DVT prophylaxis: eliquis on hold. Will start on lovenox. Code Visit OBSV E&M: [id number] Initial observation care L2
--- NOTE | 2019-04-30 10:21 | PCM.CONS.C ---
<Armani Rosenthal - Last Filed: 04/30/19 10:31> Problem List (1) Chest pain Status: Acute Qualifiers: Chest pain type: unspecified Qualified Code(s): R07.9 - Chest pain, unspecified (2) Hyperlipidemia Status: Chronic (3) Paroxysmal atrial fibrillation Status: Chronic Comment: Follow up with patient access representative at [place] (4) Tobacco dependence Status: Chronic Reason for Consult Date of Consultation: 04/30/19 Reason for Consultation: Chest pain History of Present Illness: The patient is a 48 year old M who presented to [facility] Emergency Department with chest pain that radiated to left shoulder, left arm, and left jaw associated with lightheadedness, nausea, and diaphoresis over the past week. The symptoms got worse with exertion and improved with rest. He also acknowledges shortness of breath with exertion such as going up steps. He has a past medical history of a heart catheterization approximately 10 years ago, paroxysmal atrial fibrillation with Eliquis and atenolol therapy, hyperlipidemia with Lipitor therapy, TIA with most recent work-up in 2018, previous alcohol abuse, obstructive sleep apnea without CPAP or BiPAP therapy, GERD, and tobacco abuse for the last 22 years and currently smoking 1/2 pack/day. His Emergency Department work-up revealed an EKG showing sinus bradycardia, negative troponin, normal chest x-ray, hemoglobin of 13.6, WBC up 11.5, platelet count of 205, creatinine level 1.01, potassium of 3.9, sodium of 140, and calcium of 9.4. He did undergo an echocardiogram in 2018 that showed normal ejection fraction. He also underwent a stress test in 2018 that was negative for ischemia. He states he follows with a patient access representative previously and [place], but has not had any reoccurring follow-up due to insurance concerns. He also acknowledges taking his Eliquis daily due to financial concerns. He has a past family history is significant for diabetes, CVA, coronary artery disease, and cancer. He was admitted for further evaluation. Cardiology was consulted for further recommendation. Past Medical History Allergies/Adverse Reactions: Allergies azithromycin Allergy (Verified 11/16/18 23:26) Shortness of breath Home Medications: Ambulatory Orders Medication Instructions Recorded Omeprazole Magnesium [Prilosec Otc] 20 mg PO QHS 11/23/17 Apixaban [Eliquis] 5 mg PO QHS 11/16/18 Atorvastatin Calcium [Lipitor] 80 mg PO QHS 11/16/18 Atenolol [Tenormin (beta srikanth)] 25 mg PO QHS 04/30/19 Sertraline HCl [Zoloft] 100 mg PO QHS 04/30/19 Past Medical History (Chronic Problems): Chronic Problems (Last Reviewed 01/06/18 @ 17:49 by Luciano Fajardo DO) JOHNATHAN (obstructive sleep apnea) (Chronic) Depression (Chronic) Hyperlipidemia (Chronic) Paroxysmal atrial fibrillation (Chronic) Follow up with patient access representative at [place] Tobacco dependence (Chronic) GERD (gastroesophageal reflux disease) (Chronic) Surgical History: appendectomy Psychiatric History: Depression - *Family History Sibling Family History: Family History (Last Reviewed 01/06/18 @ 17:49 by Luciano Fajardo DO) Mother Diabetes CAD (coronary artery disease) CVA (cerebral vascular accident) Myocardial infarction, Onset Age: 35 Father CAD (coronary artery disease) Diabetes CVA (cerebral vascular accident) History Items: Diabetes, Heart Disease Maternal Family History: Family History (Last Reviewed 01/06/18 @ 17:49 by Luciano Fajardo DO) Mother Diabetes CAD (coronary artery disease) CVA (cerebral vascular accident) Myocardial infarction, Onset Age: 35 Father CAD (coronary artery disease) Diabetes CVA (cerebral vascular accident) History Items: Diabetes, Heart Disease - [place] at 35 y/o., Stroke Paternal Family History: Family History (Last Reviewed 01/06/18 @ 17:49 by Luciano Fajardo DO) Mother Diabetes CAD (coronary artery disease) CVA (cerebral vascular accident) Myocardial infarction, Onset Age: 35 Father CAD (coronary artery disease) Diabetes CVA (cerebral vascular accident) History Items: Diabetes, Heart Disease, Stroke Smoking Status: Current every day smoker Tobacco Use: Cigarettes Review of Systems - Review of Systems General: Denies: Fever, Fatigue, Malaise, Chills HEENT: Denies: Vision Change Cardiovascular: Reports: Chest Discomfort, Chest Discomfort at Rest, Chest Discomfort with Exertion, Chest Heaviness, Shortness of Breath, Shortness of Breath with Exertion, Lightheadedness. Denies: Chest Pressure, Chest Tightness, Shortness of Breath at Rest, Orthopnea, PND, Peripheral Edema, Palpitations, Dizziness, Near Syncope, Syncope, Orthostatic Symptoms, Claudication Respiratory: Denies: Cough Muscoloskeletal: Denies: Myalgias Neurological: Denies: Dizziness Subjectve: Patient seen and evaluated. He continues with 8.5 out of 10 chest pain. He denies shortness of breath currently. He denies any lightness, dizziness, palpitations, syncope, or presyncope. He denies any lower extremity edema. Objective: Vital Signs Temp Pulse Resp BP Pulse Ox 98.1 F 53 L 11 L 119/78 98 04/30/19 07:44 04/30/19 09:08 04/30/19 09:08 04/30/19 09:08 04/30/19 09:08 Oxygen Delivery Method Room Air Weight: 221 lb 12.56 oz Body Mass Index (BMI) 32.7 Finger Stick Blood Glucose 110 General: Healthy Appearing, Awake, Alert, Oriented x 3, Cooperative, No Acute Distress HEENT: Atraumatic Oral: Moist Mucosa Neck: No JVD Lungs: Clear to auscultation Cardiovascular: Regular Rhythm, Normal S1, Normal S2, No Murmurs, No Rubs, No Gallops Vascular: No Carotid Bruits Extremities: No Cyanosis, No Clubbing, No edema, Normal Capillary Refill Neurological: No Focal Motor or Sensory Deficit Psych/Mental Status: Appropriate, Normal Affect 04/30/19 08:05: WBC 11.5 H, RBC 4.66, Hgb 13.6, Hct 40.8, MCV 87.6, MCH 29.2, MCHC 33.3, Plt Count 205, MPV 10.1, Immature Gran % (Auto) 0.300, Neut % (Auto) 68.6, Lymph % (Auto) 21.8, Meagher % (Auto) 7.2, Eos % (Auto) 1.6, Baso % (Auto) 0.5, Absolute Neuts (auto) 7.9 H, Nucleated RBC % 0 04/30/19 08:05: Sodium 140, Potassium 3.9, Chloride 108 H, Carbon Dioxide 25.0, Anion Gap 7, BUN 13, Creatinine 1.01, Est GFR (MDRD) Af Amer 101, Est GFR (MDRD) Non-Af 83, BUN/Creatinine Ratio 12.9, Glucose 99, Calcium 9.4, Troponin I < 0.015 Rhythm: EKG: ECHO: 01/06/2018 Interpretation Summary Normal LV size. Left ventricular systolic function is normal. The estimated ejection fraction is 60 %. No evidence for diastolic dysfunction. Compared to prior study, there is no significant change. Stress Test: 11/24/2017 Conclusion: Normal pharmacologic myocardial perfusion stress test. Preserved ejection fraction. Previous small apical infarct cannot be completely excluded. Less likely. Cardiac Cath: PCI: CT Surgery: Holter monitor: EPS: PPM: CXR: Chest CT Scan: Assessment/Plan 1. Chest pain Patient's laboratory and electrocardiogram have been negative for coronary artery disease at this time. However, given his extensive smoking history, family history, and symptoms there continues to be concerns for coronary artery disease component. His last stress test on 11/24/2017 was negative for ischemia. At this time, we will continue to trend his troponin and undergo an echocardiogram to evaluate further. His previous echocardiogram in 2018 showed structurally normal valves, normal wall motion, and normal ejection fraction. If his troponin becomes positive or concerning changes on echocardiogram or with symptoms ,we will consider future heart catheterization. Patient does take Eliquis therapy 5 mg p.o. daily instead of twice daily. Thus, it may be reasonable to consider heart catheterization tomorrow if indicated. At this time, he will hold Eliquis therapy. If his troponin remains negative, no concerning changes in symptoms or on echocardiogram, we will consider stress test tomorrow. He will need to hold his beta-srikanth prior to test. He does acknowledge 8.5 out of 10 chest pain at rest. At this time, we will continue with nitroglycerin patch. However, depending on his symptoms, we may need to consider nitroglycerin drip bearing in mind his blood pressure. 2. Paroxysmal atrial fibrillation His EKG with EMS and in the Emergency Department showed sinus rhythm/sinus bradycardia. He appears to be in sinus rhythm/sinus bradycardia on telemetry. At this time, he will continue with atenolol today and depending on his overall course this may need to be held if stress test is indicated. He will hold Eliquis therapy due to maintaining rhythm and potential for heart catheterization today. He does acknowledge previously being able to symptomatically note atrial fibrillation. He states he has not had any such symptoms for quite some time . He believes this to be over 2 years since last symptoms. 3. Hyperlipidemia He should undergo fasting lipid panel tomorrow morning for risk factor stratification. 4. Tobacco abuse Smoking cessation was encouraged. Patient's case was discussed and reviewed with Dr. Thompson, who will also personally evaluate patient. Thank you for allowing us to participate in the patients plan of care, if you have any questions please do not hesitate to call. This note was generated using a voice recognition system and there may be incorrect words, spelling or punctuation that were not noted when reviewing the office note prior to saving. <Rex Thompson - Last Filed: 04/30/19 13:03> Reason for Consult History of Present Illness: The patient is a 48 year old M [] Past Medical History - *Family History Sibling Family History: Family History (Last Reviewed 01/06/18 @ 17:49 by Luciano Fajardo DO) Mother Diabetes CAD (coronary artery disease) CVA (cerebral vascular accident) Myocardial infarction, Onset Age: 35 Father CAD (coronary artery disease) Diabetes CVA (cerebral vascular accident) Maternal Family History: Family History (Last Reviewed 01/06/18 @ 17:49 by Luciano Fajardo DO) Mother Diabetes CAD (coronary artery disease) CVA (cerebral vascular accident) Myocardial infarction, Onset Age: 35 Father CAD (coronary artery disease) Diabetes CVA (cerebral vascular accident) Paternal Family History: Family History (Last Reviewed 01/06/18 @ 17:49 by Luciano Fajardo DO) Mother Diabetes CAD (coronary artery disease) CVA (cerebral vascular accident) Myocardial infarction, Onset Age: 35 Father CAD (coronary artery disease) Diabetes CVA (cerebral vascular accident) Objective: Vital Signs Temp Pulse Resp BP Pulse Ox 98.1 F 48 L 16 122/60 H 97 04/30/19 09:45 04/30/19 09:49 04/30/19 09:45 04/30/19 09:45 04/30/19 09:45 Oxygen Delivery Method Room Air Weight: 221 lb 12.56 oz Body Mass Index (BMI) 32.7 Finger Stick Blood Glucose 110 04/30/19 08:05: WBC 11.5 H, RBC 4.66, Hgb 13.6, Hct 40.8, MCV 87.6, MCH 29.2, MCHC 33.3, Plt Count 205, MPV 10.1, Immature Gran % (Auto) 0.300, Neut % (Auto) 68.6, Lymph % (Auto) 21.8, Meagher % (Auto) 7.2, Eos % (Auto) 1.6, Baso % (Auto) 0.5, Absolute Neuts (auto) 7.9 H, Nucleated RBC % 0 04/30/19 08:05: Sodium 140, Potassium 3.9, Chloride 108 H, Carbon Dioxide 25.0, Anion Gap 7, BUN 13, Creatinine 1.01, Est GFR (MDRD) Af Amer 101, Est GFR (MDRD) Non-Af 83, BUN/Creatinine Ratio 12.9, Glucose 99, Calcium 9.4, Troponin I < 0.015 04/30/19 10:55: Troponin I < 0.015 Rhythm: EKG: ECHO: Stress Test: Cardiac Cath: PCI: CT Surgery: Holter monitor: EPS: PPM: CXR: Chest CT Scan: Assessment/Plan Addendum: Date: 04-30-2019 The patient was individually evaluated/examined The patient had planed of a history of paroxysmal atrial fibrillation. He states over time he has been treated and better with rate control therapy with a beta-srikanth and an anticoagulant. He states over time, based upon insurance related issues, he was only able to take his anticoagulant on the daily basis opposed to a twice daily basis. However he states he believes for approximately the last 2 to 3 years he has had no recurrence of his atrial dysrhythmia. He states recently he has been having chest discomfort. He describes left upper extremity discomfort chest discomfort. He states this worsened yesterday evening and through the night. He became somewhat anxious with it, diaphoretic, and nauseated. He did not have emesis. Denied orthopnea or PND or peripheral pitting edema. Thus, he presented to the [facility] emergency department for further evaluation. He states overall he feels better but his left chest still feels sore. He states he feels as if he pulled a muscle. He has been undergoing cardiac enzymes. His troponin I levels have been negative. His ECG demonstrated sinus rhythm with no acute ECG changes. A chest x-ray demonstrated no acute changes per radiology. He has undergone previous noninvasive cardiovascular included a transthoracic echocardiogram as well as a pharmacologic study. He states based upon his medication he was not elevated his heart rate in the for a treadmill stress test. Thus it was nonpharmacologically. The results of the studies are as noted. On examination he appears to be resting comfortably at this time in no acute distress. His lungs appear to be clear to auscultation. His cardiovascular exam demonstrates a regular rhythm with a normal S1 and S2 with no obvious murmurs rubs or gallops. His abdomen demonstrates positive bowel sounds soft nontender no obvious organomegaly. His extremities are without obvious peripheral pitting edema. His peripheral vascular evaluation demonstrates no obvious carotid artery bruits. He has no obvious focal neurologic deficits. His laboratory studies are as noted. The present time he does have chest discomfort. The etiology is unclear. He is undergone noninvasive evaluation thus far for his prolonged chest discomfort and is been found to have negative cardiac enzymes thus far and no acute ECG changes. He is pending further cardiovascular evaluation with a transthoracic echocardiogram to reassess his left ventricular wall motion and systolic function as well as an attempt at an exercise tolerance test/imaging study to evaluate his myocardial perfusion for any evidence of coronary ischemia. Depending upon his findings he may or may not need further cardiac versus noncardiac evaluation. In the interim he will continue medical management as deemed appropriate. With respect to his history of paroxysmal atrial fibrillation the may need to continue his rate control therapy. He would continue his anticoagulant therapy. Ideally if he remains on the same anticoagulant it would be on a twice daily dosage. He states his insurance is to a place now where he could do that if need be. He also needs to continue risk factor evaluation and care. This will include caring for any concerns of hyperlipidemia. He has been counseled on the need to avoid tobacco intake. The above has been discussed and reviewed with the patient, previously with Dr. Navarro from the [facility] emergency, and Armani Rosenthal CNP.
[2019-04-30] MEDS: Morphine 2 MG/ML Syringe IV ×3 (11:07→17:23)
[2019-04-30] MEDS: 0.9% Saline Lock 10 ML Syringe IV ×3 (11:07→17:23)
--- NOTE | 2019-04-30 11:08 | ECHOD_ITS ---
Reason For Study: CAD/ASHD Procedure This was a 2D Doppler, Color Flow transthoracic echocardiogram. The study was technically difficult. Exam performed in department. Left Ventricle Normal LV size. Left ventricular systolic function is normal. The estimated ejection fraction is 55 %. No evidence for diastolic dysfunction. No regional wall motion abnormalities noted. Right Ventricle Normal RV size. Normal systolic function. Atria Normal left atrium. Normal right atrium. No doppler evidence for ASD. Mitral Valve There is no mitral annular calcification. Normal mitral valve. Trivial mitral valve insufficiency. Tricuspid Valve Normal tricuspid valve. Mild tricuspid valve insufficiency. Right ventricular systolic pressure estimated to be 25 mmHg. Aortic Valve Trisinus/trileaflet aortic valve. Normal aortic valve. Pulmonic Valve The pulmonic valve is not well visualized. Great Vessels Normal sized aortic root. Pericardium/Pleural No pericardial effusion. MMode/2D Measurements & Calculations LVIDd: 5.4 cm IVSd: 1.1 cm Ao root diam: 3.3 cm LVIDs: 3.5 cm LVPWd: 1.1 cm RVDd: 4.3 cm FS: 36.1 % LAV(MOD-bp): 72.9 ml LA A4 area: 21.2 cm2 LA dimension(2D): 4.0 cm LAV(MOD-bp) Indexed: 33.8 ml/m2 LAV(MOD-sp2): 71.2 ml LAV(MOD-sp4): 68.1 ml RA A4 area: 16.6 cm2 Time Measurements MV dec time: 0.23 sec Doppler Measurements & Calculations MV E max albaro: 96.7 cm/sec Lat Peak E' Albaro: 14.1 cm/sec Med Peak E' Albaro: 12.5 cm/sec MV A max albaro: 67.8 cm/sec E/E' lat: 6.9 E/E' med: 7.7 MV E/A: 1.4 Ao V2 max: 123.8 cm/sec LV V1 max: 104.5 cm/sec PA V2 max: 116.9 cm/sec Ao max P.1 mmHg LV V1 max P.4 mmHg TR max albaro: 236.6 cm/sec TR max P.4 mmHg Interpretation Summary The study was technically difficult. Left ventricular systolic function is normal. The estimated ejection fraction is 55 %. Trivial mitral valve insufficiency. Mild tricuspid valve insufficiency. Right ventricular systolic pressure estimated to be 25 mmHg. No evidence for diastolic dysfunction. Ordering Physician: Armani Rosenthal Referring Physician: KELLE PCP Performed By: Patricia Dorsey RDCS, RVT
--- NOTE | 2019-04-30 14:33 | STRESSREP_ITS ---
Stress Test Report Date: 04-30-2019 Procedure: Pharmacologic stress nuclear imaging study Indications: Chest pain Consent: Per the patient Procedure: The patient underwent pharmacologic (Regadenoson) evaluation with a peak heart rate of 76 beats per minute (44 % predicted maximal heart rate) and a peak blood pressure of 128/84 mmHg. The baseline ECG demonstrated sinus bradycardia. The peak pharmacologic ECG demonstrated no obvious ECG changes. There were no cardiac dysrhythmias pretest, during pharmacologic infusion, or recovery. There was complaint of chest discomfort pre test, during pharmacologic infusion, and recovery without significant change. The examination was discontinued secondary to completion of protocol. Impression: 1. Pharmacologic (Regadenoson) evaluation 2. Peak pharmacologic ECG with no obvious ECG changes. 3. There were no cardiac dysrhythmias pretest, during pharmacologic infusion, or recovery. 4. Nuclear images pending Myocardial perfusion imaging study: Technique: The patient was injected with 10.0 millicuries of technetium 99m Cardiolite and subsequently rest SPECT Cardiolite nuclear imaging was obtained in the horizontal long, vertical long, and short axis views. The patient underwent pharmacologic (Regadenoson) evaluation with a peak heart rate of 76 beats per minute (44 percent predicted maximal heart rate) and a peak blood pressure of 128/84 mmHg. The patient was injected with 36.0 millicuries of technetium 99m Cardiolite and subsequently stress SPECT Cardiolite nuclear imaging was obtained in the horizontal long, vertical long, and short axis views. A gated Cardiolite study at peak stress was obtained. Interpretation: Rest and stress SPECT Cardiolite nuclear imaging status post realignment, normalization, and attenuation correction demonstrate a small area of subtle diminished myocardial perfusion/tracer uptake in the apical segments without significant change between rest and stress. There is end systolic thickening and brightening. The gated Cardiolite study demonstrates myocardial thickening and inward wall motion. The reported LVEF is 58 %. Impression: 1. Rest and stress SPECT Cardiolite nuclear imaging demonstrate a small area of subtle diminished myocardial perfusion/tracer uptake in the apical segments without significant change between rest and stress appearing compatible with physiologic apical thinning with no myocardial perfusion changes considered diagnostic for associated stress-induced myocardial ischemia. 2. The gated Cardiolite study reports an LVEF of 58 %. This note was generated with V[employer] Monitoring software. It may contain incorrect words, spelling, and punctuation that were not noted in checking the note before signing.
--- NOTE | 2019-04-30 17:37 | DCINST_ITS ---
You will use the following diet at home:: Cardiac Your food should be the consistency of: Regular Discharge Activity: Return to Normal Activity Weight Bearing Status: Weight bearing as tolerated Call your doctor if you observe: Fever of 101 or Higher, Shortness of breath Instructions: Angina, CHEST PAIN, NonCardiac, Recognizing a Heart Attack or Angina, What Is Angina? Additional Instructions: counseled to quit smoking Allergies/Adverse Reactions: Allergies azithromycin Allergy (Verified 11/16/18 23:26) Shortness of breath Medications to take at Discharge Omeprazole Magnesium [Prilosec Otc] 20 mg PO QHS 11/23/17 Apixaban [Eliquis] 5 mg PO QHS 11/16/18 Atorvastatin Calcium [Lipitor] 80 mg PO QHS 11/16/18 Atenolol [Tenormin (beta srikanth)] 25 mg PO QHS 04/30/19 Sertraline HCl [Zoloft] 100 mg PO QHS 04/30/19 Primary Care Physician: Care Physician,No Primary [Primary Care Provider] - Test Results: Test results from this visit will be discussed in further detail at your follow- up appointment, if applicable. Please Follow Up With: Mariajose Abebe MD When: 1-2 weeks to establish PCP relationship Proposed Discharge Date: 04/30/19
--- NOTE | 2019-04-30 17:38 | DS.PCM_ITS ---
Discharge Date and Diagnosis Date of Admission: 04/30/19 Date of Discharge: 04/30/19 - Primary Discharge Diagnosis chest pain - Secondary Discharge Diagnosis Chronic Problems (Last Reviewed 01/06/18 @ 17:49 by Luciano Fajardo DO) JOHNATHAN (obstructive sleep apnea) (Chronic) Depression (Chronic) Hyperlipidemia (Chronic) Paroxysmal atrial fibrillation (Chronic) Follow up with science analyst at [place] Tobacco dependence (Chronic) GERD (gastroesophageal reflux disease) (Chronic) Hospital Course and Treatment Imaging Results: 04/30/19 10:39 Nuclear Stress Test - Treadmil [NM] Routine 04/30/19 11:08 Echo Complete [ECHO] Routine cardiology- Dr Thompson Operations: None Procedures: 2-D Echocardiogram, Nuclear stress test Summary of Care Provided: The patient is a 48 year old M with a past medical history as outlined. He was admitted through the ED on 04/30/2019 with a complaint of left-sided chest pain which was worsened by exertion and relieved only slightly by rest. Pain radiated to his left arm and left shoulder. Pain has been going on for a few days. He denied any associated shortness of breath but admitted to increased sweating. He denied any palpitations or dizziness or lightheadedness, nausea vomiting or abdominal pain. Review of symptoms otherwise negative. He has no history of DVT or PE and has A. fib for which he is on Eliquis. He says he had a previous cardiac cath some years ago which was unremarkable. He denies ever having a heart attack. He does admit to extensive family history of diabetes and hypertension as well as heart disease. On admission in the ED, vitals were significant for bradycardia with heart rate of 48. Vitals were otherwise stable. Chemistry was unremarkable and CBC showed WBC of 11.5. Troponins x2 were negative. Chest x-ray showed no acute cardiopulmonary process. He has been admitted to be managed for chest pain rule out ACS. Cardiology was consulted by ED. he had a stress test on 04/30/2019 which was negative for any ischemia. He had 2D echocardiogram which showed normal left ventricular systolic function with EF of 55% and right ventricular systolic pressure of 25 mmHg no evidence of diastolic dysfunction. Patient remained stable and will discharge him on 04/30/2019. He was strongly urged to quit smoking. He is follow-up with his primary care doctor [facility]. Patient seen and examined prior to discharge. He had no complaints. Review of systems otherwise negative. Labs and vitals reviewed. Home medication reviewed and reconciled. o/e: Vital Signs Height 5 ft 9 in Weight: 221 lb 12.56 oz Weight in Pounds 221.8 lbs Pulse Ox 97 Temperature 98.0 F Pulse Rate 51 Respiratory Rate 16 Blood Pressure 126/64 Blood Pressure Position Semi-Fowlers General: Alert, Oriented x3, Cooperative, No apparent distress HEENT: Atraumatic, PERRLA, EOMI, Normocephalic Oral: Moist Mucosa Neck: Supple, No JVD, Negative Carotid Bruits Lungs: Clear to auscultation, Normal air movement Cardiovascular: Regular Rhythm, Normal S1, Normal S2, No murmurs, Bradycardic Abdomen: Bowel Sounds Present, Soft, Non Tender Extremities: No clubbing, No cyanosis, No edema, Capillary Refill Less than 3 Seconds Skin: No rashes, No breakdown Musculoskeletal: No Tenderness to Palpation of Joints or Extremities Lymphatic: No Cervical, Supraclavicular, or Inguinal Adenopathy Neurological: Cranial nerves II-XII grossly intact, Neuro grossly intact, Motor Exam 5/5 strength throughout Psych/Mental Status: Normal Affect, Appropriate, Alert and oriented to time, place, person, mood and affect Of note, patient was noted to be bradycardic on admission with heart rate of around 51 and on going as low as 48. Patient was asymptomatic. He was on the lowest dose of atenolol. THis was discussed with Dr Thompson, who was okay with patient going on this dose and to keep an eye on his heart rate and to follow-up with primary care doctor and cardiology. Patient was also counseled to be taking his Eliquis 5 mg twice daily instead of 5 mg nightly as he had been taking it to save on cost. This was when sure that he had adequate anticoagulation. He is to follow up with cardiology. - Physical Exam Vitals/I&O's: Vital Signs Temp Pulse Resp BP Pulse Ox 98.0 F 51 L 16 126/64 H 97 04/30/19 15:45 04/30/19 15:45 04/30/19 15:45 04/30/19 15:45 04/30/19 15:45 Oxygen Delivery Method Room Air Weight: 221 lb 12.56 oz Body Mass Index (BMI) 32.7 Finger Stick Blood Glucose 110 Laboratory Results 04/30/19 08:05: WBC 11.5 H, RBC 4.66, Hgb 13.6, Hct 40.8, MCV 87.6, MCH 29.2, MCHC 33.3, RDW Std Deviation 41.5, RDW Coeff of Pearl 13.2, Plt Count 205, MPV 10.1, Immature Gran % (Auto) 0.300, Neut % (Auto) 68.6, Lymph % (Auto) 21.8, [place] % (Auto) 7.2, Eos % (Auto) 1.6, Baso % (Auto) 0.5, Absolute Neuts (auto) 7.9 H, Absolute Lymphs (auto) 2.51, Nucleated RBC % 0 04/30/19 08:05: Sodium 140, Potassium 3.9, Chloride 108 H, Carbon Dioxide 25.0, Anion Gap 7, BUN 13, Creatinine 1.01, Estim Creat Clear Calc 88.47, Est GFR (MDRD) Af Amer 101, Est GFR (MDRD) Non-Af 83, BUN/Creatinine Ratio 12.9, Glucose 99, Calcium 9.4, Troponin I < 0.015 04/30/19 10:55: Troponin I < 0.015 04/30/19 14:07: Troponin I < 0.015 Current Medications Acetaminophen (Tylenol) 650 mg PO Q6H PRN PRN PRN Reason: Pain Score 1-3/Temp > 100.7 F Apixaban (Eliquis) 5 mg PO QHS [facility] Aspirin (Ecotrin) 81 mg PO DAILY@0800 [facility] Atenolol (Tenormin (Beta Mark)) 25 mg PO QHS [facility] Atorvastatin Calcium (Lipitor) 80 mg PO QHS [facility] Glucagon () 1 mg IM .X1 PRN PRN Reason: Hypoglycemia Dextrose (Dextrose 10%-Water) 250 mls @ 999 mls/hr IV .Q16M PRN; Protocol PRN Reason: HYPOGLYCEMIA Morphine Sulfate () 2 mg IV Q3H PRN PRN PRN Reason: Pain Score 6-10/10 Last Admin: 04/30/19 17:23 Dose: 2 mg Documented by: Nitroglycerin (Nitrostat) 0.4 mg SUBLINGUAL Q5M PRN PRN Reason: CARDIAC/CHEST PAIN Ondansetron HCl (Zofran) 4 mg IV Q8H PRN PRN PRN Reason: NAUSEA/VOMITING Pantoprazole Sodium (Protonix) 20 mg PO QHS [facility] Sertraline HCl (Zoloft) 100 mg PO QHS [facility] Sodium Chloride () 10 - 40 ml IV UD PRN PRN Reason: SALINE FLUSH Last Admin: 04/30/19 17:23 Dose: 10 ml Documented by: Discharge Diet: Low fat/ Low Cholesterol Discharge Activity: Return to Normal Activity Weight Bearing Status: Weight bearing as tolerated Call your doctor if you observe: Fever of 101 or Higher, Shortness of breath Home Medications: Medications to take at Discharge Omeprazole Magnesium [Prilosec Otc] 20 mg PO QHS 11/23/17 Apixaban [Eliquis] 5 mg PO QHS 11/16/18 Atorvastatin Calcium [Lipitor] 80 mg PO QHS 11/16/18 Atenolol [Tenormin (beta mark)] 25 mg PO QHS 04/30/19 Sertraline HCl [Zoloft] 100 mg PO QHS 04/30/19 Primary Care Physician: Care Physician,No Primary [Primary Care Provider] - Please Follow Up With: Mariajose Abebe MD When: 1-2 weeks to establish PCP relationship Patient Instructions: What Is Angina?, Recognizing a Heart Attack or Angina, Angina, CHEST PAIN, NonCardiac Disposition: Home Minutes spent on discharge:: 40 Patient Condition:: Stable Medical Necessity - Tobacco Use Smoking Status: Current every day smoker Tobacco Use: Cigarettes Meaningful Use Info Meaningful Use Diagnoses (Choose all that apply): None applicable Code Visit OBSV E&M: 52538 Observ/hosp same date L2
== END 2019-04-30 17:38 | disposition home or self-care (01) ==
LOC: ED 08:11 → PCU 09:04
PROVIDERS: Admitting Provider Student in an Organized Health Care Education/Training Program; Emergency Provider Emergency Medicine; Visit Provider Student in an Organized Health Care Education/Training Program
DX: R07.89 Other chest pain (principal); G47.33 Obstructive sleep apnea (adult) (pediatric); F32.9 Major depressive disorder, single episode, unspecified; E78.5 Hyperlipidemia, unspecified; I48.0 Paroxysmal atrial fibrillation; I48.20 Chronic atrial fibrillation, unspecified; K21.9 Gastro-esophageal reflux disease without esophagitis; R00.1 Bradycardia, unspecified; F17.210 Nicotine dependence, cigarettes, uncomplicated; Z79.01 Long term (current) use of anticoagulants; Z79.899 Other long term (current) drug therapy
CPT/HCPCS: 36415; 71045; 78452; 80048; 84484; 85025; 93005; 93017; 93306; 96374; 96376; 99218; 99285; A9500; A4216; G0378; J2785

== ENCOUNTER → 2019-10-15 | Outpatient (CLI) | payer MEDICAID, SELFPAY ==
[2019-04-30 09:36] VITALS: BMI 32.7
[2019-10-15 08:04] LABS: Absolute Lymphocyte Count 3.23 X10^3/uL (0.83-4.51); Absolute Neutrophil Count 6.8 X10^3/uL (2.0-7.7); Basophil# 0.04 X10^3/uL; Basophil% 0.4 % (0-1); Eosinophil# 0.15 X10^3/uL; Eosinophils% 1.4 % (0-5); Hematocrit 42.6 % (40-54); Hemoglobin 14.2 g/dL (13.0-16.5); Lymphocyte # 3.23 X10^3/ul (4.0); Lymphocyte % 29.6 % (19-41); Mean Corp Hgb Conc 33.3 g/dL (32-36); Mean Corpuscular Hgb 29.3 pg (27.0-32.0); Mean Platelet Vol. 9.9 fl (6.2-12.0); Monocyte# 0.68 X10^3/uL; Monocyte% 6.2 % (0-10); NRBC Flagged by Analyzer 0 % (0-5); Neutrophil % 62.1 % (47-70); Platelet Count 180 K/mm3 (150-450); RBC Distribution Width CV 13.5 % (11.6-14.6); RBC Distribution Width SD 43.2 fl (35.1-43.9); Red Blood Count 4.84 M/mm3 (4.6-6.2); White Blood Count 10.9 K/mm3 (4.4-11.0)
--- NOTE | 2019-10-15 08:04 | US_ITS ---
STUDY: ABDOMINAL ULTRASOUND REASON FOR EXAM: Male, 49 years old. Abd pain TECHNIQUE: Transabdominal ultrasound was performed with real-time and static pham scale imaging. TECHNICAL QUALITY: Limited. Examination limited by bowel gas. COMPARISON: None. FINDINGS: Liver: The liver measures 17.2 cm. There is increased echogenicity consistent with fatty infiltration. The bile ducts are within normal limits. There is hepatic color flow. The direction of portal flow is hepatopetal. There is no demonstrated mass lesion. Portal vein measurement: Gallbladder: Normal distended gallbladder. The gallbladder wall is mildly thickened and measures 3.8 mm. There is a negative sonographic Crow''s sign. There is no pericholecystic fluid. There are no gallstones. Common Bile Duct (C.B.D.): The common bile duct measures 3.3 mm. Pancreas: There is nonvisualization of the pancreas due to overlying bowel gas. Spleen: Normal size of the spleen. The spleen measures 11 cm x 4 cm x 4.8 cm. Right Kidney: Normal size of the right kidney. The right kidney measures 11 cm x 6 cm x 6.1 cm. Normal renal cortex. The right cortex measures 2.1 cm. There is no demonstrated renal mass or cyst. There is no right hydronephrosis. Left Kidney: Normal size of the left kidney. The left kidney measures 12.2 cm x 4.87 x 5.2 cm. Normal renal cortex. The left cortex measures 2.0 cm. There is no demonstrated renal mass or cyst. There is no left hydronephrosis. Aorta: Unremarkable I.V.C.: The IVC is patent. There is no ascites. US/Abdomen Complete IMPRESSION: Mild thickening of the gallbladder wall. Fatty infiltration of the liver. The pancreas is obscured due to overlying bowel gas. Electronically Signed: Dimas Renee, at 13:20 EDT , Service support ,
[2019-10-15 08:20] LABS: ALB/GLOB Ratio 0.9 RATIO (0.9-2.4); AST(SGOT) 16 U/L (15-37); Alanine Aminotransfer ALT/SGPT 17 U/L (16-61); Albumin, Serum 3.5 g/dL (3.2-5.0); Alkaline Phosphatase 50 U/L (45-117); Anion Gap 6 (5-15); BUN 19 mg/dL (7-18); Calcium,Total 8.6 mg/dL (8.5-10.1); Chloride 106 mmol/L (98-107); Cholesterol 248 mg/dL (200); Creatinine, Serum 0.95 mg/dL (0.70-1.30); EST Glomerular Filtration Rate 89 mL/min (>60); Est Glom Filt Rate - Afr Amer 108 mL/min (>60); Globulin 3.9 g/dL (2.2-4.2); Glucose 100 mg/dL (74-106); High Density Lipoprotein 38 mg/dL; Potassium 3.7 mmol/L (3.5-5.1); Protein, Total 7.4 g/dL (6.4-8.2); Sodium Level 138 mmol/L (136-145); Triglycerides 254 mg/dL; Very Low Density Lipoprotein 51 mg/dL (5-40)
== END | disposition home or self-care (01) ==
LOC: US 07:52
PROVIDERS: PCP Family Medicine; Referring Provider Family Medicine; Visit Provider Family Medicine
DX: E78.00 Pure hypercholesterolemia, unspecified (principal); R10.9 Unspecified abdominal pain
CPT/HCPCS: 36415; 76700; 80053; 80061; 85025

== ENCOUNTER 2019-11-02 17:26 | Emergency (ER) | payer MEDICAID, SELFPAY ==
[2019-04-30 09:36] VITALS: BMI 32.7
[2019-11-02] VITALS (8 sets, daily range): BP systolic 108–123; BP diastolic 57–67; PULSE 55–63; RESP 11–18; TEMP 36.6; O2SAT 98–100; BMI 33.4
--- NOTE | 2019-11-02 17:30 | EKG12_ITS ---
Test Reason : Blood Pressure : / mmHG Vent. Rate : 059 BPM Atrial Rate : 059 BPM P-R Int : 196 ms QRS Dur : 086 ms QT Int : 432 ms P-R-T Axes : 057 022 021 degrees QTc Int : 427 ms Poor data quality, interpretation may be adversely affected Sinus bradycardia Otherwise normal ECG Confirmed by EVELIN SEXTON, UZMA ([id number]), content editor SHIKHA [place] ([id number]) on 11/04/2019 1:54:39 PM Referred By: LINO Confirmed By:CHARI WATERS MD
--- NOTE | 2019-11-02 17:30 | CT_ITS ---
STUDY: CT BRAIN WITHOUT CONTRAST REASON FOR EXAM: Male, 49 years old. Stroke left-sided weakness RADIATION DOSAGE (If Supplied By Facility): CTDIvol = ( 44.99 ) mGy, DLP = ( 779.24 ) mGycm TECHNIQUE: Transaxial CT imaging of the brain was performed without administration of intravenous contrast material. Individualized dose optimization techniques were used for this CT. COMPARISON: May 05 2018 FINDINGS: Brain parenchyma is without focal lesions, mass effect, acute intracranial hemorrhage, extra parenchymal fluid collections, hydrocephalus or herniation. The skull is intact. CT/Brain/Head without Contrast IMPRESSION: 1. Normal CT brain. N.B. : The above information has been verbally conveyed by Boris Degroot to Dr. Guicho Santacruz MD, on 11/02/2019 17:48:29 (ET). Electronically Signed: Boris Degroot, at 17:48 EDT Tel , Service support ,
--- NOTE | 2019-11-02 17:31 | CT_ITS ---
STUDY: CTA HEAD AND NECK WITH CONTRAST REASON FOR EXAM: Male, 49 years old. CVA- LEFT SIDED WEAKNESS RADIATION DOSAGE (If Supplied By Facility): CTDIvol = ( 22.80 ) mGy, DLP = ( 801.93 ) mGycm TECHNIQUE: CT angiography was performed with a multi-detector CT scanner. Data acquisition was obtained from the skull base through the vertex following intravenous administration of 100 ML ISOVUE 370. MIP images were reconstructed from the axial data set. Post-processing of the angiographic images was performed, with multiplanar reformation and 3D reconstruction. Individualized dose optimization techniques were used for this CT. COMPARISON: No relevant priors. FINDINGS: Normal bilateral petrous carotid arteries. Normal right cavernous carotid artery with a normal supraclinoid bifurcation. Normal left cavernous carotid artery with a normal supraclinoid bifurcation. Normal right A1 segments of the anterior cerebral artery. Normal left A1 segments of the anterior cerebral artery. Normal intact anterior communicating artery (ACOM). Normal bilateral A2 segments of the anterior cerebral arteries. Normal right M1 and M2 segments of the middle cerebral arteries, with a normal M1 bifurcation. Normal left M1 and M2 segments of the middle cerebral arteries, with a normal M1 bifurcation. Normal right posterior communicating artery (PCOM). Normal left posterior communicating artery (PCOM). Normal bilateral vertebral arteries. Normal basilar artery with a normal basilar bifurcation. The visualized bilateral superior cerebellar (SCA) arteries are normal. Normal bilateral P1, P2 and visualized P3 segments of the posterior cerebral arteries. There is no demonstrated aneurysm of the [place]. There is no demonstrated abnormality of the visualized brain. AORTIC ARCH: Normal visualized aortic arch. Normal origins of the brachiocephalic, left common carotid, and left subclavian arteries. RIGHT CAROTID ARTERIES: Normal right common carotid artery (CCA). Normal right common carotid bulb. Normal origin of the right internal carotid (ICA) artery without a hemodynamically significant stenosis. Normal visualized cervical portion of the right internal carotid artery. Normal origin of the right external carotid artery (ECA). LEFT CAROTID ARTERIES: Normal left common carotid artery (CCA). Normal left common carotid bulb. Normal origin of the left internal carotid (ICA) artery without a hemodynamically significant stenosis. Normal visualized cervical portion of the left internal carotid artery. Normal origin of the left external carotid artery (ECA). VERTEBRAL ARTERIES: Normal bilateral vertebral arteries. CT/CTA Head AND Neck W/ Contrast IMPRESSION: Normal CTA Head and neck with contrast. Electronically Signed: Boris Degroot, at 18:04 EDT Tel , Service support ,
--- NOTE | 2019-11-02 17:40 | CM.ED ---
SOCIAL WORK Responded to Stroke Alert. Medical team in with patient. This worker to remain available for needs. Lorena Aponte, SQUARE DANCE CALLER, ELEMENTARY PRINCIPAL
[2019-11-02 17:47] LABS: Absolute Lymphocyte Count 2.47 X10^3/uL (0.83-4.51); Absolute Neutrophil Count 1.5 X10^3/uL (2.0-7.7); Basophil# 0.03 X10^3/uL; Basophil% 0.7 % (0-1); Eosinophils% 2.2 % (0-5); Hematocrit 42.5 % (40-54); Lymphocyte # 2.47 X10^3/ul (4.0); Lymphocyte % 54.5 % (19-41); Mean Corp Hgb Conc 32.9 g/dL (32-36); Mean Corpuscular Volume 88.2 fL (80-94); Mean Platelet Vol. 9.9 fl (6.2-12.0); Monocyte# 0.36 X10^3/uL; Monocyte% 7.9 % (0-10); NRBC Flagged by Analyzer 0 % (0-5); Neutrophil # 1.54 X10^3/uL (2.7-7.7); Platelet Count 215 K/mm3 (150-450); RBC Distribution Width CV 13.5 % (11.6-14.6); RBC Distribution Width SD 43.9 fl (35.1-43.9); Red Blood Count 4.82 M/mm3 (4.6-6.2); White Blood Count 4.5 K/mm3 (4.4-11.0)
--- NOTE | 2019-11-02 17:51 | ED.DCSUM_ITS ---
- ER Visit Summary Date of Service: 11/02/19 Chief Complaint: Stroke alert History of Present Illness: The patient is a 49 M who was brought in by EMS from the store as a stroke alert. Significant other saw him earlier today. He was having trouble walking around 2 PM today. She thought this might be related to alcohol use. The patient reports drinking 1/5 of vodka last night. They were at the store today and he seemed out of it. He was not using his left arm and leg and he fell. She noticed brief shaking. No loss of consciousness. He has had these episodes in the past. He was admitted on several occasions. At the end of 2018 he had similar symptoms and was treated with TPA. He was admitted. He was found to have alcohol intoxication. He is compliant with all of his medications except atorvastatin. He does not take that because it causes muscle aches. He does take Eliquis. He is not on medicine for seizures and does not follow with a neurologist. He has a history of atrial fibrillation, obstructive sleep apnea, back pain, hyperlipidemia. EMS also reported left-sided facial d radha. EMS blood sugar was normal. Physical Examination: Afebrile and vital signs unremarkable. Patient is alert and oriented to person and place. He is somewhat repetitive and asks why he is here. NIH stroke scale is 4. He received 2 points for left arm weakness and 2 points for left leg weakness. Otherwise his exam was unremarkable. Test Results: EKG, labs, chest x-ray, CT pending. Emergency Department Course and Treatment: Patient was seen immediately on arrival. NIH stroke scale is 4, and he may be improving. He is on Eliquis and will not be a candidate for TPA. EKG showed sinus rhythm at a rate of 59. Coags normal. CT brain negative per radiology. Tele-stroke doctor was utilized, Dr. Escobedo. Because of the patient's young age and negative CT, he would like the patient transferred to [facility] ED. patient and significant other were agreeable. Patient will also need evaluation for possible seizures, and this is not available at our facility. The remainder of his work-up is still pending at this time. We will start arranging transport. Treatment Plan: As above Disposition: Transfer Impression: Left-sided weakness This note was generated with sifonr dictation software. It may contain incorrect words, spelling, and punctuation that were not noted in review of the chart prior to signing ED Disposition - Plan for ED Patient: Referrals: Armani Guerrero MD [Primary Care Provider] -
[2019-11-02 17:57] LABS: Prothrombin Time (Protime)PT. 12.8 SECONDS (11.7-14.9)
[2019-11-02 17:58] LABS: Partial Thromboplast Time 30.3 Seconds (24.1-36.2)
[2019-11-02 18:05] LABS: Anion Gap 3 (5-15); BUN 16 mg/dL (7-18); BUN/Creat Ratio 16.1 RATIO (10-20); Calcium,Total 8.2 mg/dL (8.5-10.1); Chloride 114 mmol/L (98-107); Creatinine, Serum 0.99 mg/dL (0.70-1.30); EST Glomerular Filtration Rate 85 mL/min (>60); Est Glom Filt Rate - Afr Amer 102 mL/min (>60); Estimated Creatinine Clearance 92.17 ml/min; Glucose 111 mg/dL (74-106); Potassium 3.9 mmol/L (3.5-5.1); Sodium Level 143 mmol/L (136-145)
--- NOTE | 2019-11-02 18:10 | RAD_ITS ---
STUDY: X-RAY CHEST REASON FOR EXAM: Male, 49 years old. left sided weakness TECHNIQUE: Frontal view of the chest COMPARISON: None. FINDINGS: There are extensive bilateral indistinct pulmonary opacities with basilar predominance. There is no pneumothorax, pleural effusions or cardiomegaly. Detection of mild to moderate pulmonary edema is not reliable on the background of extensive pulmonary opacity. There is accentuation of interstitial lung markings. Osseous structures are intact. RAD/Chest 1 View IMPRESSION: Extensive bilateral pulmonary disease, possibly viral pneumonia, less likely other diffuse lung disease. Component of pulmonary edema could be present. Electronically Signed: Boris Degroot, at 18:19 EDT Tel , Service support ,
== END 2019-11-02 18:58 | disposition short-term general hospital (02) ==
LOC: ED 17:30
PROVIDERS: Emergency Provider Emergency Medicine; PCP Family Medicine
DX: R53.1 Weakness (principal); R29.704 NIHSS score 4; I63.9 Cerebral infarction, unspecified; I69.311 Memory deficit following cerebral infarction; I48.91 Unspecified atrial fibrillation; E78.5 Hyperlipidemia, unspecified; Z79.02 Long term (current) use of antithrombotics/antiplatelets; Z72.0 Tobacco use; Z79.899 Other long term (current) drug therapy
CPT/HCPCS: 70450; 70496; 70498; 71045; 80048; 80320; 84484; 85025; 85610; 85730; 93005; 99285; J7030; Q9967; A4216; G0480

== ENCOUNTER 2019-11-12 21:21 | Inpatient (IN) | payer MEDICAID, SELFPAY ==
[2019-11-02 17:44] VITALS: BMI 33.4
[2019-11-12 21:22] VITALS: BP 139/74; PULSE 83; RESP 20; TEMP 36.8; O2SAT 98; BMI 41.5
--- NOTE | 2019-11-12 23:44 | PCM.HP.STD ---
Problem List (1) Alcohol withdrawal Status: Acute Qualifiers: Complication of substance-induced condition: with unspecified complication Qualified Code(s): F10.239 - Alcohol dependence with withdrawal, unspecified (2) Obesity (BMI 30-39.9) Status: Chronic (3) JOHNATHAN (obstructive sleep apnea) Status: Chronic (4) TIA (transient ischemic attack) Status: Chronic Qualifiers: Transient cerebral ischemia type: carotid artery syndrome (hemispheric) Qualified Code(s): G45.1 - Carotid artery syndrome (hemispheric) (5) Depression Status: Chronic Qualifiers: Depression Type: unspecified Qualified Code(s): F32.9 - Major depressive disorder, single episode, unspecified (6) Hyperlipidemia Status: Chronic Qualifiers: Hyperlipidemia type: unspecified Qualified Code(s): E78.5 - Hyperlipidemia, unspecified (7) Paroxysmal atrial fibrillation Status: Chronic Comment: 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 at [place] (8) Tobacco dependence Status: Chronic (9) GERD (gastroesophageal reflux disease) Status: Chronic Qualifiers: Esophagitis presence: esophagitis presence not specified Qualified Code(s): K21.9 - Gastro-esophageal reflux disease without esophagitis History of Present Illness Date of Admission: 11/12/19 Chief Complaint: Acute EtOH Withdrawal The patient is a 49 y/o M w/ PMHx: Hx TIA w/ recent evaluation at [facility] for possible CVA which per patient/sister was ruled out, HTN, HLD, PAF, JOHNATHAN non-complaint with CPAP, GERD, Tobacco use who presents to the [facility] ED on 11/12/19 with history of acute EtOH withdrawal, onset starting evening prior to ED presentation following last EtOH intake at approximately 8 PM with onset of nausea, tremors, agitation, tactile disturbances. Patient intake had been at least 5 fifths of vodka daily over the last 2 years since his has passed but recently attempted to decrease and patient noting interested in attaining sober status. Patient is never been in detox or rehab prior. In the ED upon evaluation patient with significant right upper quadrant discomfort with palpation noting that he has had some discomfort for the last several weeks, worse following food with some nausea associated with no recent emesis or diarrhea noted. Patient rates the pain 10 out of 10 primarily with palpitation attempts and reports the discomfort is very sharp when direct palpation attempted. In the ED work-up included T 98.3, heart rate 83, BP 139/74, respiratory rate 20, 98% on room air, unremarkable CBC, unremarkable CMP, negative urine drug screen, ethyl alcohol level 262. Past Medical History Past Medical History (Chronic Problems): Chronic Problems (Last Reviewed 01/06/18 @ 17:[address] 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 Luciano Fajardo DO) Hx of appendectomy Z90.49 Surgical History: appendectomy Psychiatric History: Anxiety, Depression Lives: With Family - Patient is at home and his son and daughter live with him. Smoking Status: Current every day smoker - Patient has ongoing 1 pack/day cigarette tobacco usage. Tobacco Use: Cigarettes Alcohol: Heavy - Patient drinks at least five 1/5 vodka daily Drugs: None - *Family History Sibling Family History: Family History (Last Reviewed 01/06/18 @ 17:[address] Luciano Fajarod DO) Mother Diabetes CAD (coronary artery disease) CVA (cerebral vascular accident) Myocardial infarction, Onset Age: 35 Father CAD (coronary artery disease) Diabetes CVA (cerebral vascular accident) History Items: Diabetes, Heart Disease Maternal Family History: Family History (Last Reviewed 01/06/18 @ 17:[address] Luciano Fajardo DO) Mother Diabetes CAD (coronary artery disease) CVA (cerebral vascular accident) Myocardial infarction, Onset Age: 35 Father CAD (coronary artery disease) Diabetes CVA (cerebral vascular accident) History Items: Diabetes, Heart Disease - [place] at 35 y/o., Stroke Paternal Family History: Family History (Last Reviewed 01/06/18 @ 17:[address] Luciano Fajardo DO) Mother Diabetes CAD (coronary artery disease) CVA (cerebral vascular accident) Myocardial infarction, Onset Age: 35 Father CAD (coronary artery disease) Diabetes CVA (cerebral vascular accident) History Items: Diabetes, Heart Disease, Stroke Review of Systems Constitutional: Reports: Malaise, Weakness, Fatigue. Denies: Anorexia, Chills, Fever, Weight Change HEENT: Denies: Head Aches, Sinus Congestion, Sinus Drainage Cardiovascular: Denies: Chest Pain, Palpitations Respiratory: Denies: Cough, Shortness of breath at rest, Sputum production Gastrointestinal: Reports: Abdominal Pain, Nausea. Denies: Constipation, Diarrhea, Vomiting Genitourinary: Denies: Dysuria Musculoskeletal: Reports: Back Pain, Joint Pain. Denies: Joint Tenderness Skin: Denies: Rash, Wounds Neurological: Denies: Numbness, Tingling, Focal weakness Psychiatric: Reports: Anxiety, Depression. Denies: Homicidal Ideations, Suicidal Ideations Hematologic/ Lymphatic: Reports: Anemia, Easy Bruising, Easy Bleeding VTE Information - Inpt Only VTE Present on Admission: No VTE Mechan Device Prophylaxis: SCD's VTE Pharm Prophylaxis ordered?: No Reason prophylaxis not ordered:: Treatment Not Indicated - We will continue patient home Eliquis regimen. Patient Problems: Active and Suspected Problems (Last Reviewed 01/06/18 @ 17:[address] Luciano Fajardo DO) Alcohol withdrawal (Acute) Subjective: Patient seated upright in the ED bed, fatigued, irritable with evaluation but continues to state that he requests sobriety. Objective: Physical Examination: General: Awakens to stimuli, alert when discussing history, oriented x3, remains cooperative although irritable, seated upright in the ED bed with no acute distress except with abdominal evaluation. Skin: normal color, turgor, no icterus, cyanosis. HEENT: AT/NC, EOMI, PERRLA, dry MM, no carotid bruits or JVD noted. Lungs: CTA bilaterally, moderate effort, moderate decrease BL bases, no rales, ronchi or wheezing. Heart: Regular rate and rhythm; no gallop, rub audible. Abdomen: soft, significant right upper quadrant discomfort with palpation, guarding present, rebound, ND, normal BS, difficult to assess HSM secondary to discomfort with evaluation. Extremities: no cyanosis, clubbing, or edema. Neurological: patient awakens to stimuli, alert when discussing history, oriented x 3; cognitive function mildly decreased from baseline intact; pupils equally reactive to light and accomodation; cranial nerves II-XII grossly normal, moving all 4 extremities, no focal deficits, strength moderately global decrease secondary to acute presentation. Psychiatric: affect appears fatigued and mildly irritable otherwise normal, no acute evidence of depressive or anxiety feelings. - Physical Exam Vitals/I&O's: Vital Signs Temp Pulse Resp BP Pulse Ox 98.3 F 83 20 H 139/74 H 98 11/12/19 21:22 11/12/19 21:22 11/12/19 21:22 11/12/19 21:22 11/12/19 21:22 Oxygen Delivery Method Room Air Weight: 265 lb Body Mass Index (BMI) 41.5 Finger Stick Blood Glucose 104 Assessment/Plan All Active Problems (Last Reviewed 01/06/18 @ 17:[address] Luciano Fajardo, DO) Chest pain (Acute) CVA (cerebral vascular accident) (Acute) Alcohol withdrawal (Acute) Chest pain (Resolved) The patient is a 49 y/o M w/ PMHx: Hx TIA w/ recent evaluation at [facility] for possible CVA which per patient/sister was ruled out, HTN, HLD, PAF, JOHNATHAN non-complaint with CPAP, GERD, Tobacco use who presents to the [facility] ED on 11/12/19 with history of acute EtOH withdrawal. 1. Acute EtOH Withdrawal: Will admit to medical surgical floor, routine labs obtained in the ED upon presentation and unremarkable aside from ethyl alcohol level 262 but patient able to carry on conversation and notes interested in obtaining sobriety. Will initiate and continue on protocol with taper course of Phenobarbital, scheduled gabapentin for seizure prophylaxis, as needed Catapres, Bentyl, Vistaril, IV fluids, IV antiemetics, Tylenol as needed for pain. Will consult Case management for assistance for transition to next level of rehabilitation care. Mag, phos pending. Maintain on CIWA protocol concurrently. 2. Right upper quadrant pain, unclear etiology: CMP unremarkable, significant right upper quadrant pain on evaluation with rebound, some discomfort to the right lower quadrant, status post appendectomy status, will obtain right upper quadrant ultrasound and maintain n.p.o. status pending these results this AM. 3. History of TIA: We will continue patient home Eliquis, atenolol regimen, not on statin therapy. 4. Hypertension: Continue home regimen including atenolol, PRN hydralazine. 5. Hyperlipidemia: Not on statin, may consider addition especially given history of TIA. 6. Anxiety and depression: We will continue home Zoloft regimen. 7. PAF: We will maintain on Eliquis as well as atenolol therapy. 8. JOHNATHAN: Noncompliant with CPAP. 9. GERD: We will continue patient home omeprazole regimen. 10. Tobacco Abuse: Encouraged cessation, inpatient consultation per RT, NR if desired. 11. DVT prophylaxis: We will continue patient home Eliquis therapy. Inpatient E&M: 06870 Init Hosp L3
--- NOTE | 2019-11-12 23:52 | ED.VISSUMM ---
- ER Visit Summary Date of Service: 11/12/19 Chief Complaint: Alcohol intoxication, would like detox History of Present Illness: The patient is a 49 M patient comes in with acute alcohol toxic H. He would like detox. He states he drinks 5, 1/5 bottles a day. He states he is been doing this since his a couple of years ago. His last drink was at 8 PM this evening. He has never been through detox before. Patient has a history of atrial fibrillation and is on Eliquis. He states he does feel nauseous but has not vomited. Physical Examination: Vital signs reviewed. HEENT exam unremarkable. Heart is regular rate and rhythm without murmurs. Lungs are clear to auscultation. Abdomen is soft with diffuse tenderness. Extremities reveal no edema. Skin exam normal. Neurologic exam normal, other than intoxication of alcohol. He moves all 4 extremities equally. Test Results: Pending Emergency Department Course and Treatment: Patient was discussed with the hospitalist for admission as the patient is requesting detox. He is still intoxicated at this point I do not feel he needs any benzodiazepines at this time. Treatment Plan: [] Disposition: Admit Impression: Alcohol withdrawal This note was generated with [employer] dictation software. It may contain incorrect words, spelling, and punctuation that were not noted in review of the chart prior to signing ED Disposition - Plan for ED Patient: Referrals: Armani Guerrero MD [Primary Care Provider] -
[2019-11-12 23:57] LABS: Absolute Lymphocyte Count 3.03 X10^3/uL (0.83-4.51); Absolute Neutrophil Count 2.6 X10^3/uL (2.0-7.7); Basophil# 0.04 X10^3/uL; Basophil% 0.6 % (0-1); Eosinophil# 0.11 X10^3/uL; Eosinophils% 1.7 % (0-5); Hematocrit 42.9 % (40-54); Hemoglobin 14.5 g/dL (13.0-16.5); Lymphocyte # 3.03 X10^3/ul (4.0); Lymphocyte % 47.8 % (19-41); Mean Corp Hgb Conc 33.8 g/dL (32-36); Mean Corpuscular Hgb 29.5 pg (27.0-32.0); Mean Corpuscular Volume 87.2 fL (80-94); Mean Platelet Vol. 10.1 fl (6.2-12.0); Monocyte# 0.54 X10^3/uL; Monocyte% 8.5 % (0-10); NRBC Flagged by Analyzer 0 % (0-5); Neutrophil % 41.1 % (47-70); Platelet Count 189 K/mm3 (150-450); RBC Distribution Width CV 13.7 % (11.6-14.6); RBC Distribution Width SD 43.5 fl (35.1-43.9); Red Blood Count 4.92 M/mm3 (4.6-6.2); White Blood Count 6.3 K/mm3 (4.4-11.0)
[2019-11-13] VITALS (8 sets, daily range): BP systolic 105–137; BP diastolic 60–78; PULSE 52–68; RESP 12–18; TEMP 36.6–36.9; O2SAT 95–99; BMI 34.7
[2019-11-13 00:17] LABS: AST(SGOT) 23 U/L (15-37); Alanine Aminotransfer ALT/SGPT 32 U/L (16-61); Albumin, Serum 3.9 g/dL (3.2-5.0); Alkaline Phosphatase 58 U/L (45-117); Anion Gap 6 (5-15); BUN 16 mg/dL (7-18); BUN/Creat Ratio 16.5 RATIO (10-20); Calcium,Total 8.4 mg/dL (8.5-10.1); Chloride 110 mmol/L (98-107); Creatinine, Serum 0.97 mg/dL (0.70-1.30); EST Glomerular Filtration Rate 87 mL/min (>60); Est Glom Filt Rate - Afr Amer 105 mL/min (>60); Estimated Creatinine Clearance 85.18 ml/min; Globulin 3.8 g/dL (2.2-4.2); Glucose 97 mg/dL (74-106); Lipase 218 U/L (73-393); Potassium 3.6 mmol/L (3.5-5.1); Protein, Total 7.7 g/dL (6.4-8.2); Sodium Level 142 mmol/L (136-145)
[2019-11-13] MEDS: Lactated Ringers 1,000 ML 125 ML IV (01:00)
--- NOTE | 2019-11-13 01:00 | EKG12_ITS ---
Test Reason : HTN Blood Pressure : / mmHG Vent. Rate : 056 BPM Atrial Rate : 056 BPM P-R Int : 214 ms QRS Dur : 092 ms QT Int : 448 ms P-R-T Axes : 036 023 019 degrees QTc Int : 432 ms Sinus bradycardia with 1st degree A-V block Otherwise normal ECG When compared with ECG of 02-NOV-2019 17:58, No significant change was found Confirmed by JONA SALAMANCA ([id number]), publication editor MARLY CELAYA ([id number]) on 11/15/2019 10:41:28 AM Referred By: PADMINI Confirmed By:JONA SALAMANCA
[2019-11-13 01:10] LABS: Magnesium 2.4 mg/dL (1.6-2.6); Phosphorus 3.9 mg/dL (2.5-4.9)
[2019-11-13 01:12] LABS: Amphetamine Urine VISTA NEGATIVE (<1000 ng/mL); Barbiturate Urine VISTA NEGATIVE (< 200 ng/mL); Benzodiazepine Urine VISTA NEGATIVE (< 200 ng/mL); Cocaine Urine VISTA NEGATIVE (< 300 ng/mL); Ecstacy Urine VISTA NEGATIVE (< 500 ng/mL); Methadone Urine VISTA NEGATIVE (< 300 ng/mL); PCP Urine VISTA NEGATIVE (< 25 ng/mL); THC Urine VISTA NEGATIVE (< 50 ng/mL); Vista UDS pH Range 5
[2019-11-13] MEDS: Folic Acid 1 MG Tablet PO ×2 (01:13→08:54)
[2019-11-13] MEDS: Gabapentin 300 MG Capsule PO (01:13)
[2019-11-13] MEDS: Phenobarbital 32.4 MG Tablet 64.8 MG PO ×6 (01:13→21:54)
[2019-11-13] MEDS: Thiamine Hydrochloride 100 MG Tablet PO ×2 (01:14→08:54)
[2019-11-13] MEDS: Pantoprazole Sodium 20 MG Tablet PO ×2 (01:14→08:54)
[2019-11-13] MEDS: APIXABAN 5 MG TABLET PO ×2 (01:14→08:53)
[2019-11-13] MEDS: Atenolol 25 MG Tablet PO (01:16)
[2019-11-13] MEDS: Sertraline 50 MG Tablet PO (01:16)
--- NOTE | 2019-11-13 01:51 | US_ITS ---
STUDY: ABDOMINAL ULTRASOUND - RIGHT UPPER QUADRANT REASON FOR VISIT: Male, 49 years old RUQ PAIN TECHNIQUE: Ultrasound evaluation of the right upper quadrant was performed with real-time and static pham-scale imaging. TECHNICAL QUALITY: Adequate. COMPARISON: Comparison is made with prior examination dated 10/15/2019. FINDINGS: Liver: The liver is enlarged and measures 21.8 cm. There is increased echogenicity consistent with fatty infiltration. The bile ducts are within normal limits. There is hepatic color flow. The direction of portal flow is hepatopetal. There is no demonstrated mass lesion. Gallbladder: Normal distended gallbladder. The gallbladder wall measures 2.9 mm. There is a negative sonographic Crow''s sign. There is no pericholecystic fluid. There are no gallstones. Common Bile Duct (C.B.D.): The common bile duct measures 4.5 mm. Pancreas: Normal size of the head, body of the pancreas. The tail portion is obscured due to overlying bowel gas. There is normal echogenicity of the pancreas. There is no demonstrated pancreatic mass or cyst. Right Kidney: Normal size of the right kidney. The right kidney measures 10.6 cm x 4.8 cm x 5.6 cm. Normal renal cortex. The right cortex measures 2.2 cm. There is no demonstrated renal mass or cyst. There is no right hydronephrosis. US/Abdomen Limited IMPRESSION: Hepatomegaly and fatty infiltration of the liver. Electronically Signed: Dimas Renee, at 8:07 EDT , Service support ,
[2019-11-13] MEDS: Ibuprofen 600 MG Tablet PO (05:32)
--- NOTE | 2019-11-13 10:23 | CASEMGMT ---
Social Work Note Pt is RAMP pt. SW placed a call to Esteban at [facility] and left message that pt will need to be seen. Paty Mendoza VRT MECHANIC, ROUTE SALESMAN
--- NOTE | 2019-11-13 10:37 | PN_ITS ---
Patient Problems: Active and Suspected Problems (Last Reviewed 01/06/18 @ 17:[address] Luciano Fajardo, DO) Alcohol withdrawal (Acute) Subjective: Patient was seen and examined today, he is resting quietly, he states he does not feel tremorous, nauseated, or sweaty. Patient did not complain of any abdominal pain to this examiner, his abdominal ultrasound today just showed fatty liver with hepatomegaly, no acute pathology was noted. - Physical Exam Vitals/I&O's: Vital Signs Temp Pulse Resp BP Pulse Ox 98.1 F 52 L 12 105/60 95 11/13/19 09:04 11/13/19 09:04 11/13/19 09:04 11/13/19 09:04 11/13/19 09:04 Oxygen Delivery Method Room Air Weight: 100.6 kg Body Mass Index (BMI) 34.7 Finger Stick Blood Glucose 104 General: Alert, Oriented x3, Cooperative, No apparent distress, Well developed, Well nourished HEENT: Atraumatic, PERRLA, EOMI, Normocephalic Oral: Moist Mucosa Neck: Supple, Trachea Midline, Thyroid Normal Size and Texture Lungs: Clear to auscultation, Normal air movement, No rhonchi, No wheeze, No rales Cardiovascular: Regular rate, Regular Rhythm, Normal S1, Normal S2, No murmurs, PMI Normal, No rub noted, No Gallop Abdomen: Bowel Sounds Present, Soft, Non Tender, Non-Distended, No hernias noted Extremities: No clubbing, No cyanosis, No edema, Capillary Refill Less than 3 Seconds Skin: No rashes, No breakdown Musculoskeletal: No Tenderness to Palpation of Joints or Extremities Neurological: Cranial nerves II-XII grossly intact, Neuro grossly intact, Sensory exam intact to light touch and pain, Coordination normal Psych/Mental Status: Normal Affect, Appropriate, Alert and oriented to time, place, person, mood and affect Laboratory Results 11/12/19 23:42: WBC 6.3, RBC 4.92, Hgb 14.5, Hct 42.9, MCV 87.2, MCH 29.5, MCHC 33.8, RDW Std Deviation 43.5, RDW Coeff of Pearl 13.7, Plt Count 189, MPV 10.1, Immature Gran % (Auto) 0.300, Neut % (Auto) 41.1 L, Lymph % (Auto) 47.8 H, [place] % (Auto) 8.5, Eos % (Auto) 1.7, Baso % (Auto) 0.6, Absolute Neuts (auto) 2.6, Absolute Lymphs (auto) 3.03, Nucleated RBC % 0 11/12/19 23:42: Sodium 142, Potassium 3.6, Chloride 110 H, Carbon Dioxide 26.0, Anion Gap 6, BUN 16, Creatinine 0.97, Estim Creat Clear Calc 85.18, Est GFR (MDRD) Af Amer 105, Est GFR (MDRD) Non-Af 87, BUN/Creatinine Ratio 16.5, Glucose 97, Calcium 8.4 L, Total Bilirubin 0.20, Direct Bilirubin 0.10, AST 23, ALT 32, Alkaline Phosphatase 58, Total Protein 7.7, Albumin 3.9, Globulin 3.8, Lipase 218 11/12/19 23:42: Ethyl Alcohol 262.0 11/12/19 23:42: Phosphorus 3.9, Magnesium 2.4 11/13/19 00:46: Urine Opiates Screen NEGATIVE, Urine Methadone Screen NEGATIVE, Ur Barbiturates Screen NEGATIVE, Ur Phencyclidine Scrn NEGATIVE, Ur Amphetamines Screen NEGATIVE, U Methamphetamin-MDMA NEGATIVE, U Benzodiazepines Scrn NEGAT KANIKA, Urine Cocaine Screen NEGATIVE, U Cannabinoids Screen NEGATIVE, Ur Drug Screen Comment Current Medications Acetaminophen (Tylenol) 500 mg PO Q4H PRN PRN PRN Reason: Temp > 100.4 F Al Hydroxide/Mg Hydroxide (Mylanta Ii) 30 ml PO Q6H PRN PRN PRN Reason: dyspesia Albuterol Sulfate (Ventolin Aerosols) 2.5 mg INHALATION Q2H PRN PRN PRN Reason: Dyspnea, wheezing Apixaban (Eliquis) 5 mg PO DAILY [facility] Last Admin: 11/13/19 08:53 Dose: 5 mg Documented by: Atenolol (Tenormin (Beta Mark)) 25 mg PO QHS [facility] Last Admin: 11/13/19 01:16 Dose: 25 mg Documented by: Bisacodyl (Dulcolax) 10 mg RECTAL DAILY PRN PRN Reason: Constipation Dicyclomine HCl (Bentyl) 20 mg PO Q6H PRN PRN PRN Reason: abdominal discomfort Folic Acid (Folic Acid) 1 mg PO DAILY@0800 [facility] Last Admin: 11/13/19 08:54 Dose: 1 mg Documented by: Gabapentin (Neurontin) 300 mg PO Q8H PRN PRN PRN Reason: moderate to severe anxiety Last Admin: 11/13/19 01:13 Dose: 300 mg Documented by: Hydroxyzine Pamoate (Vistaril Pamoate Capsule) 50 mg PO Q4H PRN PRN PRN Reason: mild anxiety Ibuprofen (Motrin) 600 mg PO Q8H PRN PRN PRN Reason: Pain Score 1-10/10 Last Admin: 11/13/19 05:32 Dose: 600 mg Documented by: Loperamide HCl (Imodium) 2 mg PO Q4H PRN PRN PRN Reason: LOOSE STOOLS Nicotine (Nicoderm Cq (Pbkc)) 21 mg TRANSDERM. DAILY [facility] Last Admin: 11/13/19 08:53 Dose: 21 mg Documented by: Nitroglycerin (Nitrostat) 0.4 mg SUBLINGUAL Q5M PRN PRN Reason: CARDIAC/CHEST PAIN Ondansetron HCl (Zofran) 8 mg PO Q8H PRN PRN PRN Reason: NAUSEA Pantoprazole Sodium (Protonix) 20 mg PO DAILY [facility] Last Admin: 11/13/19 08:54 Dose: 20 mg Documented by: Phenobarbital (Phenobarbital) 97.2 mg PO Q4H [facility]; Taper Stop: 11/17/19 08:59 Last Admin: 11/13/19 08:54 Dose: 97.2 mg Documented by: Senna (Senokot) 2 tablet PO QHS PRN PRN Reason: Constipation Sertraline HCl (Zoloft) 100 mg PO QHS [facility] Sodium Chloride () 10 - 40 ml IV UD PRN PRN Reason: SALINE FLUSH [facility] Admin: 11/13/19 08:54 Dose: 100 mg Documented by: Trazodone HCl (Desyrel) 100 mg PO QHS PRN PRN Reason: INSOMNIA Medical Necessity - Tobacco Use Smoking Status: Current every day smoker Tobacco Use: Cigarettes Assessment/Plan All Active Problems (Last Reviewed 01/06/18 @ 17:[address] Luciano Fajardo, DO) Chest pain (Resolved) Alcohol withdrawal (Acute) Chest pain (Resolved) #1 acute alcohol withdrawal-continue present medications #2 chronic alcoholism #3 obstructive sleep apnea-noncompliant with treatment #4 paroxysmal atrial fibrillation #5 GERD Inpatient E&M: 08782 Subs Hosp L2
[2019-11-13] MEDS: Sertraline 100 MG Tablet PO (21:55)
[2019-11-14] MEDS: Phenobarbital 32.4 MG Tablet 64.8 MG PO ×6 (01:26→21:01)
[2019-11-14 05:01] VITALS: BP 132/74; PULSE 52; RESP 14; TEMP 36.7; O2SAT 98
[2019-11-14 10:14] VITALS: BP 138/68; PULSE 46; RESP 16; TEMP 36.6; O2SAT 98
[2019-11-14] MEDS: Thiamine Hydrochloride 100 MG Tablet PO (10:19)
[2019-11-14] MEDS: Pantoprazole Sodium 20 MG Tablet PO (10:19)
[2019-11-14] MEDS: Folic Acid 1 MG Tablet PO (10:19)
[2019-11-14] MEDS: APIXABAN 5 MG TABLET PO (10:20)
--- NOTE | 2019-11-14 13:03 | ADDICTION ---
This screenplay writer met with patient, in his room, to assess ASAM, MSE and to complete discharge planning. Patient was alert and oriented x4 and presented with euthymic mood and affect. He reported no SI or HI. He reported a reduction in withdrawal symptoms likely based on medical withdrawal management protocol. ASAM assessment and MSE completed. Discharge plan completed. Patient refused residential treatment and did not consent to this screenplay writer making his appointment with [facility] upon discharge. He reported that he will call and schedule initial appointment with [facility] by 11/18/2019. This screenplay writer will fax all relevant information to [facility].
[2019-11-14 13:47] VITALS: BP 140/79; PULSE 57; RESP 18; TEMP 36.9; O2SAT 98
--- NOTE | 2019-11-14 15:17 | PCM.PROGNOTE ---
Patient Problems: Active and Suspected Problems (Last Reviewed 01/06/18 @ 17:[address] Luciano Fajardo, DO) Alcohol withdrawal (Acute) Subjective: Patient was seen and examined today, he complains of some drowsiness but does not complain of any tremor or anxiety at this time Objective: General: Alert, Oriented x3, Cooperative, No apparent distress, Well developed, Well nourished HEENT: Atraumatic, PERRLA, EOMI, Normocephalic Oral: Moist Mucosa Neck: Supple, Trachea Midline, Thyroid Normal Size and Texture Lungs: Clear to auscultation, Normal air movement, No rhonchi, No wheeze, No rales Cardiovascular: Regular rate, Regular Rhythm, Normal S1, Normal S2, No murmurs, PMI Normal, No rub noted, No Gallop Abdomen: Bowel Sounds Present, Soft, Non Tender, Non-Distended, No hernias noted Extremities: No clubbing, No cyanosis, No edema, Capillary Refill Less than 3 Seconds Skin: No rashes, No breakdown Musculoskeletal: No Tenderness to Palpation of Joints or Extremities Neurological: Cranial nerves II-XII grossly intact, Neuro grossly intact, Sensory exam intact to light touch and pain, Coordination normal Psych/Mental Status: Normal Affect, Appropriate, Alert and oriented to time, place, person, mood and affect - Physical Exam Vitals/I&O's: Vital Signs Temp Pulse Resp BP Pulse Ox 98.5 F 57 L 18 140/79 H 98 11/14/19 13:47 11/14/19 13:47 11/14/19 13:47 11/14/19 13:47 11/14/19 13:47 Oxygen Delivery Method Room Air Weight: 100.6 kg Body Mass Index (BMI) 34.7 Finger Stick Blood Glucose 104 Intake and Output for Last 24 Hours 11/12/19 11/13/19 11/14/19 23:59 23:59 23:59 Intake Total 1050 / 1050 350 / 350 Balance 1050 / 1050 350 / 350 Current Medications Acetaminophen (Tylenol) 500 mg PO Q4H PRN PRN PRN Reason: Temp > 100.4 F Al Hydroxide/Mg Hydroxide (Mylanta Ii) 30 ml PO Q6H PRN PRN PRN Reason: dyspesia Albuterol Sulfate (Ventolin Aerosols) 2.5 mg INHALATION Q2H PRN PRN PRN Reason: Dyspnea, wheezing Apixaban (Eliquis) 5 mg PO DAILY [facility] Last Admin: 11/14/19 10:20 Dose: 5 mg Documented by: Atenolol (Tenormin (Beta Mark)) 25 mg PO QHS [facility] Last Admin: 11/13/19 21:55 Dose: Not Given Documented by: Bisacodyl (Dulcolax) 10 mg RECTAL DAILY PRN PRN Reason: Constipation Dicyclomine HCl (Bentyl) 20 mg PO Q6H PRN PRN PRN Reason: abdominal discomfort Folic Acid (Folic Acid) 1 mg PO DAILY@0800 [facility] Last Admin: 11/14/19 10:19 Dose: 1 mg Documented by: Gabapentin (Neurontin) 300 mg PO Q8H PRN PRN PRN Reason: moderate to severe anxiety Last Admin: 11/13/19 01:13 Dose: 300 mg Documented by: Hydroxyzine Pamoate (Vistaril Pamoate Capsule) 50 mg PO Q4H PRN PRN PRN Reason: mild anxiety Ibuprofen (Motrin) 600 mg PO Q8H PRN PRN PRN Reason: Pain Score 1-10/10 Last Admin: 11/13/19 05:32 Dose: 600 mg Documented by: Loperamide HCl (Imodium) 2 mg PO Q4H PRN PRN PRN Reason: LOOSE STOOLS Nicotine (Nicoderm Cq (Pbkc)) 21 mg TRANSDERM. DAILY [facility] Last Admin: 11/14/19 10:20 Dose: 21 mg Documented by: Nitroglycerin (Nitrostat) 0.4 mg SUBLINGUAL Q5M PRN PRN Reason: CARDIAC/CHEST PAIN Ondansetron HCl (Zofran) 8 mg PO Q8H PRN PRN PRN Reason: NAUSEA Pantoprazole Sodium (Protonix) 20 mg PO DAILY [facility] Last Admin: 11/14/19 10:19 Dose: 20 mg Documented by: Phenobarbital (Phenobarbital) 64.8 mg PO Q4H [facility]; Taper Stop: 11/17/19 08:59 Last Admin: 11/14/19 13:49 Dose: 64.8 mg Documented by: Senna (Senokot) 2 tablet PO QHS PRN PRN Reason: Constipation Sertraline HCl (Zoloft) 100 mg PO QHS [facility] Last Admin: 11/13/19 21:55 Dose: 100 mg Documented by: Sodium Chloride () 10 - 40 ml IV UD PRN PRN Reason: SALINE FLUSH Thiamine HCl (Vitamin B1) 100 mg PO DAILYCM [facility] Last Admin: 11/14/19 10:19 Dose: 100 mg Documented by: Trazodone HCl (Desyrel) 100 mg PO QHS PRN PRN Reason: INSOMNIA Medical Necessity - Tobacco Use Smoking Status: Current every day smoker Tobacco Use: Cigarettes Assessment/Plan All Active Problems (Last Reviewed 01/06/18 @ 17:[address] Luciano Fajardo, DO) Chest pain (Resolved) Alcohol withdrawal (Acute) Chest pain (Resolved) #1 acute alcohol withdrawal-continue present medications #2 chronic alcoholism-patient will be talking to 180 about posthospitalization follow-up #3 obstructive sleep apnea-noncompliant with treatment #4 paroxysmal atrial fibrillation #5 GERD Inpatient E&M: 33482 Disch Hosp
[2019-11-14 17:11] VITALS: BP 139/75; PULSE 59; RESP 18; TEMP 37; O2SAT 98
[2019-11-14 20:50] VITALS: BP 139/73; PULSE 56; RESP 16; TEMP 36.9; O2SAT 99
[2019-11-14] MEDS: Sertraline 100 MG Tablet PO (21:01)
[2019-11-15] MEDS: Phenobarbital 32.4 MG Tablet 64.8 MG PO ×3 (01:42→08:39)
[2019-11-15 03:08] VITALS: BP 134/79; PULSE 56; RESP 16; TEMP 36.5; O2SAT 98
[2019-11-15 08:35] VITALS: BP 133/77; PULSE 58; RESP 14; TEMP 36.6; O2SAT 94
[2019-11-15] MEDS: Thiamine Hydrochloride 100 MG Tablet PO (08:38)
[2019-11-15] MEDS: Folic Acid 1 MG Tablet PO (08:38)
[2019-11-15] MEDS: APIXABAN 5 MG TABLET PO (08:39)
[2019-11-15] MEDS: Pantoprazole Sodium 20 MG Tablet PO (08:39)
--- NOTE | 2019-11-15 14:07 | DCINST_ITS ---
- Discharge Diagnoses Current Active Problems: Current Active and Chronic Problems (Last Reviewed 01/06/18 @ 17:[address] Luciano Fajardo, DO) Alcohol withdrawal (Acute) You will use the following diet at home:: No restrictions Your food should be the consistency of: Regular Your liquids should be the consistency of: Regular/Thin Discharge Activity: Return to Normal Activity Weight Bearing Status: Full weight bearing Additional Instructions: No alcohol. follow up with [facility] Allergies/Adverse Reactions: Allergies azithromycin Allergy (Verified 11/02/19 17:37) Shortness of breath Medications to take at Discharge Atenolol [Tenormin (beta srikanth)] 25 mg PO QHS 04/30/19 Sertraline HCl [Zoloft] 100 mg PO QHS 04/30/19 Apixaban [Eliquis] 5 mg PO DAILY 11/02/19 Omeprazole [Prilosec] 20 mg PO DAILY 11/02/19 Primary Care Physician: Armani Guerrero MD [Primary Care Provider] - Please follow up with your Primary Care Physician in: as scheduled Test Results: Test results from this visit will be discussed in further detail at your follow- up appointment, if applicable.
[2019-11-15 14:19] VITALS: PULSE 65; RESP 16; TEMP 36.6; O2SAT 97
--- NOTE | 2019-11-15 17:57 | DS.PCM_ITS ---
Discharge Date and Diagnosis Date of Admission: 11/12/19 Date of Discharge: 11/15/19 - Primary Discharge Diagnosis Acute Problems: #1 acute alcohol withdrawal #2 chronic alcoholism #3 obstructive sleep apnea-noncompliant with treatment #4 paroxysmal atrial fibrillation #5 GERD - Secondary Discharge Diagnosis Chronic Problems: Chronic Problems (Last Reviewed 01/06/18 @ 17:[address] 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 Patient stated that he had a heavy drinking problem, he told the emergency room physician that he drinks up to 5 750 mL bottles of vodka daily. Patient had never been through detox services. Patient's tox screen was negative, ethyl alcohol level was 262. Patient was admitted to [place] [address] and orders were entered using the alcohol detox order set. Patient talked to the [facility] psychiatric social worker supervisor-he declined to make follow-up appointments with 180 and stated that he was going to do it himself after discharge. The patient's narrative of how much alcohol he drinks changed after he was admitted, it was suspected that he did not drink as much as he stated that he did. On 11/15/2019, patient was seen and examined: On examination he appeared in good health and spirits. Vital signs as documented. Skin warm and dry and without overt rashes. Neck without JVD, neck was supple, trachea midline, thyroid was normal. Lungs clear bilaterally, normal air movement was noted. Heart exam notable for regular rhythm, normal sounds and absence of murmurs, rubs or gallops. Abdomen unremarkable and without evidence of organomegaly, masses, or abdominal aortic enlargement. Bowel sounds are present, abdomen is not distend ed. Extremities nonedematous, no cyanosis was noted, no clubbing was noted. Neuro: Cranial nerves II through XII are grossly intact, no focal motor deficits were noted, sensation to light touch and pinprick intact, motor exam 5/5 throughout. Psych: Patient is alert and oriented x3, he does not appear anxious or depressed, he does not appear agitated. Patient abruptly wished to be discharged on 11/15/2019, I did not feel that keeping the patient any longer in the hospital was of any benefit to the patient, I suspect that he will go back to drinking at home. Patient was discharged in stable condition on 11/15/2019. - Physical Exam Vitals/I&O's: Vital Signs Temp Pulse Resp BP Pulse Ox 98 F 65 16 133/77 H 97 11/15/19 14:19 11/15/19 14:19 11/15/19 14:19 11/15/19 08:35 11/15/19 14:19 Oxygen Delivery Method Room Air Weight: 100.6 kg Body Mass Index (BMI) 34.7 Finger Stick Blood Glucose 104 Intake and Output for Last 24 Hours 11/13/19 11/14/19 11/15/19 23:59 23:59 23:59 Intake Total 1050 / 1050 350 / 350 600 / 600 Balance 1050 / 1050 350 / 350 600 / 600 Discharge Activity: Return to Normal Activity Weight Bearing Status: Full weight bearing Home Medications: Medications to take at Discharge Atenolol [Tenormin (beta srikanth)] 25 mg PO QHS 04/30/19 Sertraline HCl [Zoloft] 100 mg PO QHS 04/30/19 Apixaban [Eliquis] 5 mg PO DAILY 11/02/19 Omeprazole [Prilosec] 20 mg PO DAILY 11/02/19 Primary Care Physician: Armani Guerrero MD [Primary Care Provider] - Please follow up with your Primary Care Physician in: as scheduled Disposition: Home Minutes spent on discharge:: 32 Patient Condition:: Stable Medical Necessity - Tobacco Use Smoking Status: Current every day smoker Tobacco Use: Cigarettes Meaningful Use Info Meaningful Use Diagnoses (Choose all that apply): None applicable Inpatient E&M: 36785 Disch Hosp
== END 2019-11-15 14:37 | disposition home or self-care (01) | DRG 775 ==
LOC: ED 23:49 → MS3 11-13 04:21
PROVIDERS: Admitting Provider Family Medicine; Emergency Provider Emergency Medicine; PCP Family Medicine; Visit Provider Internal Medicine
DX: F10.239 Alcohol dependence with withdrawal, unspecified (principal); G47.33 Obstructive sleep apnea (adult) (pediatric); I48.0 Paroxysmal atrial fibrillation; K21.9 Gastro-esophageal reflux disease without esophagitis; Z79.02 Long term (current) use of antithrombotics/antiplatelets; E78.5 Hyperlipidemia, unspecified; Z86.73 Personal history of transient ischemic attack (TIA), and cerebral infarction without residual deficits; I10 Essential (primary) hypertension; Z91.19 Patient's noncompliance with other medical treatment and regimen; Z79.899 Other long term (current) drug therapy; F41.9 Anxiety disorder, unspecified; F32.9 Major depressive disorder, single episode, unspecified; Z68.41 Body mass index [BMI] 40.0-44.9, adult; Y90.8 Blood alcohol level of 240 mg/100 ml or more; R10.11 Right upper quadrant pain; F17.210 Nicotine dependence, cigarettes, uncomplicated; E66.9 Obesity, unspecified
CPT/HCPCS: 76705; 80048; 80076; 80307; 80320; 83690; 83735; 84100; 85025; 93005; 99284; 99406; J7120; A4216; G0480

== ENCOUNTER 2019-11-16 22:57 | Inpatient (IN) | payer MEDICAID, SELFPAY ==
[2019-11-13 00:41] VITALS: BMI 34.7
[2019-11-16 22:58] VITALS: BP 136/67; PULSE 101; RESP 13; TEMP 37.8; O2SAT 96
[2019-11-16 22:59] VITALS: BP 175/109; PULSE 98; RESP 24; TEMP 37.8; O2SAT 99; BMI 37.3
[2019-11-16 23:06] VITALS: BP 157/64; PULSE 96; RESP 16; TEMP 38.2; O2SAT 97
[2019-11-16 23:13] VITALS: BP 157/64; PULSE 96; RESP 15; O2SAT 98
--- NOTE | 2019-11-16 23:13 | EKG12_ITS ---
Test Reason : SOB Blood Pressure : / mmHG Vent. Rate : 096 BPM Atrial Rate : 096 BPM P-R Int : 178 ms QRS Dur : 082 ms QT Int : 324 ms P-R-T Axes : 037 016 042 degrees QTc Int : 409 ms Normal sinus rhythm Normal ECG Confirmed by BILLY SEXTON, DANII ([id number]), electronic news gathering editor SHIKHA [place] ([id number]) on 11/18/2019 2:41:55 PM Referred By: JUAN C Confirmed By:DANII CERVANTES MD
[2019-11-16] MEDS: Acetaminophen 500 MG Tablet 1000 MG PO (23:22)
[2019-11-16 23:28] VITALS: TEMP 38.2
[2019-11-16 23:30] VITALS: PULSE 100; RESP 24
[2019-11-16] MEDS: Ipratropium/Albuterol Sulfate 3 ML AMPUL.NEB INHALATION (23:30)
--- NOTE | 2019-11-16 23:30 | RAD_ITS ---
STUDY: X-RAY CHEST REASON FOR EXAM: Male, 49 years old. SOB, COUGH TECHNIQUE: Frontal view COMPARISON: None. FINDINGS: There are bilateral perihilar pulmonary infiltrates increased from prior study. There is no demonstrated pleural abnormality. Normal size heart. Normal mediastinum and candelaria. Normal visualized pulmonary arteries. Normal visualized aortic arch and descending thoracic aorta. Normal visualized thoracic spine. Normal visualized ribs, clavicles, and shoulders. There is no demonstrated abnormality of the visualized soft tissue structures of the upper abdomen. RAD/Chest 1 View (Portable) IMPRESSION: Increased bilateral pulmonary infiltrates. Electronically Signed: Uli Olivares MD at 0:09 EDT , Service support ,
--- NOTE | 2019-11-16 23:33 | ED.DCSUM_ITS ---
- ER Visit Summary Date of Service: 11/16/19 Chief Complaint: Shortness of breath History of Present Illness: The patient is a 49 M who presents with shortness of breath that began yesterday. Patient states it is gradually getting worse. Patient states he is coughing up some white and clear sputum. Patient states it feels like his lungs are itching. Patient admits to subjective fevers and chills. Patient also admits to a sore throat and rhinorrhea. Patient was recently admitted for alcohol withdrawal. Patient does admit to drinking a couple beers today. Patient states nothing makes his breathing better or worse. Patient denies any other chest pain or palpitations. Patient admits to nausea but denies any vomiting. Patient admits to polydipsia but denies any polyuria. Physical Examination: Vital signs are stable. Patient does have a temperature of 100.7 here. Patient is in no acute distress. Oral mucosa is pink and moist. Neck is supple. Trachea is midline. There is no JVD. Heart was regular rate and rhythm. Lungs are diminished bilaterally. There is adequate respiratory effort noted. Abdomen is soft. Bowel sounds are normal. There is no tenderness. Cranial nerves II through XII are intact. There are no focal motor or sensory deficits noted. Extremities are intact. There is no calf tenderness or edema. Test Results: EKG showed normal sinus rhythm with a rate of 96. There are no acute ST or T wave changes. CBC shows a slight anemia with a hemoglobin of 12.5 and hematocrit 38.2. Comprehensive metabolic profile is within normal limits. PT with INR and PTT were normal. Troponin was normal. Portable chest x-ray shows bilateral infiltrates which are increased from the prior study. This was interpreted by the radiologist and reviewed by myself. Serum lactate was elevated at 3.0. Serum alcohol level was 123. A COVID swab was ordered and is pending. Emergency Department Course and Treatment: Patient was initially placed on nonrebreather mask. Patient was then weaned down to 2 L nasal cannula. Patient was given a DuoNeb aerosol. Patient was given a dose of morphine. Patient was started on Zosyn. Case was discussed with the hospitalist, Dr. Carlson. She will admit the patient to ICU. Patient understood and was agreeable with the plan. All questions were answered. Disposition: Admit to hospital Impression: 1. Healthcare associated pneumonia 2. Severe sepsis Critical care time: 30 minutes. This was time spent obtaining history, performing physical exam, interpreting test results, determining treatment, discussion with consultants, determining disposition. This note was generated with [employer] dictation software. It may contain incorrect words, spelling, and punctuation that were not noted in review of the chart prior to signing ED Disposition - Plan for ED Patient: Disposition: Acute Care Hospital [facility] Diagnosis: Healthcare-associated pneumonia, Severe sepsis Referrals: Armani Guerrero MD [Primary Care Provider] -
[2019-11-16 23:34] LABS: Prothrombin Time (Protime)PT. 12.9 SECONDS (11.7-14.9)
[2019-11-16 23:40] LABS: Absolute Lymphocyte Count 1.04 X10^3/uL (0.83-4.51); Absolute Neutrophil Count 8.5 X10^3/uL (2.0-7.7); Basophil# 0.02 X10^3/uL; Basophil% 0.2 % (0-1); Eosinophil# 0.06 X10^3/uL; Eosinophils% 0.6 % (0-5); Hematocrit 38.2 % (40-54); Hemoglobin 12.5 g/dL (13.0-16.5); Lymphocyte # 1.04 X10^3/ul (4.0); Lymphocyte % 10.2 % (19-41); Mean Corp Hgb Conc 32.7 g/dL (32-36); Mean Corpuscular Hgb 29.3 pg (27.0-32.0); Mean Corpuscular Volume 89.5 fL (80-94); Monocyte% 4.9 % (0-10); NRBC Flagged by Analyzer 0 % (0-5); Neutrophil # 8.45 X10^3/uL (2.7-7.7); Neutrophil % 83.2 % (47-70); Platelet Count 155 K/mm3 (150-450); RBC Distribution Width CV 13.7 % (11.6-14.6); RBC Distribution Width SD 44.2 fl (35.1-43.9); Red Blood Count 4.27 M/mm3 (4.6-6.2); White Blood Count 10.2 K/mm3 (4.4-11.0)
[2019-11-16 23:43] LABS: ALB/GLOB Ratio 0.9 RATIO (0.9-2.4); AST(SGOT) 26 U/L (15-37); Alanine Aminotransfer ALT/SGPT 19 U/L (16-61); Albumin, Serum 3.5 g/dL (3.2-5.0); Alkaline Phosphatase 47 U/L (45-117); Anion Gap 9 (5-15); BUN 11 mg/dL (7-18); BUN/Creat Ratio 10.2 RATIO (10-20); Calcium,Total 8.2 mg/dL (8.5-10.1); Chloride 109 mmol/L (98-107); Creatinine, Serum 1.08 mg/dL (0.70-1.30); EST Glomerular Filtration Rate 77 mL/min (>60); Est Glom Filt Rate - Afr Amer 93 mL/min (>60); Globulin 3.8 g/dL (2.2-4.2); Glucose 94 mg/dL (74-106); Potassium 3.7 mmol/L (3.5-5.1); Protein, Total 7.3 g/dL (6.4-8.2); Sodium Level 139 mmol/L (136-145)
[2019-11-17] VITALS (25 sets, daily range): BP systolic 105–148; BP diastolic 54–86; PULSE 59–99; RESP 14–34; TEMP 36.2–39.1; O2SAT 90–100; BMI 35.9; BMI 37.3
--- NOTE | 2019-11-17 00:39 | PCM.HP.STD ---
Problem List (1) Severe sepsis Status: Acute (2) Bilateral pneumonia Status: Acute Qualifiers: Pneumonia type: due to unspecified organism Lung location: unspecified part of lung Qualified Code(s): J18.9 - Pneumonia, unspecified organism (3) Suspected 2019 novel coronavirus infection Status: Acute (4) Alcohol abuse Status: Chronic (5) CVA (cerebral vascular accident) Status: Inactive Qualifiers: CVA mechanism: unspecified Qualified Code(s): I63.9 - Cerebral infarction, unspecified (6) JOHNATHAN (obstructive sleep apnea) Status: Chronic (7) Depression Status: Chronic Qualifiers: Depression Type: unspecified Qualified Code(s): F32.9 - Major depressive disorder, single episode, unspecified (8) Hyperlipidemia Status: Chronic Qualifiers: Hyperlipidemia type: unspecified Qualified Code(s): E78.5 - Hyperlipidemia, unspecified (9) Paroxysmal atrial fibrillation Status: Chronic Comment: Follow up with government relations analyst at [place] (10) Tobacco dependence Status: Chronic (11) GERD (gastroesophageal reflux disease) Status: Chronic Qualifiers: Esophagitis presence: esophagitis presence not specified Qualified Code(s): K21.9 - Gastro-esophageal reflux disease without esophagitis History of Present Illness Date of Admission: 11/17/19 Chief Complaint: Dyspnea, recent admission for EtOH withdrawal treatment The patient is a 49 y/o M w/ PMHx: Hx TIA w/ recent evaluation at [facility] for possible CVA which per patient/sister was ruled out, HTN, HLD, PAF, JOHNATHAN non-complaint with CPAP, GERD, Tobacco use recently admitted 11/12/19 for treatment of acute alcohol withdrawal treatment with intake noted at that time normally 1/2 of a 5th of vodka daily with at that time ED work-up unremarkable, including T 98.3, heart rate 83, BP 139/74, respiratory rate 20, 98% on room air, unremarkable CBC, unremarkable CMP, negative urine drug screen, ethyl alcohol level 262 discharged the evening of 11/15/19, who now re-presents to the [facility] ED on 11/17/19 with onset initially severe sore throat, worsening dyspnea with non-productive cough and rhinorrhea in add to description of his lungs itching which he notes he has felt prior when he was remotely diagnosed with pneumonia and fevers/chills. He notes he felt well at discharge but following when he returned to home he had onset symptoms. He does admit to having 1.5 beers since his discharge evening prior. Work-up in the ED included T1 a 2.2, heart rate 100, BP 140/86, respiratory rate 24, 100% on nonrebreather, CBC with WBC 10.2, hemoglobin 12.5, platelet 155 with left shift, unremarkable coags, CMP with chloride 109 otherwise unremarkable, lactic acid 3.0, troponin less than 0.015, ethyl alcohol level 123, pending COVID testing, chest x-ray with bilateral pulmonary infiltrates. In the ED patient ministered morphine, Motrin, DuoNeb, Tylenol and Zosyn therapy. Past Medical History Past Medical History (Chronic Problems): Chronic Problems (Last Reviewed 01/06/18 @ 17:[address] Luciano Fajardo DO) Alcohol abuse (Chronic) Obesity (BMI 30-39.9) (Chronic) JOHNATHAN (obstructive sleep apnea) (Chronic) TIA (transient ischemic attack) (Chronic) Depression (Chronic) Hyperlipidemia (Chronic) Paroxysmal atrial fibrillation (Chronic) Follow up with government relations analyst at [place] Tobacco dependence (Chronic) GERD (gastroesophageal reflux disease) (Chronic) Medical History: Medical History (Last Reviewed 01/06/18 @ 17:[address] Luciano Fajardo DO) Obesity (BMI 30-39.9) (Chronic) E66.9 JOHNATHAN (obstructive sleep apnea) (Chronic) G47.33 TIA (transient ischemic attack) (Chronic) G45.9 Depression (Chronic) F32.9 Hyperlipidemia (Chronic) E78.5 Paroxysmal atrial fibrillation (Chronic) I48.0 Follow up with government relations analyst at [place] Tobacco dependence (Chronic) F17.200 GERD (gastroesophageal reflux disease) (Chronic) K21.9 Chronic back pain M54.9, G89.29 Noncompliance with CPAP treatment Z91.14 Allergies azithromycin Allergy (Verified 11/02/19 17:37) Shortness of breath Home Medications: Ambulatory Orders Medication Instructions Recorded Atenolol [Tenormin (beta srikanth)] 25 mg PO QHS 04/30/19 Sertraline HCl [Zoloft] 100 mg PO QHS 04/30/19 Apixaban [Eliquis] 5 mg PO DAILY 11/02/19 Omeprazole [Prilosec] 20 mg PO DAILY 11/02/19 Surgical History: Surgical History (Last Reviewed 01/06/18 @ 17:[address] Luciano Fajardo DO) Hx of appendectomy Z90.49 Surgical History: appendectomy Psychiatric History: Anxiety, Depression Lives: With Family - Patient is at home and his son and daughter live with him. Smoking Status: Current every day smoker - Patient has ongoing 1 pack/day cigarette tobacco usage. Tobacco Use: Cigarettes Alcohol: Heavy - Patient drinks at least five 5th vodka daily Drugs: None - *Family History Sibling Family History: Family History (Last Reviewed 01/06/18 @ 17:[address] Luciano Fajardo DO) Mother Diabetes CAD (coronary artery disease) CVA (cerebral vascular accident) Myocardial infarction, Onset Age: 35 Father CAD (coronary artery disease) Diabetes CVA (cerebral vascular accident) History Items: Diabetes, Heart Disease Maternal Family History: Family History (Last Reviewed 01/06/18 @ 17:[address] Luciano Fajardo DO) Mother Diabetes CAD (coronary artery disease) CVA (cerebral vascular accident) Myocardial infarction, Onset Age: 35 Father CAD (coronary artery disease) Diabetes CVA (cerebral vascular accident) History Items: Diabetes, Heart Disease - [place] at 35 y/o., Stroke Paternal Family History: Family History (Last Reviewed 01/06/18 @ 17:[address] Luciano Fajardo DO) Mother Diabetes CAD (coronary artery disease) CVA (cerebral vascular accident) Myocardial infarction, Onset Age: 35 Father CAD (coronary artery disease) Diabetes CVA (cerebral vascular accident) History Items: Diabetes, Heart Disease, Stroke Review of Systems Constitutional: Reports: Chills, Fever, Malaise, Weakness, Fatigue. Denies: Anorexia, Weight Change HEENT: Reports: Sore Throat, - - Rhinorrhea.. Denies: Head Aches, Sinus Congestion, Sinus Drainage Cardiovascular: Denies: Chest Pain, Palpitations Respiratory: Reports: Cough, Shortness of Breath, Shortness of breath at rest, Shortness of breath upon exertion. Denies: Sputum production, Wheezing Gastrointestinal: Reports: Nausea. Denies: Abdominal Pain, Vomiting Genitourinary: Denies: Dysuria Musculoskeletal: Reports: Joint Pain. Denies: Joint Tenderness Skin: Denies: Rash, Wounds Neurological: Denies: Numbness, Tingling, Focal weakness Psychiatric: Denies: Anxiety, Depression, Homicidal Ideations, Suicidal Ideations Hematologic/ Lymphatic: Reports: Easy Bruising, Easy Bleeding VTE Information - Inpt Only VTE Present on Admission: No VTE Mechan Device Prophylaxis: SCD's VTE Pharm Prophylaxis ordered?: No Reason prophylaxis not ordered:: Treatment Not Indicated - Continue home oral eliquis regimen. Patient Problems: Active and Suspected Problems (Last Reviewed 01/06/18 @ 17:[address] Luciano Fajardo, DO) Severe sepsis (Acute) Bilateral pneumonia (Acute) Suspected 2019 novel coronavirus infection (Acute) Subjective: Seated upright in the ED bed, fatigued and ill-appearing, no acute distress, dyspnea is improved with treatments and oxygen. Objective: Physical Examination: General: awake, alert, oriented x 3 and cooperative, seated upright in the ED bed, fatigued and ill-appearing, dyspnea is improved since initial ED presentation following oxygen supplementation and treatments. Skin: normal color, turgor, no icterus, cyanosis. HEENT: AT/NC, EOMI, PERRLA, dry MM, no carotid bruits or JVD noted. Lungs: Diminished breath sounds, greater bases, mild increased effort, improved since initial ED presentation, no obvious rales, ronchi or wheezing. Heart: Mildly tachycardic with regular rhythm; no gallop, rub audible. Abdomen: soft, obese, NTTP, ND, normal BS, no HSM. Extremities: no cyanosis, clubbing, or edema. Neurological: patient awake, alert, oriented x 3; cognitive function intact; pupils equally reactive to light and accomodation; cranial nerves II-XII grossly normal, moving all 4 extremities, no focal deficits, strength moderately to severely global decrease secondary to acute presentation, no evidence of any tremors, no obvious evidence of withdrawal. Psychiatric: affect appears fatigued, ill-appearing, no acute evidence of depressive or anxiety feelings. - Physical Exam Vitals/I&O's: Vital Signs Temp Pulse Resp BP Pulse Ox 102.2 F H 97 14 132/72 H 100 11/17/19 00:13 11/17/19 00:13 11/17/19 00:13 11/17/19 00:13 11/17/19 00:13 Oxygen Flow Rate (L/min) 6 Oxygen Delivery Method Non-Rebreather Weight: 238 lb 5.115 oz Body Mass Index (BMI) 37.3 Finger Stick Blood Glucose 104 Laboratory Results 11/16/19 23:05: WBC 10.2, RBC 4.27 L, Hgb 12.5 L, Hct 38.2 L, MCV 89.5, MCH 29.3, MCHC 32.7, RDW Std Deviation 44.2 H, RDW Coeff of Pearl 13.7, Plt Count 155, MPV 11.0, Immature Gran % (Auto) 0.900, Neut % (Auto) 83.2 H, Lymph % (Auto) 10.2 L, [place] % (Auto) 4.9, Eos % (Auto) 0.6, Baso % (Auto) 0.2, Absolute Neuts (auto) 8.5 H, Absolute Lymphs (auto) 1.04, Nucleated RBC % 0 11/16/19 23:05: PT 12.9, INR 1.0, APTT 29.0 11/16/19 23:05: Sodium 139, Potassium 3.7, Chloride 109 H, Carbon Dioxide 21.0, Anion Gap 9, BUN 11, Creatinine 1.08, Estim Creat Clear Calc 76.50, Est GFR (MDRD) Af Amer 93, Est GFR (MDRD) Non-Af 77, BUN/Creatinine Ratio 10.2, Glucose 94, Calcium 8.2 L, Total Bilirubin 0.30, AST 26, ALT 19, Alkaline Phosphatase 47, Troponin I < 0.015, Total Protein 7.3, Albumin 3.5, Globulin 3.8, Albumin/Globulin Ratio 0.9 11/16/19 23:05: Lactic Acid 3.0 H* 11/16/19 23:05: Ethyl Alcohol 123.0 Current Medications Piperacillin Sod/Tazobactam (Sod 4.5 gm/ Sodium Chloride) 100 mls @ 200 mls/hr IV X1 ONE Stop: 11/17/19 00:52 Assessment/Plan All Active Problems (Last Reviewed 01/06/18 @ 17:[address] Luciano Fajardo, DO) Severe sepsis (Acute) Bilateral pneumonia (Acute) Suspected 2018 novel coronavirus infection (Acute) Chest pain (Resolved) Alcohol withdrawal (Acute) Chest pain (Resolved) The patient is a 49 y/o M w/ PMHx: Hx TIA w/ recent evaluation at [facility] for possible CVA which per patient/sister was ruled out, HTN, HLD, PAF, JOHNATHAN non-complaint with CPAP, GERD, Tobacco use recently admitted 11/12/19 for treatment of acute alcohol withdrawal treatment who now re-presents to the [facility] ED on 11/17/19 with onset initially severe sore throat, worsening dyspnea with non-productive cough and rhinorrhea. 1. Acute Severe Sepsis secondary to Acute Dyspnea, Cough, Fever with Bilateral Pneumonia secondary to Suspected Acute Viral Syndrome, COVID-19: Will admit to the ICU given severe sepsis status in COVID precautions, will maintain on oxygen with wean as tolerated to room air, PRN albuterol, maintain on IV Zosyn given recent admission and in case of aspiration component and Vancomycin w/ pending MRSA screen w/ de-escalation if appropriate, HOB, IS parameters w/ pending sputum cultures and urine antigens, will obtain procalcitonin, CRP, CPK, Ferritin, LDH, d-dimer, continue supportive care including q 2 hour turning including prone given no prone bed availability and judicious hydration, closely monitor for worsening status for ARDS and multiorgan failure, consult ICU physician per facility protocol. 2. Alcohol Abuse, Recent Detoxification: Recent discharge and resumption EtOH intake, notes 1.5 beers. Discussed treatment re-initiated and declined. Will consult Case management again for assistance with discharge substance abuse planning. Mag, phos pending. 3. Recent Right upper quadrant pain, unclear etiology: CMP unremarkable, follow-up prior admission RUQ US without acute findings. 4. History of TIA: We will continue patient home Eliquis, atenolol regimen with hold parameters given acute presentation, not on statin therapy. 5. Hypertension: Continue home regimen including atenolol with hold parameters given acute presentation, PRN hydralazine. 6. Hyperlipidemia: Not on statin, may consider addition especially given history of TIA. 7. Anxiety and depression: We will continue home Zoloft regimen. 8. PAF: We will maintain on Eliquis as well as atenolol therapy. 9. JOHNATHAN: Noncompliant with CPAP. 10. GERD: We will continue patient home omeprazole regimen. 11. Tobacco Abuse: Encouraged cessation, inpatient consultation per RT, NR if desired. 12. DVT prophylaxis: We will continue patient home Eliquis therapy. Inpatient E&M: [id number] Init Hosp L3
[2019-11-17] MEDS: Ibuprofen 600 MG Tablet PO ×2 (00:46→15:58)
[2019-11-17] MEDS: Morphine 2 MG/ML Syringe IV ×2 (00:46→02:30)
[2019-11-17 01:07] LABS: Bacteria 0 SEEN /hpf (None Seen); Mucous, Urine 0 SEEN /hpf (<or=2+); Squamous Epithelial Cells - UA 0 SEEN /hpf (0-5); White Blood Cells 0 SEEN /hpf (0-5)
[2019-11-17 01:09] LABS: Color, Urine Yellow (Yellow); Glucose, Dipstick Normal (Normal); Ketone-Dipstick 5 mg/dl (Negative); Leukocyte Esterase-Dipstick Negative /ul (Negative); Nitrite-Dipstick Negative (Negative); Occult Blood-Urine 10 /ul (Negative); Protein-Dipstick 30 mg/dl (Negative); Specific Gravity, Urine 1.015 (1.002-1.030); Urine Bilirubin Dipstick Negative (Negative); Urine Clarity Clear (Clear); Urine Urobilinogen Normal (Normal)
[2019-11-17 01:15] LABS: Red Blood Cells-Urine 0-5 SEEN /hpf (0-5)
[2019-11-17 01:27] LABS: BNP,B-Type NATRIURETIC PEPTIDE 22.7 pg/mL (0-100)
[2019-11-17 01:35] LABS: Probe Check PASS; Specimen Processing Control PASS
[2019-11-17] MEDS: 0.9% Normal Saline 1,000 ML 999 ML IV (02:20)
[2019-11-17] MEDS: guaiFENesin 10 ML UDC (200MG/10ML) PO (02:30)
[2019-11-17 02:34] LABS: D-Dimer Quantitative (DVT/PE) 0.37 FEU/ug/m (0.27-0.49)
[2019-11-17 02:46] LABS: Ferritin 154 ng/mL (26-388); LDH 388 U/L (87-241); Magnesium 1.9 mg/dL (1.6-2.6); Procalcitonin 0.07 ng/mL (0.00-0.09)
[2019-11-17] MEDS: traZODone 50 MG Tablet PO (02:54)
[2019-11-17] MEDS: Phenobarbital 32.4 MG Tablet 97.2 MG PO ×2 (02:55→06:19)
[2019-11-17] MEDS: 0.9% Normal Saline 1,000 ML 125 ML IV ×2 (02:59→06:17)
[2019-11-17 03:16] LABS: Reflex Lactate? Y
[2019-11-17] MEDS: 0.9% Saline Lock 10 ML Syringe IV (03:49)
[2019-11-17 03:53] LABS: Absolute Lymphocyte Count 1.56 X10^3/uL (0.83-4.51); Absolute Neutrophil Count 8.9 X10^3/uL (2.0-7.7); Basophil# 0.03 X10^3/uL; Basophil% 0.3 % (0-1); Eosinophil# 0.01 X10^3/uL; Eosinophils% 0.1 % (0-5); Hematocrit 34.6 % (40-54); Hemoglobin 11.3 g/dL (13.0-16.5); Lymphocyte # 1.56 X10^3/ul (4.0); Mean Corp Hgb Conc 32.7 g/dL (32-36); Mean Corpuscular Hgb 29.3 pg (27.0-32.0); Mean Corpuscular Volume 89.6 fL (80-94); Mean Platelet Vol. 10.4 fl (6.2-12.0); Monocyte# 0.55 X10^3/uL; NRBC Flagged by Analyzer 0 % (0-5); Neutrophil # 8.92 X10^3/uL (2.7-7.7); Neutrophil % 80.2 % (47-70); Platelet Count 144 K/mm3 (150-450); RBC Distribution Width SD 44.8 fl (35.1-43.9); Red Blood Count 3.86 M/mm3 (4.6-6.2); White Blood Count 11.1 K/mm3 (4.4-11.0)
--- NOTE | 2019-11-17 03:55 | PCM.RX.CS ---
Consult Pharmacy has been consulted to manage selected antiobiotic: Vancomycin Type of Consult: New start Suspected Infection: Sepsis Microbiology: Microbiology 11/17/19 01:00 Urine, Clean Catch Legionella Antigen - Final 11/17/19 01:00 Urine, Clean Catch Streptococcus pneumoniae Antigen (M - Final Goal Trough: 15-20 mcg/mL Pharmacy Plan for Drug Dosing: Pharmacy Service will continue to monitor and adjust dosing as required. Medications Vancomycin HCl 2,000 mg/ (Sodium Chloride) 540 mls @ 250 mls/hr IV Q12H [place] Vancomycin HCl 2,000 mg/ (Sodium Chloride) 540 mls @ 250 mls/hr IV X1 ONE Stop: 11/17/19 04:39 Last Admin: 11/17/19 02:58 Dose: 250 mls/hr Documented by: Follow-Up Labs: Trough Vancomycin Labs to be done on [date and time ordered]: 11/17 @ [id number]
[2019-11-17 04:10] LABS: ALB/GLOB Ratio 0.8 RATIO (0.9-2.4); AST(SGOT) 22 U/L (15-37); Alanine Aminotransfer ALT/SGPT 17 U/L (16-61); Albumin, Serum 2.9 g/dL (3.2-5.0); Alkaline Phosphatase 38 U/L (45-117); Anion Gap 7 (5-15); BUN 9 mg/dL (7-18); BUN/Creat Ratio 8.9 RATIO (10-20); Calcium,Total 7.5 mg/dL (8.5-10.1); Chloride 109 mmol/L (98-107); Creatinine, Serum 1.01 mg/dL (0.70-1.30); EST Glomerular Filtration Rate 83 mL/min (>60); Est Glom Filt Rate - Afr Amer 100 mL/min (>60); Estimated Creatinine Clearance 81.81 ml/min; Globulin 3.5 g/dL (2.2-4.2); Glucose 108 mg/dL (74-106); Potassium 3.8 mmol/L (3.5-5.1); Protein, Total 6.4 g/dL (6.4-8.2); Sodium Level 138 mmol/L (136-145)
[2019-11-17 04:15] LABS: Lactic Acid 1.1 mmol/L (0.4-1.9)
[2019-11-17 05:12] LABS: M R Staph aureus DNA By PCR Negative (Negative); Probe Check PASS; Specimen Processing Control PASS
--- NOTE | 2019-11-17 06:15 | CON.PCM_ITS ---
Reason for Consult Date of Consultation: 11/17/19 Reason for Consultation: Severe sepsis, bilateral pneumonia, possible COVID History of Present Illness: The patient is a 49-year-old male, with a history as outlined below, who presented to the emergency department on November 15 with complaints of shortness of breath. The patient was just admitted to the hospital November 11-, during which time, he was treated for acute alcohol withdrawal. The patient reported that he was out mowing his yard yesterday when he began to experience what he described as itching in his lungs. He stated that he had the same feeling previously when he was diagnosed with pneumonia. The patient then went on to develop generalized malaise, chills and shortness of breath. He also had a nonproductive cough. The patient does have a prolonged smoking history, but does not currently follow with a outsole skiver, nor does utilize inhalers at his baseline. The patient does have a history of alcoholism, routinely drinking 1/5 of hard liquor daily. On presentation to the emergency department, the patient was noted to be febrile and hypoxemic. Initial laboratory evaluation revealed a normal white blood cell count. Coagulation profile was within normal limits. D-dimer assay was normal. Chemistry profile was largely unrevealing. Lactate was elevated at 3.0. Phosphorus was low at 2.0. Serum alcohol level was noted to be 123. Coronavirus PCR was negative. MRSA screen was negative. Plain film chest x-ray revealed bilateral pulmonary infiltrates. The patient received supplemental IV fluid hydration and was placed on antimicrobials. He was subsequently admitted to the medical intensive care unit for further management of his severe sepsis. Past Medical History Past Medical History (Chronic Problems): Chronic Problems (Last Reviewed 01/06/18 @ 17:[address] Luciano Fajardo DO) Alcohol abuse (Chronic) Obesity (BMI 30-39.9) (Chronic) JOHNATHAN (obstructive sleep apnea) (Chronic) TIA (transient ischemic attack) (Chronic) Depression (Chronic) Hyperlipidemia (Chronic) Paroxysmal atrial fibrillation (Chronic) Follow up with hospital receptionist at [facility] Tobacco dependence (Chronic) GERD (gastroesophageal reflux disease) (Chronic) Medical History: Medical History (Last Reviewed 01/06/18 @ 17:[address] Luciano Fajardo DO) Obesity (BMI 30-39.9) (Chronic) E66.9 JOHNATHAN (obstructive sleep apnea) (Chronic) G47.33 TIA (transient ischemic attack) (Chronic) G45.9 Depression (Chronic) F32.9 Hyperlipidemia (Chronic) E78.5 Paroxysmal atrial fibrillation (Chronic) I48.0 Follow up with hospital receptionist at [facility] Tobacco dependence (Chronic) F17.200 GERD (gastroesophageal reflux disease) (Chronic) K21.9 Chronic back pain M54.9, G89.29 Noncompliance with CPAP treatment Z91.14 Allergies azithromycin Allergy (Verified 11/02/19 17:37) Shortness of breath Home Medications: Ambulatory Orders Medication Instructions Recorded Atenolol [Tenormin (beta mark)] 25 mg PO QHS 04/30/19 Sertraline HCl [Zoloft] 100 mg PO QHS 04/30/19 Apixaban [Eliquis] 5 mg PO DAILY 11/02/19 Omeprazole [Prilosec] 20 mg PO DAILY 11/02/19 Surgical History: Surgical History (Last Reviewed 01/06/18 @ 17:[address] Luciano Fajardo DO) Hx of appendectomy Z90.49 Surgical History: appendectomy Psychiatric History: Anxiety, Depression Lives: With Family - Patient is at home and his son and daughter live with him. Smoking Status: Current every day smoker Tobacco Use: Cigarettes Alcohol: Heavy - Patient drinks at least five 5th vodka daily Drugs: None - *Family History Sibling Family History: Family History (Last Reviewed 01/06/18 @ 17:[address] Luciano Fajardo DO) Mother Diabetes CAD (coronary artery disease) CVA (cerebral vascular accident) Myocardial infarction, Onset Age: 35 Father CAD (coronary artery disease) Diabetes CVA (cerebral vascular accident) History Items: Diabetes, Heart Disease Maternal Family History: Family History (Last Reviewed 01/06/18 @ 17:[address] Luciano Fajardo DO) Mother Diabetes CAD (coronary artery disease) CVA (cerebral vascular accident) Myocardial infarction, Onset Age: 35 Father CAD (coronary artery disease) Diabetes CVA (cerebral vascular accident) History Items: Diabetes, Heart Disease - [place] at 35 y/o., Stroke Paternal Family History: Family History (Last Reviewed 01/06/18 @ 17:[address] Luciano Fajardo DO) Mother Diabetes CAD (coronary artery disease) CVA (cerebral vascular accident) Myocardial infarction, Onset Age: 35 Father CAD (coronary artery disease) Diabetes CVA (cerebral vascular accident) History Items: Diabetes, Heart Disease, Stroke Review of Systems Constitutional: Reports: Chills, Fever, Malaise Eyes: Denies: Blurred vision, Double vision HEENT: Denies: Head Aches, Sinus Congestion, Sinus Drainage Cardiovascular: Denies: Chest Pain, Palpitations Respiratory: Reports: Cough, Shortness of Breath Gastrointestinal: Denies: Abdominal Pain, Nausea, Vomiting Genitourinary: Denies: Dysuria Musculoskeletal: Denies: Joint Pain, Joint Tenderness Skin: Denies: Rash, Wounds Neurological: Denies: Numbness, Tingling, Focal weakness Psychiatric: Denies: Anxiety, Depression, Homicidal Ideations, Suicidal Ideations Hematologic/ Lymphatic: Denies: Easy Bruising, Easy Bleeding Patient Problems: Active and Suspected Problems (Last Reviewed 01/06/18 @ 17:[address] Luciano Fajardo, DO) Severe sepsis (Acute) Bilateral pneumonia (Acute) Suspected 2018 novel coronavirus infection (Acute) Healthcare-associated pneumonia (Acute) Severe sepsis (Acute) Objective: The patient's most recent lab work, culture data and imaging studies have all been personally reviewed. Strep and urine Legionella antigens were negative. Respiratory viral panel was negative. Blood and urine cultures are pending. - Physical Exam Vitals/I&O's: Vital Signs Temp Pulse Resp BP Pulse Ox 99 F 69 20 H 117/54 L 94 11/17/19 04:00 11/17/19 04:00 11/17/19 04:00 11/17/19 04:00 11/17/19 05:05 Oxygen Flow Rate (L/min) 2 Oxygen Delivery Method Nasal Cannula Weight: 229 lb 8.019 oz Body Mass Index (BMI) 35.9 Finger Stick Blood Glucose 104 Intake and Output for Last 24 Hours 11/15/19 11/16/19 11/17/19 23:59 23:59 23:59 Intake Total 1640 / 1640 Balance 1640 / 1640 General: Alert, Cooperative, No apparent distress HEENT: Atraumatic, Normocephalic Oral: Dry Mucosa Neck: Supple, No Nodes, Trachea Midline Lungs: No rhonchi, No wheeze, No rales, Diminished, - - Speaking in complete sentences. No accessory muscle use. Cardiovascular: Regular rate, Regular Rhythm, Normal S1, Normal S2 Abdomen: Bowel Sounds Present, Soft, Non Tender, Obese Extremities: No clubbing, No cyanosis, No edema Skin: No breakdown Musculoskeletal: No Tenderness to Palpation of Joints or Extremities Lymphatic: No Cervical, Supraclavicular, or Inguinal Adenopathy Neurological: Cranial nerves II-XII grossly intact, Neuro grossly intact Psych/Mental Status: Normal Affect, Appropriate Labs (Last 48 Hours) 11/16/19 11/16/19 11/16/19 23:05 23:05 23:05 WBC 10.2 RBC 4.27 L Hgb 12.5 L Hct 38.2 L MCV 89.5 MCH 29.3 MCHC 32.7 RDW Std Deviation 44.2 H RDW Coeff of Pearl 13.7 Plt Count 155 MPV 11.0 Immature Gran % (Auto) 0.900 Neut % (Auto) 83.2 H Lymph % (Auto) 10.2 L [place] % (Auto) 4.9 Eos % (Auto) 0.6 Baso % (Auto) 0.2 Absolute Neuts (auto) 8.5 H Absolute Lymphs (auto) 1.04 Nucleated RBC % 0 PT 12.9 INR 1.0 APTT 29.0 D-Dimer Quant (PE/DVT) Sodium 139 Potassium 3.7 Chloride 109 H Carbon Dioxide 21.0 Anion Gap 9 BUN 11 Creatinine 1.08 Estim Creat Clear Calc 76.50 Est GFR (MDRD) Af Amer 93 Est GFR (MDRD) Non-Af 77 BUN/Creatinine Ratio 10.2 Glucose 94 Lactic Acid Calcium 8.2 L Phosphorus Magnesium Ferritin Total Bilirubin 0.30 AST 26 ALT 19 Alkaline Phosphatase 47 Lactate Dehydrogenase Troponin I < 0.015 C-React Prot Ext Range B-Natriuretic Peptide Total Protein 7.3 Albumin 3.5 Globulin 3.8 Albumin/Globulin Ratio 0.9 Procalcitonin Urine Color Urine Clarity Urine pH Ur Specific [place] Urine Protein Urine Glucose (UA) Urine Ketones Urine Occult Blood Urine Nitrite Urine Bilirubin Urine Urobilinogen Ur Leukocyte Esterase Urine RBC Urine WBC Ur Squamous Epith Cells Urine Bacteria Urine Mucus Ethyl Alcohol COVID-19 (RAFITA) MRSA (PCR) 11/16/19 11/16/19 11/16/19 23:05 23:05 23:05 WBC RBC Hgb Hct MCV MCH MCHC RDW Std Deviation RDW Coeff of Pearl Plt Count MPV Immature Gran % (Auto) Neut % (Auto) Lymph % (Auto) [place] % (Auto) Eos % (Auto) Baso % (Auto) Absolute Neuts (auto) Absolute Lymphs (auto) Nucleated RBC % PT INR APTT D-Dimer Quant (PE/DVT) Sodium Potassium Chloride Carbon Dioxide Anion Gap BUN Creatinine Estim Creat Clear Calc Est GFR (MDRD) Af Amer Est GFR (MDRD) Non-Af BUN/Creatinine Ratio Glucose Lactic Acid 3.0 H* Calcium Phosphorus Magnesium Ferritin Total Bilirubin AST ALT Alkaline Phosphatase Lactate Dehydrogenase Troponin I C-React Prot Ext Range B-Natriuretic Peptide 22.7 Total Protein Albumin Globulin Albumin/Globulin Ratio Procalcitonin Urine Color Urine Clarity Urine pH Ur Specific [place] Urine Protein Urine Glucose (UA) Urine Ketones Urine Occult Blood Urine Nitrite Urine Bilirubin Urine Urobilinogen Ur Leukocyte Esterase Urine RBC Urine WBC Ur Squamous Epith Cells Urine Bacteria Urine Mucus Ethyl Alcohol 123.0 COVID-19 (RAFITA) MRSA (PCR) 11/16/19 11/16/19 11/16/19 23:05 23:05 23:05 WBC RBC Hgb Hct MCV MCH MCHC RDW Std Deviation RDW Coeff of [place] Plt Count MPV Immature Gran % (Auto) Neut % (Auto) Lymph % (Auto) [place] % (Auto) Eos % (Auto) Baso % (Auto) Absolute Neuts (auto) Absolute Lymphs (auto) Nucleated RBC % PT INR APTT D-Dimer Quant (PE/DVT) 0.37 Sodium Potassium Chloride Carbon Dioxide Anion Gap BUN Creatinine Estim Creat Clear Calc Est GFR (MDRD) Af Amer Est GFR (MDRD) Non-Af BUN/Creatinine Ratio Glucose Lactic Acid Calcium Phosphorus 2.0 L Magnesium 1.9 Ferritin 154 Total Bilirubin AST ALT Alkaline Phosphatase Lactate Dehydrogenase 388 H Troponin I C-React Prot Ext Range 158.00 H B-Natriuretic Peptide Total Protein Albumin Globulin Albumin/Globulin Ratio Procalcitonin 0.07 Urine Color Urine Clarity Urine pH Ur Specific [place] Urine Protein Urine Glucose (UA) Urine Ketones Urine Occult Blood Urine Nitrite Urine Bilirubin Urine Urobilinogen Ur Leukocyte Esterase Urine RBC Urine WBC Ur Squamous Epith Cells Urine Bacteria Urine Mucus Ethyl Alcohol COVID-19 (RAFITA) MRSA (PCR) 11/17/19 11/17/19 11/17/19 00:27 01:00 03:40 WBC 11.1 H RBC 3.86 L Hgb 11.3 L Hct 34.6 L MCV 89.6 MCH 29.3 MCHC 32.7 RDW Std Deviation 44.8 H RDW Coeff of Pearl 14.0 Plt Count 144 L MPV 10.4 Immature Gran % (Auto) 0.400 Neut % (Auto) 80.2 H Lymph % (Auto) 14.0 L [place] % (Auto) 5.0 Eos % (Auto) 0.1 Baso % (Auto) 0.3 Absolute Neuts (auto) 8.9 H Absolute Lymphs (auto) 1.56 Nucleated RBC % 0 PT INR APTT D-Dimer Quant (PE/DVT) Sodium Potassium Chloride Carbon Dioxide Anion Gap BUN Creatinine Estim Creat Clear Calc Est GFR (MDRD) Af Amer Est GFR (MDRD) Non-Af BUN/Creatinine Ratio Glucose Lactic Acid Calcium Phosphorus Magnesium Ferritin Total Bilirubin AST ALT Alkaline Phosphatase Lactate Dehydrogenase Troponin I C-React Prot Ext Range B-Natriuretic Peptide Total Protein Albumin Globulin Albumin/Globulin Ratio Procalcitonin Urine Color Yellow Urine Clarity Clear Urine pH 5.0 Ur Specific [place] 1.015 Urine Protein 30 H Urine Glucose (UA) Normal Urine Ketones 5 H Urine Occult Blood 10 H Urine Nitrite Negative Urine Bilirubin Negative Urine Urobilinogen Normal Ur Leukocyte Esterase Negative Urine RBC 0-5 SEEN Urine WBC 0 SEEN Ur Squamous Epith Cells 0 SEEN Urine Bacteria 0 SEEN Urine Mucus 0 SEEN Ethyl Alcohol COVID-19 (RAFITA) Negative MRSA (PCR) 11/17/19 11/17/19 11/17/19 03:40 03:40 03:40 WBC RBC Hgb Hct MCV MCH MCHC RDW Std Deviation RDW Coeff of Pearl Plt Count MPV Immature Gran % (Auto) Neut % (Auto) Lymph % (Auto) [place] % (Auto) Eos % (Auto) Baso % (Auto) Absolute Neuts (auto) Absolute Lymphs (auto) Nucleated RBC % PT INR APTT D-Dimer Quant (PE/DVT) Sodium 138 Potassium 3.8 Chloride 109 H Carbon Dioxide 22.0 Anion Gap 7 BUN 9 Creatinine 1.01 Estim Creat Clear Calc 81.81 Est GFR (MDRD) Af Amer 100 Est GFR (MDRD) Non-Af 83 BUN/Creatinine Ratio 8.9 L Glucose 108 H Lactic Acid 1.1 Calcium 7.5 L Phosphorus Magnesium Ferritin Total Bilirubin 0.50 AST 22 ALT 17 Alkaline Phosphatase 38 L Lactate Dehydrogenase Troponin I C-React Prot Ext Range B-Natriuretic Peptide Total Protein 6.4 Albumin 2.9 L Globulin 3.5 Albumin/Globulin Ratio 0.8 L Procalcitonin Urine Color Urine Clarity Urine pH Ur Specific [place] Urine Protein Urine Glucose (UA) Urine Ketones Urine Occult Blood Urine Nitrite Urine Bilirubin Urine Urobilinogen Ur Leukocyte Esterase Urine RBC Urine WBC Ur Squamous Epith Cells Urine Bacteria Urine Mucus Ethyl Alcohol COVID-19 (RAFITA) MRSA (PCR) Negative Microbiology 11/17/19 01:00 Urine, Clean Catch Legionella Antigen - Final 11/17/19 01:00 Urine, Clean Catch Streptococcus pneumoniae Antigen (M - Final Clinical Impression(s) from Imaging Studies Chest X-Ray 11/16/19 23:30 IMPRESSION: Increased bilateral pulmonary infiltrates. Electronically Signed: Uli Olivares MD at 0:09 EDT , Service support , Current Medications Acetaminophen (Tylenol) 650 mg PO Q4H PRN PRN PRN Reason: Temp > 100.4 F, pain 1-10/10 Al Hydroxide/Mg Hydroxide (Mylanta Ii) 30 ml PO Q6H PRN PRN PRN Reason: dyspesia Albuterol Sulfate (Ventolin Aerosols) 2.5 mg INHALATION Q2H PRN PRN PRN Reason: Dyspnea, wheezing Apixaban (Eliquis) 5 mg PO DAILY [place] Atenolol (Tenormin (Beta Mark)) 25 mg PO QHS [place] Bisacodyl (Dulcolax) 10 mg RECTAL DAILY PRN PRN Reason: Constipation Dicyclomine HCl (Bentyl) 20 mg PO Q6H PRN PRN PRN Reason: abdominal discomfort Folic Acid (Folic Acid) 1 mg PO DAILY@0800 [place] Gabapentin (Neurontin) 300 mg PO Q8H PRN PRN PRN Reason: moderate to severe anxiety Guaifenesin (Robitussin) 10 ml PO Q4H PRN PRN PRN Reason: COUGH Last Admin: 11/17/19 02:30 Dose: 10 ml Documented by: Hydralazine HCl (Apresoline Iv) 10 mg IV Q4H PRN PRN PRN Reason: SBP > 160 Hydroxyzine Pamoate (Vistaril Pamoate Capsule) 50 mg PO Q4H PRN PRN PRN Reason: mild anxiety Sodium Chloride () 1,000 mls @ 125 mls/hr IV .Q8H [place] Last Admin: 11/17/19 02:59 Dose: 125 mls/hr Documented by: Piperacillin Sod/Tazobactam (Sod 3.375 gm/ Sodium Chloride) 50 mls @ 12.5 mls/hr IV Q8 [facility] Sodium Chloride () 250 mls @ 15 mls/hr IV .[id number] PRN PRN Reason: Saline Flush Last Admin: 11/17/19 03:48 Dose: 15 mls/hr Documented by: Ibuprofen (Motrin) 600 mg PO Q8H PRN PRN PRN Reason: Pain Score 1-10/10 Loperamide HCl (Imodium) 2 mg PO Q4H PRN PRN PRN Reason: LOOSE STOOLS Lorazepam (Ativan) 2 mg PO Q2H PRN PRN; Protocol PRN Reason: CIWA score > 8 but <15 Lorazepam (Ativan) 2 mg PO UD PRN; Protocol PRN Reason: CIWA score >/=15. Lorazepam (Ativan) 2 mg IV Q2H PRN PRN; Protocol PRN Reason: CIWA score > 8 but <15 Lorazepam (Ativan) 2 mg IV UD PRN; Protocol PRN Reason: CIWA score >/=15. Morphine Sulfate () 2 mg IV Q3H PRN PRN PRN Reason: Pain Score 6-10/10 Last Admin: 11/17/19 02:30 Dose: 2 mg Documented by: Multivitamins/Minerals (Multivitamin With Minerals (Bkc)) [facility] Nicotine (Nicoderm Cq (Pbkc)) 21 mg TRANSDERM. DAILY [facility] Last Admin: 11/17/19 02:55 Dose: 21 mg Documented by: Nitroglycerin (Nitrostat) 0.4 mg SUBLINGUAL Q5M PRN PRN Reason: CARDIAC/CHEST PAIN Ondansetron HCl (Zofran) 8 mg PO Q8H PRN PRN PRN Reason: NAUSEA Ondansetron HCl (Zofran) 4 mg IV Q8H PRN PRN PRN Reason: NAUSEA/VOMITING Oxycodone HCl (Oxyir) 5 mg PO Q4H PRN PRN PRN Reason: Pain Score 4-5/10 Pantoprazole Sodium (Protonix) 20 mg PO DAILY [place] Phenobarbital (Phenobarbital) 97.2 mg PO Q4H [place]; Taper Stop: 11/21/19 10:44 Last Admin: 11/17/19 02:55 Dose: 97.2 mg Documented by: Prochlorperazine Edisylate (Compazine Iv) 5 mg IV Q4H PRN PRN PRN Reason: Breakthrough Nausea/Vomiting Senna (Senokot) 2 tablet PO QHS PRN PRN PRN Reason: Constipation Sertraline HCl (Zoloft) 100 mg PO QHS [facility] Sodium Chloride () 10 - 40 ml IV UD PRN PRN Reason: SALINE FLUSH Last Admin: 11/17/19 03:49 Dose: 10 ml Documented by: Thiamine HCl (Vitamin B1) 100 mg PO DAILYCM [facility] Throat Lozenges (Cepacol Sore Throat Lozenge) 1 lozenge MUCOUS MEM Q2H PRN PRN PRN Reason: SORE THROAT Trazodone HCl (Desyrel) 50 mg PO QHS PRN PRN PRN Reason: INSOMNIA Last Admin: 11/17/19 02:54 Dose: 50 mg Documented by: Assessment/Plan Active and Suspected Problems (Last Reviewed 01/06/18 @ 17:[address] Luciano Fajardo, ) Severe sepsis (Acute) Bilateral pneumonia (Acute) Suspected 2018 novel coronavirus infection (Acute) Healthcare-associated pneumonia (Acute) Severe sepsis (Acute) RECOMMENDATIONS: 1. Continue empiric antimicrobials, pending infectious work-up. 2. Wean supplemental oxygen to maintain saturations at or above 90%. 3. Continue as needed bronchodilator therapy. 4. Encourage incentive spirometer use and mobilize patient as tolerated. 5. Continue alcohol withdrawal protocol. 6. The patient is medically stable and therefore can be made PCU status. IMPRESSIONS: 1. Severe sepsis The patient's chest x-ray did reveal bilateral infiltrates and he did spike a fever overnight. Therefore, it is reasonable to continue empiric antimicrobials to treat underlying presumptive pneumonia. No other sources of infection have been identified. Coronavirus PCR was negative. It is reasonable to continue as needed bronchodilator therapy. The patient remains hemodynamically stable. 2. Acute hypoxemic respiratory insufficiency Likely related to #1. Plan to continue current supportive measures. Continue as needed bronchodilator therapy. Wean supplemental oxygen to maintain saturations at or above 90%. Encourage incentive spirometer use and mobilize patient as tolerated. 3. History of alcohol and tobacco dependency Continue alcohol withdrawal protocol as ordered. Nicotine replacement therapy can be offered to the patient while admitted to the hospital. 4. Hypertension/hyperlipidemia/paroxysmal atrial fibrillation/GERD/anxiety/depression Complicates care, management, recovery and prognosis. Continue home medications as indicated. This note was generated with [employer] dictation software. It may contain incorrect words, spelling, and punctuation that were not noted in checking the note before signing. Inpatient E&M: 54890 Init Hosp L3
[2019-11-17] MEDS: Thiamine Hydrochloride 100 MG Tablet PO (08:59)
[2019-11-17] MEDS: Folic Acid 1 MG Tablet PO (08:59)
[2019-11-17] MEDS: Pantoprazole Sodium 20 MG Tablet PO (08:59)
[2019-11-17] MEDS: Multivitamins,Ther W-Minerals Tablet 1 TABLET PO (08:59)
[2019-11-17] MEDS: APIXABAN 5 MG TABLET PO ×2 (08:59→21:54)
[2019-11-17] MEDS: Albuterol 2.5 MG/3 ML VIAL.NEB. INHALATION (14:45)
[2019-11-17] MEDS: Sertraline 100 MG Tablet PO (21:54)
[2019-11-17] MEDS: Atenolol 25 MG Tablet PO (21:54)
[2019-11-18] VITALS (8 sets, daily range): BP systolic 118–126; BP diastolic 63–65; PULSE 57–86; RESP 16–20; TEMP 36.8–37; O2SAT 92–97
[2019-11-18] MEDS: traZODone 50 MG Tablet PO (00:02)
[2019-11-18] MEDS: Ibuprofen 600 MG Tablet PO (02:21)
[2019-11-18] MEDS: Albuterol 2.5 MG/3 ML VIAL.NEB. INHALATION (02:30)
--- NOTE | 2019-11-18 05:55 | RAD_ITS ---
STUDY: X-RAY CHEST REASON FOR EXAM: Male, 49 years old. Dyspnea TECHNIQUE: Single AP portable view of the chest. COMPARISON: 07/17/2019 FINDINGS: There are persistent multifocal patchy groundglass opacity is slightly less surrounding density along for differences in technique. There is no demonstrated pleural abnormality. There is mild cardiac enlargement. Normal mediastinum and candelaria. Normal visualized pulmonary arteries. Normal visualized aortic arch and descending thoracic aorta. Normal visualized thoracic spine. Normal visualized ribs, clavicles, and shoulders. There is no demonstrated abnormality of the visualized soft tissue structures of the upper abdomen. RAD/Chest 1 View (Portable) IMPRESSION: Multifocal pneumonia differential includes atypical or viral pneumonia potentially edema could have this appearance. Electronically Signed: Юлия Cuadra MD at 6:15 EDT Tel , Service support ,
[2019-11-18] MEDS: APIXABAN 5 MG TABLET PO (09:58)
[2019-11-18] MEDS: Pantoprazole Sodium 20 MG Tablet PO (10:01)
--- NOTE | 2019-11-18 10:34 | PCM.PN.INT ---
Subjective: Patient transferred out of the intensive care unit yesterday. Patient feels subjectively improved, but still having some chest pressure reported. Patient denies any nausea, vomiting, loss of taste or smell. Nursing reports oxygenation is done well overnight and there are no acute issues reported. Objective: Chest x-ray was personally reviewed and appears relatively stable compared to presentation General: Alert, Oriented x3, Cooperative, No apparent distress, Well developed, Well nourished, - - Speaking in full sentences. HEENT: Atraumatic, PERRLA, EOMI, Normocephalic, - - No scleral icterus or injection noted Oral: Moist Mucosa, No Gingival or Mucosal Lesions/ Ulcerations Neck: Supple, No JVD, No Nodes, Trachea Midline Lungs: No rhonchi, No wheeze, No rales, Diminished, - - Fair effort. Symmetric expansion. Cardiovascular: Regular rate, Regular Rhythm, Normal S1, Normal S2, No murmurs, No rub noted, No Gallop Abdomen: Bowel Sounds Present, Soft, Non Tender, Non-Distended, Obese Extremities: No clubbing, No cyanosis, No edema, Capillary Refill Less than 3 Seconds Skin: No rashes, No breakdown Musculoskeletal: No Tenderness to Palpation of Joints or Extremities Lymphatic: No Cervical, Supraclavicular, or Inguinal Adenopathy Neurological: Cranial nerves II-XII grossly intact, Neuro grossly intact, Motor Exam 5/5 strength throughout Psych/Mental Status: Alert and oriented to time, place, person, mood and affect Vital Signs Temp Pulse Resp BP Pulse Ox 36.8 C 66 18 126/64 H 97 11/18/19 09:55 11/18/19 09:55 11/18/19 09:55 11/18/19 09:55 11/18/19 09:55 Oxygen Flow Rate (L/min) 2 Oxygen Delivery Method Room Air Weight: 104.9 kg Body Mass Index (BMI) 35.9 Finger Stick Blood Glucose 104 Intake and Output for Last 24 Hours 11/16/19 11/17/19 11/18/19 23:59 23:59 23:59 Intake Total 3224.33 / 3224.33 892.25 / 892.25 Output Total 2200 / 2200 650 / 650 Balance 1024.33 / 1024.33 242.25 / 242.25 Labs (Last 48 Hours) 11/16/19 11/16/19 11/16/19 23:05 23:05 23:05 WBC 10.2 RBC 4.27 L Hgb 12.5 L Hct 38.2 L MCV 89.5 MCH 29.3 MCHC 32.7 RDW Std Deviation 44.2 H RDW Coeff of Pearl 13.7 Plt Count 155 MPV 11.0 Immature Gran % (Auto) 0.900 Neut % (Auto) 83.2 H Lymph % (Auto) 10.2 L [place] % (Auto) 4.9 Eos % (Auto) 0.6 Baso % (Auto) 0.2 Absolute Neuts (auto) 8.5 H Absolute Lymphs (auto) 1.04 Nucleated RBC % 0 PT 12.9 INR 1.0 APTT 29.0 D-Dimer Quant (PE/DVT) Sodium 139 Potassium 3.7 Chloride 109 H Carbon Dioxide 21.0 Anion Gap 9 BUN 11 Creatinine 1.08 Estim Creat Clear Calc 76.50 Est GFR (MDRD) Af Amer 93 Est GFR (MDRD) Non-Af 77 BUN/Creatinine Ratio 10.2 Glucose 94 Lactic Acid Calcium 8.2 L Phosphorus Magnesium Ferritin Total Bilirubin 0.30 AST 26 ALT 19 Alkaline Phosphatase 47 Lactate Dehydrogenase Troponin I < 0.015 C-React Prot Ext Range B-Natriuretic Peptide Total Protein 7.3 Albumin 3.5 Globulin 3.8 Albumin/Globulin Ratio 0.9 Procalcitonin Urine Color Urine Clarity Urine pH Ur Specific [place] Urine Protein Urine Glucose (UA) Urine Ketones Urine Occult Blood Urine Nitrite Urine Bilirubin Urine Urobilinogen Ur Leukocyte Esterase Urine RBC Urine WBC Ur Squamous Epith Cells Urine Bacteria Urine Mucus Ethyl Alcohol COVID-19 (RAFITA) MRSA (PCR) 11/16/19 11/16/19 11/16/19 23:05 23:05 23:05 WBC RBC Hgb Hct MCV MCH MCHC RDW Std Deviation RDW Coeff of Pearl Plt Count MPV Immature Gran % (Auto) Neut % (Auto) Lymph % (Auto) [place] % (Auto) Eos % (Auto) Baso % (Auto) Absolute Neuts (auto) Absolute Lymphs (auto) Nucleated RBC % PT INR APTT D-Dimer Quant (PE/DVT) Sodium Potassium Chloride Carbon Dioxide Anion Gap BUN Creatinine Estim Creat Clear Calc Est GFR (MDRD) Af Amer Est GFR (MDRD) Non-Af BUN/Creatinine Ratio Glucose Lactic Acid 3.0 H* Calcium Phosphorus Magnesium Ferritin Total Bilirubin AST ALT Alkaline Phosphatase Lactate Dehydrogenase Troponin I C-React Prot Ext Range B-Natriuretic Peptide 22.7 Total Protein Albumin Globulin Albumin/Globulin Ratio Procalcitonin Urine Color Urine Clarity Urine pH Ur Specific [place] Urine Protein Urine Glucose (UA) Urine Ketones Urine Occult Blood Urine Nitrite Urine Bilirubin Urine Urobilinogen Ur Leukocyte Esterase Urine RBC Urine WBC Ur Squamous Epith Cells Urine Bacteria Urine Mucus Ethyl Alcohol 123.0 COVID-19 (RAFITA) MRSA (PCR) 11/16/19 11/16/19 11/16/19 23:05 23:05 23:05 WBC RBC Hgb Hct MCV MCH MCHC RDW Std Deviation RDW Coeff of Pearl Plt Count MPV Immature Gran % (Auto) Neut % (Auto) Lymph % (Auto) [place] % (Auto) Eos % (Auto) Baso % (Auto) Absolute Neuts (auto) Absolute Lymphs (auto) Nucleated RBC % PT INR APTT D-Dimer Quant (PE/DVT) 0.37 Sodium Potassium Chloride Carbon Dioxide Anion Gap BUN Creatinine Estim Creat Clear Calc Est GFR (MDRD) Af Amer Est GFR (MDRD) Non-Af BUN/Creatinine Ratio Glucose Lactic Acid Calcium Phosphorus 2.0 L Magnesium 1.9 Ferritin 154 Total Bilirubin AST ALT Alkaline Phosphatase Lactate Dehydrogenase 388 H Troponin I C-React Prot Ext Range 158.00 H B-Natriuretic Peptide Total Protein Albumin Globulin Albumin/Globulin Ratio Procalcitonin 0.07 Urine Color Urine Clarity Urine pH Ur Specific [place] Urine Protein Urine Glucose (UA) Urine Ketones Urine Occult Blood Urine Nitrite Urine Bilirubin Urine Urobilinogen Ur Leukocyte Esterase Urine RBC Urine WBC Ur Squamous Epith Cells Urine Bacteria Urine Mucus Ethyl Alcohol COVID-19 (RAFITA) MRSA (PCR) 11/17/19 11/17/19 11/17/19 00:27 01:00 03:40 WBC 11.1 H RBC 3.86 L Hgb 11.3 L Hct 34.6 L MCV 89.6 MCH 29.3 MCHC 32.7 RDW Std Deviation 44.8 H RDW Coeff of Pearl 14.0 Plt Count 144 L MPV 10.4 Immature Gran % (Auto) 0.400 Neut % (Auto) 80.2 H Lymph % (Auto) 14.0 L [place] % (Auto) 5.0 Eos % (Auto) 0.1 Baso % (Auto) 0.3 Absolute Neuts (auto) 8.9 H Absolute Lymphs (auto) 1.56 Nucleated RBC % 0 PT INR APTT D-Dimer Quant (PE/DVT) Sodium Potassium Chloride Carbon Dioxide Anion Gap BUN Creatinine Estim Creat Clear Calc Est GFR (MDRD) Af Amer Est GFR (MDRD) Non-Af BUN/Creatinine Ratio Glucose Lactic Acid Calcium Phosphorus Magnesium Ferritin Total Bilirubin AST ALT Alkaline Phosphatase Lactate Dehydrogenase Troponin I C-React Prot Ext Range B-Natriuretic Peptide Total Protein Albumin Globulin Albumin/Globulin Ratio Procalcitonin Urine Color Yellow Urine Clarity Clear Urine pH 5.0 Ur Specific [place] 1.015 Urine Protein 30 H Urine Glucose (UA) Normal Urine Ketones 5 H Urine Occult Blood 10 H Urine Nitrite Negative Urine Bilirubin Negative Urine Urobilinogen Normal Ur Leukocyte Esterase Negative Urine RBC 0-5 SEEN Urine WBC 0 SEEN Ur Squamous Epith Cells 0 SEEN Urine Bacteria 0 SEEN Urine Mucus 0 SEEN Ethyl Alcohol COVID-19 (RAFITA) Negative MRSA (PCR) 11/17/19 11/17/19 11/17/19 03:40 03:40 03:40 WBC RBC Hgb Hct MCV MCH MCHC RDW Std Deviation RDW Coeff of Pearl Plt Count MPV Immature Gran % (Auto) Neut % (Auto) Lymph % (Auto) [place] % (Auto) Eos % (Auto) Baso % (Auto) Absolute Neuts (auto) Absolute Lymphs (auto) Nucleated RBC % PT INR APTT D-Dimer Quant (PE/DVT) Sodium 138 Potassium 3.8 Chloride 109 H Carbon Dioxide 22.0 Anion Gap 7 BUN 9 Creatinine 1.01 Estim Creat Clear Calc 81.81 Est GFR (MDRD) Af Amer 100 Est GFR (MDRD) Non-Af 83 BUN/Creatinine Ratio 8.9 L Glucose 108 H Lactic Acid 1.1 Calcium 7.5 L Phosphorus Magnesium Ferritin Total Bilirubin 0.50 AST 22 ALT 17 Alkaline Phosphatase 38 L Lactate Dehydrogenase Troponin I C-React Prot Ext Range B-Natriuretic Peptide Total Protein 6.4 Albumin 2.9 L Globulin 3.5 Albumin/Globulin Ratio 0.8 L Procalcitonin Urine Color Urine Clarity Urine pH Ur Specific [place] Urine Protein Urine Glucose (UA) Urine Ketones Urine Occult Blood Urine Nitrite Urine Bilirubin Urine Urobilinogen Ur Leukocyte Esterase Urine RBC Urine WBC Ur Squamous Epith Cells Urine Bacteria Urine Mucus Ethyl Alcohol COVID-19 (RAFITA) MRSA (PCR) Negative Microbiology 11/17/19 01:00 Urine, Clean Catch Urine Culture - Preliminary Culture exhibits no growth. 11/17/19 00:27 Mucosa - Nasopharyngeal Respiratory Panel (PCR) - Final 11/17/19 01:00 Urine, Clean Catch Legionella Antigen - Final 11/17/19 01:00 Urine, Clean Catch Streptococcus pneumoniae Antigen (M - Final Clinical Impression(s) from Imaging Studies Chest X-Ray 11/18/19 05:55 IMPRESSION: Multifocal pneumonia differential includes atypical or viral pneumonia potentially edema could have this appearance. Electronically Signed: Юлия Cuadra MD at 6:15 EDT Tel , Service support , Medical Necessity - Tobacco Use Smoking Status: Current every day smoker Tobacco Use: Cigarettes Assessment/Plan All Active Problems (Last Reviewed 01/06/18 @ 17:[address] Luciano Fajardo, DO) Severe sepsis (Acute) Bilateral pneumonia (Acute) Suspected 2019 novel coronavirus infection (Acute) Healthcare-associated pneumonia (Acute) Severe sepsis (Acute) Chest pain (Resolved) Alcohol withdrawal (Acute) Chest pain (Resolved) RECOMMENDATIONS: 1. Continue empiric antimicrobials to complete a 7-day course. 2. Wean supplemental oxygen to maintain saturations at or above 90%. 3. Continue as needed bronchodilator therapy. 4. Encourage incentive spirometer use and mobilize patient as tolerated. 5. Walking oximetry prior to discharge 6. Follow-up in our office at 2 weeks if oxygen is required, or 4 weeks if not 7. Likely okay to discharge from a pulmonary perspective IMPRESSIONS: 1. Severe sepsis The patient's chest x-ray did reveal bilateral infiltrates and he did spike a fever overnight. Therefore, it is reasonable to continue empiric antimicrobials to treat underlying presumptive pneumonia to complete a total of 7 days. No other sources of infection have been identified. Coronavirus PCR was negative. It is reasonable to use as needed bronchodilator therapy until outpatient evaluation for COPD or other obstructive lung disease can be clarified 2. Acute hypoxemic respiratory insufficiency Likely related to #1. Plan to continue current supportive measures. Continue as needed bronchodilator therapy. Wean supplemental oxygen to maintain saturations at or above 90%. Encourage incentive spirometer use and mobilize patient as tolerated. 3. History of alcohol and tobacco dependency Continue alcohol withdrawal protocol as ordered. Nicotine replacement therapy can be offered to the patient while admitted to the hospital. 4. Hypertension/hyperlipidemia/paroxysmal atrial fibrillation/GERD/anxiety/depression Complicates care, management, recovery and prognosis. Continue home medications as indicated. Inpatient E&M: 86834 Subs Hosp L2
--- NOTE | 2019-11-18 10:44 | DCINST_ITS ---
- Discharge Diagnoses Current Active Problems: Current Active and Chronic Problems (Last Reviewed 01/06/18 @ 17:[address] Luciano Fajarod, DO) Severe sepsis (Acute) Bilateral pneumonia (Acute) Suspected 2019 novel coronavirus infection (Acute) Alcohol abuse (Chronic) Healthcare-associated pneumonia (Acute) Severe sepsis (Acute) You will use the following diet at home:: No restrictions Call your doctor if you observe: Fever of 101 or Higher, Shortness of breath Allergies/Adverse Reactions: Allergies azithromycin Allergy (Verified 11/02/19 17:37) Shortness of breath Medications to take at Discharge Atenolol [Tenormin (beta srikanth)] 25 mg PO QHS 04/30/19 Sertraline HCl [Zoloft] 100 mg PO QHS 04/30/19 Apixaban [Eliquis] 5 mg PO DAILY 11/02/19 Omeprazole [Prilosec] 20 mg PO DAILY 11/02/19 Albuterol Inhaler [Ventolin Hfa] 1 - 2 puff INHALATION Q4H PRN PRN #1 inhaler 11/18/19 Levofloxacin [Levaquin] 500 mg PO DAILY #5 tab 11/18/19 The following prescriptions were given: Levofloxacin [Levaquin] 500 mg PO DAILY #5 tab Transmission Status: Pending to [facility] [address] [facility] Albuterol Inhaler [Ventolin Hfa] 1 - 2 puff INHALATION Q4H PRN PRN #1 inhaler PRN Reason: Shortness Of Breath Transmission Status: Pending to [facility] [address] Primary Care Physician: Armani Guerrero MD [Primary Care Provider] - Within 1 Week Test Results: Test results from this visit will be discussed in further detail at your follow- up appointment, if applicable. Proposed Discharge Date: 11/18/19
--- NOTE | 2019-11-18 10:45 | DS.PCM_ITS ---
Discharge Date and Diagnosis - Problem List Patient Problems: Active and Suspected Problems (Last Reviewed 01/06/18 @ 17:[address] Luciano Fajardo DO) Severe sepsis (Acute) Bilateral pneumonia (Acute) Healthcare-associated pneumonia (Acute) Severe sepsis (Acute) Date of Admission: 11/17/19 Date of Discharge: 11/18/19 - Primary Discharge Diagnosis Acute Problems: Active Problems (Last Reviewed 01/06/18 @ 17:[address] Luciano Fajardo DO) Severe sepsis (Acute) Bilateral pneumonia (Acute) Suspected 2019 novel coronavirus infection (Acute) Healthcare-associated pneumonia (Acute) Severe sepsis (Acute) - Secondary Discharge Diagnosis Chronic Problems: Chronic Problems (Last Reviewed 01/06/18 @ 17:[address] 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 Electronically Signed: Uli Olivares MD at 0:09 EDT , Service support , Chest X-Ray 11/18/19 05:55 IMPRESSION: Multifocal pneumonia differential includes atypical or viral pneumonia potentially edema could have this appearance. Electronically Signed: Юлия Cuadra MD at 6:15 EDT Tel , Service support , Operations: None Procedures: None Summary of Care Provided: The patient is a 49 year old M Cristal with shortness of breath as well as chest pain after just being discharged from alcohol withdrawal. Patient was found to be in severe sepsis with a lactic acid of 3. Patient was started on Pipracil and/tazobactam and patient has steadily improved. Patient is currently on room air and feeling well. Feels comfortable going back home. Patient will be discharged with 5 more days of levofloxacin as well as an albuterol metered-dose inhaler. Patient instructed to follow-up with his primary care doctor in the next week or 2. [] Patient Problems: Active and Suspected Problems (Last Reviewed 01/06/18 @ 17:[address] Luciano Fajardo, DO) Severe sepsis (Acute) Bilateral pneumonia (Acute) Healthcare-associated pneumonia (Acute) Severe sepsis (Acute) - Physical Exam Vitals/I&O's: Vital Signs Temp Pulse Resp BP Pulse Ox 36.8 C 66 18 126/64 H 97 11/18/19 09:55 11/18/19 09:55 11/18/19 09:55 11/18/19 09:55 11/18/19 09:55 Oxygen Flow Rate (L/min) 2 Oxygen Delivery Method Room Air Weight: 104.9 kg Body Mass Index (BMI) 35.9 Finger Stick Blood Glucose 104 Intake and Output for Last 24 Hours 11/16/19 11/17/19 11/18/19 23:59 23:59 23:59 Intake Total 3224.33 / 3224.33 892.25 / 892.25 Output Total 2200 / 2200 650 / 650 Balance 1024.33 / 1024.33 242.25 / 242.25 General: Alert, No apparent distress HEENT: Atraumatic, Normocephalic Oral: Moist Mucosa, No Gingival or Mucosal Lesions/ Ulcerations Neck: No Nodes, Thyroid Normal Size and Texture Lungs: Clear to auscultation, Normal air movement, No rhonchi, No wheeze Cardiovascular: Regular rate, Regular Rhythm, Normal S1, Normal S2, No murmurs Abdomen: Bowel Sounds Present, Soft, Non Tender, Non-Distended, No Hepato- splenomegaly Extremities: No edema, No Calf Tenderness Psych/Mental Status: Normal Affect, Appropriate Microbiology Past 72 Hours 11/17/19 01:00 Urine, Clean Catch Urine Culture - Preliminary Culture exhibits no growth. 11/17/19 00:27 Mucosa - Nasopharyngeal Respiratory Panel (PCR) - Final 11/17/19 01:00 Urine, Clean Catch Legionella Antigen - Final 11/17/19 01:00 Urine, Clean Catch Streptococcus pneumoniae Antigen (M - Final Current Medications Acetaminophen (Tylenol) 650 mg PO Q4H PRN PRN PRN Reason: Temp > 100.4 F, pain 1-10/10 Albuterol Sulfate (Ventolin Aerosols) 2.5 mg INHALATION Q2H PRN PRN PRN Reason: Dyspnea, wheezing Last Admin: 11/18/19 02:30 Dose: 2.5 mg Documented by: Apixaban (Eliquis) 5 mg PO BID [facility] Last Admin: 11/18/19 09:58 Dose: 5 mg Documented by: Atenolol (Tenormin (Beta Mark)) 25 mg PO QHS [facility] Last Admin: 11/17/19 21:54 Dose: 25 mg Documented by: Folic Acid (Folic Acid) 1 mg PO DAILY@0800 [facility] Last Admin: 11/18/19 09:57 Dose: Not Given Documented by: Piperacillin Sod/Tazobactam (Sod 3.375 gm/ Sodium Chloride) 50 mls @ 12.5 mls/hr IV Q8 [facility] Last Infusion: 11/18/19 10:01 Dose: Infused Documented by: Sodium Chloride () 250 mls @ 15 mls/hr IV .[id number] PRN PRN Reason: Saline Flush Last Infusion: 11/17/19 06:17 Dose: 0 mls/hr Documented by: Ibuprofen (Motrin) 600 mg PO Q8H PRN PRN PRN Reason: Pain Score 1-10/10 Last Admin: 11/18/19 02:21 Dose: 600 mg Documented by: Lorazepam (Ativan) 2 mg PO Q2H PRN PRN; Protocol PRN Reason: CIWA score > 8 but <15 Lorazepam (Ativan) 2 mg PO UD PRN; Protocol PRN Reason: CIWA score >/=15. Lorazepam (Ativan) 2 mg IV Q2H PRN PRN; Protocol PRN Reason: CIWA score > 8 but <15 Lorazepam (Ativan) 2 mg IV UD PRN; Protocol PRN Reason: CIWA score >/=15. Nicotine (Nicoderm Cq (Pbkc)) 21 mg TRANSDERM. DAILY [facility] Last Admin: 11/18/19 09:58 Dose: 21 mg Documented by: Ondansetron HCl (Zofran) 4 mg IV Q8H PRN PRN PRN Reason: NAUSEA/VOMITING Pantoprazole Sodium (Protonix) 20 mg PO DAILY [facility] Last Admin: 11/18/19 10:01 Dose: 20 mg Documented by: Sertraline HCl (Zoloft) 100 mg PO QHS [facility] Last Admin: 11/17/19 21:54 Dose: 100 mg Documented by: Sodium Chloride () 10 - 40 ml IV UD PRN PRN Reason: SALINE FLUSH Last Admin: 11/17/19 03:49 Dose: 10 ml Documented by: Thiamine [facility] (Vitamin B1) [facility] Last Admin: 11/18/19 09:57 Dose: Not Given Documented by: Discharge Diet: No Restrictions Call your doctor if you observe: Fever of 101 or Higher, Shortness of breath Home Medications: Medications to take at Discharge Atenolol [Tenormin (beta mark)] 25 mg PO QHS 04/30/19 Sertraline HCl [Zoloft] 100 mg PO QHS 04/30/19 Apixaban [Eliquis] 5 mg PO DAILY 11/02/19 Omeprazole [Prilosec] 20 mg PO DAILY 11/02/19 Albuterol Inhaler [Ventolin Hfa] 1 - 2 puff INHALATION Q4H PRN PRN #1 inhaler 11/18/19 Levofloxacin [Levaquin] 500 mg PO DAILY #5 tab 11/18/19 Following Prescriptions Were Given to Patient: Levofloxacin [Levaquin] 500 mg PO DAILY #5 tab Transmission Status: Pending to [facility] [address] Albuterol Inhaler [Ventolin Hfa] 1 - 2 puff INHALATION Q4H PRN PRN #1 inhaler PRN Reason: Shortness Of Breath Transmission Status: Pending to [facility] [address] Primary Care Physician: Armani Guerrero MD [Primary Care Provider] - Within 1 Week Disposition: Home Minutes spent on discharge:: 32 Patient Condition:: Good Medical Necessity - Tobacco Use Smoking Status: Current every day smoker Tobacco Use: Cigarettes Meaningful Use Info Meaningful Use Diagnoses (Choose all that apply): None applicable Inpatient E&M: 66742 [facility] H[facility]
--- NOTE | 2019-11-18 11:14 | CASEMGMT ---
ROMI RUBIO ASSESSMENT Pt was previously admitted for Acute ETOH W/D 11/12/19 and discharged home 11/15/19. Pt was to make an appt with [facility] @ discharge. Pt re-admitted 11/16 w/ Severe Sepsis and bilat pneumonia. ROMI RUBIO to room to meet with patient for initial transition planning/care coordination assessment. ROMI RUBIO introduced self and role at [facility]. Pt voices understanding and consents to assessment at this time. Pt being discharged. He is dressed and standing in room, awaiting nurse to go over discharge instructions. Pt is A/O at this time and answers all questions appropriately. Care providers, pharmacy, and demographics verified at this time. PCP: Dr Guerrero. Pt made aware a f/u appt has been scheduled for him and he was provided with appt and contact information Specialists: None. Pt was to make an appt w/[facility] after discharge last admission and he states he did make an appt for today, he thinks at 1000, but unable to go d/t being hospitalized. He plans to reschedule this when he returns home and states he has their contact number. Pt made aware there has been an appt scheduled for him w/range feeder, [employer], Wendie Merchant, and he was provided with appt and contact information. [facility]acy[facility] Insurance: [employer]OW[employer] Prescription Benefit: Yes Living Will/HPOA: Pt does not currently have LW/HCPOA and declines info at this time. Pt made aware that he can contact SW as an out-pt and make appt in the future if he decides he would like to talk with someone about this or would like to utilize [facility] social work for advanced directive completion. Given [employer] card with information and contact number. Pt expresses understanding. LNOK: son and 2 daughters Living Arrangements: Lives with his son, Byron, and a daughter. Independent. Transportation: Pt states drives self and states no transportation concerns at this time. Niece will pick him up today DME: Denies using any DME and denies needs. HHC/SNF: No history of either and no needs identified. Pt wishes to return home and states has no concerns with going home at time of discharge. Pt voices no concerns/needs at this time. Advised pt to ask for CM if any questions/concerns/needs arise. Voices understanding. PLAN: Home Shahid DOMINGUEZ RN CM
--- NOTE | 2019-11-19 16:11 | CASEMGMT ---
ROMI CM DC Call DC Date: 11/18/2019 DC Disposition: Home LACE/STRATA: 02/03 Attempted to Call number given. No answer, and no message with name identifier. Cliff ZHOUN RN ACM
== END 2019-11-18 11:29 | disposition home or self-care (01) | DRG 720 ==
LOC: ED 11-17 00:52 → ICU 11-17 01:38 → PCU 11-17 11:04
PROVIDERS: Admitting Provider Family Medicine; Emergency Provider Emergency Medicine; PCP Family Medicine
DX: A41.9 Sepsis, unspecified organism (principal); R65.20 Severe sepsis without septic shock; J18.9 Pneumonia, unspecified organism; Y95 Nosocomial condition; E66.9 Obesity, unspecified; E78.5 Hyperlipidemia, unspecified; K21.9 Gastro-esophageal reflux disease without esophagitis; Z86.73 Personal history of transient ischemic attack (TIA), and cerebral infarction without residual deficits; I10 Essential (primary) hypertension; G47.33 Obstructive sleep apnea (adult) (pediatric); Z91.19 Patient's noncompliance with other medical treatment and regimen; I48.0 Paroxysmal atrial fibrillation; Z79.02 Long term (current) use of antithrombotics/antiplatelets; Z79.899 Other long term (current) drug therapy; F41.9 Anxiety disorder, unspecified; F32.9 Major depressive disorder, single episode, unspecified; F17.210 Nicotine dependence, cigarettes, uncomplicated; Z68.37 Body mass index [BMI] 37.0-37.9, adult; F10.10 Alcohol abuse, uncomplicated; R10.11 Right upper quadrant pain; R09.02 Hypoxemia; R06.89 Other abnormalities of breathing
CPT/HCPCS: 71045; 80053; 80320; 81001; 82728; 83605; 83615; 83735; 83880; 84100; 84145; 84484; 85025; 85379; 85610; 85730; 86140; 87040; 87086; 87449; 87633; 87635; 87641; 93005; 94640; 94799; 99283; 99406; J7030; J7040; J7050; A4216; G0480; U0003

== ENCOUNTER 2020-03-11 01:16 | Emergency (ER) | payer MEDICAID, SELFPAY ==
[2019-11-17 02:10] VITALS: BMI 35.9
[2020-03-11 01:17] VITALS: BP 113/76; PULSE 65; RESP 18; TEMP 36.2; O2SAT 98; BMI 36.4
--- NOTE | 2020-03-11 01:24 | RAD_ITS ---
STUDY: X-RAY - RIGHT WRIST REASON FOR EXAM: Male, 49 years old. ladder fell on patient -- c/o pain lt 5th toe , rt metacarpasl, carpals and wrist -- best images possible, patient intoxicated and couldnt stay awake for images TECHNIQUE: 3 view(s) of the wrist were obtained. COMPARISON: None. FINDINGS: Normal visualized distal radius and ulna. Normal radiocarpal articulation. Normal distal radioulnar articulation. Normal carpal bones. Normal carpal articulations. Normal carpometacarpal articulation of the thumb. Normal second through fifth carpometacarpal articulations. Normal visualized metacarpal bones. The soft tissue structures are unremarkable. RAD/Wrist min 3 Views IMPRESSION: Normal x-ray examination of the wrist. Electronically Signed: Deep Diez, at 1:57 EST Tel , Service support ,
--- NOTE | 2020-03-11 01:24 | RAD_ITS ---
STUDY: X-RAY - RIGHT HAND REASON FOR EXAM: Male, 49 years old. ladder fell on patient -- c/o pain lt 5th toe , rt metacarpasl, carpals and wrist -- best images possible, patient intoxicated and couldnt stay awake for images TECHNIQUE: 3 view(s) of the hand. COMPARISON: None. FINDINGS: Normal radiocarpal articulation. Normal distal radioulnar joint. Normal visualized carpal bones. Normal carpal articulations Normal carpometacarpal articulation of the thumb. Normal second through fifth carpometacarpal joints. Normal metacarpi. Normal metacarpophalangeal joint of the thumb. Normal interphalangeal joint of the thumb. Normal proximal and distal phalanges of the thumb. Normal metacarpophalangeal joints of the second through fifth fingers. Normal proximal and distal interphalangeal joints of the second through fifth fingers. Normal phalanges of the second through fifth fingers. There is subcutaneous soft tissue swelling at the dorsal aspect of the hand suggesting edema. RAD/Hand Min 3 Views IMPRESSION: No acute bone injury of the hand. There is subcutaneous soft tissue swelling at the dorsal aspect of the hand suggesting edema. Electronically Signed: Deep Diez, at 1:56 EST Tel , Service support ,
--- NOTE | 2020-03-11 01:24 | ED.RN ---
pt thrashing in bed, crying due to the pain. reports drank 3 beers tonight.
--- NOTE | 2020-03-11 01:25 | ED.DCSUM_ITS ---
History of Present Illness Chief Complaint: Trauma Informant: Patient Narrative: Stated he had a ladder fall onto his right hand and left little toe. This happened just prior to arrival. He was trying to place it up to get into his barn and it came down on his hand and toe. Did not hit his head. No neck pain. Did not fall to the ground. No blood thinners. He has drank 3 alcoholic beverages this evening per patient. Denies home treatment. Comes in for further evaluation. Current severity is mild to moderate. His main concern is his right hand. - Past Medical History (1) Alcohol withdrawal Status: Acute (2) Bilateral pneumonia Status: Acute (3) Healthcare-associated pneumonia Status: Acute (4) Severe sepsis Status: Acute (5) Severe sepsis Status: Acute (6) Alcohol abuse Status: Chronic (7) Depression Status: Chronic (8) GERD (gastroesophageal reflux disease) Status: Chronic (9) Hyperlipidemia Status: Chronic (10) JOHNATHAN (obstructive sleep apnea) Status: Chronic (11) Obesity (BMI 30-39.9) Status: Chronic (12) Paroxysmal atrial fibrillation Status: Chronic Comment: Follow up with user experience analyst at [place] (13) TIA (transient ischemic attack) Status: Chronic (14) Tobacco dependence Status: Chronic (15) Chest pain Status: Resolved (16) Suspected 2019 novel coronavirus infection Status: Ruled-out (17) CVA (cerebral vascular accident) Status: Inactive Past Medical History - Allergies and Home Meds Allergies/Adverse Reactions: Allergies azithromycin Allergy (Verified 03/11/20 01:20) Shortness of breath Primary Care Physician: Armani Guerrero MD [Primary Care Provider] - Prior records reviewed: Yes Past Medical History: - - See problem list Surgical History: appendectomy Lives: With Family Smoking Status: Current every day smoker Alcohol: Occasional Drugs: None - Family History Sibling Family History: Family History (Last Reviewed 12/13/19 @ 12:36 by Nicole Chao) Mother Diabetes CAD (coronary artery disease) CVA (cerebral vascular accident) Myocardial infarction, Onset Age: 35 Father CAD (coronary artery disease) Diabetes CVA (cerebral vascular accident) Family History: Reports: Diabetes, Heart Disease Maternal Family History: Family History (Last Reviewed 12/13/19 @ 12:36 by Nicole Chao) Mother Diabetes CAD (coronary artery disease) CVA (cerebral vascular accident) Myocardial infarction, Onset Age: 35 Father CAD (coronary artery disease) Diabetes CVA (cerebral vascular accident) Family History: Reports: Diabetes, Heart Disease - [place] at 35 y/o., Stroke Paternal Family History: Family History (Last Reviewed 12/13/19 @ 12:36 by Nicole Chao) Mother Diabetes CAD (coronary artery disease) CVA (cerebral vascular accident) Myocardial infarction, Onset Age: 35 Father CAD (coronary artery disease) Diabetes CVA (cerebral vascular accident) Family History: Reports: Diabetes, Heart Disease, Stroke Review of Systems General: Denies: Chills, Fever, Sweats Eyes: Denies: Visual changes - bilaterally, Diplopia ENT: Denies: Rhinorrhea, Sore throat Cardiovascular: Denies: Chest pain, Palpitations Respiratory: Denies: Dyspnea, Cough, Dyspnea on exertion Gastrointestinal: Denies: Abdominal pain, Nausea, Vomiting, Diarrhea, Melena, Hematochezia Genitourinary: Denies: Dysuria, Hematuria, Frequency Musculoskeletal: Reports: Extremity Pain. Denies: Back pain Skin: Denies: Rash, Wounds Neurological: Denies: Headache, Weakness, Numbness Physical Exam Vital Signs/Narrative: Vital Signs Temp Pulse Resp BP Pulse Ox 03/11/20 01:17 97.2 F L 65 18 113/76 98 General: Well nourished, Well developed, No Acute Distress Head: Normocephalic, Atraumatic Eyes: Perrl, EOMI ENT: Moist mucous membranes, No rhinorrhea Neck: Supple, Nontender Cardiovascular: Regular rate, Regular rhythm, No murmurs Respiratory: No distress, CTA bilaterally, Chest nontender Abdomen: Soft, Nontender, Nondistended, Normal bowel sounds Back: Nontender, Normal Inspection Extremities: Tenderness - Tenderness to his right hand diffusely and mild mild tenderness to the right wrist. Very mild soft tissue swelling to the proximal knuckles of the right hand. Mild tenderness to the left toe. No swelling or deformity. Decreased range of motion secondary to pain. Skin: - - Abrasion to his right third knuckle and first knuckle. Neurological: Alert, Oriented x3, Cranial nerves II-XII grossly intact, Normal Strength, Normal Sensation Psychological: Normal affect, Normal Mood Diagnostic/Tx/Re-eval - Medical Decision Making X-ray of the right wrist hand and left foot obtained. Given injection of morphine for pain. X-ray of the foot shows a proximal second and third phalanx fracture. Axel taped given a postop shoe. We will follow-up with podiatry. Hand x-ray negative given Tony wrap. Will be discharged home. He will go home with a sober ride as he is intoxicated ED Disposition - Plan for ED Patient: Disposition: Home or Assisted Living Diagnosis: Toe fracture, Hand contusion, Alcohol intoxication Instructions: ED Overdose Alcohol, ED Fracture, Toe, Closed Referrals: Shy Lind DPM [STAFF PHYSICIAN] - Additional Instructions: You broke your second and third toe. Please follow-up with Dr. Lind
--- NOTE | 2020-03-11 01:25 | RAD_ITS ---
STUDY: X-RAY - LEFT FOOT CLINICAL: Male, 49 years old. ladder fell on patient -- c/o pain lt 5th toe , rt metacarpasl, carpals and wrist -- best images possible, patient intoxicated and couldnt stay awake for images COMPARISON: None. FINDINGS: Normal talus, calcaneus, and tarsal bones. Normal visualized subtalar, talonavicular, calcaneocuboid, tarsal and tarsometatarsal articulations. Normal metatarsi. Normal metatarsophalangeal joint of the great toe. Normal tibial and fibular sesamoid bones. Normal interphalangeal joint of the great toe. Normal phalanges of the great toe. Normal second through fifth metatarsophalangeal joints. There are nondisplaced fractures of the distal part of the proximal phalanx in the second and third toes. The soft tissue structures are unremarkable. RAD/Foot min 3 Views IMPRESSION: There are nondisplaced fractures of the distal part of the proximal phalanx in the second and third toes. Electronically Signed: Deep Diez, at 1:54 EST Tel , Service support ,
[2020-03-11] MEDS: Morphine 4 MG/ML Syringe IM (01:30)
--- NOTE | 2020-03-11 02:06 | ED.RN ---
Pt stumbles out of room stating that he needs to go to the bathroom. Pt encouraged to return to room and use the urinal or wait for wheel chair assistance. Pt refuses and stumbles to the bathroom with assist x 2. While standing in the bathroom pt loses balance and is lowered to the floor. Pt placed in wheel chair and returned to room, requiring assist x 3 to get back into bed. Pt encouraged not to get up from bed. Given urinal at this time.
--- NOTE | 2020-03-11 02:42 | ED.RN ---
REITERATED TO PATIENT THAT HE IS NOT SOBER ENOUGH TO GO HOME. PT TRIED TO MANIPULATE NURSE INTO LETTING HIM GO HOME. PT FINALLY USED URINAL. WILL CONTINUE TO MONITOR UNTIL MORNING.
[2020-03-11 03:02] VITALS: BP 109/80; PULSE 82; RESP 16; O2SAT 100
--- NOTE | 2020-03-11 03:03 | ED.RN ---
PT IS AMBULATING WITH AN INDEPENDENT GAIT. HE HAS CALLED FOR A RIDE AND RIDE WILL BUZZ THE ED WHEN HERE. TOES HAVE BEEN PHIL TAPED. ROXANA BANDAGES TO BOTH HANDS. HOME CARE EDUCATION GIVEN TWICE, PT UNDERSTANDS.
== END 2020-03-11 03:27 | disposition home or self-care (01) ==
PROVIDERS: Emergency Provider Emergency Medicine; PCP Family Medicine
DX: S92.515A Nondisplaced fracture of proximal phalanx of left lesser toe(s), initial encounter for closed fracture (principal); S60.222A Contusion of left hand, initial encounter; F10.129 Alcohol abuse with intoxication, unspecified; K21.9 Gastro-esophageal reflux disease without esophagitis; E78.5 Hyperlipidemia, unspecified; E66.9 Obesity, unspecified; Z86.73 Personal history of transient ischemic attack (TIA), and cerebral infarction without residual deficits; F17.200 Nicotine dependence, unspecified, uncomplicated; W20.8XXA Other cause of strike by thrown, projected or falling object, initial encounter; Y93.89 Activity, other specified; Y92.008 Other place in unspecified non-institutional (private) residence as the place of occurrence of the external cause; Y99.8 Other external cause status
CPT/HCPCS: 73110; 73130; 73630; 96372; 99283

== ENCOUNTER 2020-04-08 00:44 | Emergency (ER) | payer MEDICAID, SELFPAY ==
[2020-04-08 00:46] VITALS: BP 158/91; PULSE 90; RESP 16; TEMP 35.7; O2SAT 98; BMI 35.6
--- NOTE | 2020-04-08 00:56 | ED.VIS.GEN ---
History of Present Illness Chief Complaint: Rash Informant: Patient Onset: Month(s) Context: Sudden Onset Timing: Continuous, Intermittent Quality: Reported painful rash Location: Groin, axilla, extremities Current Severity: Moderate Maximum Severity: Moderate Worsened by: Unknown Relieved by: Nothing Associated Symptoms: No associated symptoms Narrative: Patient is a middle-age male who presents with painful rash. Rash first noted several months ago. Is been intermittent. He denies history of diabetes. There is multiple pain members with diabetes. He denies symptoms of diabetes. He denies fever, chills night sweats. He denies history medic fever, heart murmur, SBE or being immune suppressed. He denies urologic symptoms. He denies GI symptoms. 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 [place] (7) TIA (transient ischemic attack) Status: Chronic (8) Tobacco dependence Status: Chronic Past Medical History - Allergies and Home Meds Allergies/Adverse Reactions: Allergies azithromycin Allergy (Verified 03/11/20 01:20) Shortness of breath Primary Care Physician: Armani Guerrero MD [Primary Care Provider] - Prior records reviewed: Yes Surgical History: appendectomy Lives: Alone Smoking Status: Current every day smoker Alcohol: Heavy Drugs: None - Family History Sibling Family History: Family History (Last Reviewed 12/13/19 @ 12:36 by Nicole Chao) Mother Diabetes CAD (coronary artery disease) CVA (cerebral vascular accident) Myocardial infarction, Onset Age: 35 Father CAD (coronary artery disease) Diabetes CVA (cerebral vascular accident) Family History: Reports: Diabetes, Heart Disease Maternal Family History: Family History (Last Reviewed 12/13/19 @ 12:36 by Nicole Chao) Mother Diabetes CAD (coronary artery disease) CVA (cerebral vascular accident) Myocardial infarction, Onset Age: 35 Father CAD (coronary artery disease) Diabetes CVA (cerebral vascular accident) Family History: Reports: Diabetes, Heart Disease - [place] at 35 y/o., Stroke Paternal Family History: Family History (Last Reviewed 12/13/19 @ 12:36 by Nicole Chao) Mother Diabetes CAD (coronary artery disease) CVA (cerebral vascular accident) Myocardial infarction, Onset Age: 35 Father CAD (coronary artery disease) Diabetes CVA (cerebral vascular accident) Family History: Reports: Diabetes, Heart Disease, Stroke Review of Systems General: Denies: Chills, Fever, Malaise, Subjective, Sweats Eyes: Denies: Blurred Vision - bilaterally ENT: Denies: Rhinorrhea, Sore throat Cardiovascular: Denies: Chest pain, Palpitations Respiratory: Denies: Dyspnea, Cough, Sputum Gastrointestinal: Denies: Nausea, Vomiting, Diarrhea Genitourinary: Denies: Dysuria, Hematuria, Frequency Musculoskeletal: Reports: Extremity Pain. Denies: Myalgias, Arthralgias, Swelling Skin: Reports: Rash, Wounds - Due to self-inflicted wounds from scratching. Skin avulsion dorsal radial side right wrist Neurological: Denies: Weakness, Parasthesia Psych: Reports: Depression - Old records Hematologic: Denies: Easy bruising, Easy bleeding Allergy: Denies: Uticaria, Swelling of the mouth Physical Exam Vital Signs/Narrative: Vital Signs Temp Pulse Resp BP Pulse Ox 04/08/20 00:46 96.2 F L 90 16 158/91 H 98 Inital Vital Signs reviewed: Yes General: Well nourished, Well developed, Obese Head: Normocephalic, Atraumatic Eyes: Perrl, EOMI. Negative for: Pale conjunctiva Neck: Supple, Nontender Cardiovascular: Regular rhythm, No murmurs, Irregular Respiratory: No distress, CTA bilaterally Abdomen: Soft, Nontender, Nondistended, Normal bowel sounds Extremities: Nontender, No edema Skin: Normal color, Rash - Folliculitis, areas of excoriation without evidence of infection Neurological: Alert, Oriented x3, Cranial nerves II-XII grossly intact, Normal Strength Psychological: - - Flat affect and animated Diagnostic/Tx/Re-eval BG T is 104. - Medical Decision Making Will assess patient's blood sugar. Tetanus was updated. Wound care to the right wrist injury and antibiotics for the folliculitis. ED Disposition - Plan for ED Patient: Disposition: Home or Assisted Living Diagnosis: Bacterial folliculitis, Folliculitis of both axillae, Avulsion of skin of right wrist Instructions: ED Folliculitis, ED Skin Avulsion Prescriptions: Doxycycline 100 mg PO BID #20 cap Transmission Status: Pending to [facility] Referrals: Armani Guerrero MD [Primary Care Provider] - 1 Week if not improving
[2020-04-08] MEDS: Doxycycline 100 MG CAPSULE PO (00:59)
[2020-04-08 01:05] LABS: Bedside Glucose 104 mg/dL (70-110)
[2020-04-08] MEDS: Diphth,Pertuss(Acell),Tet Vac 0.5 ML Vial IM (01:10)
== END 2020-04-08 01:35 | disposition home or self-care (01) ==
LOC: ED 01:19
PROVIDERS: Emergency Provider Emergency Medicine; PCP Family Medicine
DX: L73.9 Follicular disorder, unspecified (principal); B96.89 Other specified bacterial agents as the cause of diseases classified elsewhere; S61.501A Unspecified open wound of right wrist, initial encounter; Z23 Encounter for immunization; E66.9 Obesity, unspecified; K21.9 Gastro-esophageal reflux disease without esophagitis; E78.5 Hyperlipidemia, unspecified; F17.200 Nicotine dependence, unspecified, uncomplicated; X58.XXXA Exposure to other specified factors, initial encounter; Y93.89 Activity, other specified; Y92.89 Other specified places as the place of occurrence of the external cause; Y99.8 Other external cause status
CPT/HCPCS: 82962; 90471; 90715; 99283

== ENCOUNTER 2020-05-23 03:01 | Emergency (ER) | payer MEDICAID, SELFPAY ==
[2020-05-23 03:03] VITALS: BP 165/114; PULSE 72; RESP 18; TEMP 36.2; O2SAT 99; BMI 36.8
--- NOTE | 2020-05-23 03:18 | ED.DCSUM_ITS ---
History of Present Illness Chief Complaint: Laceration Informant: Patient Occurred: Today - JPTA Mechanism/Context: Incised - accidentally on nail while installing carpet Context: Sudden Onset Timing: Continuous Quality of Pain: - - sore Location: left middle finger Current Severity: Mild Maximum Severity: Moderate Worsened by: palpation Relieved by: leaving alone Associated Symptoms: Negative for: Parasthesia, Weakness, Loss of Funtion Narrative: Accidentally cut his left middle finger. He states it bled quite a bit but is better now, he is on Eliquis for chronic atrial fibrillation. Denies any other injury. RHD. Drinking alcohol tonight. 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 with supervisor component assembler at [place] (6) TIA (transient ischemic attack) Status: Chronic (7) CVA (cerebral vascular accident) Status: Inactive Past Medical History - Allergies and Home Meds Allergies/Adverse Reactions: Allergies azithromycin Allergy (Verified 03/11/20 01:20) Shortness of breath Primary Care Physician: Armani Guerrero MD [Primary Care Provider] - Surgical History: appendectomy Smoking Status: Current every day smoker - Family History Sibling Family History: Family History (Last Reviewed 12/13/19 @ 12:36 by Nicole Chao) Mother Diabetes CAD (coronary artery disease) CVA (cerebral vascular accident) Myocardial infarction, Onset Age: 35 Father CAD (coronary artery disease) Diabetes CVA (cerebral vascular accident) Family History: Reports: Diabetes, Heart Disease Maternal Family History: Family History (Last Reviewed 12/13/19 @ 12:36 by Nicole Chao) Mother Diabetes CAD (coronary artery disease) CVA (cerebral vascular accident) Myocardial infarction, Onset Age: 35 Father CAD (coronary artery disease) Diabetes CVA (cerebral vascular accident) Family History: Reports: Diabetes, Heart Disease - [place] at 35 y/o., Stroke Paternal Family History: Family History (Last Reviewed 12/13/19 @ 12:36 by Nicole Chao) Mother Diabetes CAD (coronary artery disease) CVA (cerebral vascular accident) Myocardial infarction, Onset Age: 35 Father CAD (coronary artery disease) Diabetes CVA (cerebral vascular accident) Family History: Reports: Diabetes, Heart Disease, Stroke Review of Systems General: Denies: Chills, Fever, Sweats Musculoskeletal: Reports: Extremity Pain Skin: Reports: Wounds. Denies: Rash Neurological: Denies: Headache, Weakness, Numbness Physical Exam Vital Signs/Narrative: Vital Signs Temp Pulse Resp BP Pulse Ox 05/23/20 03:03 97.2 F L 72 18 165/114 H 99 General: Well nourished, Well developed, Obese, - - Keenly alert, mildly intoxicated, ambulatory. Head: Normocephalic, Atraumatic Extremeties: Full range of motion of all fingers of the left hand, including FDP and FDS of all fingers/digits. No bony tenderness. No other injuries. Skin: Normal color, No rash, Trauma - V-shaped 2.5 cm laceration to the ulnar aspect of the left middle finger, clean, full-thickness subcutaneous, lots of dried blood around it but no active bleeding Neurological: Alert, Oriented x3, Cranial nerves II-XII grossly intact, Normal Strength, Normal Sensation, Normal Gait Psychological: Normal affect, Normal Mood Diagnostic/Tx/Re-eval - Medical Decision Making Left middle finger laceration was repaired after local let and 2 cc of injected subcutaneously 1% lidocaine. Inspected under bloodless field, there is subcutaneous fingerpad tissue and nothing else exposed. It is beyond the DIPJ and does not involve the nail and there is no foreign material. No x-ray indicated, the repair was uncomplicated, 10-day follow-up for removal and reevaluation. Procedures - Lacerations left middle finger Length: 2.5 cm Depth: Sub Q Shape: V-shaped Prep: Sterile Conditions, Chlorhexadine Laceration repair: Irrigated, Lidocaine with epi - topically, Local Irrigated (ml): 60 Number of Sutures/[place]: 5 Suture Information: Ethilon, Simple, 4-0 ED Disposition - Plan for ED Patient: Disposition: Home or Assisted Living Diagnosis: Laceration of left middle finger w/o foreign body w/o damage to nail Instructions: ED Laceration, Hand: All Closures Referrals: Armani Guerrero MD [Primary Care Provider] - 10 Day for suture removal
[2020-05-23] MEDS: Lidocaine/Epi/Tetracaine 50 ML 1 APPLIC TOPICAL (03:28)
[2020-05-23] MEDS: Lidocaine 1% (20 ml mdv) 20 ML Vial INFILT (03:47)
== END 2020-05-23 04:23 | disposition home or self-care (01) ==
PROVIDERS: Emergency Provider Emergency Medicine; PCP Family Medicine
DX: S61.213A Laceration without foreign body of left middle finger without damage to nail, initial encounter (principal); I48.20 Chronic atrial fibrillation, unspecified; K21.9 Gastro-esophageal reflux disease without esophagitis; Z86.73 Personal history of transient ischemic attack (TIA), and cerebral infarction without residual deficits; F32.9 Major depressive disorder, single episode, unspecified; F17.200 Nicotine dependence, unspecified, uncomplicated; E66.9 Obesity, unspecified; Z79.02 Long term (current) use of antithrombotics/antiplatelets; Z79.899 Other long term (current) drug therapy; W45.0XXA Nail entering through skin, initial encounter; Y93.89 Activity, other specified; Y92.89 Other specified places as the place of occurrence of the external cause; Y99.8 Other external cause status
CPT/HCPCS: 12001; 99284

== ENCOUNTER → 2020-06-30 16:10 | Outpatient (CLI) | payer MEDICAID, SELFPAY ==
[2020-06-30 18:19] LABS: ALB/GLOB Ratio 0.9 RATIO (0.9-2.4); AST(SGOT) 14 U/L (15-37); Alanine Aminotransfer ALT/SGPT 23 U/L (16-61); Albumin, Serum 3.7 g/dL (3.2-5.0); Alkaline Phosphatase 52 U/L (45-117); Anion Gap 6 (5-15); BUN 18 mg/dL (7-18); BUN/Creat Ratio 19.1 RATIO (10-20); Calcium,Total 8.8 mg/dL (8.5-10.1); Chloride 108 mmol/L (98-107); Cholesterol 252 mg/dL (200); Creatinine, Serum 0.94 mg/dL (0.70-1.30); EST Glomerular Filtration Rate 90 mL/min (>60); Est Glom Filt Rate - Afr Amer 109 mL/min (>60); Globulin 4.1 g/dL (2.2-4.2); Glucose 103 mg/dL (74-106); High Density Lipoprotein 39 mg/dL; Potassium 3.9 mmol/L (3.5-5.1); Protein, Total 7.8 g/dL (6.4-8.2); Sodium Level 137 mmol/L (136-145); Thyroid Stim Hormone (TSH) 2.83 uIU/mL (0.358-3.74); Triglycerides 297 mg/dL; Very Low Density Lipoprotein 59 mg/dL (5-40)
== END ==
PROVIDERS: PCP Family Medicine; Referring Provider Family Medicine; Visit Provider Family Medicine
DX: E78.00 Pure hypercholesterolemia, unspecified (principal); F32.9 Major depressive disorder, single episode, unspecified
CPT/HCPCS: 36415; 80053; 80061; 84443

== ENCOUNTER 2020-07-25 15:41 | Emergency (ER) | payer MEDICAID, SELFPAY ==
[2020-07-25 15:41] VITALS: BP 162/102; PULSE 73; RESP 18; TEMP 35.6; O2SAT 98; BMI 37.4
[2020-07-25 15:48] VITALS: O2SAT 97
[2020-07-25 15:55] VITALS: O2SAT 97
[2020-07-25 15:58] VITALS: BP 147/77; PULSE 72; RESP 15; O2SAT 98
--- NOTE | 2020-07-25 15:58 | EKG12_ITS ---
Test Reason : SOB Blood Pressure : / mmHG Vent. Rate : 063 BPM Atrial Rate : 063 BPM P-R Int : 190 ms QRS Dur : 092 ms QT Int : 404 ms P-R-T Axes : 042 031 013 degrees QTc Int : 413 ms Normal sinus rhythm Normal ECG Confirmed by JOYCE SEXTON, MANNY ([id number]), slot editor MARLY CELAYA ([id number]) on 07/29/2020 8:31:12 AM Referred By: MICHEAL Confirmed By:MANNY COOK MD
[2020-07-25] MEDS: 0.9% Normal Saline 1,000 ML 999 ML IV (16:17)
[2020-07-25] MEDS: Ipratropium/Albuterol Sulfate 3 ML AMPUL.NEB INHALATION (16:18)
[2020-07-25] MEDS: MethylPREDNISolone 125 MG/2 ML Vial IV (16:18)
[2020-07-25 16:22] VITALS: PULSE 71; RESP 18
--- NOTE | 2020-07-25 16:30 | RAD_ITS ---
INDICATION: Cough EXAMINATION/TECHNIQUE: X-RAY - XR Chest 1 View COMPARISON: 11/18/2019. FINDINGS: Bilateral interstitial and airspace opacities mostly in the bilateral lower lobes. The cardiomediastinal silhouette is unremarkable. No pleural effusion or pneumothorax. No acute osseous abnormalities. RAD/Chest 1 View (Portable) IMPRESSION: Bilateral interstitial and airspace opacities mostly in the bilateral lower lobes concerning for infection and/or edema. Electronically Signed: Jason Torres MD at 16:45 EDT Tel , Service support ,
[2020-07-25 16:53] LABS: Absolute Lymphocyte Count 2.42 X10^3/uL (0.83-4.51); Absolute Neutrophil Count 5.6 X10^3/uL (2.0-7.7); Basophil# 0.06 X10^3/uL; Basophil% 0.7 % (0-1); Eosinophil# 0.04 X10^3/uL; Eosinophils% 0.4 % (0-5); Hematocrit 40.1 % (40-54); Hemoglobin 13.1 g/dL (13.0-16.5); Lymphocyte # 2.42 X10^3/ul (0.83-4.51); Lymphocyte % 27.2 % (19-41); Mean Corp Hgb Conc 32.7 g/dL (32-36); Mean Corpuscular Hgb 29.1 pg (27.0-32.0); Mean Corpuscular Volume 89.1 fL (80-94); Mean Platelet Vol. 10.3 fl (6.2-12.0); Monocyte# 0.72 X10^3/uL; Monocyte% 8.1 % (0-10); NRBC Flagged by Analyzer 0 % (0-5); Neutrophil # 5.63 X10^3/uL (2.7-7.7); Neutrophil % 63.2 % (47-70); Platelet Count 196 K/mm3 (150-450); RBC Distribution Width CV 13.5 % (11.6-14.6); RBC Distribution Width SD 44.2 fl (35.1-43.9); White Blood Count 8.9 K/mm3 (4.4-11.0)
[2020-07-25 17:15] LABS: Anion Gap 8 (5-15); BUN 12 mg/dL (7-18); BUN/Creat Ratio 12.8 RATIO (10-20); Calcium,Total 8.8 mg/dL (8.5-10.1); Chloride 107 mmol/L (98-107); Creatinine, Serum 0.94 mg/dL (0.70-1.30); EST Glomerular Filtration Rate 90 mL/min (>60); Est Glom Filt Rate - Afr Amer 109 mL/min (>60); Estimated Creatinine Clearance 86.92 ml/min; Glucose 104 mg/dL (74-106); Potassium 3.8 mmol/L (3.5-5.1); Sodium Level 136 mmol/L (136-145)
--- NOTE | 2020-07-25 17:22 | ED.VISSUMM ---
- ER Visit Summary Date of Service: 07/25/20 Chief Complaint: Cough History of Present Illness: The patient is a [address] Guerrero. He reports that he has chronic cough is gotten worse for the past few days. Is nonproductive. He states that he had mild difficulty breathing. He does not use an inhaler. He does have a history of smoking. Reports that he continues to smoke 1 pack/day. He smoked 3 packs/day at most. Patient denies any fever or chills. He reports he has a left-sided dull chest pain that is intermittent and lasts seconds at a time. Nothing makes this better or worse. He has not had a Covid vaccine. He denies sick contacts. He does wear a mask. States he had similar symptoms previously with pneumonia. Physical Examination: Vitals: Stable. Afebrile. General: Well-nourished and well-developed. Head: Normocephalic atraumatic. Neck: Supple, no lymphadenopathy. No JVD. Nontender. Cardiovascular: Regular rate and rhythm. No murmurs. Respiratory: Mild respiratory distress with poor air movement. Abdominal: Soft, nontender, nondistended, normal bowel sounds. No guarding, rebound, or peritoneal signs. Back: Nontender. Extremities: Nontender, no edema. Skin: Normal color, no rash. Neurologic: Alert and oriented ?3. Cranial nerves II through XII are intact. Normal strength and sensation. Psych: Normal affect. Test Results: EKG is sinus tach [address] changes and artifact. Troponin is negative. Chem-7 is normal. CBC is normal. Covid is negative. Clinical Impression(s) from Imaging Studies Chest X-Ray 07/25/20 16:30 IMPRESSION: Bilateral interstitial and airspace opacities mostly in the bilateral lower lobes concerning for infection and/or edema. Electronically Signed: Jason Torres MD at 16:45 EDT Tel , Service support , Emergency Department Course and Treatment: Patient was given albuterol Atrovent aerosol and feels much improved. He was given Solu-Medrol IV and Levaquin p.o. He would like to go home. Treatment Plan: I had a prolonged discussion with the patient that with his chronic cough and tobacco use that he likely has COPD. He will be discharged with prednisone, Levaquin, and albuterol MDI. Instructed to follow-up his primary care physician in 3 to 5 days if not improving. He is also instructed to follow-up with Dr. Mino Paul for further evaluation of his pulmonary status. Return to the emergency department for any worsening symptoms. Disposition: To home in improved and stable condition. Impression: 1. Pneumonia. 2. Tobacco abuse. This note was generated with DriveHQ[employer] software. It may contain incorrect words, spelling, and punctuation that were not noted in review of the chart prior to signing ED Disposition - Plan for ED Patient: Disposition: Home or Assisted Living Instructions: ED COPD Flare, ED Pneumonia (Adult) Prescriptions: Prednisone [Deltasone] 40 mg PO DAILY #10 tablet Prescription Printed Levofloxacin [Levaquin] 750 mg PO DAILY #6 tablet Prescription Printed Albuterol Inhaler [Ventolin Hfa] 2 puff INHALATION Q4H PRN PRN #1 inhaler PRN Reason: Wheezing Prescription Printed Referrals: Armani Guerrero MD [Primary Care Provider] - 3-5 Days if not improving Mino Paul DO [STAFF PHYSICIAN] - 1-2 Weeks
[2020-07-25 17:38] VITALS: BP 144/78; PULSE 82; RESP 16; O2SAT 98
== END 2020-07-25 17:39 | disposition home or self-care (01) ==
LOC: ED 16:54
PROVIDERS: Emergency Provider Emergency Medicine; PCP Family Medicine
DX: J18.9 Pneumonia, unspecified organism (principal); F17.210 Nicotine dependence, cigarettes, uncomplicated; I10 Essential (primary) hypertension; E78.00 Pure hypercholesterolemia, unspecified; Z79.899 Other long term (current) drug therapy
CPT/HCPCS: 36415; 71045; 80048; 84484; 85025; 87426; 93005; 94640; 96361; 96374; 99285; J7030

== ENCOUNTER 2020-08-07 06:00 | Emergency (ER) | payer MEDICAID, SELFPAY ==
[2020-08-07 06:08] VITALS: BP 105/89; PULSE 68; RESP 22; TEMP 35.8; O2SAT 98; BMI 37.5
--- NOTE | 2020-08-07 06:20 | RAD_ITS ---
STUDY: X-RAY CHEST REASON FOR EXAM: Male, 50 years old. Chest pain TECHNIQUE: Single AP portable view of the chest. COMPARISON: Chest x-ray July 25, 2020, March 08, 2018 FINDINGS: There is surgical markings are mildly prominent similar to the prior study. There is no demonstrated pleural abnormality. Normal size heart. Normal mediastinum and candelaria. Normal visualized pulmonary arteries. Normal visualized aortic arch and descending thoracic aorta. There are diffuse degenerative changes of the visualized thoracic spine. Normal visualized ribs, clavicles, and shoulders. There is no demonstrated abnormality of the visualized soft tissue structures of the upper abdomen. RAD/Chest 1 View (Portable) IMPRESSION: Stable chronic appearing lung markings. No definitive acute focal infiltrate. Electronically Signed: Юлия Cuadra MD at 7:53 EDT Tel , Service support ,
--- NOTE | 2020-08-07 06:22 | CT_ITS ---
STUDY: CT ABDOMEN AND PELVIS WITH CONTRAST REASON FOR EXAM: Male, 50 years old. Right flank pain RADIATION DOSAGE (If Supplied By Facility): CTDIvol = ( 16.44 ) mGy, DLP = ( 1372. ) mGycm TECHNIQUE: Transaxial images were obtained from the dome of the diaphragm to the symphysis pubis without oral contrast. IV 100mL Isovue-370 was administered. Sagittal and coronal images were reconstructed. Individualized dose optimization techniques were used for this CT. COMPARISON: December 20, 2017 CT abdomen and pelvis FINDINGS: The visualized lung bases are unremarkable. The visualized portions of the heart are within normal limits. There is decreased attenuation of the liver consistent with steatosis. Normal gallbladder and extrahepatic biliary system. Normal spleen. Normal pancreas. Normal bilateral adrenal glands. Normal right kidney. Normal left kidney. Normal visualized stomach. Normal small intestine. There is mild to moderate stool in the colon. There are surgical clips in the region of the appendix consistent with a prior appendectomy. Normal abdominal aorta. There is minimal calcification of the left iliac artery. Normal inferior vena cava. Normal retroperitoneum. Normal urinary bladder. Normal visualized prostate gland. There is a small umbilical hernia containing fat. There are diffuse degenerative changes of the visualized lumbar spine. CT/Abdomen/Pelvis W IV Cont ONLY IMPRESSION: Mild to moderate constipation. No visualized renal stones are visualized hydronephrosis. Status post appendectomy. Electronically Signed: Юлия Cuadra MD at 7:50 EDT Tel , Service support ,
--- NOTE | 2020-08-07 06:23 | EDS_ITS ---
HPI <Dr. Armond Torres MD - Last Filed: 08/07/20 06:58> History of Present Illness Chief Complaint: Flank Pain Informant: patient Narrative Narrative: Patient is a 50-year-old male who presents with right flank pain. He is clinically intoxicated. He keeps shouting I broke my kidney. Patient states he was outside doing yard work yesterday and shoveling mulch. He complains of severe right back pain at the lower thoracic upper lumbar area. No abdominal pain. No nausea vomiting or diarrhea. No fevers. No chest pain or shortness of breath. He does have a history of atrial fibrillation on Eliquis. History is limited due to his clinical intoxication. [facility] <Dr. Armond Torres MD - Last Filed: 08/07/20 06:58> [facility] Medical History (Updated 08/07/20 @ 09:[address] Anat Mcintyre, DO) Atrial fibrillation Chronic back pain Depression GERD (gastroesophageal reflux disease) Hyperlipidemia Noncompliance with CPAP treatment Obesity (BMI 30-39.9) JOHNATHAN (obstructive sleep apnea) Paroxysmal atrial fibrillation TIA (transient ischemic attack) Tobacco dependence Home Medications atenolol 25 mg PO QHS 04/30/19 [History Last Taken 11/11/19] sertraline 100 mg PO QHS 04/30/19 [History Last Taken 11/11/19] apixaban 5 mg PO DAILY 11/02/19 [History Last Taken 11/11/19] omeprazole 20 mg PO DAILY 11/02/19 [History Last Taken 11/11/19] lisinopril 10 mg PO DAILY 05/23/20 [History Last Taken Unknown] albuterol sulfate 2 puff INHALATION Q4H PRN PRN #1 inhaler 07/25/20 [Rx Last Taken Unknown] levofloxacin 750 mg PO DAILY #6 tablet 07/25/20 [Rx Last Taken Unknown] hydrocodone-acetaminophen 1 tab PO Q8H PRN 3 Days #10 tab 08/07/20 [Rx Last Taken Unknown] Allergy/AdvReac Type Severity Reaction Status Date / Time azithromycin Allergy Shortness Verified 08/07/20 06:01 of breath Family History Mother Diabetes CAD (coronary artery disease) CVA (cerebral vascular accident) Myocardial infarction, Onset Age: 35 Father CAD (coronary artery disease) Diabetes CVA (cerebral vascular accident) Surgical History Hx of appendectomy Social History Smoking Status: Current every day smoker alcohol intake: current substance use type: does not use ROS <Dr. Armond Torres MD - Last Filed: 08/07/20 06:58> ROS ED Constitutional Constitutional ED: Denies fever(s) Cardiovascular Cardiovascular: Denies chest pain Respiratory/Chest Respiratory/Chest: Denies dyspnea Gastrointestinal Gastrointestinal: Denies abdominal pain, diarrhea or vomiting Musculoskeletal Musculoskeletal: Reports back pain Integumentary Denies rash Neurologic Neurologic: Denies headache(s) EXAM <Dr. Armond Torres MD - Last Filed: 08/07/20 06:58> Physical Exam Const Vital Signs: 08/07/20 06:08 08/07/20 07:16 08/07/20 08:13 Temperature 96.4 F L Temperature Source Temporal Pulse Rate 68 77 68 Respiratory Rate 22 H 16 16 Blood Pressure 105/89 H 108/72 109/63 Blood Pressure Mean 94 84 78 Pulse Ox 98 98 98 Oxygen Delivery Method Room Air Room Air Room Air 08/07/20 09:44 Temperature Temperature Source Pulse Rate 69 Respiratory Rate 16 Blood Pressure 110/73 Blood Pressure Mean Pulse Ox 96 Oxygen Delivery Method Positive well nourished Constitutional Narrative: When I entered the room patient is thrashing gini k-and-forth on the bed having his visitor rub his back HEENT Reports moist mucous membranes Eyes EOMs intact bilaterally Neck supple Chest Wall palpation of chest normal Resp clear to auscultation bilaterally Cardio regular rate and regular rhythm GI non-tender and non-distended GI Narrative: No abdominal flank or back ecchymosis Palpation: soft Back/Spine Back/Spine Narrative: Patient has right paraspinal lower thoracic tenderness along the lower posterior right ribs and upper lumbar region General Back: Negative for CVA tenderness Neuro Sensorium / Orientation: alert Psych Mood & Affect: anxious Skin no rashes or lesions noted <Dr. Anat Mcintyre DO - Last Filed: 08/07/20 16:36> Physical Exam Const Vital Signs: 08/07/20 06:08 08/07/20 07:16 08/07/20 08:13 Temperature 96.4 F L Temperature Source Temporal Pulse Rate 68 77 68 Respiratory Rate 22 H 16 16 Blood Pressure 105/89 H 108/72 109/63 Blood Pressure Mean 94 84 78 Pulse Ox 98 98 98 Oxygen Delivery Method Room Air Room Air Room Air 08/07/20 09:44 Temperature Temperature Source Pulse Rate 69 Respiratory Rate 16 Blood Pressure 110/73 Blood Pressure Mean Pulse Ox 96 Oxygen Delivery Method MDM <Dr. Armond Torres MD - Last Filed: 08/07/20 06:58> [facility] MDM Narrative Medical decision making narrative: Patient was given fentanyl and Zofran. CBC, BMP, urinalysis unremarkable. CT of the abdomen and pelvis is pending at the time of this dictation patient signed out to the oncoming physician. Lab Data Labs: Laboratory Results - last 24 hr 08/07/20 08/07/20 08/07/20 06:12 06:12 06:25 WBC 8.2 RBC 4.49 L Hgb 13.4 Hct 40.9 MCV 91.1 MCH 29.8 MCHC 32.8 RDW Std Deviation 46.1 H RDW Coeff of Pearl 13.8 Plt Count 191 MPV 10.0 Immature Gran % (Auto) 0.600 Neut % (Auto) 42.4 L Lymph % (Auto) 46.7 H Mccone % (Auto) 8.1 Eos % (Auto) 1.7 Baso % (Auto) 0.5 Absolute Neuts (auto) 3.5 Absolute Lymphs (auto) 3.82 Nucleated RBC % 0 PT INR Sodium 143 Potassium 3.4 L Chloride 109 H Carbon Dioxide 27.0 Anion Gap 7 BUN 16 Creatinine 0.91 Estim Creat Clear Calc 89.79 Est GFR (MDRD) Af Amer 113 Est GFR (MDRD) Non-Af 93 BUN/Creatinine Ratio 17.6 Glucose 102 Lactic Acid Calcium 8.6 Urine Color Yellow Urine Clarity Clear Urine pH 6.0 Ur Specific [place] 1.010 Urine Protein Negative Urine Glucose (UA) Normal Urine Ketones Negative Urine Occult Blood Negative Urine Nitrite Negative Urine Bilirubin Negative Urine Urobilinogen Normal Ur Leukocyte Esterase Negative Urine RBC 0 SEEN Urine WBC 0 SEEN Ur Squamous Epith Cells 0 SEEN Urine Bacteria 0 SEEN Urine Mucus 0 SEEN 08/07/20 08/07/20 06:35 07:50 WBC RBC Hgb Hct MCV MCH MCHC RDW Std Deviation RDW Coeff of Pearl Plt Count MPV Immature Gran % (Auto) Neut % (Auto) Lymph % (Auto) Mccone % (Auto) Eos % (Auto) Baso % (Auto) Absolute Neuts (auto) Absolute Lymphs (auto) Nucleated RBC % PT 12.0 INR 0.9 Sodium Potassium Chloride Carbon Dioxide Anion Gap BUN Creatinine Estim Creat Clear Calc Est GFR (MDRD) Af Amer Est GFR (MDRD) Non-Af BUN/Creatinine Ratio Glucose Lactic Acid 0.8 Calcium Urine Color Urine Clarity Urine pH Ur Specific [place] Urine Protein Urine Glucose (UA) Urine Ketones Urine Occult Blood Urine Nitrite Urine Bilirubin Urine Urobilinogen Ur Leukocyte Esterase Urine RBC Urine WBC Ur Squamous Epith Cells Urine Bacteria Urine Mucus Radiography Diagnostic Testing: Radiology Impression Chest X-Ray 08/07/20 06:20 IMPRESSION: Stable chronic appearing lung markings. No definitive acute focal infiltrate. Electronically Signed: Юлия Cuadra MD at 7:53 EDT Tel , Service support , Abdomen/Pelvis CT 08/07/20 06:22 IMPRESSION: Mild to moderate constipation. No visualized renal stones are visualized hydronephrosis. Status post appendectomy. Electronically Signed: Юлия Cuadra MD at 7:50 EDT Tel , Service support , <Dr. Anat Mcintyre, DO - Last Filed: 08/07/20 16:36> [facility] Lab Data Attestation: I reviewed the patient's lab results. Labs: Laboratory Results - last 24 hr 08/07/20 08/07/20 08/07/20 06:12 06:12 06:25 WBC 8.2 RBC 4.49 L Hgb 13.4 Hct 40.9 MCV 91.1 MCH 29.8 MCHC 32.8 RDW Std Deviation 46.1 H RDW Coeff of Pearl 13.8 Plt Count 191 MPV 10.0 Immature Gran % (Auto) 0.600 Neut % (Auto) 42.4 L Lymph % (Auto) 46.7 H Mccone % (Auto) 8.1 Eos % (Auto) 1.7 Baso % (Auto) 0.5 Absolute Neuts (auto) 3.5 Absolute Lymphs (auto) 3.82 Nucleated RBC % 0 PT INR Sodium 143 Potassium 3.4 L Chloride 109 H Carbon Dioxide 27.0 Anion Gap 7 BUN 16 Creatinine 0.91 Estim Creat Clear Calc 89.79 Est GFR (MDRD) Af Amer 113 Est GFR (MDRD) Non-Af 93 BUN/Creatinine Ratio 17.6 Glucose 102 Lactic Acid Calcium 8.6 Urine Color Yellow Urine Clarity Clear Urine pH 6.0 Ur Specific [place] 1.010 Urine Protein Negative Urine Glucose (UA) Normal Urine Ketones Negative Urine Occult Blood Negative Urine Nitrite Negative Urine Bilirubin Negative Urine Urobilinogen Normal Ur Leukocyte Esterase Negative Urine RBC 0 SEEN Urine WBC 0 SEEN Ur Squamous Epith Cells 0 SEEN Urine Bacteria 0 SEEN Urine Mucus 0 SEEN 08/07/20 08/07/20 06:35 07:50 WBC RBC Hgb Hct MCV MCH MCHC RDW Std Deviation RDW Coeff of Pearl Plt Count MPV Immature Gran % (Auto) Neut % (Auto) Lymph % (Auto) Mccone % (Auto) Eos % (Auto) Baso % (Auto) Absolute Neuts (auto) Absolute Lymphs (auto) Nucleated RBC % PT 12.0 INR 0.9 Sodium Potassium Chloride Carbon Dioxide Anion Gap BUN Creatinine Estim Creat Clear Calc Est GFR (MDRD) Af Amer Est GFR (MDRD) Non-Af BUN/Creatinine Ratio Glucose Lactic Acid 0.8 Calcium Urine Color Urine Clarity Urine pH Ur Specific [place] Urine Protein Urine Glucose (UA) Urine Ketones Urine Occult Blood Urine Nitrite Urine Bilirubin Urine Urobilinogen Ur Leukocyte Esterase Urine RBC Urine WBC Ur Squamous Epith Cells Urine Bacteria Urine Mucus Radiography Diagnostic Testing: Radiology Impression Chest X-Ray 08/07/20 06:20 IMPRESSION: Stable chronic appearing lung markings. No definitive acute focal infiltrate. Electronically Signed: Юлия Cuadra MD at 7:53 EDT Tel , Service support , Abdomen/Pelvis CT 08/07/20 06:22 IMPRESSION: Mild to moderate constipation. No visualized renal stones are visualized hydronephrosis. Status post appendectomy. Electronically Signed: Юлия Cuadra MD at 7:50 EDT Tel , Service support , Discharge Plan Triage Chief Complaint: Flank Pain ED Provider: Anat Mcintyre Dx/Rx/DC Orders Clinical Impression: Acute right flank pain Instructions: ED Back Pain (Acute or Chronic), ED Flank Pain, Uncertain Cause Prescriptions: New hydrocodone-acetaminophen 5-325 mg tablet 1 tab PO Q8H PRN (Reason: pain) 3 Days Qty: 10 RF: 0 No Action sertraline 100 MG tablet 100 mg PO QHS RF: 0 atenolol 25 MG tablet 25 mg PO QHS RF: 0 apixaban 5 mg tablet 5 mg PO DAILY RF: 0 omeprazole 20 MG capsule 20 mg PO DAILY RF: 0 lisinopril 10 MG tablet 10 mg PO DAILY RF: 0 levofloxacin 750 MG tablet 750 mg PO DAILY Qty: 6 RF: 0 albuterol sulfate 1 INHALER inhaler 2 puff INHALATION Q4H PRN PRN (Reason: Wheezing) Qty: 1 RF: 0 Primary Care Provider: Armani Guerrero Referrals: Armani Guerrero MD [Primary Care Provider] - Activity Restrictions/Additional Instructions: He does not have any findings consistent with injury or issues with your kidney. Your blood flow in your abdomen into your kidneys is normal. No signs of infection. Follow-up with your primary care doctor. I suspect this back pain is from overuse yesterday. Disposition Disposition: Home, self care Discharge Date/Time: 08/07/20 09:44
[2020-08-07 06:26] LABS: Absolute Lymphocyte Count 3.82 X10^3/uL (0.83-4.51); Absolute Neutrophil Count 3.5 X10^3/uL (2.0-7.7); Basophil# 0.04 X10^3/uL; Basophil% 0.5 % (0-1); Eosinophil# 0.14 X10^3/uL; Eosinophils% 1.7 % (0-5); Hematocrit 40.9 % (40-54); Hemoglobin 13.4 g/dL (13.0-16.5); Lymphocyte # 3.82 X10^3/ul (0.83-4.51); Lymphocyte % 46.7 % (19-41); Mean Corp Hgb Conc 32.8 g/dL (32-36); Mean Corpuscular Hgb 29.8 pg (27.0-32.0); Mean Corpuscular Volume 91.1 fL (80-94); Monocyte# 0.66 X10^3/uL; Monocyte% 8.1 % (0-10); NRBC Flagged by Analyzer 0 % (0-5); Neutrophil # 3.47 X10^3/uL (2.7-7.7); Neutrophil % 42.4 % (47-70); Platelet Count 191 K/mm3 (150-450); RBC Distribution Width CV 13.8 % (11.6-14.6); RBC Distribution Width SD 46.1 fl (35.1-43.9); Red Blood Count 4.49 M/mm3 (4.6-6.2); White Blood Count 8.2 K/mm3 (4.4-11.0)
[2020-08-07] MEDS: Ondansetron 4 MG/2 ML Vial IV (06:27)
[2020-08-07] MEDS: fentaNYL 100 MCG/2 ML Ampul 50 MCG IV (06:27)
[2020-08-07 06:36] LABS: Bacteria 0 SEEN /hpf (None Seen); Color, Urine Yellow (Yellow); Glucose, Dipstick Normal (Normal); Ketone-Dipstick Negative (Negative); Leukocyte Esterase-Dipstick Negative /ul (Negative); Mucous, Urine 0 SEEN /hpf (<or=2+); Nitrite-Dipstick Negative (Negative); Occult Blood-Urine Negative /ul (Negative); Protein-Dipstick Negative (Negative); Red Blood Cells-Urine 0 SEEN /hpf (0-5); Squamous Epithelial Cells - UA 0 SEEN /hpf (0-5); Urine Bilirubin Dipstick Negative (Negative); Urine Clarity Clear (Clear); Urine Urobilinogen Normal (Normal); White Blood Cells 0 SEEN /hpf (0-5)
[2020-08-07 06:36] LABS: Anion Gap 7 (5-15); BUN 16 mg/dL (7-18); BUN/Creat Ratio 17.6 RATIO (10-20); Calcium,Total 8.6 mg/dL (8.5-10.1); Chloride 109 mmol/L (98-107); Creatinine, Serum 0.91 mg/dL (0.70-1.30); EST Glomerular Filtration Rate 93 mL/min (>60); Est Glom Filt Rate - Afr Amer 113 mL/min (>60); Estimated Creatinine Clearance 89.79 ml/min; Glucose 102 mg/dL (74-106); Potassium 3.4 mmol/L (3.5-5.1); Sodium Level 143 mmol/L (136-145)
[2020-08-07 06:47] LABS: International Normalized Ratio 0.9
[2020-08-07 07:16] VITALS: BP 108/72; PULSE 77; RESP 16; O2SAT 98
[2020-08-07] MEDS: Morphine 4 MG/ML Syringe IV (07:45)
[2020-08-07 08:13] VITALS: BP 109/63; PULSE 68; RESP 16; O2SAT 98
[2020-08-07 08:23] LABS: Lactic Acid 0.8 mmol/L (0.4-1.9)
[2020-08-07] MEDS: morphine 8 MG/ML Syringe 6 MG IV (08:59)
[2020-08-07 09:44] VITALS: BP 110/73; PULSE 69; RESP 16; O2SAT 96
== END 2020-08-07 09:44 | disposition home or self-care (01) ==
PROVIDERS: Emergency Medicine; Emergency Provider Emergency Medicine; PCP Family Medicine
DX: R10.9 Unspecified abdominal pain (principal); I48.0 Paroxysmal atrial fibrillation; K21.9 Gastro-esophageal reflux disease without esophagitis; E78.5 Hyperlipidemia, unspecified; Z79.02 Long term (current) use of antithrombotics/antiplatelets; Z86.73 Personal history of transient ischemic attack (TIA), and cerebral infarction without residual deficits; Z79.899 Other long term (current) drug therapy; F17.200 Nicotine dependence, unspecified, uncomplicated
CPT/HCPCS: 71045; 74177; 80048; 81001; 83605; 85025; 85610; 96374; 96375; 96376; 99285; Q9967; A4216; J2405

== ENCOUNTER 2020-11-20 04:57 | Emergency (ER) | payer MEDICAID, SELFPAY ==
[2020-11-20 04:57] VITALS: BP 100/59; PULSE 60; RESP 16; TEMP 37.2; O2SAT 94; BMI 34.4
[2020-11-20 05:01] VITALS: BP 100/59; PULSE 60; RESP 16; TEMP 37.2; O2SAT 94
--- NOTE | 2020-11-20 05:30 | EX.ED.DYSGE1 ---
HPI History of Present Illness Chief Complaint: Abscess Informant: patient and EMS Onset/Context/Timing Onset: Weeks (3-4 or more) Context: Gradual Onset Timing: Continuous Quality: pain Location: bilat axillae, bilat groin at rash Current Severity: Severe Maximum Severity: Severe Worsened by: palpation, walking Relieved by: numbing cream helping a little Associated Symptoms Associated Symptoms: feeling bad all over Narrative Narrative: Patient presents by EMS at 5 AM because of severe pain in her rash that has been there for at least a month according to the patient. He states it has been hurting the entire time, and is progressively worsening. He saw his doctor, he states he is putting an unknown cream on it that he thinks is to help numb it, and he has taken no other medications for this. He denies any recent medication changes. He is on Eliquis for A. fib. He denies any recent illness, but states this morning in addition to the pain at the rash areas, he is just feeling bad. He does not know if he has had any fevers or chills. He denies any known exposure to COVID-19 patients that he knows of, and he has never been vaccinated. He denies having any cough or shortness of breath. No nausea, vomiting, he did have some diarrhea this morning. No abdominal pain. No blood in the stool. [facility] Medical History Atrial fibrillation Chronic back pain Depression GERD (gastroesophageal reflux disease) Hyperlipidemia Noncompliance with CPAP treatment Obesity (BMI 30-39.9) JOHNATHAN (obstructive sleep apnea) Paroxysmal atrial fibrillation TIA (transient ischemic attack) Tobacco dependence Home Medications atenolol 25 mg PO DAILY 04/30/19 [History Last Taken 11/11/19] sertraline 100 mg PO QHS 04/30/19 [History Last Taken 11/11/19] apixaban 5 mg PO BID 11/02/19 [History Last Taken 11/11/19] omeprazole 20 mg PO DAILY 11/02/19 [History Last Taken 11/11/19] clotrimazole 1 applic TOPICAL BID 14 Days #30 g 11/20/20 [Rx Last Taken Unknown] hydrocodone-acetaminophen 1 tab PO Q4H PRN PRN 1 Days #6 tablet 11/20/20 [Rx Last Taken Unknown] losartan 50 mg PO DAILY 11/20/20 [History Last Taken Unknown] Allergy/AdvReac Type Severity Reaction Status Date / Time azithromycin Allergy Shortness Verified 11/20/20 05:06 of breath Family History Mother Diabetes CAD (coronary artery disease) CVA (cerebral vascular accident) Myocardial infarction, Onset Age: 35 Father CAD (coronary artery disease) Diabetes CVA (cerebral vascular accident) Surgical History Hx of appendectomy Social History Smoking Status: Current every day smoker tobacco type: cigarettes alcohol intake: current substance use type: does not use ROS ROS ED Constitutional Constitutional ED: Reports as per HPI and malaise; Denies chills or fever(s) Eyes Eyes: Denies change in vision or diplopia ENT ENT ED: Denies rhinorrhea or sore throat Cardiovascular Cardiovascular: Denies chest pain or palpitations Respiratory/Chest Respiratory/Chest: Denies cough or dyspnea Gastrointestinal Gastrointestinal: Reports diarrhea; Denies abdominal pain, nausea or vomiting Genitourinary Genitourinary ED: Denies dysuria or hematuria Musculoskeletal Musculoskeletal: Denies back pain or neck pain Integumentary Reports as per HPI and rash; Denies abscess Neurologic Neurologic: Denies headache(s), paresthesias or weakness Psychiatric Psychiatric: Denies anxiety or suicidal thoughts EXAM Physical Exam Const Vital Signs: 11/20/20 04:57 11/20/20 05:01 Temperature 98.9 F 98.9 F Temperature Source Oral Oral Pulse Rate 60 60 Respiratory Rate 16 16 Blood Pressure 100/59 L 100/59 L Blood Pressure Mean 72 72 Pulse Ox 94 94 Oxygen Delivery Method Room Air Room Air Positive well nourished and well developed General Appearance ED: well developed and NAD HEENT Reports moist mucous membranes normocephalic and atraumatic Eyes PERRL and EOMs intact bilaterally Neck full ROM, no lymphadenopathy and supple Resp normal respiratory effort and clear to auscultation bilaterally Cardio regular rate, regular rhythm and no murmurs GI non-tender and non-distended Auscultation: normoactive bowel sounds Palpation: soft Back/Spine no CVA tenderness General Back: other FROM Extremity normal to inspection Extremity Narrative: All compartments soft, full range of motion throughout all 4 extremities without apparent difficulty. General Extremety ED: Negative for edema, pulses abnormal or tenderness General Extremity: Negative for edema or pulses abnormal Neuro oriented x3, CN's II-XII intact bilaterally and no sensory deficits noted Sensorium / Orientation: awake and alert Motor Exam: strength 5/5 throughout Psych Mood & Affect: anxious and other At times agitated but cooperative Skin Skin Narrative: Patient has intertriginous erythematous scaly patchy rash that is worst in both inguinal creases and into the surrounding areas, as well as the axilla bilaterally where it is minimal but molder machine tender and without erythema. There are no abscesses palpable in any of these areas. There may be underlying tender lymphadenopathy, but difficult to tell the patient is withdrawing due to pain superficially with palpation. No discharge. Scattered pimples/pustules on trunk that are nontender and without abscesses. No lymphangitis. MDM MDM MDM Narrative Medical decision making narrative: Patient was given some [place] and looks and feels much better moving his extremities and walking without any difficulty. His blood work is unremarkable. Etiology of the rash is unknown, it is intertriginous, it is erythematous and extremely tender. I am not sure if this is some type of inflammatory etiology or infectious, there are no abscesses; I think this is probably more likely to be candidal than it is bacterial so will prescribe him antifungal cream until he can follow-up with a accounts receivable representative. He is asking for a prescription for some of the pain medication I gave him some and I referral to dermatology. Lab Data Attestation: I reviewed the patient's lab results. Labs: Laboratory Results - last 24 hr 11/20/20 11/20/20 05:30 05:30 WBC 6.8 RBC 4.32 L Hgb 13.1 Hct 38.6 L MCV 89.4 MCH 30.3 MCHC 33.9 RDW Std Deviation 44.3 H RDW Coeff of Pearl 13.5 Plt Count 220 MPV 10.3 Immature Gran % (Auto) 0.300 Neut % (Auto) 48.1 Lymph % (Auto) 40.4 [place] % (Auto) 8.3 Eos % (Auto) 2.3 Baso % (Auto) 0.6 Absolute Neuts (auto) 3.3 Absolute Lymphs (auto) 2.76 Nucleated RBC % 0 Sodium 139 Potassium 4.7 Chloride 112 H Carbon Dioxide 20.0 L Anion Gap 7 BUN 17 Creatinine 0.75 Estim Creat Clear Calc 108.94 Est GFR (MDRD) Af Amer 140 Est GFR (MDRD) Non-Af 116 BUN/Creatinine Ratio 22.5 H Glucose 111 H Calcium 7.8 L Discharge Plan Triage Chief Complaint: Abscess ED Provider: Ja Daily Dx/Rx/DC Orders Clinical Impression: Intertriginous candidiasis Instructions: ED Ade Skin Infection (Adult) Prescriptions: New clotrimazole 1 % cream 1 applic topical BID 14 Days Qty: 30 RF: 0 hydrocodone-acetaminophen [hydrocodone-acetaminophen] 1 TABLET tablet 1 tab PO Q4H PRN PRN (Reason: Pain) 1 Days Qty: 6 RF: 0 No Action sertraline 100 MG tablet 100 mg PO QHS RF: 0 atenolol 25 MG tablet 25 mg PO DAILY RF: 0 apixaban 5 mg tablet 5 mg PO BID RF: 0 omeprazole 20 MG capsule 20 mg PO DAILY RF: 0 losartan 50 mg Tablet 50 mg PO DAILY RF: 0 Primary Care Provider: Armani Guerrero Referrals: Armani Guerrero MD [Primary Care Provider] - Timmy Valdes MD [STAFF PHYSICIAN] - (Call for appointment to be seen when able) Disposition Disposition: Home, Self Care
[2020-11-20 05:56] LABS: Absolute Lymphocyte Count 2.76 X10^3/uL (0.83-4.51); Absolute Neutrophil Count 3.3 X10^3/uL (2.0-7.7); Basophil# 0.04 X10^3/uL; Basophil% 0.6 % (0-1); Eosinophil# 0.16 X10^3/uL; Eosinophils% 2.3 % (0-5); Hematocrit 38.6 % (40-54); Hemoglobin 13.1 g/dL (13.0-16.5); Lymphocyte # 2.76 X10^3/ul (0.83-4.51); Lymphocyte % 40.4 % (19-41); Mean Corp Hgb Conc 33.9 g/dL (32-36); Mean Corpuscular Hgb 30.3 pg (27.0-32.0); Mean Corpuscular Volume 89.4 fL (80-94); Mean Platelet Vol. 10.3 fl (6.2-12.0); Monocyte# 0.57 X10^3/uL; Monocyte% 8.3 % (0-10); NRBC Flagged by Analyzer 0 % (0-5); Neutrophil # 3.29 X10^3/uL (2.7-7.7); Neutrophil % 48.1 % (47-70); Platelet Count 220 K/mm3 (150-450); RBC Distribution Width CV 13.5 % (11.6-14.6); RBC Distribution Width SD 44.3 fl (35.1-43.9); Red Blood Count 4.32 M/mm3 (4.6-6.2); White Blood Count 6.8 K/mm3 (4.4-11.0)
[2020-11-20] MEDS: HYDROcodone Bitartrate/Apap 5/325 Tablet PO (05:58)
[2020-11-20 06:13] LABS: Anion Gap 7 (5-15); BUN 17 mg/dL (7-18); BUN/Creat Ratio 22.5 RATIO (10-20); Calcium,Total 7.8 mg/dL (8.5-10.1); Chloride 112 mmol/L (98-107); Creatinine, Serum 0.75 mg/dL (0.70-1.30); EST Glomerular Filtration Rate 116 mL/min (>60); Est Glom Filt Rate - Afr Amer 140 mL/min (>60); Estimated Creatinine Clearance 108.94 ml/min; Glucose 111 mg/dL (74-106); Potassium 4.7 mmol/L (3.5-5.1); Sodium Level 139 mmol/L (136-145)
== END 2020-11-20 07:15 | disposition home or self-care (01) ==
PROVIDERS: Emergency Provider Emergency Medicine; PCP Family Medicine
DX: B37.2 Candidiasis of skin and nail (principal); I48.0 Paroxysmal atrial fibrillation; F32.9 Major depressive disorder, single episode, unspecified; G47.33 Obstructive sleep apnea (adult) (pediatric); K21.9 Gastro-esophageal reflux disease without esophagitis; F17.210 Nicotine dependence, cigarettes, uncomplicated; Z79.01 Long term (current) use of anticoagulants; Z79.899 Other long term (current) drug therapy
CPT/HCPCS: 36415; 80048; 85025; 87040; 87426; 99284; A4216

== ENCOUNTER → 2021-12-27 | Outpatient (CLI) | payer MEDICAID, SELFPAY ==
--- NOTE | 2021-12-27 10:36 | RAD_ITS ---
STUDY: X-RAY - RIGHT FOOT CLINICAL: Male, 51 years old. Right heel pain. TECHNIQUE: 3 view(s) of the foot. COMPARISON: None. FINDINGS: Superior and inferior calcaneal spurs. Normal visualized subtalar, talonavicular, calcaneocuboid, tarsal and tarsometatarsal articulations. Normal metatarsi. Mild arthrosis of the MTP and IP joints with minimal hammertoe deformities. Ossification of the proximal plantar fascia. 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 Ossification of the proximal plantar fascia. No acute abnormality, chondrocalcinosis or erosive changes. Electronically Signed: Brady Leiva, at 11:26 EDT ,
--- NOTE | 2021-12-27 10:36 | RAD_ITS ---
STUDY: X-RAY - RIGHT ELBOW REASON FOR EXAM: Male, 51 years old. Pain. TECHNIQUE: 3 view(s) of the elbow. COMPARISON: None. FINDINGS: Large olecranon spur. Normal radiocapitellar and ulnotrochlear articulations. The soft tissue structures are unremarkable. RAD/Elbow min 3 Views IMPRESSION: Large olecranon spur. No other abnormality present. Electronically Signed: Brady Leiva, at 11:26 EDT ,
--- NOTE | 2021-12-27 10:36 | RAD_ITS ---
STUDY: X-RAY - RIGHT WRIST REASON FOR EXAM: Male, 51 years old. Pain. TECHNIQUE: 3 view(s) of the wrist were obtained. COMPARISON: 03/11/2020 FINDINGS: Stable mild arthrosis of the radiocarpal articulation, the distal radioulnar joint, the radiocarpal row of the wrist and the first CMC joint. The soft tissue structures are unremarkable. RAD/Wrist min 3 Views IMPRESSION: Stable mild osteoarthritic changes. No acute abnormality, chondrocalcinosis or erosive changes. Electronically Signed: Brady Leiva, at 11:27 EDT ,
== END | disposition home or self-care (01) ==
LOC: MTRAD 10:33
PROVIDERS: PCP Family Medicine; Referring Provider Family Medicine; Visit Provider Family Medicine
DX: M25.521 Pain in right elbow (principal); M25.531 Pain in right wrist; M79.671 Pain in right foot
CPT/HCPCS: 73080; 73110; 73630

== ENCOUNTER → 2021-12-30 | Outpatient (CLI) | payer MEDICAID, SELFPAY ==
--- NOTE | 2021-12-30 13:12 | US_ITS ---
STUDY: SUPERFICIAL ULTRASOUND - UPPER LATERAL ASPECT OF THE BACK. REASON FOR EXAM: Male, 51 years old. MASS TECHNIQUE: A superficial ultrasound was performed with real-time and static pham-scale imaging. COMPARISON: None. FINDINGS: The palpable lump corresponds to a 3.2 cm x 3.4 cm x 1.4 cm predominantly cystic mass with low-level echoes within it. This is just beneath the subcutaneous tissue. No increased vascularity is seen. A biopsy is recommended. US/Chest IMPRESSION: The palpable lump corresponds to a 3.2 cm x 3.4 cm x 1.4 cm nonspecific cystic mass with low-level echoes within it. This lies just deep to the subcutaneous tissues. Aspiration is recommended. Electronically Signed: Dimas Renee MD at 15:48 EDT ,
== END | disposition home or self-care (01) ==
LOC: US 13:11
PROVIDERS: PCP Family Medicine; Referring Provider Family Medicine; Visit Provider Family Medicine
DX: R22.2 Localized swelling, mass and lump, trunk (principal)
CPT/HCPCS: 76604

== ENCOUNTER → 2022-01-18 | Outpatient (CLI) | payer MEDICAID, SELFPAY ==
--- NOTE | 2022-01-18 09:23 | BI_ITS ---
MAMMOGRAPHY - BILATERAL DIAGNOSTIC REASON FOR EXAM: Male, 51 years old. Right breast lump. PERTINENT HISTORY: Non-contributory. TECHNIQUE: Digital bilateral breast rj (3D mammographic acquisition) in the CC and MLO projections. 2-D mediolateral oblique (MLO) and craniocaudad (CC) views of both breasts were obtained. CAD: Full Field Digital Mammography with Computer Added Detection was performed. COMPARISON: None. Baseline examination. FINDINGS: Breast Composition: The breasts are almost entirely fatty. There is a 2.8 cm x 3.1 cm well-defined nodule in the deep inferior medial portion of the right breast. Correlation with ultrasound is recommended. No other significant abnormalities are identified. BI/DIAG MAMM W/CAD, BILAT IMPRESSION: 2.8 cm x 3.1 some well-defined nodule in the deep inferior medial portion of the right breast as described. Correlation with ultrasound is recommended. ASSESSMENT CATEGORY: BIRADS Category 0: Incomplete. Need additional imaging evaluation. A letter regarding these results will be sent to the patient by the facility within 30 days. Approximately 10% of breast cancers are not detected by mammography. A normal mammogram should not delay biopsy of a clinically suspicious abnormality. Electronically Signed: Dimas Renee MD at 10:34 EDT ,
--- NOTE | 2022-01-18 09:54 | US_ITS ---
STUDY: ULTRASOUND BREAST - RIGHT REASON FOR EXAM: Male, 51 years old. Palpable lump in the right breast. TECHNIQUE: Axial and longitudinal images of the RIGHT breast were performed with a high resolution ultrasound transducer. # OF IMAGES: 33 COMPARISON: Comparison is made with prior mammogram dated today. FINDINGS: RIGHT Breast: The palpable abnormality corresponds to a 2.9 cm x 3 cm x 1.3 cm hypoechoic nodule at the 3 o''clock position breast at 5 cm from the nipple. There is a 1.8 cm x 1.7 cm x 0.6 cm slightly echogenic nodule just deep to the subcutaneous surface at the 5 o''clock position the breast at 6 cm from nipple. This most likely represents a lipoma. US/Breast Limited Unilateral IMPRESSION: 2.9 [place] by 3 cm x 1.3 cm hypoechoic nodule at the 3 o''clock position of the breast at 5 size from nipple. Biopsy is recommended. ASSESSMENT CATEGORY: BIRADS Category 4: Suspicious - Biopsy Should Be Considered. A letter regarding these results will be sent to the patient by the facility within 30 days. Electronically Signed: Dimas Renee MD at 20:04 EDT ,
== END | disposition home or self-care (01) ==
LOC: OPBI 09:21
PROVIDERS: PCP Family Medicine; Referring Provider Family Medicine; Visit Provider Family Medicine
DX: N63.14 Unspecified lump in the right breast, lower inner quadrant (principal); R22.2 Localized swelling, mass and lump, trunk
CPT/HCPCS: 77062; 76642; 77066; G0279

== ENCOUNTER → 2022-06-27 | Outpatient (CLI) | payer BC, SELFPAY ==
[2022-06-27 15:48] LABS: Microalbumin,Random Urine 6.9 mg/L (NO RANGE EST.)
[2022-06-27 16:06] LABS: Cholesterol 288 mg/dL (200); High Density Lipoprotein 32 mg/dL; PSA,Total - Annual Screen 0.69 ng/mL (0.00-4.00); Triglycerides 214 mg/dL; Very Low Density Lipoprotein 43 mg/dL (5-40)
[2022-06-27 16:23] LABS: Hemoglobin A1c 6.1 % (3.8-5.6)
== END | disposition home or self-care (01) ==
LOC: MFPLAB 11:49
PROVIDERS: PCP Family Medicine; Visit Provider Family Medicine
DX: I10 Essential (primary) hypertension (principal); Z12.5 Encounter for screening for malignant neoplasm of prostate
CPT/HCPCS: 36415; 80061; 82043; 83036; 84153; G0103

== ENCOUNTER → 2025-02-06 | Outpatient (CLI) | payer MEDICAID, SELFPAY ==
[2025-02-06 18:14] LABS: PSA,Total - Annual Screen 0.69 ng/mL (0.02-4.00)
== END | disposition home or self-care (01) ==
LOC: MFPLAB 14:36
DX: Z12.5 Encounter for screening for malignant neoplasm of prostate (principal)
CPT/HCPCS: 84153; 36415; G0103

== ENCOUNTER → 2025-02-28 | Outpatient (CLI) | payer MEDICAID, SELFPAY ==
--- OUTSIDE RECORDS SUMMARY | 2025-02-28 18:32 | XMS RPT_ITS | CCD ---
Author Organization [facility] Informat ion Partnership [facility] Care Team Providers Care 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 Name Role Phone CATE STOKES Attending Unavailable YOLANDA, DIEGO F Primary Care Unavailable JAVIER QUIROZ Attending Unavailable YOLANDA, DIEGO F Primary Care Unavailable YOLANDA, DIEGO F Primary Care Unavailable PAUL TODD Attending Unavailable MARY ANN BOSWELL Attending Unavaila ble YOLANDA, DIEGO F Primary Care Unavailable YOLANDA, DIEGO F Primary Care Unavailable CORY ZAMBRANO Attending Unavailable YOLANDA, DIEGO F Primary Care Unavailable Yolanda DO, Diego Pandya Primary Care Provider YOLANDA, DIEGO F Primary Care Unavailable YESI MCDONOUGH Attending Unavailable PAUL TODD Referring Unavailable YOLANDA, DIEGO F Primary Care Unavailable CORIN RENTERIA Referring Unavailable YOLANDA, DIEGO F Primary Care Unavailable eMrlyn Montiel Attending Unavailable Radha Parekh Referring Unavailable McMorrow ANKLE PATCH MOLDER, Darrius Referring Unavailable McMorrow ANKLE PATCH MOLDER, Darrius Primary Care Unavailable McMorrow ANKLE PATCH MOLDER, Darrius Attending Unavailable McMorrow ANKLE PATCH MOLDER, Darrius Attending Unavailable Allergies Allergy Classification Reported Allergen(s) Allergy Type Date of Onset Reaction(s) Facility (6 sources) Azithromycin; Translations: [AZITHROMYCIN] Drug Allergy 6 Shortness of breath [facility] (1 source) Azithromycin Drug Allergy 2 [facility] Repository Medications Current Medications Medication Drug Class(es) Dates Sig (Normalized) Sig (Original) 0.4 ml adalimumab 100 mg/ml auto-injector (1 source) Tumor Necrosis Factor Mark Start: 05-09-2023 HUMIRA,CF, PEN 40 mg/0.4 mL pen kit 05/09/2023 Active apixaban 5 mg oral tablet (13 sources) Factor Xa Inhibitor Start: 11-02-2019 take 5 mg by mouth twice daily Apixaban Active 5 MG PO TWICE A DAY November 02, 2019 12:00am Start: 01-08-2018 End: 04-30-2019 take 5 mg by mouth at bedtime Apixaban Discontinued 5 MG PO AT BEDTIME November 16, 2018 11:29pm April 30, 2019 6:51pm take 1 tablet by heather th once daily at dinner apixaban (ELIQUIS) 5 mg tab(s) Take 5 mg by mouth daily with dinner. Active atenolol 25 mg oral tablet (13 sources) beta-Adrenergic Mark Start: 03-21-2023 take 1 tablet by mouth once atenolol (TENORMIN) 25 mg tablet Take 1 tablet by mouth every afternoon. 03/21/2023 Active Start: 09-08-2014 End: 04-30-2019 take 25 mg by mouth once daily Atenolol Discontinued 2 5 MG PO DAILY March 08, 2018 6:14am April 30, 2019 10:40am Start: 02-12-2013 End: 01-23-2014 take 25 mg by mouth once daily Atenolol Discontinued 2 5 MG PO DAILY February 12, 2013 1:00am January 23, 2014 6:32pm atorvastatin 80 mg oral tablet (10 sources) HMG-CoA Reductase Inhibitor Start: 04-21-2023 take 1 tablet by mouth once atorvastatin (LIPITOR) 80 mg tablet Take 1 tablet by mouth every afternoon. 04/21/2023 Active Start: 01-08-2018 End: 11-16-2018 take 80 mg by mouth at bedtime Atorvastatin Discontinu ed 80 MG PO AT BEDTIME March 08, 2018 6:14am November 16, 2018 11:29pm Start: 06-30-2017 End: 11-23-2017 take 80 mg by mouth at bedtime Atorvastatin Discontinu ed 80 MG PO AT BEDTIME June 30, 2017 12:00am November 23, 2017 3:44pm cephalexin 500 mg oral capsule (2 sources) Cephalosporin Antibacterial Start: 11-19-2024 End: 12-03-2024 take 1 capsule by mouth twice daily cephALEXin (KEFLEX) 500 mg capsule Take 1 capsule by mouth two times a day for 14 days. 28 capsule 11/19/2024 12/03/2024 Active Start: 11-14-2024 End: 11-19-2024 take 1 capsule by mouth four times daily cephALEXin (KEFLEX) 500 mg capsule Take 1 capsule by mouth four times daily for 7 days. 28 capsule 11/14/2024 11/19/2024 Discontinued clobetasol propionate 0.5 mg/ml topical cream (1 source) Corticosteroid Start: 04-22-2023 clobetasol (TEMOVATE) 0.05 % cream 04/22/2023 Active cyclobenzaprine hydrochloride 5 mg oral tablet (1 source) Muscle Relaxant Start: 11-01-2024 take 1 tablet by mouth every twelve hours as needed cyclobenzaprine (FLEXERIL) 5 mg tablet Take 1 tablet by mouth two times a day as needed. 10 tablet 11/01/2024 Active doxycycline monohydrate 100 mg oral tablet (2 sources) Tetracycline-class Drug Start: 11-14-2024 End: 12-03-2024 take 1 tablet by mouth twice daily doxycycline monohydrate 100 mg tablet Take 1 tablet by mouth two times a day for 14 days. 28 tablet 11/19/2024 12/03/2024 Active omeprazole 20 mg delayed release oral capsule (4 sources) Proton Pump Inhibitor Start: 11-02-2019 take 20 mg by mouth once daily Omeprazole Active 20 MG PO DAILY November 02, 2019 12:00am Completed/Discontinued Medications Medication Drug Class(es) Dates Sig (Normalized) Sig (Original) acetaminophen 325 mg / HYDROcodone bitartrate 5 mg oral tablet (12 sources) Opioid Agonist Start: 11-20-2020 End: 01-24-2022 take 1 tablet by mouth every four hours as needed Hydrocodone-Acetami nophen Discontinued 1 TABLET PO EVERY 4 HOURS NEEDED 6 November 20, 2020 January 24, 2022 3:29pm Start: 05-14-2018 End: 05-16-2018 take 1 tablet by mouth every four hours as needed Hydrocodone-Acetaminophen Discontinued 1 TABLET PO EVERY 4 HOURS NEEDED 8 2 May 14, 2018 1:00am May 16, 2018 1:08am Start: 02-12-2013 End: 05-01-2013 take 1 tablet by mouth every four hours as needed Hydrocodone-Acetaminophen Discontinued 1 TABLET PO EVERY 4 HOURS NEEDED March 03, 2013 9:00am May 01, 2013 1:24pm clotrimazole 10 mg/ml topical cream (3 sources) Azole Antifungal Start: 11-20-2020 End: 01-24-2022 Clotrimazole Discontinued 1 APPLIC TOPICAL TWICE A DAY 30 November 20, 2020 12:00am January 24, 2022 3:30pm to affected areas folic acid 1 mg oral tablet (3 sources) Start: 01-08-2018 End: 03-08-2018 take 1 mg by mouth once daily Folic Acid Discontinued 1 MG PO DAILY@0800 30 January 08, 2018 12:00am March 08, 2018 6:13am losartan potassium 50 mg oral tablet (4 sources) Angiotensin 2 Receptor Mark Start: 11-20-2020 End: 01-24-2022 take 50 mg by mouth once daily Losartan Discontinued 50 MG PO DAILY November 20, 2020 12:00am January 24, 2022 3:29pm mupirocin 0.02 mg/mg topical ointment (3 sources) RNA Synthetase Inhibitor Antibacterial Start: 2023 End: 11-29-2024 mupirocin (BACTROBAN) 2 % ointment Apply to affected area three times a day for 10 days. 30 g 11/14/2024 11/19/2024 Discontinued sertraline 100 mg oral tablet (10 sources) Serotonin Reuptake Inhibitor Start: 09-08-2014 End: 04-30-2019 take 100 mg by mouth once daily Sertraline Discontinued 100 MG PO DAILY March 08, 2018 6:14am April 30, 2019 10:40am Problems Active Problems Problem Classification Problem Date Documented Date Episodic/Chronic Abdominal pain (6 sources) Right flank pain; Translations: [Unspecified abdominal pain] 08-07-2020 Episodic Acute cerebrovascular disease (3 sources) Cerebrovascular accident; Translations: [Cerebral infarction, unspecified] 11-13-2019 Chronic Alcohol-related disorders (6 sources) Alcohol abuse; Translations: [Alcohol abuse, uncomplicated] 11-17-2019 Chronic Alcohol-related disorders (6 sources) Alcohol intoxication; Translations: [Alcohol use, unspecified with intoxication, unspecified] 11-16-2018 Episodic Allergic reactions (1 source) Dermatitis, unspecified; Translations: [Dermatitis] Onset: 12-27-2024 Episodic Cardiac dysrhythmias (4 sources) Paroxysmal atrial fibrillation; Translations: [Paroxysmal atrial fibrillation] Onset: 11-09-2022 01-08-2018 Chronic Disorders of lipid metabolism (4 sources) Hyperlipidemia; Translations: [Hyperlipidemia, unspecified] Onset: 11-09-2022 11-13-2019 Chronic Esophageal disorders (4 sources) Gastroesophageal reflux disease; Translations: [Gastro-esophageal reflux disease without esophagitis] Onset: 11-09-2022 11-13-2019 Chronic Essential hypertension (2 sources) Essential (primary) hypertension; Translations: [Hypertensive disorder] Onset: 11-09-2022 11-09-2022 Chronic Fracture of lower limb (3 sources) Fracture of phalanx of foot; Translations: [Unspecified fracture of unspecified toe(s), initial encounter for closed fracture] 03-12-2020 Episodic Mood disorders (3 sources) Depressive disorder; Translations: [Depression] 11-13-2019 Chronic Mycoses (3 sources) Candidal intertrigo; Translations: [Candidiasis of skin and nail] 11-20-2020 Episodic Open wounds of extremities (6 sources) Laceration of left middle finger; Translations: [Laceration without foreign body of left middle finger without damage to nail, initial encounter] 05-24-2020 Episodic Open wounds of extremities (3 sources) Avulsion of skin; Translations: [Unspecified open wound of right wrist, initial encounter] 04-09-2020 Episodic Other aftercare (1 source) Long-term current use of anticoagulant; Translations: [intermediate card tender (current) use of anticoagulants] 01-26-2022 Episodic Other and unspecified benign neoplasm (1 source) Lipoma of breast; Translations: [Benign lipomatous neoplasm of skin and subcutaneous tissue of trunk] 01-29-2022 Episodic Other connective tissue disease (1 source) Pain in left leg; Translations: [Left leg pain] Onset: 11-01-2024 Episodic Other nervous system disorders (2 sources) Anesthesia of skin; Translations: [Numbness] Onset: 04-26-2024 Episodic Other nutritional; endocrine; and metabolic disorders (3 sources) Body mass index 30+ - obesity; Translations: [Obesity, unspecified] 11-13-2019 Chronic Other screening for suspected conditions (not mental disorders or infectious disease) (1 source) Encounter for screening, unspecified; Translations: [Encounter for medical screening examination] Onset: 11-14-2024 Episodic Other skin disorders (4 sources) Folliculitis; Translations: [Follicular disorder, unspecified] 04-09-2020 Episodic Other skin disorders (3 sources) Bacterial folliculitis; Translations: [Other specified follicular disorders] 04-09-2020 Episodic Other skin disorders (1 source) Sebaceous cyst of skin; Translations: [Sebaceous cyst] 01-26-2022 Episodic Other skin disorders (3 sources) Rash and other nonspecific skin eruption; Translations: [Rash] Onset: 11-14-2024 Episodic Other skin disorders (1 source) Blister; Translations: [Rash and other nonspecific skin eruption] 11-19-2024 Episodic Other skin disorders (1 source) Eruption; Translations: [Rash and other nonspecific skin eruption] 11-19-2024 Episodic Other skin disorders (1 source) Hidradenitis suppurativa; Translations: [Hidradenitis suppurativa] 11-19-2024 Episodic Other skin disorders (1 source) Hidradenitis suppurativa; Translations: [Hidradenitis suppurativa] Onset: 11-19-2024 Episodic Other skin disorders (1 source) Follicular disorder, unspecified; Translations: [Folliculitis] Onset: 11-19-2024 Episodic Pneumonia (except that caused by tuberculosis or sexually transmitted disease) (6 sources) Infective pneumonia; Translations: [Pneumonia, unspecified organism] 11-17-2019 Episodic Residual codes; unclassified (3 sources) Obstructive sleep apnea syndrome; Translations: [Obstructive sleep apnea (adult) (pediatric)] 01-08-2018 Chronic Residual codes; unclassified (1 source) Pain, unspecified; Translations: [Intractable pain] Onset: 11-14-2024 Episodic Septicemia (except in labor) (6 sources) Sepsis; Translations: [Sepsis, unspecified organism] 04-08-2020 Episodic Skin and subcutaneous tissue infections (1 source) Impetigo bullosa; Translations: [Bullous impetigo] 11-20-2024 Episodic Substance-related disorders (5 sources) Tobacco dependence syndrome; Translations: [Nicotine dependence, unspecified, uncomplicated] Onset: 04-26-2024 01-08-2018 Chronic Suicide and intentional self-inflicted injury (3 sources) Suicidal thoughts; Translations: [Suicidal ideations] 11-20-2018 Episodic Superficial injury; contusion (3 sources) Contusion of hand; Translations: [Contusion of unspecified hand, initial encounter] 03-12-2020 Episodic Transient cerebral ischemia (3 sources) Cerebral ischemia; Translations: [Transient cerebral ischemic attack, unspecified] 11-13-2019 Chronic Unclassified (1 source) Rash Onset: 10-25-2024 Past or Other Problems Problem Classification Problem Date Documented Date Episodic/Chronic Appendicitis and other appendiceal conditions (1 source) Acute appendicitis; Translations: [Unspecified acute appendicitis] Onset: 07-13-2005 07-30-2024 Episodic Biliary tract disease (1 source) Biliary colic; Translations: [Calculus of bile duct without cholangitis or cholecystitis without obstruction] Onset: 11-09-2022 11-09-2022 Episodic Cardiac dysrhythmias (1 source) Bradycardia, unspecified; Translations: [Bradycardia] Onset: 01-09-2024 Episodic Nonspecific chest pain (7 sources) Chest pain; Translations: [Chest pain, unspecified] Onset: 01-09-2024 01-08-2018 Episodic Other connective tissue disease (1 source) Pain in right foot; Translations: [Bilateral foot pain] Onset: 04-26-2024 Episodic Other connective tissue disease (1 source) Pain in left foot; Translations: [Bilateral foot pain] Onset: 04-26-2024 Episodic Other liver diseases (1 source) Abnormal levels of other serum enzymes; Translations: [Elevated lipase] Onset: 01-09-2024 Episodic Results Test Name Value Interpretation Reference Range Facility PSA,Total - Annual Screenon 02-06-2025 PSA,TOT SCREEN 0.69 ng/mL Normal 0.02-4.00 [facility] Comment on above: Order Comment: Order Date: 02/06/25 Order Info: [id number] - PSA Comments: screening for prostate cancer Result Comment: This test was performed using the [employer] tPSA method. Measured values of a patient??sample can vary depending on the testing procedure used. PSA values determined on patient samples by different testing procedures cannot be used interchangeably. If there is a change in PSA assays while monitoring therapy, sequential testing should be performed to confirm baseline values. Performed By: #### L [id number] #### [facility] [place], [address] 25-HYDROXY D2+D3on 5 25-hydroxyvitamin D3 [Mass/Vol] 30.0 ng/mL Normal 30.0-100.0 [facility] Comment on above: Order Comment: Vinay jonatan Type: BLOOD SPECIMENOrdering Facility: [facility] Address: [address] [place] [address] Result Comment: Defi cient: <20.1 ng/mL Insufficient: 20.1 - 29.9 ng/mL Sufficient: 30.0 - 100.0 ng/mL Toxic: >150.0 ng/mL Reference: Alyssia RAMOS, N Engl J Med ([phone] This test was developed and its performance characteristics determined by the Pathology and Laboratory Medicine [place] at the [facility]. The U.S. Food and Drug Administration has not approved or cleared this test, however, FDA clearance or approval is not currently required for clinical use. Performed By: #### D 2D3 ####[facility] [id number] [place] [address] [place] Vitamin D2 [Mass/Vol] <5.0 Normal [facility] Comment on above: Order Comment: Vinay jonatan Type: BLOOD SPECIMENOrdering Facility: [facility] Address: [address] [place] [address] Performed By: #### D 2D3 ####[facility] [id number] [place] [address] [place] Vitamin D3 [Mass/Vol] 30.0 ng/mL Normal [facility] Comment on above: Order Comment: Speci men Type: BLOOD SPECIMENOrdering Facility: [facility] Address: [address] [place] [address] Performed By: #### D 2D3 ####[facility] [id number] [place] [id number] [place] Folate SerPl-mCncon 12-28-19 25 Folate [Mass/Vol] 17.7 ng/mL Normal >4.7 [facility] Comment on above: Order Comment: Speci men Type: BLOOD SPECIMEN Ordering Facility: [facility] Address: [address] [place] [address] Performed By: #### 2 132-9, 2284-8, 2498-4 #### [facility] CLIA [id number] [address] [place] [address] [place] Iron SerPl-mCncon 12-27-2024 Iron [Mass/Vol] 71 ug/dL Normal 41-186 [facility] Comment on above: Order Comment: Vinay cheung Type: BLOOD SPECIMEN Ordering Facility: [facility] Address: [address] [place] [address] Performed By: #### 2 132-9, 2284-8, 2498-4 #### [facility] CLIA [id number] [address] [place] [address] [place] VITAMIN A (RETINOL), SERUM O R PLASMAon 12-27-2024 VITAMIN A (RETINOL) 0.76 mg/L Normal 0.30-1.20 [facility] Comment on above: Order Comment: Lolisi jonatan Type: BLOOD SPECIMEN Ordering Facility: [facility] Address: [address] [place] [address] Performed By: #### V SASCHA #### [facility] CLIA [id number] [address] [place] [address] VITAMIN A (RETINYL PALMITATE) <0.02 Normal 0.00-0.10 [facility] Comment on above: Order Comment: Lolisi men Type: BLOOD SPECIMEN Ordering Facility: [facility] Address: [address] [place] [address] Performed By: #### V SASCHA #### [facility] CLIA [id number] [address] [place] [address] VITAMIN A, SERUM/PLASMA INTERPRETATION Normal Normal [facility] Comment on above: Order Comment: Specjluis cheung Type: BLOOD SPECIMEN Ordering Facility: [facility] Address: [address] [place] [address] Result Comment: This test was developed and its performance characteristics determined by [facility]. It has not been cleared or approved by the US Food and Drug Administration. This test was performed in a CLIA certified laboratory and is intended for clinical purposes. Performed By: [facility] [address] [place] [address] Log Cutter: Leland Smith MD, PhD CLIA Number: [id number] Performed By: #### V SASCHA #### [facility] CLIA [id number] [address] [place] [address] VITAMIN Con 12-27-2024 VITAMIN C 64 umol/L Normal 23-114 [facility] Comment on above: Order Comment: Vinay [facility] Type: BLOOD SPECIMENOrdering Facility: [facility] Address: [address] [place] [address] Result Comment: Amparo min C concentrations lower than 11 umol/L indicate deficiency. Concentrations between 11 and 23 umol/L are consistent with a moderate risk of deficiency due to inadequate tissue stores. Vitamin C concentration is reported as micromoles per liter (umol/L). To convert concentration to milligrams per deciliter (mg/dL), multiply the result by 0.0176. This test was developed and its performance characteristics determined by [facility]. It has not been cleared or approved by the US Food and Drug Administration. This test was performed in a CLIA certified laboratory and is intended for clinical purposes. Performed By: [facility] [address] [place] [address] Log Cutter: Leland Smith MD, PhD CLIA Number: [id number] Performed By: #### V ITC ####[facility] [id number] [place] [address] Vit B12 SerPl-mCncon 025 Cobalamin (Vitamin B12) [Mass/Vol] 519 pg/mL Normal 232-1245 [facility] Comment on above: Order Comment: Vinay [facility] Type: BLOOD SPECIMEN Ordering Facility: [facility] Address: [address] [place] [address] Performed By: #### 2 132-9, 2284-8, 2498-4 #### [facility] CLIA [id number] [address] [place] [address] [place] Zinc SerPl-mCncon 12-27-2024 Zinc [Mass/Vol] 90 ug/dL Normal 60-120 [facility] Comment on above: Order Comment: Speci men Type: BLOOD SPECIMEN Ordering Facility: [facility] Address: [address] [place] [address] Result Comment: This test was developed, and its performance characteristics determined by the [facility] Department of Pathology and Laboratory Medicine. It has not been cleared or approved by the FDA. The [facility] Department of Pathology and Laboratory Medicine is regulated under CLIA as qualified to perform high-complexity testing. This test is used for clinical purposes. It should not be regarded as investigational or for research. Performed By: #### 5 763-8 #### [facility] CLIA [id number] [address] [place] [address] [place] CNOVon 11-19-2024 CNOV Office Visit (DERMMN ) MATT MANUEL ([id number]) 1970 M Date Time Provider Department 11/19/24 4:00 PM YESI MCDONOUGH DERMMN During your visit today, we recorded the following information about you: Yesi Mcdonough MD 11/20/2024 10:42 PM Signed New Patient Consultation requested by Dr. Paul Todd for an opinion regarding Rash. My final recommendations will be communicated back to the requesting physician by way of shared medical record or letter via US mail Chief Complaint: rash History of Present Ilness: Matt Manuel is a 54 year old male Patient is here for: - patient positive for MRSA as of 11/14/24 1) Rash Location: axilla, groin, abdomen Duration: about a year Symptoms: pain- burning, hot, wound, peeling, red, circular Current treatment: doxycycline, keflex, mupirocin Past treatment: biopsy at outside derm, hydrocortisone cream, amoxicillin - patient reports rash has cleared up since starting the antibiotics but still has spots left over ER took photos on 11/14, in get images Case Report Surgical Pathology Case: [id number] Authorizing Provider: Corin Renteria PA-C Collected: 11/13/2024 1500 Ordering Location: [facility] Laboratory Received: 11/15/2024 0937 Pathologist: Armond Donovan MD Specimen: DERM, Skin, PERIUMBILICAL SKIN 11/19/2024 1:05 PM EDT [facility] Final Diagnosis Skin, periumbilical, punch (DIF): Negative direct immunofluorescence Comment: Direct antibody localization demonstrates no evidence of immunoreactivity for immunoglobulins IgG, IgM, IgA, complement C3, or fibrinogen on sections of frozen skin. 11/19/2024 1:05 PM EDT [facility] at 1305 EDT Clinical Information Periumbilical skin punch biopsy for DIF, urticarial pink plaques, bullous pemphigoid versus psoriasis, L30.9. 11/19/2024 1:05 PM EDT [facility] Gross Description Received in a pink-topped container of Poly Transport solution labeled periumbilical skin is a 0.3 cm in diameter punch biopsy excised to a depth of 0.1 cm. The surface is jones and flat. The specimen is submitted for DIF processing. Pertinent Past Medical History: History of skin cancer or atypical nevi No Specialty Problems None Pertinent Family medical history: History of melanoma: Yes Mother Review of Systems: Constitutional: Denies fever, chills, night sweats, unintentional weight loss. Skin per HPI. No other new/concerning skin growth. Physical Exam: General: well appearing, of stated age, in no acute distress Neurology: alert and oriented times three Psychiatry: in a happy mood Skin: Sebastian skin type: II Skin exam performed of face, scalp, ears, eyelids, lips, neck, chest, abdomen, back, bilateral upper extremities, hands, fingers, fingernails, bilateral lower extremities, feet, toes, toenails. Skin exam normal with the exception of: - pink macules coalesced into patches b/l axillae, upper arms, lower abdomen/groin, no evidence of blistering or skin denudation today on exam - cystic nodules b/l axillae with scattered sinus tracts - erythematous macules, few with excoriation, some folliculocentric, on the lower legs Assessment and Plan: #Rash and nonspecific skin eruption, improved Medical Complexity: Undiagnosed new problem with uncertain prognosis - Given significant (~80-90%) improvement with oral and topical antibiotics, favor bullous impetigo over autoimmune blistering diseases, bullous tinea, etc. - Extend doxycyline 100 mg BID for two additional weeks given significant improvement and + MRSA swab - Extend cephalexin, reduce to BID for two additional weeks given significant improvement. - Continue mupirocin as previously prescribed. Refilled today - Given significant improvement with oral antibiotics as well as no new blisters, do not feel that this represents an autoimmune blistering disease, but discussed this with the patient - if this recurs or becomes persistent, potential biopsy for NOBLE and repeat DIF and blood testing may be indicated. #Folliculitis - legs Medical Complexity: Chronic, not at treatment goal - Discussed etiology and natural history. Advised the patient that this is a benign condition that may wax and wane and can be aggravated by friction and heat. - Can try applying mupirocin to affected areas on legs #Hidradenitis suppurativa - Deferred today, but discussed that we should revisit this in the future, this was not his clinical concern today but noted on examination as well. Return to clinic 1-2 months or sooner if something concerning arises. The documentation for this note was completed by Shy Max RN acting as scribe for Yesi Mcdonough MD. November 18, 2024 9:39 AM. Shy Max RN The documentation for this note was completed by Gillian Beck acting as scribe for Yesi (more content not included)... Normal [facility] Bacteria Wnd Culton 11-15-19 25 Bacteria identified Cx Nom (Wound) ORGANISM ID: 1 Many Methicillin-RESISTANT Staphylococcus aureus (MRSA) GRAM STAIN: Rare Gram positive cocci No Polymorphonuclear Leukocytes ORGANISM ID: 1 (METHICILLIN RESISTANT STAPHYLOCOCCUS AUREUS) ANTIBIOTIC INTERPRETATION LEIF STATUS REFERENCE RANGE Oxacillin R >=4 F Susceptible <=2 , Resistant >2 Oxacillin resistant Staphylococci are resistant to all beta-lactam antibiotics (except new cephalosporins with anti-MRSA activity i.e. ceftaroline) Erythromycin R >=8 F Susceptible <=0.5 , Intermediate >.5 , Resistant >4 Clindamycin R >=4 F Susceptible <=0.5 , Intermediate >.5 , Resistant >2 Trimeth sulfameth S <=10 F Susceptible <=40 , Resistant >40 Vancomycin S 1 F Susceptible <=2 , Intermediate >2 , Resistant >8 Daptomycin S 0.25 F Susceptible <=1 , Nonsusceptible >1 Linezolid S 2 F Susceptible <=4 , Resistant >4 Rifampin S <=0.5 F Susceptible <=1 , Intermediate >1 , Resistant >2 Rifampin should not be used alone for antimicrobial therapy. Tetracycline R >=16 F Susceptible <=4 , Intermediate >4 , Resistant >8 Doxycycline S 4 F Susceptible <=4 , Intermediate >4 , Resistant >8 Abnormal [facility] Comment on above: Performed By: #### 6 462-6 ####[facility] [id number] [address] [place] CBC W Auto Differential pane l (Bld)on 11-14-2024 Basophils (Bld) [#/Vol] 0.04 10*3/uL Normal <0.11 [facility] Comment on above: Order Comment: Speci men Type: BLOOD SPECIMEN Ordering Facility: [facility] Address: [address] [place] [address] Performed By: #### 5 7021-8 #### [facility] CLIA [id number] [address] [place] Basophils/100 WBC (Bld) 0.6 % Normal [facility] Comment on above: Order Comment: Speci men Type: BLOOD SPECIMEN Ordering Facility: [facility] Address: [address] [place] [address] Performed By: #### 5 7021-8 #### [facility] CLIA [id number] [address] Differential cell count method Nom (Bld) Auto Normal [facility] Comment on above: Order Comment: Speci men Type: BLOOD SPECIMEN Ordering Facility: [facility] Address: [address] [place] [address] Performed By: #### 5 7021-8 #### [facility] CLIA [id number] [address] [place] [address] [place] Eosinophils (Bld) [#/Vol] 0.20 10*3/uL Normal <0.46 [facility] Comment on above: Order Comment: Speci men Type: BLOOD SPECIMEN Ordering Facility: [facility] Address: [address] [place] [address] Performed By: #### 5 7021-8 #### [facility] CLIA [id number] [address] Eosinophils/100 WBC (Bld) 2.8 % Normal [facility] Comment on above: Order Comment: Speci men Type: BLOOD SPECIMEN Ordering Facility: [facility] Address: [address] [place] [address] Performed By: #### 5 7021-8 #### [facility] CLIA [id number] [address] [place] Erythrocyte distribution width (RBC) [Ratio] 13.8 % Normal 11.5-15.0 [facility] Comment on above: Order Comment: Speci men Type: BLOOD SPECIMEN Ordering Facility: [facility] Address: [address] [place] [address] Performed By: #### 5 7021-8 #### [facility] CLIA [id number] [address] [place] Hematocrit (Bld) [Volume fraction] 35.7 % Low 39.0-51.0 [facility] Comment on above: Order Comment: Speci men Type: BLOOD SPECIMEN Ordering Facility: [facility] Address: [address] [place] [address] Performed By: #### 5 7021-8 #### [facility] CLIA [id number] [address] Hemoglobin (Bld) [Mass/Vol] 11.8 g/dL Low 13.0-17.0 [facility] Comment on above: Order Comment: Speci men Type: BLOOD SPECIMEN Ordering Facility: [facility] Address: [address] [place] [address] Performed By: #### 5 7021-8 #### [facility] CLIA [id number] [address] [place] Immature granulocytes (Bld) [#/Vol] 0.03 10*3/uL Normal <0.10 [facility] Comment on above: Order Comment: Speci men Type: BLOOD SPECIMEN Ordering Facility: [facility] Address: [address] [place] [address] Performed By: #### 5 7021-8 #### [facility] CLIA [id number] [address] Immature granulocytes/100 WBC (Bld) 0.4 % Normal [facility] Comment on above: Order Comment: Speci men Type: BLOOD SPECIMEN Ordering Facility: [facility] Address: [address] [place] [address] Performed By: #### 5 7021-8 #### [facility] CLIA [id number] [address] [place] Lymphocytes (Bld) [#/Vol] 1.94 10*3/uL Normal 1.00-4.00 [facility] Comment on above: Order Comment: Speci men Type: BLOOD SPECIMEN Ordering Facility: [facility] Address: [address] [place] [address] Performed By: #### 5 7021-8 #### [facility] CLIA [id number] [address] Lymphocytes/100 WBC (Bld) 27.6 % Normal [facility] Comment on above: Order Comment: Speci men Type: BLOOD SPECIMEN Ordering Facility: [facility] Address: [address] [place] [address] Performed By: #### 5 7021-8 #### [facility] CLIA [id number] [address] MCH (RBC) [Entitic mass] 29.9 pg Normal 26.0-34.0 [facility] Comment on above: Order Comment: Speci men Type: BLOOD SPECIMEN Ordering Facility: [facility] Address: [address] [place] [address] Performed By: #### 5 7021-8 #### [facility] CLIA [id number] [address] MCHC (RBC) [Mass/Vol] 33.1 g/dL Normal 30.5-36.0 [facility] Comment on above: Order Comment: Speci men Type: BLOOD SPECIMEN Ordering Facility: [facility] Address: [address] [place] [address] Performed By: #### 5 7021-8 #### [facility] CLIA [id number] [address] MCV (RBC) [Entitic vol] 90.4 fL Normal 80.0-100.0 [facility] Comment on above: Order Comment: Speci men Type: BLOOD SPECIMEN Ordering Facility: [facility] Address: [address] [place] [address] Performed By: #### 5 7021-8 #### [facility] CLIA [id number] [address] [place] [address] [place] Monocytes (Bld) [#/Vol] 0.61 10*3/uL Normal <0.87 [facility] Comment on above: Order Comment: Speci men Type: BLOOD SPECIMEN Ordering Facility: [facility] Address: [address] [place] [address] Performed By: #### 5 7021-8 #### [facility] CLIA [id number] [address] [place] [address] [place] Monocytes/100 WBC (Bld) 8.7 % Normal [facility] Comment on above: Order Comment: Speci men Type: BLOOD SPECIMEN Ordering Facility: [facility] Address: [address] [place] [address] Performed By: #### 5 7021-8 #### [facility] CLIA [id number] [address] [place] [address] [place] Neutrophils (Bld) [#/Vol] 4.21 10*3/uL Normal 1.45-7.50 [facility] Comment on above: Order Comment: Speci men Type: BLOOD SPECIMEN Ordering Facility: [facility] Address: [address] [place] [address] Performed By: #### 5 7021-8 #### [facility] CLIA [id number] [address] [place] [address] [place] Neutrophils/100 WBC (Bld) 59.9 % Normal [facility] Comment on above: Order Comment: Speci men Type: BLOOD SPECIMEN Ordering Facility: [facility] Address: [address] [place] [address] Performed By: #### 5 7021-8 #### [facility] CLIA [id number] [address] [place] [address] [place] Nucleated RBC (Bld) [#/Vol] 10*3/uL Normal <0.01 [facility] Comment on above: Order Comment: Speci men Type: BLOOD SPECIMEN Ordering Facility: [facility] Address: [address] [place] [address] Performed By: #### 5 7021-8 #### [facility] CLIA [id number] [address] [place] [address] [place] Nucleated RBC/100 WBC (Bld) [Ratio] 0.0 /100 WBC Normal [facility] Comment on above: Order Comment: Speci men Type: BLOOD SPECIMEN Ordering Facility: [facility] Address: [address] [id number] Performed By: #### 5 7021-8 #### [facility] CLIA [id number] [address] [place] [address] [place] Platelet mean volume (Bld) [Entitic vol] 10.8 fL Normal 9.0-12.7 [facility] Comment on above: Order Comment: Speci men Type: BLOOD SPECIMEN Ordering Facility: [facility] Address: [address] [place] [address] Performed By: #### 5 7021-8 #### [facility] CLIA [id number] [address] [place] [address] [place] Platelets (Bld) [#/Vol] 171 10*3/uL Normal 150-400 [facility] Comment on above: Order Comment: Speci men Type: BLOOD SPECIMEN Ordering Facility: [facility] Address: [address] [place] [address] Performed By: #### 5 7021-8 #### [facility] CLIA [id number] [address] [place] [address] [place] RBC (Bld) [#/Vol] 3.95 10*6/uL Low 4.20-6.00 [facility] Comment on above: Order Comment: Speci men Type: BLOOD SPECIMEN Ordering Facility: [facility] Address: [address] [id number] Performed By: #### 5 7021-8 #### [facility] CLIA [id number] [address] [place] [address] [place] WBC (Bld) [#/Vol] 7.03 10*3/uL Normal 3.70-11.00 [facility] Comment on above: Order Comment: Speci men Type: BLOOD SPECIMEN Ordering Facility: [facility] Address: [address] [place] [address] Performed By: #### 5 7021-8 #### [facility] CLIA [id number] [address] CRP SerPl-mCncon 11-14-2024 CRP [Mass/Vol] 1.2 mg/dL High <0.9 [facility] Comment on above: Order Comment: Speci men Type: BLOOD SPECIMEN Ordering Facility: [facility] Address: [address] [place] [address] Performed By: #### 5 7021-8 #### [facility] CLIA [id number] [address] [place] Comprehensive metabolic 2000 panelon 11-14-2024 Albumin [Mass/Vol] 4.7 g/dL Normal 3.9-4.9 [facility] Comment on above: Order Comment: Speci men Type: BLOOD SPECIMEN Ordering Facility: [facility] Address: [address] [place] [address] Performed By: #### 5 7021-8 #### [facility] CLIA [id number] [address] ALP [Catalytic activity/Vol] 60 U/L Normal 38-113 [facility] Comment on above: Order Comment: Speci men Type: BLOOD SPECIMEN Ordering Facility: [facility] Address: [address] [place] [address] Performed By: #### 5 7021-8 #### [facility] CLIA [id number] [address] ALT [Catalytic activity/Vol] 18 U/L Normal 10-54 [facility] Comment on above: Order Comment: Speci men Type: BLOOD SPECIMEN Ordering Facility: [facility] Address: [address] [place] [address] Performed By: #### 5 7021-8 #### [facility] CLIA [id number] [address] Anion gap [Moles/Vol] 12 mmol/L Normal 8-15 [facility] Comment on above: Order Comment: Speci men Type: BLOOD SPECIMEN Ordering Facility: [facility] Address: [address] [place] [address] Performed By: #### 5 7021-8 #### [facility] CLIA [id number] [address] [place] [address] [place] AST [Catalytic activity/Vol] 17 U/L Normal 14-40 [facility] Comment on above: Order Comment: Speci men Type: BLOOD SPECIMEN Ordering Facility: [facility] Address: [address] [place] [address] Performed By: #### 5 7021-8 #### [facility] CLIA [id number] [address] [place] [address] [place] Bilirubin [Mass/Vol] 0.2 mg/dL Normal 0.2-1.3 [facility] Comment on above: Order Comment: Speci men Type: BLOOD SPECIMEN Ordering Facility: [facility] Address: [address] [place] [address] Performed By: #### 5 7021-8 #### [facility] CLIA [id number] [address] [place] [address] [place] Calcium [Mass/Vol] 9.6 mg/dL Normal 8.5-10.2 [facility] Comment on above: Order Comment: Speci men Type: BLOOD SPECIMEN Ordering Facility: [facility] Address: [address] [place] [address] Performed By: #### 5 7021-8 #### [facility] CLIA [id number] [address] [place] [address] [place] Chloride [Moles/Vol] 103 mmol/L Normal 98-107 [facility] Comment on above: Order Comment: Speci men Type: BLOOD SPECIMEN Ordering Facility: [facility] Address: [address] [place] [address] Performed By: #### 5 7021-8 #### [facility] CLIA [id number] [address] [place] [address] [place] CO2 [Moles/Vol] 23 mmol/L Normal 22-30 [facility] Comment on above: Order Comment: Speci men Type: BLOOD SPECIMEN Ordering Facility: [facility] Address: [address] [place] [address] Performed By: #### 5 7021-8 #### [facility] CLIA [id number] [address] [place] [address] [place] Creatinine [Mass/Vol] 0.87 mg/dL Normal 0.73-1.22 [facility] Comment on above: Order Comment: Vinay cheung Type: BLOOD SPECIMEN Ordering Facility: [facility] Address: [address] [place] [address] Performed By: #### 5 7021-8 #### [facility] CLIA [id number] [address] [place] eGFRcr SerPlBld CKD-EPI 2020 102 mL/min/1.73m??? Normal >=60 [facility] Comment on above: Order Comment: Vinay cheung Type: BLOOD SPECIMEN Ordering Facility: [facility] Address: [address] [place] [address] Result Comment: Lila mated Glomerular Filtration Rate (eGFR) is calculated using the 2020 CKD-EPI creatinine equation. This equation utilizes serum creatinine, sex, and age as parameters. The creatinine assay has traceable calibration to isotope dilution-mass spectrometry. Refer to KDIGO guidelines for clinical interpretation. In patients with unstable renal function, e.g. those with acute kidney injury, the eGFR may not accurately reflect actual GFR. Performed By: #### 5 7021-8 #### [facility] CLIA [id number] [address] [place] Glucose [Mass/Vol] 97 mg/dL Normal 74-99 [facility] Comment on above: Order Comment: Vinay cheung Type: BLOOD SPECIMEN Ordering Facility: [facility] Address: [address] [place] [address] Result Comment: The [place] Diabetes Association (ADA) provides guidance for cutoff values for fasting glucose and random glucose. The ADA defines fasting as no caloric intake for at least 8 hours. Fasting plasma glucose results between 100 to 125 mg/dL indicate increased risk for diabetes (prediabetes). Fasting plasma glucose results greater than or equal to 126 mg/dL meet the criteria for diagnosis of diabetes. In the absence of unequivocal hyperglycemia, results should be confirmed by repeat testing. In a patient with classic symptoms of hyperglycemia or hyperglycemic crisis, random plasma glucose results greater than or equal to 200 mg/dL meet the criteria for diagnosis of diabetes. Reference: Standards of Medical Care in Diabetes 2016, [place] Diabetes Association. Diabetes Care. 2016.39(Suppl 1). Performed By: #### 5 7021-8 #### [facility] CLIA [id number] [address] Potassium [Moles/Vol] 4.3 mmol/L Normal 3.7-5.1 [facility] Comment on above: Order Comment: Speci men Type: BLOOD SPECIMEN Ordering Facility: [facility] Address: [address] [place] [address] Performed By: #### 5 7021-8 #### [facility] CLIA [id number] [address] Protein [Mass/Vol] 8.0 g/dL Normal 6.3-8.0 [facility] Comment on above: Order Comment: Speci men Type: BLOOD SPECIMEN Ordering Facility: [facility] Address: [address] [place] [address] Performed By: #### 5 7021-8 #### [facility] CLIA [id number] [address] Sodium [Moles/Vol] 138 mmol/L Normal 136-144 [facility] Comment on above: Order Comment: Speci men Type: BLOOD SPECIMEN Ordering Facility: [facility] Address: [address] [place] [address] Performed By: #### 5 7021-8 #### [facility] CLIA [id number] [address] Urea nitrogen [Mass/Vol] 18 mg/dL Normal 9-24 [facility] Comment on above: Order Comment: Speci men Type: BLOOD SPECIMEN Ordering Facility: [facility] Address: [address] [place] [address] Performed By: #### 5 7021-8 #### [facility] CLIA [id number] [address] ED NOTEon 11-14-2024 ED NOTE HNO ID: [id number] Author: RITA ANNA RN Service: Nursing Author Type: Registered Nurse Type: ED Notes Filed: 11/14/2024 12:03 Note Text: Discharge instructions d/w pt and spouse at bedside. Stated understanding with no further questions for this nurse. Encouraged f/u with PCP and referring doctors given. Stated understanding. Prescription(S) were given X3. Pt instructed to fill Bactroban cream prescription. [facility] ED PROV NOTEon 11-14-2024 ED PROV NOTE HNO ID: [id number] Author: NATASHA MEADE PA-C Service: ? Author Type: Physician Agricultural Mechanic Type: ED Provider Notes Filed: 11/14/2024 11:58 Note Text: ED Provider Note Patient Name: Matt [place] : 1970 SERVICE DATE: 11/14/24 History Patient presents with: Rash: Patient to the ER from home for c/o rash over whole body. Per patient he was seen at the [facility] yesterday and they did a biopsy and his pain is increased and is on fire 54-year-old male with a past medical history of A-fib, hyperlipidemia, hypertension, sleep apnea, presents to the ED today for pain and a rash, patient stated he has had this rash on his armpits and groin and abdomen for about a year, he states that his pain and rash is not getting worse and he cannot handle the pain at home, he actually saw dermatology yesterday who did a biopsy and prescribed hydrocortisone cream and amoxicillin and discharged him home and told him that the biopsy results will come back in a couple weeks, patient states that his pain has not worsened he describes the pain as burning/he feels like he is on fire. Denies any fever, denies any change in medication or soaps or detergents PAST MEDICAL HISTORY Diagnosis Date Acute gastric ulcer without mention of hemorrhage or perforation, with obstruction(531.31) Atrial fibrillation (HCC) Esophageal reflux Gastroesophageal reflux Hernia of unspecified site of abdominal cavity without mention of obstruction or gangrene HLD (hyperlipidemia) HTN (hypertension) JOHNATHAN (obstructive sleep apnea) PAST SURGICAL HISTORY Procedure Laterality Date APPENDECTOMY CARDIAC CATHETERIZATION HX 4 years ago No family history on file. Social History[1] ALLERGIES Allergen Reactions Zithromax [Azithrom* Review of Systems Constitutional: Negative for chills and fever. HENT: Negative for trouble swallowing. Eyes: Negative for photophobia and visual disturbance. Respiratory: Negative for cough, chest tightness, shortness of breath and wheezing. Cardiovascular: Negative for chest pain, palpitations and leg swelling. Gastrointestinal: Negative for abdominal pain, diarrhea, nausea and vomiting. Genitourinary: Negative for dysuria, flank pain and hematuria. Musculoskeletal: Negative for back pain, neck pain and neck stiffness. Skin: Positive for rash and wound. Negative for color change. Neurological: Negative for numbness and headaches. Psychiatric/Behavioral: Negative for confusion. Physical Exam Vitals [11/14/24 0632] BP Pulse Temp Temp src Resp SpO2 Weight Height 136/66 55 37.1 ?C (98.7 ?F) Oral 16 98 % 111.1 kg (245 lb) -- Physical Exam Constitutional: Appearance: He is well-developed. HENT: Head: Normocephalic and atraumatic. No raccoon eyes or Terrell's sign. Right Ear: Hearing normal. Left Ear: Hearing normal. Nose: Nose normal. Right Sinus: No maxillary sinus tenderness or frontal sinus tenderness. Left Sinus: No maxillary sinus tenderness or frontal sinus tenderness. Eyes: Conjunctiva/sclera: Conjunctivae normal. Cardiovascular: Rate and Rhythm: Normal rate. Pulmonary: Effort: Pulmonary effort is normal. Abdominal: General: Abdomen is flat. Palpations: Abdomen is soft. Musculoskeletal: General: Normal range of motion. Cervical back: Normal range of motion and neck supple. Comments: There appears to be a rash on both armpits as well as both right and left groin that appears to look like a burn/skin and slouching off, there are couple small spots on his abdomen as well however the worst is on the both armpits and both sides of his groin Skin: General: Skin is warm and dry. Neurological: General: No focal deficit present. Mental Status: He is alert. Motor: No tremor, atrophy or seizure activity. Gait: Gait normal. Psychiatric: Behavior: Behavior normal. Diagnostic Testing ED Labs Ordered and Reviewed - No data to display Procedures ED Course / Clinical Impression ED Course as of 11/14/24 1156 Others' Documentation [facility] Nov 14, 2024 1018 Attending Note I have personally performed a face to face assessment of the patient and have reviewed the CANDICE note. I performed a substantive portion of the visit including all aspects of the following. My roberto findings include: History - Mr. Manuel is a 54-year-old male presenting with diffuse rash to his axilla and his groin crease and abdomen and trunk for the last year, worse in the last month, worse in the last few days. Saw dermatology PA at [facility] yesterday and prescribed amoxicillin and a topical steroid, but worsening, so came in. No rash or lesion inside his mouth. Physical exam-ulcerating rash worst in his skin folds, see pictures in get images, no lesions inside his mouth Medical Decision Making -Mr. Manuel is a 54-year-old man presenting with rash as above. We will do workup and discuss with dermatology. No lesions in his mout (more content not included)... Normal [facility] ESR Westergren method (Bld) [Velocity]on 11-14-2024 ESR (Bld) [Velocity] 23 mm/h High 0-15 [facility] Comment on above: Order Comment: Speci jonatan Type: BLOOD SPECIMENOrdering Facility: [facility] Address: [address] [place] [address] Performed By: #### 4 537-7 ####[facility] [id number] [place] [address] [place] G-6-PD QUANTITATIVEon 2024 G6PD (RBC) [Catalytic activity/Mass] 11.7 U/g Hb Normal 9.8-15.5 [facility] Comment on above: Order Comment: Speci jonatan Type: BLOOD SPECIMENOrdering Facility: [facility] Address: [address] [place] [address] Result Comment: This test was developed, and its performance characteristics determined by the [facility] Department of Pathology and Laboratory Medicine. It has not been cleared or approved by the FDA. The [facility] Department of Pathology and Laboratory Medicine is regulated under CLIA as qualified to perform high-complexity testing. This test is used for clinical purposes. It should not be regarded as investigational or for research. Performed By: #### 7 18-7, QTG6PD ####[facility] [id number] [address] [place] Hgb Bld-mCncon 11-14-2024 Hemoglobin (Bld) [Mass/Vol] 12.3 g/dL Low 13.0-17.0 [facility] Comment on above: Order Comment: Speci men Type: BLOOD SPECIMENOrdering Facility: [facility] Address: [address] [place] [address] Performed By: #### 7 18-7, QTG6PD ####[facility] [id number] [address] [id number] [place] [address] [place] ED NOTEon 11-01-2024 ED NOTE HNO ID: [id number] Author: GA ESPINOZA, ROMI Service: ? Author Type: Registered Nurse Type: ED Notes Filed: 11/01/2024 05:12 Note Text: Discussed discharge instructions, medications and follow up care with patient. Patient demonstrated understanding. Patient ambulated with a steady gait. Normal [facility] ED PROV NOTEon 11-01-2024 ED PROV NOTE HNO ID: [id number] Author: MARY ANN BOSWELL DO Service: Emergency Medicine Author Type: Physician Type: ED Provider Notes Filed: 11/01/2024 04:57 Note Text: ED Provider Note Patient Name: Matt Manuel : 1970 SERVICE DATE: 11/01/24 History Patient presents with: Pain: Pt presents with L leg pain and numbness x1 year. Reports pain is getting worse with minimal relief from tylenol. Matt Manuel is a 54-year-old male with history of gastric ulcer, A-fib, GERD, hernia, hyperlipidemia, hypertension, sleep apnea, presents for left leg pain. Patient states he had numbness to the skin of the left anterior proximal thigh for about a year. He states the past week or so he has had fairly bad pain in his left leg that radiates down to the distal thigh. He denies injury. He has tried txiq-nbk-ptwqmye Tylenol and Excedrin without much relief. PAST MEDICAL HISTORY Diagnosis Date - Acute gastric ulcer without mention of hemorrhage or perforation, with obstruction(531.31) - Atrial fibrillation (HCC) - Esophageal reflux Gastroesophageal reflux - Hernia of unspecified site of abdominal cavity without mention of obstruction or gangrene - HLD (hyperlipidemia) - HTN (hypertension) - JOHNATHAN (obstructive sleep apnea) PAST SURGICAL HISTORY Procedure Laterality Date - APPENDECTOMY - CARDIAC CATHETERIZATION HX 4 years ago No family history on file. Social History Tobacco Use - Smoking status: Every Day Current packs/day: 0.00 Types: Cigarettes Last attempt to quit: 07/08/2005 Years since quittin.3 - Smokeless tobacco: Never Vaping Use - Vaping status: Never Used Substance and Sexual Activity - Alcohol use: No - Drug use: No - Sexual activity: Not on file ALLERGIES Allergen Reactions - Zithromax [Azithrom* Review of Systems Musculoskeletal: Left leg pain/numbness Physical Exam Vitals [11/01/24 0235] BP Pulse Temp Temp src Resp SpO2 Weight Height 133/68 (!) 53 36.7 ?C (98 ?F) Oral 20 99 % 111.1 kg (245 lb) -- Physical Exam Vitals and nursing note reviewed. Constitutional: General: He is not in acute distress. Appearance: Normal appearance. He is well-developed. He is not diaphoretic. HENT: Head: Normocephalic and atraumatic. Mouth/Throat: Mouth: Mucous membranes are moist. Eyes: General: No scleral icterus. Conjunctiva/sclera: Conjunctivae normal. Neck: Vascular: No JVD. Trachea: No tracheal deviation. Cardiovascular: Rate and Rhythm: Normal rate and regular rhythm. Heart sounds: Normal heart sounds. No murmur heard. No friction rub. No gallop. Pulmonary: Effort: Pulmonary effort is normal. No respiratory distress. Breath sounds: Normal breath sounds. No stridor. No wheezing or rales. Musculoskeletal: General: No swelling or deformity. Normal range of motion. Cervical back: Neck supple. Right lower leg: No edema. Left lower leg: No edema. Legs: Comments: No pain on palpation but patient points to the cervical area in the left distal thigh for pain Skin: General: Skin is warm and dry. Capillary Refill: Capillary refill takes less than 2 seconds. Findings: No erythema. Neurological: Mental Status: He is alert and oriented to person, place, and time. Psychiatric: Behavior: Behavior normal. Thought Content: Thought content normal. Judgment: Judgment normal. Diagnostic Testing ED Labs Ordered and Reviewed - No data to display Procedures ED Course / Clinical Impression ED Course as of 11/01/24 1388 Mary Ann Boswell's Documentation MonNov 01, 2024 0402 XR HIP GENERAL 3V PELV/AP/LAT LEFT 0402 XR KNEE LIMITED 2V AP/LAT LT - NON-INJURY 0451 Pt was able to ambulate to the restroom Clinical Impressions as of 11/01/24 0458 Left leg pain Numbness MDM / Disposition / Plan Course: Vital signs were reviewed. Triage records were reviewed. Medical records were reviewed. Nursing notes were reviewed and incorporated. Medical Decision Making: Matt Manuel is a 54-year-old male that presents for left leg pain and numbness. He has had the numbness for about a year but the pain has gotten worse the past week. He has tried zoez-ppf-etmpilh medications without relief. On exam, he is sitting in the cart in no acute distress. Heart is regular rhythm but slightly bradycardic. Lungs are clear. He has no real reproducible pain to the left hip, knee or ankle. He points to the left distal thigh when asked where the worst pain is. 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 X-ray of the left hip and knee ordered to ensure there is no evidence of acute bony process. The patient was medicated for pain. X-ray of the left hip and knee were read as negative for anything acute per radiology. 0450: Patient reassessed, he is feeling slightly better. He is able to ambulate to the restroom. We discussed his x-ray results. He will be discharged home w (more content not included)... Normal [facility] XR HIP 3V PELV+ AP/LAT LTon 11-01-2024 XR HIP 3V PELV+ AP/LAT LT * * *Final Report* * * DATE OF EXAM: Nov 01 2024 3:19AM MDX 5351 - XR HIP 3V PELV+ AP/LAT LT / PROCEDURE REASON: Osteoarthritis * * * * Physician Interpretation * * * * EXAM: XR HIP 3V PELV+ AP/LAT LT, XR KNEE 2V AP/LAT LT HISTORY: Left knee and hip pain COMPARISON: Abdomen/pelvis CT 11/08/2022 FINDINGS: Pelvis and left hip: No pelvic fracture or diastasis. No hip dislocation. No left hip fracture or significant degenerative change. Left knee: No evidence of knee effusion, limited evaluation for small effusion due to positioning on lateral view. No fracture, dislocation, or significant degenerative change. IMPRESSION: No acute osseous abnormality pelvis, left hip, and left knee. 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: [employer] Transcribe Date/Time: Nov 01 2024 3:55A Dictated by : KRISTIE PARK MD This examination was interpreted and the report reviewed and electronically signed by: KRISTIE PARK MD on Nov 01 2024 3:57AM EST [id number] [facility] XR KNEE 2V AP/LAT LTon 11-01 XR KNEE 2V AP/LAT LT * * *Final Report* * * DATE OF EXAM: Nov 01 2024 3:46AM MDX 5206 - XR KNEE 2V AP/LAT LT / PROCEDURE REASON: Osteoarthritis * * * * Physician Interpretation * * * * EXAM: XR HIP 3V PELV+ AP/LAT LT, XR KNEE 2V AP/LAT LT HISTORY: Left knee and hip pain COMPARISON: Abdomen/pelvis CT 11/08/2022 FINDINGS: Pelvis and left hip: No pelvic fracture or diastasis. No hip dislocation. No left hip fracture or significant degenerative change. Left knee: No evidence of knee effusion, limited evaluation for small effusion due to positioning on lateral view. No fracture, dislocation, or significant degenerative change. IMPRESSION: No acute osseous abnormality pelvis, left hip, and left knee. 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 Transcribe Date/Time: Nov 01 2024 3:55A Dictated by : KRISTIE PARK MD This examination was interpreted and the report reviewed and electronically signed by: KRISTIE PARK MD on Nov 01 2024 3:57AM EST [id number] [facility] BLOOD TB SCREENon 10-16-2024 M. tuberculosis tuberculin stim IFN-g Ql (Bld) Negative Normal [facility] Comment on above: Order Comment: Speci men Type: BLOOD SPECIMENOrdering Facility: [facility] Address: [address] [place] [address] Performed By: #### I NFTBP ####[facility]CLIA [id number] [place] [address] [place] MITOGEN MINUS NIL >9.96 Normal >=0.50 [facility] Comment on above: Order Comment: Speci men Type: BLOOD SPECIMENOrdering Facility: [facility] Address: [address] [place] [address] Performed By: #### I NFTBP ####[facility]CLIA [id number] [address] [place] TB GAMMA INTERPRETATION Infection with M. tuberculosis complex is unlikely. If latent tuberculosis infection is highly suspected, a negative result does not rule out the infection. Specimens from immunocompromised patients and those <5 years of age may show false negative results. In case of a contact investigation, please repeat 8-12 weeks after a known exposure. Normal [facility] Comment on above: Order Comment: Speci men Type: BLOOD SPECIMENOrdering Facility: [facility] Address: [address] [place] [address] Performed By: #### I NFTBP ####[facility]CLIA [id number] [address] OF [facility] TB NIL 0.04 IU/mL Normal <=8.00 [facility] Comment on above: Order Comment: Speci men Type: BLOOD SPECIMENOrdering Facility: [facility] Address: [address] [place] [address] Performed By: #### I NFTBP ####[facility]CLIA [id number] [address] [place] TB1 AG MINUS NIL 0.01 IU/mL Normal <0.35 [facility] Comment on above: Order Comment: Speci men Type: BLOOD SPECIMENOrdering Facility: [facility] Address: [address] [place] [address] Performed By: #### I NFTBP ####[facility]CLIA [id number] [address] OF [place] TB2 AG MINUS NIL 0.00 IU/mL Normal <0.35 [facility] Comment on above: Order Comment: Speci men Type: BLOOD SPECIMENOrdering Facility: [facility] Address: [address] [place] [address] Performed By: #### I NFTBP ####[facility]CLIA [id number] [address] [place] HBV core Ab Ser Qlon 025 HBV core Ab Ql (S) Negative Normal Negative [facility] Comment on above: Order Comment: Speci men Type: BLOOD SPECIMEN [facility]ing Facility: [facility] Address: [address] [place] [address] Result Comment: No e vidence of current or past infection with Hepatitis B virus. Should recent infection be suspected, repeat testing may be considered 3-4 weeks after this draw. Performed By: #### 1 6933-4, 5195-3, 36056-2 #### [facility] CLIA [id number] HBV surface Ab Ql (S)on 10-01 HBV surface Ab Qn (S) <8.00 Normal [facility] Comment on above: Order Comment: Speci men Type: BLOOD SPECIMEN Ordering Facility: [facility] Address: [address] [place], [place] [address] Result Comment: <8 m IU/mL: No serological evidence of immunity to Hepatitis B Virus. >/= 8 to <12 mIU/mL: No serological evidence of immunity to Hepatitis B Virus. >/= 12 mIU/mL: Consistent with serological evidence of immunity to Hepatitis B Virus. Performed By: #### 1 6933-4, 5195-3, 99454-4 #### [facility] CLIA [id number] [address] [place] HBV surface Ab Ser Qlon 10-01 HBV surface Ab Ql (S) Negative Normal [facility] Comment on above: Order Comment: Speci men Type: BLOOD SPECIMEN Ordering Facility: [facility] Address: [address] [place] [address] Result Comment: No s erological evidence of immunity to Hepatitis B Virus. Performed By: #### 1 6933-4, 5195-3, 20799-0 #### [facility] CLIA [id number] [address] [place] [address] [place] HBV surface Ag Ser Qlon 10-01 HBV surface Ag Ql (S) Negative Normal Negative [facility] Comment on above: Order Comment: Vinay cheung Type: BLOOD SPECIMEN [facility]ing [facility] Address: [address] [place] [address] Performed By: #### 1 6933-4, 5195-3, 21309-9 #### [facility] CLIA [id number] [address] [place] [address] [place] HCV Ab Ser Qlon 10-16-2024 HCV Ab Ql (S) Negative Normal Negative [facility] Comment on above: Order Comment: Vinay cheung Type: BLOOD SPECIMENOrdering Facility: [facility] Address: [address] [place] [address] Result Comment: The result suggests no evidence of infection with Hepatitis C virus. Should recent infection be suspected, repeat testing may be considered 4-6 weeks after this draw. Performed By: #### 1 6128-1 ####[facility] LABCLIA [id number] [place] [address] [place] Basic metabolic 2000 panelon 05-03-2024 Anion gap [Moles/Vol] 10 mmol/L Normal 8-15 [facility] Comment on above: Order Comment: Vinay cheung Type: BLOOD SPECIMENOrdering Facility: [facility] Address: [address] [place] [address] Performed By: #### 2 4321-2, [id number], 46836-5 ####[facility]ORY[facility]IA [id number] [place] [address] [place] Calcium [Mass/Vol] 9.4 mg/dL Normal 8.5-10.2 [facility] Comment on above: Order Comment: Speci men Type: BLOOD SPECIMENOrdering Facility: [facility] Address: [address] [place] [address] Performed By: #### 2 4321-2, [id number], ####[facility]ATORYCLIA [id number] [place] [address] [place] Chloride [Moles/Vol] 105 mmol/L Normal 98-107 [facility] Comment on above: Order Comment: Speci men Type: BLOOD SPECIMENOrdering Facility: [facility] Address: [address] [place] [address] Performed By: #### 2 4321-2, [id number], ####[facility]ORYCLIA [id number] [place] [address] [place] CO2 [Moles/Vol] 23 mmol/L Normal 22-30 [facility] Comment on above: Order Comment: Speci men Type: BLOOD SPECIMENOrdering Facility: [facility] Address: [address] [place] [address] Performed By: #### 2 4321-2, [id number], ####[facility]ORYCLIA [id number] [place] [address] [place] Creatinine [Mass/Vol] 0.98 mg/dL Normal 0.73-1.22 [facility] Comment on above: Order Comment: Speci men Type: BLOOD SPECIMENOrdering Facility: [facility] Address: [address] [place] [address] Performed By: #### 2 4321-2, [id number], ####[facility]ORYCLIA [id number] [address] [place] Creatinine and Glomerular filtration rate.predicted panel (S/P/Bld) 92 mL/min/1.73m??? Normal >=60 [facility] Comment on above: Order Comment: Speci men Type: BLOOD SPECIMENOrdering Facility: [facility] Address: [address] [place] [address] Result Comment: Lila mated Glomerular Filtration Rate (eGFR) is calculated using the 2020 CKD-EPI creatinine equation. This equation utilizes serum creatinine, sex, and age as parameters. The creatinine assay has traceable calibration to isotope dilution-mass spectrometry. Refer to KDIGO guidelines for clinical interpretation. In patients with unstable renal function, e.g. those with acute kidney injury, the eGFR may not accurately reflect actual GFR. Performed By: #### 2 4321-2, [id number], ####[facility]ORY[facility]IA [id number] [place] [address] [place] Glucose [Mass/Vol] 105 mg/dL High 74-99 [facility] Comment on above: Order Comment: Vinay cheung Type: BLOOD SPECIMENOrdering Facility: [facility] Address: [address] [place] [address] Result Comment: The [place] Diabetes Association (ADA) provides guidance for cutoff values for fasting glucose and random glucose. The ADA defines fasting as no caloric intake for at least 8 hours. Fasting plasma glucose results between 100 to 125 mg/dL indicate increased risk for diabetes (prediabetes). Fasting plasma glucose results greater than or equal to 126 mg/dL meet the criteria for diagnosis of diabetes. In the absence of unequivocal hyperglycemia, results should be confirmed by repeat testing. In a patient with classic symptoms of hyperglycemia or hyperglycemic crisis, random plasma glucose results greater than or equal to 200 mg/dL meet the criteria for diagnosis of diabetes. Reference: Standards of Medical Care in Diabetes 2016, [place] Diabetes Association. Diabetes Care. 2016.39(Suppl 1). Performed By: #### 2 4321-2, [id number], ####[facility]ORY[facility]IA [id number] [place] [address] [place] Potassium [Moles/Vol] 3.8 mmol/L Normal 3.7-5.1 [facility] Comment on above: Order Comment: Vinay cheung Type: BLOOD SPECIMENOrdering Facility: [facility] Address: [address] [place] [address] Performed By: #### 2 4321-2, [id number], ####[facility]ORYCLIA [id number] [place] [address] [place] Sodium [Moles/Vol] 138 mmol/L Normal 136-144 [facility] Comment on above: Order Comment: Speci men Type: BLOOD SPECIMENOrdering Facility: [facility] Address: [address] [place] [address] Performed By: #### 2 4321-2, [id number], ####[facility]ORYCLIA [id number] [address] STATES [facility] Urea nitrogen [Mass/Vol] 19 mg/dL Normal 9-24 [facility] Comment on above: Order Comment: Speci men Type: BLOOD SPECIMENOrdering Facility: [facility] Address: [address] [place] [address] Performed By: #### 2 4321-2, [id number], ####[facility]ORYCLIA [id number] [address] CBC W Auto Differential pane l (Bld)on 05-03-2024 Basophils (Bld) [#/Vol] 0.04 10*3/uL Normal <0.11 [facility] Comment on above: Order Comment: Speci men Type: BLOOD SPECIMEN [facility]ing [facility]: [facility] Address: [address] [place] [address] Performed By: #### 5 7021-8 #### [facility] CLIA [id number] [address] Basophils/100 WBC (Bld) 0.4 % Normal [facility] Comment on above: Order Comment: Speci men Type: BLOOD SPECIMEN [facility]ing [facility] Address: [address] [place] [address] Performed By: #### 5 7021-8 #### [facility] CLIA [id number] [address] Differential cell count method Nom (Bld) Auto Normal [facility] Comment on above: Order Comment: Speci men Type: BLOOD SPECIMEN [facility]ing [facility]: [facility] Address: [address] [place] [address] Performed By: #### 5 7021-8 #### [facility] CLIA [id number] [address] [place] Eosinophils (Bld) [#/Vol] 0.18 10*3/uL Normal <0.46 [facility] Comment on above: Order Comment: Speci men Type: BLOOD SPECIMEN [facility]ing [facility] Address: [address] [place] [address] Performed By: #### 5 7021-8 #### [facility] CLIA [id number] [address] STATES [facility] Eosinophils/100 WBC (Bld) 2.0 % Normal [facility] Comment on above: Order Comment: Speci men Type: BLOOD SPECIMEN [facility]ing [facility] Address: [address] [place] [address] Performed By: #### 5 7021-8 #### [facility] CLIA [id number] [address] Erythrocyte distribution width (RBC) [Ratio] 13.0 % Normal 11.5-15.0 [facility] Comment on above: Order Comment: Speci men Type: BLOOD SPECIMEN [facility]ing [facility] Address: [address] [place] [address] Performed By: #### 5 7021-8 #### [facility] CLIA [id number] [address] Hematocrit (Bld) [Volume fraction] 36.4 % Low 39.0-51.0 [facility] Comment on above: Order Comment: Speci men Type: BLOOD SPECIMEN [facility]ing [facility]: [facility] Address: [address] [place] [address] Performed By: #### 5 7021-8 #### [facility] CLIA [id number] [address] [place] Hemoglobin (Bld) [Mass/Vol] 12.3 g/dL Low 13.0-17.0 [facility] Comment on above: Order Comment: Speci men Type: BLOOD SPECIMEN [facility]ing [facility] Address: [address] [place] [address] Performed By: #### 5 7021-8 #### [facility] CLIA [id number] [address] [place] Immature granulocytes (Bld) [#/Vol] 10*3/uL Normal <0.10 [facility] Comment on above: Order Comment: Speci men Type: BLOOD SPECIMEN [facility]ing [facility] Address: [address] [place] [address] Performed By: #### 5 7021-8 #### [facility] CLIA [id number] [address] Immature granulocytes/100 WBC (Bld) 0.2 % Normal [facility] Comment on above: Order Comment: Speci men Type: BLOOD SPECIMEN [facility]ing [facility] Address: [address] [place] [address] Performed By: #### 5 7021-8 #### [facility] CLIA [id number] [address] Lymphocytes (Bld) [#/Vol] 3.53 10*3/uL Normal 1.00-4.00 [facility] Comment on above: Order Comment: Speci men Type: BLOOD SPECIMEN [facility]ing [facility] Address: [address] [place] [address] Performed By: #### 5 7021-8 #### [facility] CLIA [id number] [address] Lymphocytes/100 WBC (Bld) 39.4 % Normal [facility] Comment on above: Order Comment: Speci men Type: BLOOD SPECIMEN [facility]ing [facility] Address: [address] [place] [address] Performed By: #### 5 7021-8 #### [facility] CLIA [id number] [address] MCH (RBC) [Entitic mass] 30.4 pg Normal 26.0-34.0 [facility] Comment on above: Order Comment: Speci men Type: BLOOD SPECIMEN [facility]ing [facility]: [facility] Address: [address] [place] [address] Performed By: #### 5 7021-8 #### [facility] CLIA [id number] [address] OF [place] MCHC (RBC) [Mass/Vol] 33.8 g/dL Normal 30.5-36.0 [facility] Comment on above: Order Comment: Speci men Type: BLOOD SPECIMEN [facility]ing Facility: [facility] Address: [facility] [place] [address] Performed By: #### 5 7021-8 #### [facility] CLIA [id number] [address] [place] [address] [place] MCV (RBC) [Entitic vol] 89.9 fL Normal 80.0-100.0 [facility] Comment on above: Order Comment: Speci men Type: BLOOD SPECIMEN [facility]ing [facility]: [facility] Address: [address] [place] [address] Performed By: #### 5 7021-8 #### [facility] CLIA [id number] [address] [place] Monocytes (Bld) [#/Vol] 0.74 10*3/uL Normal <0.87 [facility] [facility] Comment on above: Order Comment: Speci men Type: BLOOD SPECIMEN Ordering Facility: [facility] Address: [address] [place] [address] Performed By: #### 5 7021-8 #### [facility] CLIA [id number] [address] [place] Monocytes/100 WBC (Bld) 8.3 % Normal [facility] Comment on above: Order Comment: Speci men Type: BLOOD SPECIMEN Ordering Facility: [facility] Address: [address] [place] [address] Performed By: #### 5 7021-8 #### [facility] CLIA [id number] [address] [place] [address] [place] Neutrophils (Bld) [#/Vol] 4.45 10*3/uL Normal 1.45-7.50 [facility] Comment on above: Order Comment: Speci men Type: BLOOD SPECIMEN Ordering Facility: [facility] Address: [address] [place] [address] Performed By: #### 5 7021-8 #### [facility] CLIA [id number] [address] [place] Neutrophils/100 WBC (Bld) 49.7 % Normal [facility] Comment on above: Order Comment: Speci men Type: BLOOD SPECIMEN Ordering Facility: [facility] Address: [facility] [place] [address] Performed By: #### 5 7021-8 #### [facility] CLIA [id number] [address] [place] [address] [place] Nucleated RBC (Bld) [#/Vol] 10*3/uL Normal <0.01 [facility] Comment on above: Order Comment: Speci men Type: BLOOD SPECIMEN Ordering Facility: [facility] Address: [address] [place] [address] Performed By: #### 5 7021-8 #### [facility] CLIA [id number] [address] [place] Nucleated RBC/100 WBC (Bld) [Ratio] 0.0 /100 WBC Normal [facility] Comment on above: Order Comment: Speci men Type: BLOOD SPECIMEN Ordering Facility: [facility] Address: [address] [place] [address] Performed By: #### 5 7021-8 #### [facility] CLIA [id number] [address] [place] [address] [place] Platelet mean volume (Bld) [Entitic vol] 11.5 fL Normal 9.0-12.7 [facility] Comment on above: Order Comment: Speci men Type: BLOOD SPECIMEN Ordering Facility: [facility] Address: [address] [place] [address] Performed By: #### 5 7021-8 #### [facility] CLIA [id number] [address] [place] [address] [place] Platelets (Bld) [#/Vol] 186 10*3/uL Normal 150-400 [facility] Comment on above: Order Comment: Speci men Type: BLOOD SPECIMEN Ordering Facility: [facility] Address: [address] [place] [address] Performed By: #### 5 7021-8 #### [facility] CLIA [id number] [address] [place] [address] [place] RBC (Bld) [#/Vol] 4.05 10*6/uL Low 4.20-6.00 [facility] Comment on above: Order Comment: Vinay cheung Type: BLOOD SPECIMEN Ordering Facility: [facility] Address: [address] [place] [address] Performed By: #### 5 7021-8 #### [facility] CLIA [id number] [address] WBC (Bld) [#/Vol] 8.96 10*3/uL Normal 3.70-11.00 [facility] Comment on above: Order Comment: Vinay cheung Type: BLOOD SPECIMEN Ordering Facility: [facility] Address: [address] [place] [address] Performed By: #### 5 7021-8 #### [facility] CLIA [id number] [address] D dimer FEU PPP-mCncon 05-03 Fibrin D-dimer FEU (PPP) [Mass/Vol] <190 Normal <500 [facility] Comment on above: Order Comment: Vinay cheung Type: BLOOD SPECIMENOrdering Facility: [facility] Address: [address] [place] [address] Performed By: #### 4 8065-7 ####[facility] [id number] [address] ED NOTEon 05-03-2024 ED NOTE HNO ID: [id number] Author: SUE GIRARD RN Service: ? Author Type: Registered Nurse Type: ED Notes Filed: 05/03/2024 05:43 Note Text: Pt discharge instructions reviewed, Pt advised to follow up as needed Normal [facility] ED PROV NOTEon 05-03-2024 ED PROV NOTE HNO ID: [id number] Author: CORY ZAMBRANO MD Service: Emergency Medicine Author Type: Physician Type: ED Provider Notes Filed: 05/03/2024 05:43 Note Text: ED Provider Note Patient Name: Matt Manuel : 1970 SERVICE DATE: 05/03/24 History Patient presents with: Chest Pain: Pt presents to ED from home for ongoing chest pain but tonight states it is waking him up out of his sleep, at times radiates to arm, HX afib 53-year-old male. Coming in today for left-sided chest pain. Reports that this has been ongoing intermittently for some time now. However tonight it was more severe. Left-sided in nature. Still has some pain at this time. Has a history of reflux but does not feel like this is consistent with reflux. No fevers. No shortness of breath. No abdominal pain. Reports remote heart cath but states that did not receive any stents at that time. PAST MEDICAL HISTORY Diagnosis Date Acute gastric ulcer without mention of hemorrhage or perforation, with obstruction(531.31) Atrial fibrillation (HCC) Esophageal reflux Gastroesophageal reflux Hernia of unspecified site of abdominal cavity without mention of obstruction or gangrene HLD (hyperlipidemia) HTN (hypertension) JOHNATHAN (obstructive sleep apnea) PAST SURGICAL HISTORY Procedure Laterality Date APPENDECTOMY CARDIAC CATHETERIZATION HX 4 years ago No family history on file. Social History Tobacco Use Smoking status: Every Day Current packs/day: 0.00 Types: Cigarettes Last attempt to quit: 07/08/2005 Years since quittin.8 Smokeless tobacco: Never Vaping Use Vaping status: Never Used Substance and Sexual Activity Alcohol use: No Drug use: No Sexual activity: Not on file ALLERGIES Allergen Reactions Zithromax [Azithrom* Review of Systems Constitutional: Negative for activity change, chills, diaphoresis and fever. HENT: Negative for congestion, sinus pain and sore throat. Eyes: Negative for photophobia, pain and visual disturbance. Respiratory: Negative for cough, chest tightness and shortness of breath. Cardiovascular: Positive for chest pain. Negative for palpitations and leg swelling. Gastrointestinal: Negative for abdominal pain, constipation, diarrhea, nausea and vomiting. Genitourinary: Negative for dysuria, frequency and urgency. Musculoskeletal: Negative for back pain, gait problem and neck pain. Skin: Negative for color change, rash and wound. Neurological: Negative for syncope, light-headedness and headaches. Psychiatric/Behavioral: Negative for agitation, behavioral problems and confusion. Physical Exam Vitals [05/03/24 0203] BP Pulse Temp Temp src Resp SpO2 Weight Height 141/65 (!) 54 36.6 ?C (97.9 ?F) Oral 18 99 % 120.7 kg (266 lb 1.5 oz) 1.727 m (5' 8) Physical Exam Vitals and nursing note reviewed. Constitutional: General: He is not in acute distress. Appearance: He is well-developed. He is not diaphoretic. HENT: Head: Normocephalic and atraumatic. Right Ear: External ear normal. Left Ear: External ear normal. Nose: Nose normal. Eyes: General: No scleral icterus. Right eye: No discharge. Left eye: No discharge. Conjunctiva/sclera: Conjunctivae normal. Pupils: Pupils are equal, round, and reactive to light. Neck: Vascular: No JVD. Trachea: No tracheal deviation. Cardiovascular: Rate and Rhythm: Normal rate and regular rhythm. Heart sounds: Normal heart sounds. No murmur heard. No friction rub. No gallop. Pulmonary: Effort: Pulmonary effort is normal. No respiratory distress. Breath sounds: Normal breath sounds. No stridor. No wheezing or rales. Chest: Comments: Pain is not reproducible at this time. Abdominal: General: Bowel sounds are normal. There is no distension. Palpations: Abdomen is soft. Tenderness: There is no abdominal tenderness. There is no guarding or rebound. Hernia: No hernia is present. Musculoskeletal: General: No tenderness or deformity. Normal range of motion. Cervical back: Normal range of motion and neck supple. Skin: General: Skin is dry. Capillary Refill: Capillary refill takes less than 2 seconds. Coloration: Skin is not pale. Findings: No erythema or rash. Neurological: Mental Status: He is alert and oriented to person, place, and time. Sensory: No sensory deficit. Motor: No abnormal muscle tone. Psychiatric: Behavior: Behavior normal. Thought Content: Thought content normal. Judgment: Judgment normal. Diagnostic Testing ED Labs Ordered and Reviewed - No data to display Results for orders placed or performed during the hospital encounter of 05/03/24 EKG Impression SINUS BRADYCARDIA OTHERWISE NORMAL ECG Confirmed by CORY ZAMBRANO MD ([id number]) on 05/03/2024 2:03:25 AM Procedures ED Course / Clinical Impression Clinical Impressions as of 05/03/24 0542 Chest pain, unspecified type Hypertension, unspecified type MDM / Disposition / Noelle (more content not included)... Normal [facility] EKGon 05-03-2024 Electrocardiogram Ventricular Rate : 5 4 BPM Atrial Rate : 54 BPM P-R Interval : 196 ms QRS Duration : 86 ms Q-T Interval : 422 ms QTC Calculation(Bazett) : 400 ms Calculated P [place] : 63 degrees Calculated R [place] : 52 degrees Calculated T [place] : 52 degrees SINUS BRADYCARDIA OTHERWISE NORMAL ECG Confirmed by CORY ZAMBRANO MD ([id number]) on 05/03/2024 2:03:25 AM NAME : MATT MANUEL PID : [id number] : 1970 Gender : Male Race : ORD : Procedure Date : May 03 2024 02:02:27 Edit Date : May 03 2024 02:03:26 Diagnosis: SINUS BRADYCARDIA OTHERWISE NORMAL ECG Confirmed by CORY ZAMBRANO MD ([id number]) on 05/03/2024 2:03:25 AM Test Reason : Location : 1 : ER ED Overread By : CORY ZAMBRANO MD Edited By : CORY ZAMBRANO MD Referred By : , Acquired by : dl, [facility] Fibrin D-dimer FEU (PPP) [Ma ss/Vol]on 05-03-2024 D DIMER AGE-RELATED CUTOFF 540 ng/mL U [facility] Comment on above: Order Comment: Vinay cheung Type: BLOOD SPECIMENOrdering Facility: [facility] Address: [address] [place] [address] Performed By: #### 4 8065-7 ####[facility] [id number] [address] [place] HIGH SENSITIVITY TROPONIN T (INITIAL)on 05-03-2024 Troponin T.cardiac High sensitivity method [Mass/Vol] <6 Normal <12 [facility] Comment on above: Order Comment: Vinay cheung Type: BLOOD SPECIMENOrdering Facility: [facility] Address: [address] [place] [address] Performed By: #### 2 4321-2, [id number], 26687-6 ####[facility] [id number] [address] HIGH SENSITIVITY TROPONIN T (SECOND)on 05-03-2024 Troponin T.cardiac High sensitivity method [Mass/Vol] <6 Normal <12 [facility] Comment on above: Order Comment: Vinay cheung Type: BLOOD SPECIMEN Ordering Facility: [facility] Address: [address] [place] [address] Performed By: #### 5 7021-8 #### [facility] CLIA [id number] [address] [place] [address] [place] Magnesium SerPl-mCncon 05-03 Magnesium [Mass/Vol] 2.1 mg/dL Normal 1.7-2.3 [facility] Comment on above: Order Comment: Speci men Type: BLOOD SPECIMENOrdering Facility: [facility] Address: [address] [place] [id number] Performed By: #### 2 4321-2, [id number], 28832-5 ####[facility] [id number] [place] [address] [place] XR CHEST 1V FRONTAL PORTon 0 05-03-2024 XR CHEST 1V FRONTAL PORT * * *Final Report* * * DATE OF EXAM: May 03 2024 3:23AM MDX [id number] - XR CHEST 1V FRONTAL PORT / PROCEDURE REASON: Chest pain * * * * Physician Interpretation * * * * CHEST RADIOGRAPH: AP view of the chest. Exam Date/Time: 05/03/2024 3:23 AM Indication: Chest pain Comparison: Chest x-ray 01/09/2024 RESULTS: Lines, Tubes, and Devices: None Lungs and Pleura: The lungs are clear. No pleural effusion or pneumothorax. Cardiomediastinal silhouette: The mediastinal and cardiac silhouette are normal in size and contour. Other: The bones of the chest are unremarkable. IMPRESSION: No radiographic evidence of acute cardiopulmonary abnormality. 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: PSCB Transcribe Date/Time: May 03 2024 5:38A Dictated by : ROMA JOVEL MD This examination was interpreted and the report reviewed and electronically signed by: ROMA JOVEL MD on May 03 2024 5:38AM EST [id number] Normal [facility] ALLIED HEALTHon 04-26-2024 ALLIED HEALTH HNO ID: [id number] Author: HAKAN GARCIA RT(R) Service: Radiology Author Type: Technologist Type: Allied Health Filed: 04/26/2024 13:04 Note Text: Radiology Service Progress Note PATIENT NAME: Matt VASQUEZN: [id number] DATE OF SERVICE: April 26, 2024 TIME: 1:04 PM PATIENT IDENTITY VERIFICATION COMPLETED USING TWO (2) IDENTIFIERS: Name and Date of confirmed by patient verbally and Name and Date of confirmed by identification band. FALL SCREENING: Has the patient had 2 falls in the last year or 1 fall with injury or currently using an Ambulatory Assistive Device (Walker, Cane, Wheelchair, Crutches, etc.)? Emergency Room Patient: Screened in ED PATIENT GENDER DATA: Assigned male at PATIENT RELEVANT IMPLANT DATA REVIEWED: Yes PATIENT PRESENTS WITH AN IMPLANTABLE OR ATTACHED PULP BEATER: No RADIOLOGY DEPARTMENT: CT; Exam(s) Completed: Brain PERIPHERAL IV DATA: Not applicable SIGNED BY: RT Viviana(R) April 26, 2024 1:04 PM [facility] CBC W Auto Differential pane l (Bld)on 04-26-2024 Basophils (Bld) [#/Vol] 0.04 10*3/uL Normal <0.11 [facility] Comment on above: Order Comment: Speci men Type: BLOOD SPECIMEN Ordering Facility: [facility] Address: [address] [place] [address] Performed By: #### 5 7021-8 #### [facility] CLIA [id number] [address] [place] [address] [place] Basophils/100 WBC (Bld) 0.5 % [facility] Comment on above: Order Comment: Speci jonatan Type: BLOOD SPECIMEN Ordering Facility: [facility] Address: [address] [place] [address] Performed By: #### 5 7021-8 #### [facility] CLIA [id number] [address] [place] [address] [place] Differential cell count method Nom (Bld) Auto [facility] Comment on above: Order Comment: Speci men Type: BLOOD SPECIMEN Ordering Facility: [facility] Address: [address] [place] [address] Performed By: #### 5 7021-8 #### [facility] CLIA [id number] [address] [place] [address] [place] Eosinophils (Bld) [#/Vol] 0.13 10*3/uL Normal <0.46 [facility] Comment on above: Order Comment: Speci men Type: BLOOD SPECIMEN Ordering Facility: [facility] Address: [address] [place] [address] Performed By: #### 5 7021-8 #### [facility] CLIA [id number] [address] [place] Eosinophils/100 WBC (Bld) 1.8 % Normal [facility] Comment on above: Order Comment: Speci men Type: BLOOD SPECIMEN Ordering Facility: [facility] Address: [address] [place] [address] Performed By: #### 5 7021-8 #### [facility] CLIA [id number] [address] [place] Erythrocyte distribution width (RBC) [Ratio] 13.0 % Normal 11.5-15.0 [facility] Comment on above: Order Comment: Speci men Type: BLOOD SPECIMEN Ordering Facility: [facility] Address: [address] [place] [address] Performed By: #### 5 7021-8 #### [facility] CLIA [id number] [address] [place] Hematocrit (Bld) [Volume fraction] 42.3 % Normal 39.0-51.0 [facility] Comment on above: Order Comment: Speci men Type: BLOOD SPECIMEN Ordering Facility: [facility] Address: [address] [place] [address] Performed By: #### 5 7021-8 #### [facility] CLIA [id number] [address] [place] Hemoglobin (Bld) [Mass/Vol] 14.3 g/dL Normal 13.0-17.0 [facility] Comment on above: Order Comment: Speci men Type: BLOOD SPECIMEN Ordering Facility: [facility] Address: [address] [place] [address] Performed By: #### 5 7021-8 #### [facility] CLIA [id number] [address] [place] Immature granulocytes (Bld) [#/Vol] 0.03 10*3/uL Normal <0.10 [facility] Comment on above: Order Comment: Speci men Type: BLOOD SPECIMEN Ordering Facility: [facility] Address: [address] [place] [address] Performed By: #### 5 7021-8 #### [facility] CLIA [id number] [address] Immature granulocytes/100 WBC (Bld) 0.4 % Normal [facility] Comment on above: Order Comment: Speci men Type: BLOOD SPECIMEN Ordering Facility: [facility] Address: [address] [place] [address] Performed By: #### 5 7021-8 #### [facility] CLIA [id number] [address] [place] Lymphocytes (Bld) [#/Vol] 3.01 10*3/uL Normal 1.00-4.00 [facility] Comment on above: Order Comment: Speci men Type: BLOOD SPECIMEN Ordering Facility: [facility] Address: [address] [place] [address] Performed By: #### 5 7021-8 #### [facility] CLIA [id number] [address] Lymphocytes/100 WBC (Bld) 41.0 % Normal [facility] Comment on above: Order Comment: Speci men Type: BLOOD SPECIMEN Ordering Facility: [facility] Address: [address] [place] [address] Performed By: #### 5 7021-8 #### [facility] CLIA [id number] [address] MCH (RBC) [Entitic mass] 30.4 pg Normal 26.0-34.0 [facility] Comment on above: Order Comment: Speci men Type: BLOOD SPECIMEN Ordering Facility: [facility] Address: [address] [place] [address] Performed By: #### 5 7021-8 #### [facility] CLIA [id number] [address] MCHC (RBC) [Mass/Vol] 33.8 g/dL Normal 30.5-36.0 [facility] Comment on above: Order Comment: Speci men Type: BLOOD SPECIMEN Ordering Facility: [facility] Address: [address] [place] [address] Performed By: #### 5 7021-8 #### [facility] CLIA [id number] [address] [place] [address] [place] MCV (RBC) [Entitic vol] 90.0 fL Normal 80.0-100.0 [facility] Comment on above: Order Comment: Speci men Type: BLOOD SPECIMEN Ordering Facility: [facility] Address: [address] [place] [address] Performed By: #### 5 7021-8 #### [facility] CLIA [id number] [address] [place] Monocytes (Bld) [#/Vol] 0.57 10*3/uL Normal <0.87 [facility] Comment on above: Order Comment: Speci men Type: BLOOD SPECIMEN Ordering Facility: [facility] Address: [address] [place] [address] Performed By: #### 5 7021-8 #### [facility] CLIA [id number] [address] Monocytes/100 WBC (Bld) 7.8 % Normal [facility] Comment on above: Order Comment: Speci men Type: BLOOD SPECIMEN Ordering Facility: [facility] Address: [address] [place] [address] Performed By: #### 5 7021-8 #### [facility] CLIA [id number] [address] [place] Neutrophils (Bld) [#/Vol] 3.57 10*3/uL Normal 1.45-7.50 [facility] Comment on above: Order Comment: Speci men Type: BLOOD SPECIMEN Ordering Facility: [facility] Address: [address] [place] [address] Performed By: #### 5 7021-8 #### [facility] CLIA [id number] [address] [place] Neutrophils/100 WBC (Bld) 48.5 % Normal [facility] Comment on above: Order Comment: Speci men Type: BLOOD SPECIMEN Ordering Facility: [facility] Address: [address] [place] [address] Performed By: #### 5 7021-8 #### [facility] CLIA [id number] [address] [place] [address] [place] Nucleated RBC (Bld) [#/Vol] 10*3/uL Normal <0.01 [facility] Comment on above: Order Comment: Speci men Type: BLOOD SPECIMEN Ordering Facility: [facility] Address: [address] [place] [address] Performed By: #### 5 7021-8 #### [facility] CLIA [id number] [address] [place] [address] [place] Nucleated RBC/100 WBC (Bld) [Ratio] 0.0 /100 WBC Normal [facility] Comment on above: Order Comment: Speci men Type: BLOOD SPECIMEN Ordering Facility: [facility] Address: [address] [place] [address] Performed By: #### 5 7021-8 #### [facility] CLIA [id number] [address] [place] [address] [place] Platelet mean volume (Bld) [Entitic vol] 11.0 fL Normal 9.0-12.7 [facility] Comment on above: Order Comment: Speci men Type: BLOOD SPECIMEN Ordering Facility: [facility] Address: [address] [place] [address] Performed By: #### 5 7021-8 #### [facility] CLIA [id number] [address] [place] [address] [place] Platelets (Bld) [#/Vol] 185 10*3/uL Normal 150-400 [facility] Comment on above: Order Comment: Speci men Type: BLOOD SPECIMEN Ordering Facility: [facility] Address: [address] [place] [address] Performed By: #### 5 7021-8 #### [facility] CLIA [id number] [address] [place] [address] [place] RBC (Bld) [#/Vol] 4.70 10*6/uL Normal 4.20-6.00 [facility] Comment on above: Order Comment: Speci men Type: BLOOD SPECIMEN Ordering Facility: [facility] Address: [address] [place], [place] [address] Performed By: #### 5 7021-8 #### [facility] CLIA [id number] [address] OF [facility] WBC (Bld) [#/Vol] 7.35 10*3/uL Normal 3.70-11.00 [facility] Comment on above: Order Comment: Speci men Type: BLOOD SPECIMEN Ordering Facility: [facility] Address: [address] [place], [place] [address] Performed By: #### 5 7021-8 #### [facility] CLIA [id number] [address] BRAIN WO IVCONon 04-26-19 CT BRAIN WO IVCON * * *Final Report* * * DATE OF EXAM: Apr 26 2024 1:04PM [facility] [place] BRAIN WO IV[place] / PROCEDURE REASON: numbness in extremities * * * * Physician Interpretation * * * * EXAMINATION: CT BRAIN WO IVCON CLINICAL HISTORY: Numbness in extremities. TECHNIQUE: Serial axial images without IV contrast were obtained from the vertex to the foramen magnum. MQ: CTBWO_3 CT Radiation dose: Integrated Dose-Length Product (DLP) for this visit = 655 mGy*cm CT Dose Reduction Employed: Automated exposure control(AEC) and iterative recon COMPARISON: None. RESULT: Post-operative change: None. Acute change: No evidence of an acute infarct or other acute parenchymal process. Hemorrhage: No evidence of acute intracranial hemorrhage. ECASS hemorrhagic transformation score: Not Applicable Mass Lesion / Mass Effect: There is no evidence of an intracranial mass or extraaxial fluid collection. No significant mass effect. Chronic change: None apparent. Parenchyma: There is no significant volume loss. The brain parenchyma is otherwise within normal limits for age. Ventricles: The ventricles are within normal limits of size and configuration for age. Paranasal sinuses and skull base: Minimal mucosal thickening in the ethmoid air cells bilaterally. The skull base and imaged soft tissues are unremarkable. Localizer images: Unremarkable. IMPRESSION: NO EVIDENCE OF AN ACUTE INTRACRANIAL PROCESS 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: NORMA Transcribe Date/Time: Apr 26 2024 1:12P Dictated by : GILLIAN GOLD MD This examination was interpreted and the report reviewed and electronically signed by: GILLIAN GOLD MD on Apr 26 2024 1:13PM EST [id number] Normal [facility] Comprehensive metabolic 2000 panelon 04-26-2024 Albumin [Mass/Vol] 4.6 g/dL Normal 3.9-4.9 [facility] Comment on above: Order Comment: Speci men Type: BLOOD SPECIMENOrdering Facility: [facility] [facility] Address: [address] [place] [address] Performed By: #### 3 016-3, 3040-3, 96914-4, 80695-5 ####CHIN LABORATORYCLIA [id number] [place] [address] [place] [facility] ALP [Catalytic activity/Vol] 55 U/L Normal 38-113 [facility] Comment on above: Order Comment: Speci men Type: BLOOD SPECIMENOrdering Facility: [facility] Address: [address] [place] [address] Performed By: #### 3 016-3, 3040-3, 51003-0, 97255-4 ####CHIN LABORATORYCLIA [id number] [address] STATES OF [facility] ALT [Catalytic activity/Vol] 23 U/L Normal 10-54 [facility] Comment on above: Order Comment: Speci men Type: BLOOD SPECIMENOrdering Facility: [facility] Address: [address] [place] [address] Performed By: #### 3 016-3, 3040-3, 49981-6, 54077-6 ####CHIN LABORATORYCLIA [id number] [place] [id number] [place] [facility] Anion gap [Moles/Vol] 13 mmol/L Normal 8-15 [facility] Comment on above: Order Comment: Speci men Type: BLOOD SPECIMENOrdering Facility: [facility] Address: [address] [place] [address] Performed By: #### 3 016-3, 3040-3, 67653-9, ####CHIN LABORATORYCLIA [id number] [place] [address] [place] AST [Catalytic activity/Vol] 24 U/L Normal 14-40 [facility] Comment on above: Order Comment: Speci men Type: BLOOD SPECIMENOrdering Facility: [facility] Address: [address] [place] [address] Performed By: #### 3 016-3, 3040-3, 38684-3, ####CHIN LABORATORYCLIA [id number] [place] [address] [place] Bilirubin [Mass/Vol] 0.3 mg/dL Normal 0.2-1.3 [facility] Comment on above: Order Comment: Speci men Type: BLOOD SPECIMENOrdering Facility: [facility] Address: [address] [place] [address] Performed By: #### 3 016-3, 3040-3, 07002-6, ####CHIN LABORATORYCLIA [id number] [place] [address] [place] Calcium [Mass/Vol] 9.9 mg/dL Normal 8.5-10.2 [facility] Comment on above: Order Comment: Speci men Type: BLOOD SPECIMENOrdering Facility: [facility] Address: [address] [place] [address] Performed By: #### 3 016-3, 3040-3, 21563-9, ####CHIN LABORATORYCLIA [id number] [place] [id number] [place] Chloride [Moles/Vol] 104 mmol/L Normal 98-107 [facility] Comment on above: Order Comment: Speci men Type: BLOOD SPECIMENOrdering Facility: [facility] Address: [address] [place] [address] Performed By: #### 3 016-3, 3040-3, 06613-9, 27987-1 ####CHIN LABORATORYCLIA [id number] [place] [address] [place] CO2 [Moles/Vol] 22 mmol/L Normal 22-30 [facility] Comment on above: Order Comment: Vinay cheung Type: BLOOD SPECIMENOrdering Facility: [facility] Address: [address] [place] [address] Performed By: #### 3 016-3, 3040-3, 24104-4, 44313-3 ####FOSTER LABORATORYCLIA [id number] [place] [address] [place] Creatinine [Mass/Vol] 0.93 mg/dL Normal 0.73-1.22 [facility] Comment on above: Order Comment: Spec men Type: BLOOD SPECIMENOrdering Facility: [facility] Address: [address] [place] [address] Performed By: #### 3 016-3, 3040-3, 37399-7, 80392-7 ####FOSTER LABORATORYCLIA [id number] [address] STATES [place] Creatinine and Glomerular filtration rate.predicted panel (S/P/Bld) 98 mL/min/1.73m??? Normal >=60 [facility] Comment on above: Order Comment: [facility] Type: BLOOD SPECIMENOrdering Facility: [facility] Address: [address] [place] [address] Result Comment: Lila mated Glomerular Filtration Rate (eGFR) is calculated using the 2020 CKD-EPI creatinine equation. This equation utilizes serum creatinine, sex, and age as parameters. The creatinine assay has traceable calibration to isotope dilution-mass spectrometry. Refer to KDIGO guidelines for clinical interpretation. In patients with unstable renal function, e.g. those with acute kidney injury, the eGFR may not accurately reflect actual GFR. Performed By: #### 3 016-3, 3040-3, 88010-8, 62095-3 ####FOSTER LABORATORYCLIA [id number] [place] [address] [place] Glucose [Mass/Vol] 112 mg/dL High 74-99 [facility] Comment on above: Order Comment: Vinay jonatan Type: BLOOD SPECIMENOrdering Facility: [facility] Address: [address] [place] [address] Result Comment: The [place] Diabetes Association (ADA) provides guidance for cutoff values for fasting glucose and random glucose. The ADA defines fasting as no caloric intake for at least 8 hours. Fasting plasma glucose results between 100 to 125 mg/dL indicate increased risk for diabetes (prediabetes). Fasting plasma glucose results greater than or equal to 126 mg/dL meet the criteria for diagnosis of diabetes. In the absence of unequivocal hyperglycemia, results should be confirmed by repeat testing. In a patient with classic symptoms of hyperglycemia or hyperglycemic crisis, random plasma glucose results greater than or equal to 200 mg/dL meet the criteria for diagnosis of diabetes. Reference: Standards of Medical Care in Diabetes 2016, [place] Diabetes Association. Diabetes Care. 2016.39(Suppl 1). Performed By: #### 3 016-3, 3040-3, 69722-2, 08867-2 ####CHIN LABORATORYCLIA [id number] [place] [address] [place] Potassium [Moles/Vol] 4.4 mmol/L Normal 3.7-5.1 [facility] Comment on above: Order Comment: Vinay cheung Type: BLOOD SPECIMENOrdering Facility: [facility] Address: [address] [place] [address] Performed By: #### 3 016-3, 3040-3, 79506-7, 32897-2 ####CHIN LABORATORYCLIA [id number] [place] [address] [place] Protein [Mass/Vol] 7.7 g/dL Normal 6.3-8.0 [facility] Comment on above: Order Comment: Vinay cheung Type: BLOOD SPECIMENOrdering Facility: [facility] Address: [address] [place] [address] Performed By: #### 3 016-3, 3040-3, 72368-4, 39818-2 ####CHIN LABORATORYCLIA [id number] [place] [address] [place] Sodium [Moles/Vol] 139 mmol/L Normal 136-144 [facility] Comment on above: Order Comment: Lloisi men Type: BLOOD SPECIMENOrdering Facility: [facility] Address: [address] [place] [address] Performed By: #### 3 016-3, 3040-3, 12196-8, 40232-7 ####CHIN LABORATORYCLIA [id number] [place] [id number] [place] Urea nitrogen [Mass/Vol] 17 mg/dL Normal 12-25 [facility] Comment on above: Order Comment: Speci men Type: BLOOD SPECIMENOrdering Facility: [facility] Address: [address] [place] [address] Performed By: #### 3 016-3, 3040-3, 88285-3, 12552-6 ####CHIN LABORATORYCLIA [id number] [place] [address] [facility] [place] ED NOTEon 04-26-2024 ED NOTE HNO ID: [id number] Author: ОЛЕГ WHATLEY RN Service: ? Author Type: Registered Nurse Type: ED Notes Filed: 04/26/2024 13:37 Note Text: Dr. Stokes notified of patient's request for pain management for bilateral foot pain. [facility] ED PROV NOTEon 04-26-2024 ED PROV NOTE HNO ID: [id number] Author: CATE STOKES MD Service: ? Author Type: Physician Type: ED Provider Notes Filed: 04/26/2024 16:01 Note Text: ED Provider Note Patient Name: Matt Manuel : 1970 SERVICE DATE: 04/26/24 History Patient presents with: Edema: Bilateral foot swelling x 2 weeks. Intermittent numbness and tingling to bilateral hands x 2 weeks. Patient presents for 1 month of bilateral foot pain and swelling and 2 weeks of bilateral hand numbness. Patient states that the bottoms of his feet have been getting swollen and very painful, to the point it hurts to walk. Now both of his hands are going to sleep, left quicker than right, with most any activity. It is the entire hand from the wrist distally. He is having increased urination. He states before all this started he had an episode where he felt like his head felt funny and was vibrating but then it resolved. He states he is prediabetic. PAST MEDICAL HISTORY Diagnosis Date Acute gastric ulcer without mention of hemorrhage or perforation, with obstruction(531.31) Atrial fibrillation (HCC) Esophageal reflux Gastroesophageal reflux Hernia of unspecified site of abdominal cavity without mention of obstruction or gangrene HLD (hyperlipidemia) HTN (hypertension) JOHNATHAN (obstructive sleep apnea) PAST SURGICAL HISTORY Procedure Laterality Date APPENDECTOMY CARDIAC CATHETERIZATION HX 4 years ago No family history on file. Social History Tobacco Use Smoking status: Every Day Current packs/day: 0.00 Types: Cigarettes Last attempt to quit: 07/08/2005 Years since quittin.8 Smokeless tobacco: Never Vaping Use Vaping status: Never Used Substance and Sexual Activity Alcohol use: No Drug use: No Sexual activity: Not on file ALLERGIES Allergen Reactions Zithromax [Azithrom* Review of Systems Constitutional: Pertinent positives and negatives as per HPI. Physical Exam Vitals [04/26/24 1205] BP Pulse Temp Temp src Resp SpO2 Weight Height 134/66 56 36 ?C (96.8 ?F) Temporal 16 99 % 117.9 kg (260 lb) -- Physical Exam Vitals and nursing note reviewed. Constitutional: General: He is not in acute distress. Appearance: Normal appearance. He is not ill-appearing. HENT: Head: Normocephalic and atraumatic. Nose: Nose normal. Mouth/Throat: Mouth: Mucous membranes are moist. Eyes: Extraocular Movements: Extraocular movements intact. Pupils: Pupils are equal, round, and reactive to light. Cardiovascular: Rate and Rhythm: Normal rate and regular rhythm. Heart sounds: No murmur heard. Pulmonary: Effort: Pulmonary effort is normal. Breath sounds: No wheezing, rhonchi or rales. Abdominal: General: Abdomen is flat. Tenderness: There is no abdominal tenderness. Musculoskeletal: General: Tenderness (To the bilateral plantar forefoot, no rash or other abnormalities noted) present. No swelling. Normal range of motion. Cervical back: Normal range of motion and neck supple. Skin: General: Skin is warm and dry. Coloration: Skin is not jaundiced or pale. Findings: No bruising. Neurological: General: No focal deficit present. Mental Status: He is alert and oriented to person, place, and time. Sensory: No sensory deficit. Motor: No weakness. Diagnostic Testing ED Labs Ordered and Reviewed - No data to display Procedures ED Course / Clinical Impression ED Course as of 04/26/24 1558 Cate Stokes's Documentation MonApr 26, 2024 1345 TSH: 2.530 Thyroid function normal 1345 Carboxyhemoglobin, Venous(!): 8.0 Elevated carboxyhemoglobin 1345 Glucose(!): 112 Glucose normal, no evidence of DKA 1346 eGFR: 98 Renal function normal, no electrolyte abnormalities 1346 WBC: 7.35 No leukocytosis 1346 Hemoglobin: 14.3 No anemia Clinical Impressions as of 04/26/24 1558 Bilateral foot pain Bilateral hand numbness Current smoker MDM / Disposition / Plan Medical Decision Making: Differential includes, but is not limited to, intracranial lesion, peripheral neuropathy, diabetes, thyroid dysfunction, electrolyte abnormalities, vitamin deficiency among other possibilities. Head CT showed no intracranial hemorrhage or mass. Labs were unremarkable other than a carboxyhemoglobin level of 8%. Patient is an active smoker, thus this is consistent with what would be expected in a smoker. Patient was given Percocet for his severe pain in his feet, as it is inhibiting his ability to ambulate. We discussed patient following up with his primary care doctor, as there are many things that could be causing his symptoms and he will require further workup. He is comfortable with discharge home and will return if any worsening his condition. History and Record Review External record(s) reviewed: PDMP reviewed. Differential Diagnoses - Stroke is less likely for the following reason(s): Distribution of patient's symptoms and the component of p (more content not included)... [facility] EKGon 04-26-2024 Electrocardiogram Ventricular Rate : 5 1 BPM Atrial Rate : 51 BPM P-R Interval : 192 ms QRS Duration : 92 ms Q-T Interval : 444 ms QTC Calculation(Bazett) : 409 ms Calculated P [place] : 52 degrees Calculated R [place] : 6 degrees Calculated T [place] : 37 degrees SINUS BRADYCARDIA OTHERWISE NORMAL ECG No STEMI Confirmed by CATE STOKES MD ([id number]) on 04/26/2024 1:17:59 PM NAME : MATT MANUEL PID : [id number] : 1970 Gender : Male Race : ORD : Procedure Date : Apr 26 2024 13:10:45 Edit Date : Apr 26 2024 13:18:02 Diagnosis: SINUS BRADYCARDIA OTHERWISE NORMAL ECG No STEMI Confirmed by CATE STOKES MD ([id number]) on 04/26/2024 1:17:59 PM Test Reason : Location : 1 : ER ED Overread By : CATE STOKES MD Edited By : CATE STOKES MD Referred By : , Acquired by : kelly, [facility] Gas and Carbon monoxide pane l (BldV)on 04-26-2024 BASE DEFICIT, VENOUS -1 mmol/L Normal -2-0 [facility] Comment on above: Order Comment: Speci men Type: VENOUS BLOOD SPECIMENOrdering Facility: [facility] Address: [address] [place] [address] Performed By: #### 2 4344-4 ####[facility]ATORYC[facility] [id number] [facility] [id number] [address] [address] Carboxyhemoglobin (BldV) [Mass fraction] 8.0 % High 0.0-2.0 [facility] Comment on above: Order Comment: Speci men Type: VENOUS BLOOD SPECIMENOrdering Facility: [facility] Address: [address] [place] [address] Result Comment: Carb oxyhemoglobin Reference Range for Smokers: 2.0-8.0% Performed By: #### 2 4344-4 ####[facility]ORYC[facility] [id number] [facility]PIRAT[facility] [id number] [address] CO2 (BldV) [Partial pressure] 46 mm[Hg] Normal 42-55 [facility] Comment on above: Order Comment: Speci men Type: VENOUS BLOOD SPECIMENOrdering Facility: [facility] Address: [address] [place] [address] Performed By: #### 2 4344-4 ####[facility]ORYC[facility] [id number] [facility]OS[facility]AT[facility] [id number] [address] [address] CO2 adjusted to patient's actual temperature (BldV) [Partial pressure] Normal [facility] Comment on above: Order Comment: Speci men Type: VENOUS BLOOD SPECIMENOrdering Facility: [facility] Address: [address] [place] [address] Performed By: #### 2 4344-4 ####[facility] [id number] [facility] RESPIRATORY [id number] [address] [address] HCO3 (Bld) [Moles/Vol] 25 mmol/L Normal 24-28 [facility] Comment on above: Order Comment: Speci men Type: VENOUS BLOOD SPECIMENOrdering Facility: [facility] Address: [address] [facility] [place] [address] Performed By: #### 2 4344-4 ####CHIN RESPIRATORYCLIA [id number] [facility] [id number] [address] [address] Hemoglobin (Bld) [Mass/Vol] 15.1 g/dL Normal 13.0-17.0 [facility] Comment on above: Order Comment: Speci men Type: VENOUS BLOOD SPECIMENOrdering Facility: [facility] Address: [address] [place] [address] Performed By: #### 2 4344-4 ####FOSTER RESPIRATORYCLIA [id number] [facility] [id number] [address] [address] Lactate [Moles/Vol] 1.9 mmol/L Normal 0.5-2.2 [facility] Comment on above: Order Comment: Speci men Type: VENOUS BLOOD SPECIMENOrdering Facility: [facility] Address: [address] [place] [address] Performed By: #### 2 4344-4 ####[facility] RESPIRATORYIA [id number] [facility] RES[facility]IRAT[facility] [id number] [address] [address] Methemoglobin (Bld) [Mass fraction] % Normal 0.0-1.5 [facility] Comment on above: Order Comment: Speci men Type: VENOUS BLOOD SPECIMENOrdering Facility: [facility] Address: [address] [place] [address] Performed By: #### 2 4344-4 ####FOSTER RESPIRATORYCLIA [id number] [facility]AT[facility] [id number] [address] [address] O2 THERAPY RA=Room Air Normal [facility] Comment on above: Order Comment: Speci men Type: VENOUS BLOOD SPECIMENOrdering Facility: [facility] Address: [address] [place] [address] Performed By: #### 2 4344-4 ####CHIN RESPIRATORYCLIA [id number] [facility] RESPIRAT[facility] [id number] [address] [address] Oxygen (BldV) [Partial pressure] mm[Hg] Low 35-45 [facility] Comment on above: Order Comment: Speci men Type: VENOUS BLOOD SPECIMENOrdering Facility: [facility] Address: [address] [place] [address] Performed By: #### 2 4344-4 ####CHIN RESPIRATORYCLIA [id number] [facility] RES[facility]IRAT[facility] [id number] [address] [address] Oxygen adjusted to patient's actual temperature (BldV) [Partial pressure] Normal [facility] Comment on above: Order Comment: Speci men Type: VENOUS BLOOD SPECIMENOrdering Facility: [facility] Address: [address] [place] [address] Performed By: #### 2 4344-4 ####[facility]ORYC[facility] [id number] HOSPITAL RESPIRATORY [id number] [address] [address] Oxygen saturation in Venous blood 55 % Low 60-85 [facility] Comment on above: Order Comment: Speci men Type: VENOUS BLOOD SPECIMENOrdering Facility: [facility] Address: [address] [place] [address] Performed By: #### 2 4344-4 ####CHIN RESPIRATORYIA [id number] [facility]OSP[facility] RESPIRATORY [id number] [address] Oxyhemoglobin (BldV) [Mass fraction] 50 % Low 60-85 [facility] Comment on above: Order Comment: Speci men Type: VENOUS BLOOD SPECIMENOrdering Facility: [facility] Address: [address] [place] [address] Performed By: #### 2 4344-4 ####[facility] RESPIRATORYIA [id number] [facility] RESPIRAT[facility] [id number] [address] [address] pH (BldV) 7.34 [pH] Normal 7.32-7.42 [facility] Comment on above: Order Comment: Speci men Type: VENOUS BLOOD SPECIMENOrdering Facility: [facility] Address: [address] [place] [address] Performed By: #### 2 4344-4 ####CHIN RESPIRATORYCLIA [id number] [facility]OSP[facility] RESPIRATORY [id number] [address] [address] pH adjusted to patient's actual temperature (BldV) Normal [facility] Comment on above: Order Comment: Speci men Type: VENOUS BLOOD SPECIMENOrdering Facility: [facility] Address: [address] [place] [address] Performed By: #### 2 4344-4 ####CHIN RESPIRATORYCLIA [id number] [facility] RES[facility]IR[facility] [id number] [address] [address] Potassium [Moles/Vol] 4.0 mmol/L Normal 3.5-5.0 [facility] Comment on above: Order Comment: Speci men Type: VENOUS BLOOD SPECIMENOrdering Facility: [facility] Address: [address] [place] [address] Performed By: #### 2 4344-4 ####CHIN RESPIRATORYCLIA [id number] [facility] RES[facility]IRAT[facility] [id number] [address] HIGH SENSITIVITY TROPONIN T (INITIAL)on 04-26-2024 Troponin T.cardiac High sensitivity method [Mass/Vol] <6 Normal <12 [facility] Comment on above: Order Comment: Speci men Type: BLOOD SPECIMENOrdering Facility: [facility] Address: [address] [place] [address] Performed By: #### L [id number] ####CHIN LABORATORYCLIA [id number] [address] OF [facility] HIGH SENSITIVITY TROPONIN T (SECOND)on 04-26-2024 Troponin T.cardiac High sensitivity method [Mass/Vol] <6 Normal <12 [facility] Comment on above: Order Comment: Speci men Type: BLOOD SPECIMENOrdering Facility: [facility] Address: [address] [place] [address] Performed By: #### L [id number] ####CHIN LABORATORYCLIA [id number] [place] [address] [place] Lipase SerPl-cCncon 04-26-19 Lipase [Catalytic activity/Vol] 37 U/L Normal 16-61 [facility] Comment on above: Order Comment: Speci men Type: BLOOD SPECIMENOrdering Facility: [facility] Address: [address] [place] [address] Performed By: #### 3 016-3, 3040-3, 71116-4, 15026-6 ####FOSTER LABORATORYCLIA [id number] [place] [address] [place] Magnesium SerPl-mCncon 04-26 Magnesium [Mass/Vol] 2.1 mg/dL Normal 1.7-2.3 [facility] Comment on above: Order Comment: Speci men Type: BLOOD SPECIMENOrdering Facility: [facility] Address: [address] [place] [address] Performed By: #### 3 016-3, 3040-3, 65215-3, 00644-7 ####FOSTER LABORATORYCLIA [id number] [place] [address] [place] TSH SerPl-aCncon 04-26-2024 TSH Qn 2.530 m[IU]/L Normal 0.270-4.200 [facility] Comment on above: Order Comment: Speci men Type: BLOOD SPECIMENOrdering Facility: [facility] Address: [address] [place] [address] Performed By: #### 3 016-3, 3040-3, 47769-7, 93287-8 ####FOSTER LABORATORYCLIA [id number] [place] [address] [place] Urinalysis complete panel (U )on 04-26-2024 Bilirubin Ql (U) Negative Normal Negative [facility] Comment on above: Order Comment: Speci men Type: BLOOD SPECIMEN Ordering [facility]: [facility] Address: [address] [place] [address] Performed By: #### 5 7021-8 #### [facility] CLIA [id number] [address] [place] [address] [place] Clarity (Unsp spec) Clear Normal Clear [facility] Comment on above: Order Comment: Speci men Type: BLOOD SPECIMEN Ordering Facility: [facility] Address: [address] [place] [address] Performed By: #### 5 7021-8 #### [facility] CLIA [id number] [address] [place] Color (U) Yellow Normal Yellow [facility] Comment on above: Order Comment: Speci men Type: BLOOD SPECIMEN Ordering Facility: [facility] Address: [address] [place] [address] Performed By: #### 5 7021-8 #### [facility] CLIA [id number] [address] [place] Glucose Test strip (U) [Mass/Vol] Negative Normal Negative [facility] Comment on above: Order Comment: Speci men Type: BLOOD SPECIMEN Ordering Facility: [facility] Address: [address] [place] [address] Performed By: #### 5 7021-8 #### [facility] CLIA [id number] [address] Hemoglobin Ql (U) Negative Normal Negative [facility] Comment on above: Order Comment: Speci men Type: BLOOD SPECIMEN Ordering Facility: [facility] Address: [address] [place] [address] Performed By: #### 5 7021-8 #### [facility] CLIA [id number] [address] Ketones Ql (U) Negative Normal Negative [facility] Comment on above: Order Comment: Speci men Type: BLOOD SPECIMEN [facility] Address: [address] [place] [address] Performed By: #### 5 7021-8 #### [facility] CLIA [id number] [address] [place] Leukocyte esterase Test strip Ql (U) Negative Normal Negative [facility] Comment on above: Order Comment: Speci men Type: BLOOD SPECIMEN [facility] Address: [address] [place] [address] Performed By: #### 5 7021-8 #### [facility] CLIA [id number] [address] [place] [address] [facility] [place] Nitrite Ql (U) Negative Normal Negative [facility] Comment on above: Order Comment: Speci men Type: BLOOD SPECIMEN Ordering Facility: [facility] Address: [address] [place] [address] Performed By: #### 5 7021-8 #### [facility] CLIA [id number] [address] [place] pH (U) 6.0 [pH] Normal 5.0-8.0 [facility] Comment on above: Order Comment: Speci men Type: BLOOD SPECIMEN Ordering Facility: [facility] Address: [address] [place] [address] Performed By: #### 5 7021-8 #### [facility] CLIA [id number] [address] Protein (U) [Mass/Vol] Negative Normal Negative [facility] Comment on above: Order Comment: Speci men Type: BLOOD SPECIMEN Ordering Facility: [facility] Address: [address] [place] [address] Performed By: #### 5 7021-8 #### [facility] CLIA [id number] [address] [place] RBC LM.HPF (Urine sed) [#/Area] 0-3 /HPF Normal 0-3 /HPF [facility] Comment on above: Order Comment: Speci men Type: BLOOD SPECIMEN Ordering Facility: [facility] Address: [address] [place] [address] Performed By: #### 5 7021-8 #### [facility] CLIA [id number] [address] [place] Specific gravity (U) [Rel density] <=1.005 Low 1.005-1.030 [facility] Comment on above: Order Comment: Speci men Type: BLOOD SPECIMEN Ordering Facility: [facility] Address: [address] [place] [address] Performed By: #### 5 7021-8 #### [facility] CLIA [id number] [address] [place] Urobilinogen Ql (U) 0.2 EU/dL Normal 0.2-1.0 EU/dL [facility] Comment on above: Order Comment: Speci men Type: BLOOD SPECIMEN Ordering Facility: [facility] Address: [address] [place] [address] Performed By: #### 5 7021-8 #### [facility] CLIA [id number] [address] WBC LM.HPF (Urine sed) [#/Area] 0-5 /HPF Normal 0-5 /HPF [facility] Comment on above: Order Comment: Speci men Type: BLOOD SPECIMEN Ordering Facility: [facility] Address: [address] [place] [address] Performed By: #### 5 7021-8 #### [facility] CLIA [id number] [address] ALLIED HEALTHon 01-09-2024 ALLIED HEALTH HNO ID: [id number] Author: BRENDA HEATON RT(R) Service: Radiology Author Type: Technologist Type: Allied Health Filed: 01/09/2024 11:22 Note Text: Radiology Service Progress Note PATIENT NAME: Matt Manuel DATE OF SERVICE: January 09, 2024 TIME: 11:21 AM PATIENT IDENTITY VERIFICATION COMPLETED USING TWO (2) IDENTIFIERS: Name and Date of confirmed by patient verbally and Name and Date of confirmed by identification band. FALL SCREENING: Has the patient had 2 falls in the last year or 1 fall with injury or currently using an Ambulatory Assistive Device (Walker, Cane, Wheelchair, Crutches, etc.)? No PATIENT GENDER DATA: Male PATIENT RELEVANT IMPLANT DATA REVIEWED: Not Applicable PATIENT PRESENTS WITH AN IMPLANTABLE OR ATTACHED PULP BEATER: No RADIOLOGY DEPARTMENT: General X-ray: Exam(s) Completed: Chest X-Ray PERIPHERAL IV DATA: Not applicable SIGNED BY: RT Radha(Jak) January 09, 2024 11:21 AM Normal [facility] CBC W Auto Differential pane l (Bld)on 01-09-2024 Basophils (Bld) [#/Vol] 0.05 10*3/uL Normal <0.11 [facility] Comment on above: Order Comment: Speci men Type: BLOOD SPECIMEN Ordering Facility: [facility] Address: [address] [place] [address] Performed By: #### 5 7021-8 #### [facility] CLIA [id number] [address] [place] [address] [place] Basophils/100 WBC (Bld) 0.6 % Normal [facility] Comment on above: Order Comment: Speci men Type: BLOOD SPECIMEN Ordering Facility: [facility] Address: [address] [place] [address] Performed By: #### 5 7021-8 #### [facility] CLIA [id number] [address] [place] [address] [place] Differential cell count method Nom (Bld) Auto Normal [facility] Comment on above: Order Comment: Speci men Type: BLOOD SPECIMEN Ordering Facility: [facility] Address: [address] [place] [address] Performed By: #### 5 7021-8 #### [facility] CLIA [id number] [address] [place] [address] [place] Eosinophils (Bld) [#/Vol] 0.14 10*3/uL Normal <0.46 [facility] Comment on above: Order Comment: Speci men Type: BLOOD SPECIMEN Ordering Facility: [facility] Address: [address] [place] [address] Performed By: #### 5 7021-8 #### [facility] CLIA [id number] [address] [place] Eosinophils/100 WBC (Bld) 1.6 % Normal [facility] Comment on above: Order Comment: Speci men Type: BLOOD SPECIMEN Ordering Facility: [facility] Address: [address] [place] [address] Performed By: #### 5 7021-8 #### [facility] CLIA [id number] [address] [place] [address] [place] Erythrocyte distribution width (RBC) [Ratio] 13.3 % Normal 11.5-15.0 [facility] Comment on above: Order Comment: Speci men Type: BLOOD SPECIMEN Ordering Facility: [facility] Address: [address] [place] [address] Performed By: #### 5 7021-8 #### [facility] CLIA [id number] [address] [place] [address] [place] Hematocrit (Bld) [Volume fraction] 38.9 % Low 39.0-51.0 [facility] Comment on above: Order Comment: Speci men Type: BLOOD SPECIMEN Ordering Facility: [facility] Address: [address] [place] [address] Performed By: #### 5 7021-8 #### [facility] CLIA [id number] [address] [place] [address] [place] Hemoglobin (Bld) [Mass/Vol] 13.1 g/dL Normal 13.0-17.0 [facility] Comment on above: Order Comment: Speci men Type: BLOOD SPECIMEN Ordering Facility: [facility] Address: [address] [place] [address] Performed By: #### 5 7021-8 #### [facility] CLIA [id number] [address] [place] [address] [place] Immature granulocytes (Bld) [#/Vol] 10*3/uL Normal <0.10 [facility] Comment on above: Order Comment: Speci men Type: BLOOD SPECIMEN Ordering Facility: [facility] Address: [address] [place] [address] Performed By: #### 5 7021-8 #### [facility] CLIA [id number] [address] [place] Immature granulocytes/100 WBC (Bld) 0.2 % Normal [facility] Comment on above: Order Comment: Speci men Type: BLOOD SPECIMEN Ordering Facility: [facility] Address: [address] [place] [address] Performed By: #### 5 7021-8 #### [facility] CLIA [id number] [address] [place] [address] [facility] [place] Lymphocytes (Bld) [#/Vol] 3.37 10*3/uL Normal 1.00-4.00 [facility] Comment on above: Order Comment: Speci men Type: BLOOD SPECIMEN Ordering Facility: [facility] Address: [address] [place] [address] Performed By: #### 5 7021-8 #### [facility] CLIA [id number] [address] Lymphocytes/100 WBC (Bld) 39.6 % Normal [facility] Comment on above: Order Comment: Speci men Type: BLOOD SPECIMEN Ordering Facility: [facility] Address: [address] [place] [address] Performed By: #### 5 7021-8 #### [facility] CLIA [id number] [address] MCH (RBC) [Entitic mass] 30.4 pg Normal 26.0-34.0 [facility] Comment on above: Order Comment: Speci men Type: BLOOD SPECIMEN Ordering Facility: [facility] Address: [address] [place] [address] Performed By: #### 5 7021-8 #### [facility] CLIA [id number] [address] MCHC (RBC) [Mass/Vol] 33.7 g/dL Normal 30.5-36.0 [facility] Comment on above: Order Comment: Speci men Type: BLOOD SPECIMEN Ordering Facility: [facility] Address: [address] [place] [address] Performed By: #### 5 7021-8 #### [facility] CLIA [id number] [address] MCV (RBC) [Entitic vol] 90.3 fL Normal 80.0-100.0 [facility] Comment on above: Order Comment: Speci men Type: BLOOD SPECIMEN Ordering Facility: [facility] Address: [address] [place] [address] Performed By: #### 5 7021-8 #### [facility] CLIA [id number] [address] Monocytes (Bld) [#/Vol] 0.74 10*3/uL Normal <0.87 [facility] Comment on above: Order Comment: Speci men Type: BLOOD SPECIMEN Ordering Facility: [facility] Address: [address] [place] [address] Performed By: #### 5 7021-8 #### [facility] CLIA [id number] [address] [place] Monocytes/100 WBC (Bld) 8.7 % Normal [facility] Comment on above: Order Comment: Speci men Type: BLOOD SPECIMEN Ordering Facility: [facility] Address: [address] [place] [address] Performed By: #### 5 7021-8 #### [facility] CLIA [id number] [address] [place] [address] [place] Neutrophils (Bld) [#/Vol] 4.20 10*3/uL Normal 1.45-7.50 [facility] Comment on above: Order Comment: Speci men Type: BLOOD SPECIMEN Ordering Facility: [facility] Address: [address] [place] [address] Performed By: #### 5 7021-8 #### [facility] CLIA [id number] [address] [place] Neutrophils/100 WBC (Bld) 49.3 % Normal [facility] Comment on above: Order Comment: Speci men Type: BLOOD SPECIMEN Ordering Facility: [facility] Address: [address] [place] [address] Performed By: #### 5 7021-8 #### [facility] CLIA [id number] [address] [place] Nucleated RBC (Bld) [#/Vol] 10*3/uL Normal <0.01 [facility] Comment on above: Order Comment: Speci men Type: BLOOD SPECIMEN Ordering Facility: [facility] Address: [address] [place] [address] Performed By: #### 5 7021-8 #### [facility] CLIA [id number] [address] [place] Nucleated RBC/100 WBC (Bld) [Ratio] 0.0 /100 WBC Normal [facility] Comment on above: Order Comment: Speci men Type: BLOOD SPECIMEN Ordering Facility: [facility] Address: [address] [place] [address] Performed By: #### 5 7021-8 #### [facility] CLIA [id number] [address] [place] [address] [place] Platelet mean volume (Bld) [Entitic vol] 10.8 fL Normal 9.0-12.7 [facility] Comment on above: Order Comment: Speci men Type: BLOOD SPECIMEN Ordering Facility: [facility] Address: [address] [place] [address] Performed By: #### 5 7021-8 #### [facility] CLIA [id number] [address] [place] [address] [place] Platelets (Bld) [#/Vol] 169 10*3/uL Normal 150-400 [facility] Comment on above: Order Comment: Speci men Type: BLOOD SPECIMEN Ordering Facility: [facility] Address: [address] [place] [address] Performed By: #### 5 7021-8 #### [facility] CLIA [id number] [address] [place] [address] [place] RBC (Bld) [#/Vol] 4.31 10*6/uL Normal 4.20-6.00 [facility] Comment on above: Order Comment: Speci men Type: BLOOD SPECIMEN Ordering Facility: [facility] Address: [address] [place] [address] Performed By: #### 5 7021-8 #### [facility] CLIA [id number] [address] [place] [address] [place] WBC (Bld) [#/Vol] 8.52 10*3/uL Normal 3.70-11.00 [facility] Comment on above: Order Comment: Speci men Type: BLOOD SPECIMEN Ordering Facility: [facility] Address: [address] [place] [address] Performed By: #### 5 7021-8 #### [facility] CLIA [id number] [address] [place] Comprehensive metabolic 2000 panelon 01-09-2024 Albumin [Mass/Vol] 4.3 g/dL Normal 3.9-4.9 [facility] Comment on above: Order Comment: Speci men Type: BLOOD SPECIMEN Ordering Facility: [facility] Address: [address] [place] [place] [id number] Performed By: #### 5 7021-8 #### [facility] CLIA [id number] [address] [place] ALP [Catalytic activity/Vol] 51 U/L Normal 38-113 [facility] Comment on above: Order Comment: Speci men Type: BLOOD SPECIMEN Ordering Facility: [facility] Address: [address] [place] [address] Performed By: #### 5 7021-8 #### [facility] CLIA [id number] [address] [place] [address] [place] ALT [Catalytic activity/Vol] 19 U/L Normal 10-54 [facility] Comment on above: Order Comment: Speci men Type: BLOOD SPECIMEN Ordering Facility: [facility] Address: [address] [place] [address] Performed By: #### 5 7021-8 #### [facility] CLIA [id number] [address] [place] [address] [place] Anion gap [Moles/Vol] 10 mmol/L Normal 8-15 [facility] Comment on above: Order Comment: Speci men Type: BLOOD SPECIMEN Ordering Facility: [facility] Address: [address] [place] [address] Performed By: #### 5 7021-8 #### [facility] CLIA [id number] [address] [place] AST [Catalytic activity/Vol] 18 U/L Normal 14-40 [facility] Comment on above: Order Comment: Speci men Type: BLOOD SPECIMEN Ordering Facility: [facility] Address: [address] [place] [id number] Performed By: #### 5 7021-8 #### [facility] CLIA [id number] [address] [place] Bilirubin [Mass/Vol] 0.2 mg/dL Normal 0.2-1.3 [facility] Comment on above: Order Comment: Speci men Type: BLOOD SPECIMEN Ordering Facility: [facility] Address: [address] [place] [address] Performed By: #### 5 7021-8 #### [facility] CLIA [id number] [address] [place] [address] [place] Calcium [Mass/Vol] 9.4 mg/dL Normal 8.5-10.2 [facility] Comment on above: Order Comment: Speci men Type: BLOOD SPECIMEN Ordering Facility: [facility] Address: [address] [place] [address] Performed By: #### 5 7021-8 #### [facility] CLIA [id number] [address] [place] [address] [place] Chloride [Moles/Vol] 105 mmol/L Normal 98-107 [facility] Comment on above: Order Comment: Speci men Type: BLOOD SPECIMEN Ordering Facility: [facility] Address: [address] [place] [address] Performed By: #### 5 7021-8 #### [facility] CLIA [id number] [address] [place] [address] [place] CO2 [Moles/Vol] 25 mmol/L Normal 22-30 [facility] Comment on above: Order Comment: Speci men Type: BLOOD SPECIMEN Ordering Facility: [facility] Address: [address] [place] [address] Performed By: #### 5 7021-8 #### [facility] CLIA [id number] [address] [place] Creatinine [Mass/Vol] 1.01 mg/dL Normal 0.73-1.22 [facility] Comment on above: Order Comment: Speci men Type: BLOOD SPECIMEN Ordering Facility: [facility] Address: [address] [place] [address] Performed By: #### 5 7021-8 #### [facility] CLIA [id number] [address] Creatinine and Glomerular filtration rate.predicted panel (S/P/Bld) 88 mL/min/1.73m??? Normal >=60 [facility] Comment on above: Order Comment: Speci men Type: BLOOD SPECIMEN Ordering Facility: [facility] Address: [address] [place] [address] Result Comment: Lila mated Glomerular Filtration Rate (eGFR) is calculated using the 2020 CKD-EPI creatinine equation. This equation utilizes serum creatinine, sex, and age as parameters. The creatinine assay has traceable calibration to isotope dilution-mass spectrometry. Refer to KDIGO guidelines for clinical interpretation. In patients with unstable renal function, e.g. those with acute kidney injury, the eGFR may not accurately reflect actual GFR. Performed By: #### 5 7021-8 #### [facility] CLIA [id number] [address] [place] [address] [place] Glucose [Mass/Vol] 117 mg/dL High 74-99 [facility] Comment on above: Order Comment: Vinay cheung Type: BLOOD SPECIMEN Ordering Facility: [facility] Address: [address] [address] [place] [address] Result Comment: The [place] Diabetes Association (ADA) provides guidance for cutoff values for fasting glucose and random glucose. The ADA defines fasting as no caloric intake for at least 8 hours. Fasting plasma glucose results between 100 to 125 mg/dL indicate increased risk for diabetes (prediabetes). Fasting plasma glucose results greater than or equal to 126 mg/dL meet the criteria for diagnosis of diabetes. In the absence of unequivocal hyperglycemia, results should be confirmed by repeat testing. In a patient with classic symptoms of hyperglycemia or hyperglycemic crisis, random plasma glucose results greater than or equal to 200 mg/dL meet the criteria for diagnosis of diabetes. Reference: Standards of Medical Care in Diabetes 2016, [place] Diabetes Association. Diabetes Care. 2016.39(Suppl 1). Performed By: #### 5 7021-8 #### [facility] CLIA [id number] [address] [place] [address] [place] Potassium [Moles/Vol] 4.3 mmol/L Normal 3.7-5.1 [facility] Comment on above: Order Comment: Vinay cheung Type: BLOOD SPECIMEN Ordering Facility: [facility] Address: [address] [id number] Performed By: #### 5 7021-8 #### [facility] CLIA [id number] [address] [place] [address] [place] Protein [Mass/Vol] 7.0 g/dL Normal 6.3-8.0 [facility] Comment on above: Order Comment: Lolisi men Type: BLOOD SPECIMEN Ordering Facility: [facility] Address: [address] [place] [address] Performed By: #### 5 7021-8 #### [facility] CLIA [id number] [address] Sodium [Moles/Vol] 140 mmol/L Normal 136-144 [facility] Comment on above: Order Comment: Lolisi men Type: BLOOD SPECIMEN Ordering Facility: [facility] Address: [address] [place] [address] Performed By: #### 5 7021-8 #### [facility] CLIA [id number] [address] [place] Urea nitrogen [Mass/Vol] 17 mg/dL Normal 9-24 [facility] Comment on above: Order Comment: Vinay men Type: BLOOD SPECIMEN Ordering Facility: [facility] Address: [address] [place] [address] Performed By: #### 5 7021-8 #### [facility] CLIA [id number] [address] OF [facility] ECG COMPLETEon 01-09-2024 ECG COMPLETE Ventricular Rate : 5 9 BPM Atrial Rate : 59 BPM P-R Interval : 192 ms QRS Duration : 86 ms Q-T Interval : 410 ms QTC Calculation(Bazett) : 405 ms Calculated P [place] : 47 degrees Calculated R [place] : 52 degrees Calculated T [place] : 42 degrees SINUS BRADYCARDIA OTHERWISE NORMAL ECG NO STEMI Confirmed by CORY RODRIGUES DO ([id number]), website/blog editor DARRYL WALKER ([id number]) on 01/09/2024 12:06:01 PM NAME : MATT MANUEL PID : [id number] : 1970 Gender : Male Race : ORD : [id number] Procedure Date : Jan 09 2024 10:33:03 Edit Date : Jan 09 2024 12:06:05 Diagnosis: SINUS BRADYCARDIA OTHERWISE NORMAL ECG NO STEMI Confirmed by CORY RODRIGUES DO ([id number]), website/blog editor DARRYL WALKER ([id number]) on 01/09/2024 12:06:01 PM Test Reason : Chest Pain Location : 1 : ER ED Overread By : CORY RODRIGUES DO Edited By : DARRYL WALKER Referred By : , Acquired by : [id number], [facility] ED NOTEon 01-09-2024 ED NOTE HNO ID: [id number] Author: ОЛЕГ WHATLEY RN Service: ? Author Type: Registered Nurse Type: ED Notes Filed: 01/11/2024 10:50 Note Text: .Emergency Services: ED Call Back Questionnaire SERVICE DATE: 01/09/2024 Are you feeling better? Yes Any questions about discharge instructions and follow-up care? No Were you able to make a follow up appointment? No, advised to call his PCP for follow-up. Do you have any further questions? No Is there anything that we could have done differently to improve your ED visit? No SIGNATURE: Олег Whatley RN PATIENT NAME: Matt Manuel DATE: January 11, 2024 TIME: 10:49 AM [facility] ED NOTE HNO ID: [id number] Author: ОЛЕГ WHATLEY RN Service: ? Author Type: Registered Nurse Type: ED Notes Filed: 01/09/2024 13:23 Note Text: The patient verbalizes understanding of discharge instructions. No additional questions or concerns at this time. Patient Vital signs stable, no acute distress noted. Patient ambulatory out of ED. Prescription(S) x 3 given. [facility] ED PROV NOTEon 01-09-2024 ED PROV NOTE HNO ID: [id number] Author: JAVIER QUIROZ DO Service: Emergency Medicine Author Type: Physician Type: ED Provider Notes Filed: 01/09/2024 15:28 Note Text: ED Provider Note Patient Name: Matt Manuel : 1970 SERVICE DATE: 01/09/24 History Patient presents with: Chest Pain: Intermittent x 2 weeks, now continuous this morning. Denies sob, n/v, diaphoresis. On Eliquis for A-fib. 53-year-old male with a past medical history of A-fib, GERD, hyperlipidemia, hypertension, sleep apnea, presents to the ED today for intermittent chest pain on and off for the last 2 weeks that got worse this morning, patient denies any shortness of breath, denies any nausea or vomiting, denies any diaphoresis, denies any back pain or abdominal pain, denies any cough. Patient is a smoker PAST MEDICAL HISTORY Diagnosis Date Acute gastric ulcer without mention of hemorrhage or perforation, with obstruction(531.31) Atrial fibrillation (HCC) Esophageal reflux Gastroesophageal reflux Hernia of unspecified site of abdominal cavity without mention of obstruction or gangrene HLD (hyperlipidemia) HTN (hypertension) JOHNATHAN (obstructive sleep apnea) PAST SURGICAL HISTORY Procedure Laterality Date APPENDECTOMY CARDIAC CATHETERIZATION HX 4 years ago No family history on file. Social History Tobacco Use Smoking status: Every Day Current packs/day: 0.00 Types: Cigarettes Last attempt to quit: 07/08/2005 Years since quittin.5 Smokeless tobacco: Never Vaping Use Vaping status: Never Used Substance and Sexual Activity Alcohol use: No Drug use: No Sexual activity: Not on file ALLERGIES Allergen Reactions Zithromax [Azithrom* Review of Systems Constitutional: Negative for chills and fever. HENT: Negative for trouble swallowing. Eyes: Negative for photophobia and visual disturbance. Respiratory: Positive for chest tightness. Negative for cough, shortness of breath and wheezing. Cardiovascular: Negative for chest pain, palpitations and leg swelling. Gastrointestinal: Negative for abdominal pain, diarrhea, nausea and vomiting. Genitourinary: Negative for dysuria, flank pain and hematuria. Musculoskeletal: Negative for back pain, neck pain and neck stiffness. Skin: Negative for color change. Neurological: Negative for numbness and headaches. Psychiatric/Behavioral: Negative for confusion. Physical Exam Vitals [01/09/24 1041] BP Pulse Temp Temp src Resp SpO2 Weight Height 146/69 56 36.8 ?C (98.2 ?F) Oral 14 98 % 118 kg (260 lb 2.3 oz) 1.727 m (5' 8) Physical Exam Constitutional: Appearance: He is well-developed. HENT: Head: Normocephalic and atraumatic. No raccoon eyes or Terrell's sign. Right Ear: Hearing normal. Left Ear: Hearing normal. Nose: Nose normal. Right Sinus: No maxillary sinus tenderness or frontal sinus tenderness. Left Sinus: No maxillary sinus tenderness or frontal sinus tenderness. Eyes: Conjunctiva/sclera: Conjunctivae normal. Cardiovascular: Rate and Rhythm: Normal rate. Pulmonary: Effort: Pulmonary effort is normal. Breath sounds: Normal breath sounds. No decreased breath sounds, wheezing or rhonchi. Abdominal: Palpations: Abdomen is soft. Musculoskeletal: General: Normal range of motion. Cervical back: Normal range of motion and neck supple. Skin: General: Skin is warm and dry. Neurological: General: No focal deficit present. Mental Status: He is alert. Motor: No tremor, atrophy or seizure activity. Gait: Gait normal. Psychiatric: Behavior: Behavior normal. Diagnostic Testing ED Labs Ordered and Reviewed COMPREHENSIVE METABOLIC PANEL - Abnormal; Notable for the following components: Result Value Ref Range Glucose 117 (*) 74 - 99 mg/dL All other components within normal limits LIPASE - Abnormal; Notable for the following components: Lipase 71 (*) 16 - 61 U/L All other components within normal limits COMPLETE BLOOD COUNT AND DIFFERENTIAL - Abnormal; Notable for the following components: Hematocrit 38.9 (*) 39.0 - 51.0 % All other components within normal limits MAGNESIUM - Normal HIGH SENSITIVITY TROPONIN T (INITIAL) - Normal NT PRO BNP - Normal HIGH SENSITIVITY TROPONIN T (SECOND) - Normal Results for orders placed or performed during the hospital encounter of 01/09/24 ECG COMPLETE Impression SINUS BRADYCARDIA OTHERWISE NORMAL ECG NO STEMI Confirmed by CORY RODRIGUES DO ([id number]), website/blog editor DARRYL WALKER ([id number]) on 01/09/2024 12:06:01 PM Procedures ED Course / Clinical Impression Clinical Impressions as of 01/09/24 1528 Chest pain, unspecified type Elevated lipase Bradycardia Rest Home meds See pcp Return to ed if sx worsen MDM / Disposition / Plan The medical record is reviewed.Triage note is reviewed and incorporated.The nursing note is reviewed and consistent with patient's history and physical exam findings. The vital signs were re (more content not included)... Normal [facility] HIGH SENSITIVITY TROPONIN T (INITIAL)on 01-09-2024 Troponin T.cardiac High sensitivity method [Mass/Vol] <6 Normal <12 [facility] Comment on above: Order Comment: Speci men Type: BLOOD SPECIMENOrdering Facility: [facility] Address: [address] [place] [address] Performed By: #### 2 4323-8, 3040-3, 01518-5, [id number], 55150-5 ####[facility] [id number] [place] [address] [place] HIGH SENSITIVITY TROPONIN T (SECOND)on 01-09-2024 Troponin T.cardiac High sensitivity method [Mass/Vol] <6 Normal <12 [facility] Comment on above: Order Comment: Speci men Type: BLOOD SPECIMEN Ordering Facility: [facility] Address: [address] [place] [address] Performed By: #### 5 7021-8 #### [facility] CLIA [id number] [address] [place] Lipase SerPl-cCncon 01-09-20 24 Lipase [Catalytic activity/Vol] 71 U/L High 16-61 [facility] Comment on above: Order Comment: Speci men Type: BLOOD SPECIMENOrdering Facility: [facility] Address: [address] [place] [address] Performed By: #### 2 4323-8, 3040-3, 14183-3, [id number], 50482-8 ####[facility]ORY[facility] [id number] [address] Magnesium SerPl-mCncon 01-08 Magnesium [Mass/Vol] 2.0 mg/dL Normal 1.7-2.3 [facility] Comment on above: Order Comment: Speci men Type: BLOOD SPECIMENOrdering Facility: [facility] Address: [address] [place] [address] Performed By: #### 2 4323-8, 3040-3, 17829-2, [id number], 88066-6 ####[facility] [id number] [address] [place] NT-proBNP SerPl-mCncon 01-08 Natriuretic peptide.B prohormone N-Terminal [Mass/Vol] 42 pg/mL Normal <125 [facility] Comment on above: Order Comment: Speci men Type: BLOOD SPECIMENOrdering Facility: [facility] Address: [address] [place] [address] Performed By: #### 2 4323-8, 3040-3, 88453-2, [id number], 47379-3 ####[facility]ORATORYCLIA [id number] [place] [address] [place] XR CHEST 2V FRONTAL/LATon XR CHEST 2V FRONTAL/LAT * * *Final Report* * * DATE OF EXAM: Jan 09 2024 11:19AM MDX 5291 - XR CHEST 2V FRONTAL/LAT / PROCEDURE REASON: Chest Pain * * * * Physician Interpretation * * * * EXAMINATION: CHEST RADIOGRAPH (2 VIEW FRONTAL and LATERAL) CLINICAL HISTORY: Chest Pain MQ: [id number] EXAM DATE/TIME: 01/09/2024 11:19 AM COMPARISON: Chest x-ray of 07/09/2023 RESULT: Lines, tubes, and devices: None. Lungs and pleura: No consolidation. No lung mass. No pleural effusion. No pneumothorax. Cardiomediastinal silhouette: Normal cardiomediastinal silhouette. Bones and soft tissues: There are multilevel degenerative changes of the thoracic spine IMPRESSION: No acute radiographic abnormality. 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: NORMA Transcribe Date/Time: Jan 09 2024 11:31A Dictated by : MARIA LUZ GUZMAN MD This examination was interpreted and the report reviewed and electronically signed by: MARIA LUZ GUZMAN MD on Jan 09 2024 11:32AM EST [id number] Normal [facility] Basophil percentageOrdered B y: Amanda Mullins on 2022 Cholesterol [Mass/Vol] 288 mg/dL <200 [facility] Comment on above: <200 mg/dL Desirable 200-240 mg/dL Borderline >240 mg/dL High Risk Triglyceride [Mass/Vol] 214 mg/dL <199 [facility] Comment on above: The drugs N-Acetylcy steine and Metamizole may falsely depress this assay.Serum Triglycerides Reference Interval Normal <150 mg/dL Borderline high 150 - 199 mg/dL High 200 - 499 mg/dL Very High > or = 500 mg/dL No Panel InformationOrdered By: Amanda Mullins on 2022 Prostate Specific Antigen Screen 0.69 ng/mL 0.00-4.00 [facility] Comment on above: This test was perfor med using the TPSA assay method for the[employer] chemistry system. Values obtained with differentassay methods cannot be used interchangably.When changing PSA assays in the course of monitoring apatient, additional sequential testing should be carriedout to confirm baseline values. Serum or plasma cholesterol in HDL measurement (mass/volume)Ordered By: Amanda Mullins on 2022 Cholesterol in HDL [Mass/Vol] 32 mg/dL >40 [facility] Comment on above: The drugs N-Acetylcy steine and Metamizole may falsely depress this assay. Reference Range HDL <40 mg/dL Low HDL Cholesterol HDL >or= 60 mg/dL High HDL Cholesterol Serum or plasma cholesterol in VLDL measurement (mass/volume)Ordered By: Amanda Mullins on 2022 Cholesterol in VLDL [Mass/Vol] 43 mg/dL 5-40 [facility] Serum or plasma low density lipoprotein (LDL) cholesterol measurement (mass/volume)Ordered By: Amanda Mullins on 2022 Cholesterol in LDL [Mass/Vol] 213 mg/dL 0-130 [facility] Thin prep Papanicolaou smear with manual screeningOrdered By: Amanda Mullins on 2022 Thin prep Papanicolaou smear with manual screening 6.9 mg/L NO RANGE EST. [facility] Whole blood hemoglobin A1c/t otal hemoglobin ratio (mass fraction)Ordered By: Amanda Mullins on 2022 HbA1c (Bld) [Mass fraction] 6.1 % 3.8-5.6 [facility] Comment on above: Normal < 5.7 % Predi abetic 5.7 - 6.4 % Diabetic >or= 6.5 % Please note range changes. ED Physician Reporton 2020 ED Physician Report Patient: MATT MANUEL Age: 50 years Sex: Male : 1970 Associated Diagnoses: Acute infective otitis externa Author: FLORIN NDIAYE MD Basic Information Time seen: Date & time 03/16/2021 12:14:00. History source: Patient. Arrival mode: Private vehicle. History limitation: None. History of Present Illness The patient presents with ear pain. The onset was 3 days ago. The course/duration of symptoms is constant. Location: Left ear(s). The character of symptoms is pain, redness and degree: moderate. The exacerbating factor is none. The relieving factor is none. Risk factors consist of none. Prior episodes: none. Therapy today: none. Associated symptoms: denies fever, denies chills, denies nausea, denies vomiting, denies tinnitus, denies dizziness and denies cough. Additional history: none. Review of Systems Constitutional symptoms: Negative except as documented in HPI. Skin symptoms: Negative except as documented in HPI. Eye symptoms: Negative except as documented in HPI. ENMT symptoms: Negative except as documented in HPI. Respiratory symptoms: Negative except as documented in HPI. Cardiovascular symptoms: Negative except as documented in HPI. Gastrointestinal symptoms: Negative except as documented in HPI. Genitourinary symptoms: Negative except as documented in HPI. Musculoskeletal symptoms: Negative except as documented in HPI. Psychiatric symptoms: Negative except as documented in HPI. Endocrine symptoms: Negative except as documented in HPI. Hematologic/Lymphatic symptoms: Negative except as documented in HPI. Allergy/immunologic symptoms: Negative except as documented in HPI. Neurologic symptoms Negative except as documented in HPI. Additional review of systems information: All other systems reviewed and otherwise negative. Health Status Allergies: Allergic Reactions (Selected) Severity Not Documented Zithromax- No reactions were documented.. Medications: Per nurse's notes. Immunizations: Up to date. Past Medical/ Family/ Social History Medical history: No active or resolved past medical history items have been selected or recorded.. Surgical history: No active procedure history items have been selected or recorded.. Family history: Heart disease Mother (FH: Allergies, High Blood Pressure) Cancer Mother (FH: Allergies, High Blood Pressure) Diabetes.. Mother (FH: Allergies, High Blood Pressure) Stroke.. Mother (FH: Allergies, High Blood Pressure) . Social history: Alcohol use: Denies, Tobacco use: Denies, Drug use: Denies, Occupation: Employed, Family/social situation: . Problem list: Active Problems (10) Anxiety state Cardiac Dysrhythmia Other Chest pain at rest Depressive disorder Gastro-esophageal reflux disease with esophagitis Hyperlipidemia Other Unspec Hypertension Unspec Hypertension, benign Malaise and fatigue PSVT (paroxysmal supraventricular tachycardia) . Physical Examination General: Alert, mild distress. Skin: Warm, dry. Head: Normocephalic, atraumatic. Neck: Trachea midline. Eye: Pupils are equal, round and reactive to light, extraocular movements are intact, normal conjunctiva. Ears, nose, mouth and throat: Tympanic membranes clear, oral mucosa moist, no pharyngeal erythema or exudate, Left ear canal erythematous and edematous. TM is clear. No drainage. Right ear is normal. No tenderness over the mastoid.. Cardiovascular: Regular rate and rhythm. Respiratory: Respirations are non-labored. Chest wall: No tenderness. Back: Nontender. Gastrointestinal: Nontender. Psychiatric: Cooperative. Neurological Alert and oriented to person, place, time, and situation, No focal neurological deficit observed, CN II-XII intact, normal sensory observed, normal motor observed, normal speech observed, normal coordination observed. Medical Decision Making Differential Diagnosis: Otitis externa. Rationale: Patient with acute otitis externa. We will treat him with Cortisporin otic and ibuprofen. If he has worsening symptoms or any change in his condition he will return here immediately.. Impression and Plan Diagnosis Acute infective otitis externa ([id number] H60.399, Working, Medical) Plan Condition: Stable. Disposition: ED Discharge to Home was placed.(03/16/2021 11:30:00 EST, Constant Order). Prescriptions: [facility] prescriptions Pharmacy: ibuprofen 600 mg oral tablet (Prescribe): 600 mg = 1 tabs, ORAL, [id number], with food or milk, 40 tabs, 0 Refill(s) hydrocortisone/neomycin /polymyxin B otic susp = Cortisporin Otic (Prescribe): 4 drops, OTIC, QID, for 7 days, 10 mL, 0 Refill(s). Patient was given the following educational materials: Otitis Externa, Otitis Externa. Follow up with: [address] NO FAMILY PHYSICIAN Within 3 to 5 days; [facility], Internal Medicine Within 3 to 5 days. Counseled: Patient, Family, Regarding diagnosis, Regarding treatment plan, Regarding pres (more content not included)... Normal [facility] ED Discharge Educationon ED Discharge Education Ear, Nose and Thr oat Swimmer's Ear: Care Instructions Your Care Instructions Swimmer's ear (otitis externa) is inflammation or infection of the ear canal. This is the passage that leads from the outer ear to the eardrum. Any water, sand, or other debris that gets into the ear canal and stays there can cause swimmer's ear. Putting cotton swabs or other items in the ear to clean it can also cause this problem. Swimmer's ear can be very painful. But you can treat the pain and infection with medicines. You should feel better in a few days. Follow-up care is a roberto part of your treatment and safety. Be sure to make and go to all appointments, and call your doctor if you are having problems. It's also a good idea to know your test results and keep a list of the medicines you take. How can you care for yourself at home? Cleaning and care ? Use antibiotic drops as your doctor directs. ? Do not insert ear drops (other than the antibiotic ear drops) or anything else into the ear unless your doctor has told you to. ? Avoid getting water in the ear until the problem clears up. Use cotton lightly coated with petroleum jelly as an earplug. Do not use plastic earplugs. ? Use a hair or beauty salon assistant set on low to carefully dry the ear after you shower. ? To ease ear pain, hold a warm washcloth against your ear. ? Take pain medicines exactly as directed. ? If the doctor gave you a prescription medicine for pain, take it as prescribed. ? If you are not taking a prescription pain medicine, ask your doctor if you can take an mblg-mfy-vzvheij medicine. Inserting ear drops ? Warm the drops to body temperature by rolling the container in your hands. Or you can place it in a cup of warm water for a few minutes. ? Lie down, with your ear facing up. ? Place drops inside the ear. Follow your doctor's instructions (or the directions on the label) for how many drops to use. Gently wiggle the outer ear or pull the ear up and back to help the drops get into the ear. ? It's important to keep the liquid in the ear canal for 3 to 5 minutes. When should you call for help? Call your doctor now or seek immediate medical care if: ? You have a new or higher fever. ? You have new or worse pain, swelling, warmth, or redness around or behind your ear. ? You have new or increasing pus or blood draining from your ear. Watch closely for changes in your health, and be sure to contact your doctor if: ? You are not getting better after 2 days (48 hours). Where can you learn more? Go to https://www.[employer]. net/patientEd Enter C706 in the search box to learn more about Swimmer's Ear: Care Instructions. Current as of: July 17, 2019 Content Version: 12.7 ? [employer]. Care instructions adapted under license by your healthcare professional. If you have questions about a medical condition or this instruction, always ask your healthcare professional. [employer] disclaims any warranty or liability for your use of this information. Normal [facility] ED Patient Summaryon 021 ED Patient Summary [facility] Emergency Department Discharge Instructions [address] [place] [address] \.br\(Patient Copy)\.br\ \.br\Name: MANUELMATT : 1970 \.br\Allergies: Zithromax\.br\Diagnosis : Diagnoses This Visit\.br\ Acute infective otitis externa (H60.399)\.br\ Ear pain ([id number])\.br\\.b r\\.br\ \.br\ Visit Date: 03/16/2021 12:13:26 \.br\ Current Date Time: 03/16/2021 14:17:21 \.br\Address: [address] [place] [address] \.br\ \.br\ \.br\Primary Care Provider: \.br\ Name: NO FAMILY PHYSICIAN, 837\.br\ Phone: \.br\ \.br\Emergency Department Care Providers: \.br\ Primary Physician: FLORIN NDIAYE MD \.br\ \.br\ \.br\\.br\Thank you for choosing [facility] for your emergency care. You are very important to us. Our goal is to demonstrate our high quality medical care, and provide you with a very good patient experience.\.br\\.br\Yo u may receive a survey about our service. Please take the time to complete the survey and return it so we can continue to enhance our service.\.br\\.br\Thank you again for allowing the [facility] Emergency Department to care for your medical needs. If you have questions about your care or follow up information please contact us at [phone].\.br\\.br\ Follow-Up Instructions\.br\ \.br\MATT HARRIS has been given these follow-up instructions:\.br\\.br\ \.br\With: Address: When: \.br\[facility], Internal Medicine [address] [place] [address]\.br\ Business (1) Within 3 to 5 days \.br\\.br\\.br\With: Address: When: \.br\[address] NO [facility]ILY PHYSICIAN Within 3 to 5 days \.br\\.br\\.br\\.br\\.b r\ Patient Education Materials\.br\ \.br\MATT TANG has been given the following patient education materials:\.br\\.br\Swi mmer's Ear: Care Instructions\.br\Your Care Instructions\.br\\.br\S jamie's ear (otitis externa) is inflammation or infection of the ear canal. This is the passage that leads from the outer ear to the eardrum. Any water, sand, or other debris that gets into the ear canal and stays there can cause swimmer's ear. Putting cotton swabs or other items in the ear to clean it can also cause this problem.\.br\Swimmer's ear can be very painful. But you can treat the pain and infection with medicines. You should feel better in a few days.\.br\Follow-up care is a roberto part of your treatment and safety. Be sure to make and go to all appointments, and call your doctor if you are having problems. It's also a good idea to know your test results and keep a list of the medicines you take.\.br\How can you care for yourself at home?\.br\Cleaning and care\.br\? Use antibiotic drops as your doctor directs.\.br\? Do not insert ear drops (other than the antibiotic ear drops) or anything else into the ear unless your doctor has told you to.\.br\? Avoid getting water in the ear until the problem clears up. Use cotton lightly coated with petroleum jelly as an earplug. Do not use plastic earplugs.\.br\?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 11-19-2024 History of Presen t illness Narrative New Patient Consultation requested by Dr. Paul Todd for an opinion regarding Rash. My final recommendations will be communicated back to the requesting physician by way of shared medical record or letter via US mail Chief Complaint: rash History of Present Ilness: Matt Manuel is a 54 year old male Patient is here for: - patient positive for MRSA as of 11/14/24 1) Rash Location: axilla, groin, abdomen Duration: about a year Symptoms: pain- burning, hot, wound, peeling, red, circular Current treatment: doxycycline, keflex, mupirocin Past treatment: biopsy at outside derm, hydrocortisone cream, amoxicillin - patient reports rash has cleared up since starting the antibiotics but still has spots left over ER took photos on 11/14, in get images Case Report Surgical Pathology Case: [id number] Authorizing Provider: Corin Renteria PA-C Collected: 11/13/2024 1500 Ordering Location: [facility] Laboratory Received: 11/15/2024 0937 Pathologist: Armond Donovan MD Specimen: DERM, Skin, PERIUMBILICAL SKIN 11/19/2024 1:05 PM EDT [facility] Final Diagnosis Skin, periumbilical, punch (DIF): Negative direct immunofluorescence Comment: Direct antibody localization demonstrates no evidence of immunoreactivity for immunoglobulins IgG, IgM, IgA, complement C3, or fibrinogen on sections of frozen skin. 11/19/2024 1:05 PM EDT [facility] at 1305 EDT Clinical Information Periumbilical skin punch biopsy for DIF, urticarial pink plaques, bullous pemphigoid versus psoriasis, L30.9. 11/19/2024 1:05 PM EDT [facility] Gross Description Received in a pink-topped container of Poly Transport solution labeled periumbilical skin is a 0.3 cm in diameter punch biopsy excised to a depth of 0.1 cm. The surface is jones and flat. The specimen is submitted for DIF processing. Pertinent Past Medical History: History of skin cancer or atypical nevi No Specialty Problems None Pertinent Family medical history: History of melanoma: Yes Mother Review of Systems: Constitutional: Denies fever, chills, night sweats, unintentional weight loss. Skin per HPI. No other new/concerning skin growth. Physical Exam: General: well appearing, of stated age, in no acute distress Neurology: alert and oriented times three Psychiatry: in a happy mood Skin: Sebastian skin type: II Skin exam performed of face, scalp, ears, eyelids, lips, neck, chest, abdomen, back, bilateral upper extremities, hands, fingers, fingernails, bilateral lower extremities, feet, toes, toenails. Skin exam normal with the exception of: - pink macules coalesced into patches b/l axillae, upper arms, lower abdomen/groin, no evidence of blistering or skin denudation today on exam - cystic nodules b/l axillae with scattered sinus tracts - erythematous macules, few with excoriation, some folliculocentric, on the lower legs Assessment and Plan: #Rash and nonspecific skin eruption, improved Medical Complexity: Undiagnosed new problem with uncertain prognosis - Given significant (~80-90%) improvement with oral and topical antibiotics, favor bullous impetigo over autoimmune blistering diseases, bullous tinea, etc. - Extend doxycyline 100 mg BID for two additional weeks given significant improvement and + MRSA swab - Extend cephalexin, reduce to BID for two additional weeks given significant improvement. - Continue mupirocin as previously prescribed. Refilled today - Given significant improvement with oral antibiotics as well as no new blisters, do not feel that this represents an autoimmune blistering disease, but discussed this with the patient - if this recurs or becomes persistent, potential biopsy for H&E and repeat DIF and blood testing may be indicated. #Folliculitis - legs Medical Complexity: Chronic, not at treatment goal - Discussed etiology and natural history. Advised the patient that this is a benign condition that may wax and wane and can be aggravated by friction and heat. - Can try applying mupirocin to affected areas on legs #Hidradenitis suppurativa - Deferred today, but discussed that we should revisit this in the future, this was not his clinical concern today but noted on examination as well. Return to clinic 1-2 months or sooner if something concerning arises. The documentation for this note was completed by Shy Max, RN acting as scribe for Yesi Mcdonough MD. November 18, 2024 9:39 AM. Shy Max RN The documentation for this note was completed by Gillian Beck acting as scribe for Yesi Mcdonough MD. November 19, 2024 4:16 PM. Ronna Salas MD Dermatology, PGY-4 Medical Decision Making: Problems: Moderate: 1+ chronic illnesses with change and New problem with uncertain prognosis Risk: Moderate: Drug management Medical Decision Making Level: 4 - Moderate I agree with the Chief Complaint, ROS, and Past Histories independently gathered by the clinical system support specialist and resident physician, and the remaining scribed note accurately describes my personal service to the patient. I was physically present during the critical/roberto portions of this encounter and during all procedures, and agree with the above evaluation, assessment, and treatment plan. I reviewed the patient's chart and discussed care with the patient and the other physicians involved. Yesi Mcdonough MD November 19, 2024 documented in this encounter [facility] Progress note 11-19-2024 Note Date & Type Note Facility 11-19-2024 Note HNO ID: [id number] Author: YESI MCDONOUGH MD Service: ? Author Type: Physician Type: Progress Notes Filed: 11/20/2024 22:42 Note Text: New Patient Consultation requested by Dr. Paul Todd for an opinion regarding Rash. My final recommendations will be communicated back to the requesting physician by way of shared medical record or letter via US mail Chief Complaint: rash History of Present Ilness: Matt Manuel is a 54 year old male Patient is here for: - patient positive for MRSA as of 11/14/24 1) Rash Location: axilla, groin, abdomen Duration: about a year Symptoms: pain- burning, hot, wound, peeling, red, circular Current treatment: doxycycline, keflex, mupirocin Past treatment: biopsy at outside derm, hydrocortisone cream, amoxicillin - patient reports rash has cleared up since starting the antibiotics but still has spots left over ER took photos on 11/14, in get images Case Report Surgical Pathology Case: [id number] Authorizing Provider: Corin Renteria PA-C Collected: 11/13/2024 1500 Ordering Location: [facility] Laboratory Received: 11/15/2024 0937 Pathologist: Armond Donovan MD Specimen: DERM, Skin, PERIUMBILICAL SKIN 11/19/2024 1:05 PM EDT [facility] Final Diagnosis Skin, periumbilical, punch (DIF): Negative direct immunofluorescence Comment: Direct antibody localization demonstrates no evidence of immunoreactivity for immunoglobulins IgG, IgM, IgA, complement C3, or fibrinogen on sections of frozen skin. 11/19/2024 1:05 PM EDT [facility] at 1305 EDT Clinical Information Periumbilical skin punch biopsy for DIF, urticarial pink plaques, bullous pemphigoid versus psoriasis, L30.9. 11/19/2024 1:05 PM EDT [facility] Gross Description Received in a pink-topped container of Poly Transport solution labeled periumbilical skin is a 0.3 cm in diameter punch biopsy excised to a depth of 0.1 cm. The surface is jones and flat. The specimen is submitted for DIF processing. Pertinent Past Medical History: History of skin cancer or atypical nevi No Specialty Problems None Pertinent Family medical history: History of melanoma: Yes Mother Review of Systems: Constitutional: Denies fever, chills, night sweats, unintentional weight loss. Skin per HPI. No other new/concerning skin growth. Physical Exam: General: well appearing, of stated age, in no acute distress Neurology: alert and oriented times three Psychiatry: in a happy mood Skin: Sebastian skin type: II Skin exam performed of face, scalp, ears, eyelids, lips, neck, chest, abdomen, back, bilateral upper extremities, hands, fingers, fingernails, bilateral lower extremities, feet, toes, toenails. Skin exam normal with the exception of: - pink macules coalesced into patches b/l axillae, upper arms, lower abdomen/groin, no evidence of blistering or skin denudation today on exam - cystic nodules b/l axillae with scattered sinus tracts - erythematous macules, few with excoriation, some folliculocentric, on the lower legs Assessment and Plan: #Rash and nonspecific skin eruption, improved Medical Complexity: Undiagnosed new problem with uncertain prognosis - Given significant (~80-90%) improvement with oral and topical antibiotics, favor bullous impetigo over autoimmune blistering diseases, bullous tinea, etc. - Extend doxycyline 100 mg BID for two additional weeks given significant improvement and + MRSA swab - Extend cephalexin, reduce to BID for two additional weeks given significant improvement. - Continue mupirocin as previously prescribed. Refilled today - Given significant improvement with oral antibiotics as well as no new blisters, do not feel that this represents an autoimmune blistering disease, but discussed this with the patient - if this recurs or becomes persistent, potential biopsy for NOBLE and repeat DIF and blood testing may be indicated. #Folliculitis - legs Medical Complexity: Chronic, not at treatment goal - Discussed etiology and natural history. Advised the patient that this is a benign condition that may wax and wane and can be aggravated by friction and heat. - Can try applying mupirocin to affected areas on legs #Hidradenitis suppurativa - Deferred today, but discussed that we should revisit this in the future, this was not his clinical concern today but noted on examination as well. Return to clinic 1-2 months or sooner if something concerning arises. The documentation for this note was completed by Shy Max RN acting as scribe for Yesi Mcdonough MD. November 18, 2024 9:39 AM. Shy Max RN The documentation for this note was completed by Gillian Beck acting as scribe for Yesi Mcdonough MD. November 19, 2024 4:16 PM. Ronna Salas MD Dermatology, PGY-4 Medical Decision Making: Problems: Moderate: 1+ chronic illnesses with change and New problem with uncertain p (more content not included)... [facility] Progress note 11-01-2024 Note Date & Type Note Facility 11-01-2024 Note HNO ID: [id number] Author: DEMETRIS MEDLEY RT(R) Service: Radiology Author Type: Technologist Type: Progress Notes Filed: 11/01/2024 03:47 Note Text: Radiology Service Progress Note PATIENT NAME: Matt Manuel DATE OF SERVICE: November 01, 2024 TIME: 3:46 AM PATIENT IDENTITY VERIFICATION COMPLETED USING TWO (2) IDENTIFIERS: Name and Date of confirmed by patient verbally. FALL SCREENING: Has the patient had 2 falls in the last year or 1 fall with injury or currently using an Ambulatory Assistive Device (Walker, Cane, Wheelchair, Crutches, etc.)? Emergency Room Patient: Screened in ED PATIENT GENDER DATA: Assigned male at PATIENT RELEVANT IMPLANT DATA REVIEWED: Not Applicable PATIENT PRESENTS WITH AN IMPLANTABLE OR ATTACHED PULP BEATER: No RADIOLOGY DEPARTMENT: General X-ray: Exam(s) Completed: Lower Extremity X-Ray(s): Knee, AP / LAT Left PERIPHERAL IV DATA: Not applicable SIGNED BY: RT Francheska(Jak) November 01, 2024 3:46 AM [facility] Progress note 11-01-2024 Note Date & Type Note Facility 11-01-2024 Note HNO ID: [id number] Author: DEMETRIS MEDLEY RT(Jak) Service: Radiology Author Type: Technologist Type: Progress Notes Filed: 11/01/2024 03:19 Note Text: Radiology Service Progress Note PATIENT NAME: Matt Manuel DATE OF SERVICE: November 01, 2024 TIME: 3:19 AM PATIENT IDENTITY VERIFICATION COMPLETED USING TWO (2) IDENTIFIERS: Name and Date of confirmed by patient verbally. FALL SCREENING: Has the patient had 2 falls in the last year or 1 fall with injury or currently using an Ambulatory Assistive Device (Walker, Cane, Wheelchair, Crutches, etc.)? Emergency Room Patient: Screened in ED PATIENT GENDER DATA: Assigned male at PATIENT RELEVANT IMPLANT DATA REVIEWED: Not Applicable PATIENT PRESENTS WITH AN IMPLANTABLE OR ATTACHED PULP BEATER: No RADIOLOGY DEPARTMENT: General X-ray: Exam(s) Completed: Pelvis X-Ray: Pelvis with Hip Left PERIPHERAL IV DATA: Not applicable SIGNED BY: RT Francheska(Jak) November 01, 2024 3:19 AM [facility] Evaluation note Note Date & Type Note Facility Evaluation note No assessment information [facility] Work Phone: Evaluation note Note Date & Type Note Facility Evaluation note Diagnosis Blistering rash- Primary Rash and other nonspecific skin eruption Rash and nonspecific skin eruption Rash and other nonspecific skin eruption Hidradenitis suppurativa Hidradenitis Folliculitis Other specified disease of hair and hair follicles Bullous impetigo Impetigo documented in this encounter [facility] Summary Purpose Family History No Family History Records Found Relationship Condition Age at Onset Recorded Date/T negrito mother Diabetes mellitus Unknown Coronary artery disease Unknown Cerebrovascular accident (CVA) Unknown Myocardial infarction 35 father Coronary artery disease Unknown Diabetes mellitus Unknown Advance Directives No Advanced Directives Records Found Advance Directive Response Recorded Date/ Time Advance Directives No January 22, 2014 11:32pm Living Will No November 20 5:01am Power of Machine Ii Coremaker No November 20 021 5:01am Chief Complaint and Reason for Visit Chief Complaint MASS LUMP Additional Source Comments (unrecognized sect ion and content) No Status Records FoundNo Status Records FoundNo Status Records FoundNo Status Records FoundNo Status Records FoundNo Status Records FoundNo Status Records Found INFORMATION SOURCE (unrecogn ized section and content) DATE CREATED AUTHOR 09/25/2017 [employer] DATE CREATED AUTHOR AUTHOR'S ORGANIZ ATION 09/26/2017 [facility] DATE CREATED AUTHOR AUTHOR'S ORGANIZ ATION 03/18/2021 [facility] DATE CREATED AUTHOR AUTHOR'S ORGANIZ ATION 11/17/2024 [facility] DATE CREATED AUTHOR AUTHOR'S ORGANIZ ATION 11/23/2024 [facility] DATE CREATED AUTHOR AUTHOR'S ORGANIZ ATION 01/08/2025 [facility] DATE CREATED AUTHOR AUTHOR'S ORGANIZ ATION 02/11/2025 [facility] Goals (unrecognized section and content) Goals may be documented in a n alternate sectionGoals may be documented in an alternate sectionGoals may be documented in an alternate section Care Teams (unrecognized sec tion and content) Team Status: Active Member Role Status Dates No Primary Care Physician Family Provider Active Amanda Mullins DO Primary Care Provider Active Team Status: Inactive Member Role Status Dates Amanda Mullins DO Primary Care Provider, Attending Provider Active 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 Relationship Specialty Start Date End Date Diego Guerrero DO [address] [address] PCP - General Family Medicine 09/13/20 Source Comments (unrecognize d section and content) In the event this informatio n is protected by the Federal Confidentiality of Alcohol and Drug Abuse Patient Records regulations: The Federal rules restrict any use of the information to criminally investigate or prosecute any alcohol or drug abuse patient.[facility] Reason for Visit (unrecogniz ed section and content) Reason Comments Rash Follow Up FOR RECORDS PERTAINING TO PATIENTS WHO ARE OR HAVE BEEN ENROLLED IN A CHEMICAL DEPENDENCY/SUBSTANCEABUSE PROGRAM, SOME INFORMATION MAY BE OMITTED. This clinical summary was aggregated from multiple sources. Caution should be exercised in using it in the provision of clinical care. This summary normalizes information from multiple sources, and as a consequence, information in this document may materially change the coding, format and clinical context of patient data. In addition, data may be omitted in some cases. CLINICAL DECISIONS SHOULD BE BASED ON THE PRIMARY CLINICAL RECORDS. [employer] provides no warranty or guarantee of the accuracy or completeness of information in this document.
--- NOTE | 2025-02-28 18:34 | CT_ITS ---
PROCEDURE: LOW DOSE CT LUNG SCREENING 02/28/2025 REASON FOR EXAM: SMOKER TECHNIQUE: Procedure Code: [id number] Modality: CT Procedure: LOW DOSE CT LUNG SCREENING Coronal and Sagittal reconstruction series were provided. One or more dose reduction techniques were used (e.g., Automated exposure control, adjustment of the mA and/or kV according to patient size, use of iterative reconstruction technique). REFERENCE LINK: [employer] Lung-RADS RADIATION DOSE SUMMARY: CTDlvol: 4.02 MGy DLP: 149.49 MGycm COMPARISON: None FINDINGS: LUNGS AND LARGE AIRWAYS: A 3 mm middle lobe fissural based nodule is seen in series 2 image 120. A 2 mm left upper lung lobe subpleural nodule is also seen in series 2 image 93. No pulmonary masses noted. No ground-glass opacities or consolidation are seen. Lingula streaky opacities are seen that may reflect subsegmental atelectasis and/or lungs scarring. PLEURA: Unremarkable. No pleural effusion or thickening. HEART AND PERICARDIUM: The heart size is normal. There is no pericardial effusion. VESSELS: Scattered coronary arteries atherosclerotic calcifications. The thoracic aorta is nondilated. The pulmonary trunk is also of normal size. MEDIASTINUM AND TYO: There is no pathologically enlarged mediastinal or hilar adenopathy. BONES: No suspicious lytic or blastic abnormality observed. Thoracic spondylosis. ABDOMEN: Limited noncontrast evaluation demonstrates no gross abnormalities. CT/Low Dose CT Lung Screening IMPRESSION: Few small bilateral solid pulmonary nodules. Lung-RADS 2, recommend continued annual screening. Reading [facility] [address]
== END | disposition home or self-care (01) ==
DX: F17.200 Nicotine dependence, unspecified, uncomplicated (principal)
CPT/HCPCS: 71271